=== PATIENT | female | born 1965 | race Caucasian/White ===

== ENCOUNTER 2017-03-16 12:50 | Inpatient (IN) | payer MEDICARE, MEDICAID ==
[2017-03-16 13:25] LABS: HEMATOCRIT 35.2 % (41.0-60); HEMOGLOBIN 11.9 gm/dL (12-16); MEAN CELL VOLUME 82.8 fl (81-100); MEAN CORPUSCULAR HEMOGLOBIN 27.9 pg (27.0-31.0); MEAN CORPUSCULAR HGB CONC 33.7 pg (28.0-36.0); MEAN PLATELET VOLUME 7.9 fl; PLATELET COUNT 176 Th/cmm (150-400); RED BLOOD COUNT 4.25 Mil/cmm (3.80-5.10)
[2017-03-16 13:34] LABS: WHITE BLOOD COUNT 15.8 Th/cmm (4.8-10.8)
[2017-03-16 13:44] LABS: ALB/GLOB RATIO 1.4 (1.0-1.8); ALKALINE PHOSPHATASE 74 U/L (34-104); ANION GAP 11.3 (7.0-16.0); BILIRUBIN,TOTAL 0.8 mg/dL (0.3-1.0); BUN - UREA NITROGEN 12 mg/dL (7-25); CALCIUM SERUM 9.2 mg/dL (8.6-10.3); CARBON DIOXIDE 25.4 mEq/L (21.0-31.0); CHLORIDE 94 mEq/L (98-107); CREATININE - SERUM 0.8 mg/dL (0.6-1.2); GLUCOSE 214 mg/dL (70-105); POTASSIUM SERUM 3.7 mEq/L (3.5-5.1); SGOT 8 U/L (13-39); SGPT/ALT 7 U/L (7-52); SODIUM SERUM 127 mEq/L (136-145)
--- NOTE | 2017-03-16 13:53 | ED Physician Chart ---
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 The patient was brought to the ER for further evaluation and management. Allergies:: Allergies Allergy/AdvReac Type Severity Reaction Status Date / Time Penicillins [PCN] Allergy Verified 10/21/16 19:31 Vitals:: Vital Signs - 8 hr 03/16/17 13:20 Temp 99.2 F HR 107 RR 16 BP 108/72 O2 Sat % 99 ED Review of Systems - Review of Systems General/Constitutional: Fever Skin: Skin lesions Head: No headache Eyes: No loss of vision ENT: No earache Neck: No neck pain Cardio Vascular: No chest pain Pulmonary: No SOB GI: No nausea, No vomiting Musculoskeletal: Bone or joint pain ED Past Medical History - Past Medical History Past Medical History: DM, Seizures, Other (Schizoaffective disorder, muscle weakness, hypothyroidism, osteoarthritis, urinary incontinence) Social History: Non Smoker, No Alcohol, No Drug Use Family Medical History - Family Member Mother History Unknown: Yes Ethnicity: Unknown Living Status: Still Living Hx Family Cancer: No Hx Family Coronary Artery Disease: No Hx Family Congestive Heart Failure: No Hx Family Hypertension: Yes Hx Family Stroke: No Hx Family Diabetes: No Hx Family Seizures: Yes Hx Family Dementia: No Hx Family AIDS: No Hx Family HIV: No Hx Family COPD: No Hx Family Hepatitis: No Hx Family Psychiatric Problems: Yes Hx Family Tuberculosis: No Father History Unknown: Yes ED Physical Exam - Physical Examination General/Constitutional: Awake, Alert Other Gen/Cons comments:: Oriented to self and place, not time Eyes: PERRL, EOMI Other Skin comments:: Left knee tenderness, erythema, swelling. Neck: Full ROM w/o pain Respiratory: Clear to Auscultation, No Wheeze/Rhonchi/Rales Cardio Vascular: RRR, No murmur, gallop, rubs, NL S1 S2 GI: No tenderness/rebounding/guarding Other Extremities comments:: Left knee suprapatellar tenderness, erythema, swelling with limited and painful ROM. There are 2 small dried scabs on the suprapatellar area. Neuro/Psych: Normal sensory exam ED Labs/Radiology/EKG Results - Lab Results Results: Laboratory Tests 03/16/17 13:10 WBC 15.8 H D RBC 4.25 Hgb 11.9 L Hct 35.2 L MCV 82.8 MCH 27.9 MCHC Differential 33.7 RDW 15.0 Plt Count 176 D MPV 7.9 - Radiology Results Results: Left knee X ray: No fracture ED Assessment - Assessment General Assessment: 51 yo female has cellulites of the left knee, leukocytosis, hyponatremia, DM II , hypothyroidism and schizoaffective disorder. Critical Care Time: 45 min Excludes all billable procedures: Yes This condition life threatening/high prob of deterioration: No Assessment/Comments:: CBC, CMP, blood culture Left knee X ray to rule out any fracture ED Septic Shock - . Is Septic Shock (SBP<90, OR Lactate>4 mmol\L) present?: No - <6hrs of presentation: Vital Signs: Vital Signs - 8 hr 03/16/17 13:20 Temp 99.2 F HR 107 RR 16 BP 108/72 O2 Sat % 99 ED Reassessment (Disposition) - Reassessment Reassessment Condition:: Unchanged - Patient Disposition Discharge/Transfer:: Acute Care w/in this hosp Admitting Psych Physician:: Jamir Russell ED Discharge Plan - Patient Disposition Admit/Discharge/Transfer: Acute Care w/in this hosp Condition at Disposition: Unchanged
--- NOTE | 2017-03-16 14:05 | Diagnostic Imaging Report ---
Left knee 3 views Indication: pain Comparison: Left knee x-rays on 05/24/2015 Findings: Again seen are calcifications along the medial aspect of the distal femur and proximal tibia. No evidence of acute fracture. Osteopenia is noted. Suprapatellar and prepatellar soft tissue swelling is noted. Note significant effusion. Mild degenerative changes are noted. Impression: No evidence of an acute fracture. Suprapatellar and prepatellar soft tissue swelling. Underlying bursitis cannot be excluded. Please correlate clinically. Mild degenerative changes. Atherosclerotic vascular disease. In the setting of trauma, if clinical symptoms persist and there is continued concern for an occult fracture, follow up exams in 5-7 days is suggested.
[2017-03-16 14:12] LABS: BAND NEUTROPHILE 4 % (0-10); BASOPHIL 1 % (0-3); EOSINOPHIL 0 % (0-5); NEUTROPHILS 87 % (40-80); PLATELET ESTIMATE ADEQUATE (NORMAL); PLATELET MORPHOLOGY NORMAL (NORMAL); TOTAL CELLS COUNTED 100
[2017-03-16] MEDS ORDERED: GLUCAGON HCl 1 MG KIT IM PRN (14:51)
[2017-03-16] MEDS ORDERED: guaiFENesin 200 MG/10 ML UDC PO PRN (14:53)
[2017-03-16] MEDS ORDERED: Albuterol Nebulizer 2.5mg/3mL HHN PRN (14:53)
[2017-03-16] MEDS ORDERED: Ipratropium Neb 0.5 mg/2.5 mL UD IH PRN (14:53)
--- NOTE | 2017-03-16 16:45 | History & Physical ---
ADMIT DATE: 03/16/2017 CHIEF COMPLAINT: Left knee pain status post fall. HISTORY OF PRESENT ILLNESS: This is a 51-year-old female with history of diabetes, Schizoaffective disorder, seizure, hypothyroidism, and apparently had a fall a few days prior, now with left knee with redness. The patient is a poor historian. Denies chest pain, shortness of breath. PAST MEDICAL HISTORY: As mentioned in history present illness. PAST SURGICAL HISTORY: Status post left knee surgeries the past. ALLERGIES: PENICILLIN. MEDICATIONS: The patient is on insulin sliding scale, multivitamins, calcium, Depakote, Aricept, Pepcid, Haldol, hydrocodone, Keppra, Synthroid. For multivitamins, Zyprexa, Depakote. FAMILY HISTORY: Noncontributory. SOCIAL HISTORY: The patient is a long-term patient requiring 24-hour total care. REVIEW OF SYSTEMS: This is limited secondary to the patient's current mental state. We will try to obtain more detailed review of system at a later date by talking to family members. Dad is Deborah Berumenluigi. [facility] [phone]. We will also try to get information from nursing staff at [facility] at [phone]. PHYSICAL EXAMINATION: VITAL SIGNS: Blood pressure 118/63, respirations 18, pulse 102, temperature 99.0. GENERAL: Elderly female, appears her stated age. NECK: Supple. No mass. LUNGS: Equal breath sounds, few rhonchi. HEART: Regular rate and rhythm without appreciable murmurs. ABDOMEN: Soft, globular, positive bowel sounds. EXTREMITIES: Positive excoriation left knee, redness and swelling. NEUROLOGIC: Limited, moving 4 extremities. LABORATORY DATA: WBC of 15, hemoglobin 11, platelets is 176. Sodium 127, potassium 3.7, BUN 12, creatinine 0.8, blood sugar 214. Lactic acid 2.9. ASSESSMENT AND PLAN: Left knee cellulitis, leukocytosis, anemia, hyponatremia, lactic acidosis, diabetes, schizoaffective disorder, seizure, and hypothyroidism. I will continue the patient on IV antibiotic and IV hydration. We will review the patient's x-ray. We may consider imaging studies. We will place the patient on Levaquin as well as vancomycin for now. The patient will continue with current care and follow up consult recommendations. JOB# [id number]
[2017-03-16] MEDS: Sodium Chloride 0.45% 1,000 ML IV SCH (16:56)
[2017-03-16] MEDS: Levofloxacin 500mg/100mL 500 MG/100 ML BAG IV SCH (17:10)
[2017-03-16] MEDS: Dextromethorphan/Quinidine 20mg/10mg Cap PO SCH (17:16)
[2017-03-16] MEDS: INSULIN ASPART, RECOMBINANT 100 UNITS/ML SUBQ SCH ×2 (17:20→21:57)
[2017-03-16] MEDS ORDERED: Non-Formulary Item 1 EA (Amino Acids/Protein Hydrolys [Pro-Stat Sugar Free Liquid] 30 ML) PO SCH (21:00)
[2017-03-17] MEDS: Hydrocodone/APAP 5mg/325mg Tab PO PRN ×2 (02:24→20:01)
[2017-03-17] MEDS: Dextromethorphan/Quinidine 20mg/10mg Cap PO SCH ×2 (02:24→15:05)
[2017-03-17 06:10] LABS: % BASOPHILS 0.2 % (0.0-2.0); % EOSINOPHILS 0.3 % (0.0-5.0); % LYMPHOCYTES 11.4 % (20.0-50.0); % MONOCYTES 6.7 % (2.0-10.0); % NEUTROPHILS 81.4 % (40.0-80.0); HEMATOCRIT 31.8 % (41.0-60); HEMOGLOBIN 10.8 gm/dL (12-16); MEAN CORPUSCULAR HEMOGLOBIN 28.2 pg (27.0-31.0); MEAN CORPUSCULAR HGB CONC 33.9 pg (28.0-36.0); MEAN PLATELET VOLUME 8.2 fl; NEUTROPHILE ABSOLUTE 7.2 Th/cmm (1.8-8.0); PLATELET COUNT 148 Th/cmm (150-400); RED BLOOD COUNT 3.83 Mil/cmm (3.80-5.10); RED CELL DISTRIBUTION WIDTH 14.8 % (11.5-20.0)
[2017-03-17 06:16] LABS: WHITE BLOOD COUNT 8.8 Th/cmm (4.8-10.8)
[2017-03-17 06:27] LABS: BUN - UREA NITROGEN 11 mg/dL (7-25); BUN/CREATININE RATIO 15.7; CALCIUM SERUM 8.8 mg/dL (8.6-10.3); CARBON DIOXIDE 28.8 mEq/L (21.0-31.0); CHLORIDE 101 mEq/L (98-107); CREATININE - SERUM 0.7 mg/dL (0.6-1.2); GLUCOSE 140 mg/dL (70-105); MAGNESIUM 1.8 mg/dL (1.9-2.7); POTASSIUM SERUM 3.8 mEq/L (3.5-5.1); SODIUM SERUM 134 mEq/L (136-145)
[2017-03-17] MEDS: Sodium Chloride 0.45% 1,000 ML IV SCH ×2 (06:35→15:06)
[2017-03-17] MEDS: INSULIN ASPART, RECOMBINANT 100 UNITS/ML SUBQ SCH ×2 (06:36→22:12)
[2017-03-17] MEDS: Levothyroxine 0.075 Mg Tab PO SCH (06:36)
[2017-03-17] MEDS: Levofloxacin 500mg/100mL 500 MG/100 ML BAG IV SCH (09:34)
[2017-03-17] MEDS: Multivitamin Tab PO SCH (09:41)
[2017-03-17] MEDS ORDERED: Mag Sulfate 2gm/50mL Premix 2 GM/50 ML BAG IV ONE (14:00)
--- NOTE | 2017-03-17 14:03 | Internal Medicine Prog Note ---
Internal Medicine Subjective - Subjective Service Date: 03/17/17 (on tpn) Patient seen and examined:: with staff Patient is:: awake Per staff patient has:: tolerating meds Internal Medicine Objective - Results Result Diagrams: 03/17/17 05:45 03/17/17 05:45 Recent Labs: Laboratory Last Values WBC 8.8 Th/cmm (4.8-10.8) D 03/17/17 05:45 RBC 3.83 Mil/cmm (3.80-5.10) 03/17/17 05:45 Hgb 10.8 gm/dL (12-16) L 03/17/17 05:45 Hct 31.8 % (41.0-60) L 03/17/17 05:45 MCV 83.0 fl (81-100) 03/17/17 05:45 MCH 28.2 pg (27.0-31.0) 03/17/17 05:45 MCHC Differential 33.9 pg (28.0-36.0) 03/17/17 05:45 RDW 14.8 % (11.5-20.0) 03/17/17 05:45 Plt Count 148 Th/cmm (150-400) L 03/17/17 05:45 MPV 8.2 fl 03/17/17 05:45 Neutrophils % 81.4 % (40.0-80.0) H 03/17/17 05:45 Band Neutrophils % 4 % (0-10) 03/16/17 13:10 Lymphocytes % 11.4 % (20.0-50.0) L 03/17/17 05:45 Monocytes % 6.7 % (2.0-10.0) 03/17/17 05:45 Eosinophils % 0.3 % (0.0-5.0) 03/17/17 05:45 Basophils % 0.2 % (0.0-2.0) 03/17/17 05:45 Neutrophils (Manual) 87 % (40-80) H 03/16/17 13:10 Lymphocytes 4 % (20-50) L 03/16/17 13:10 Monocytes 4 % (2-10) 03/16/17 13:10 Eosinophils 0 % (0-5) 03/16/17 13:10 Basophils 1 % (0-3) 03/16/17 13:10 Platelet Estimate ADEQUATE (NORMAL) 03/16/17 13:10 Platelet Morphology NORMAL (NORMAL) 03/16/17 13:10 RBC Morph Micro Appear NORMAL (NORMAL) 03/16/17 13:10 ESR 95 mm/hr (0-30) H 03/17/17 05:45 Sodium 134 mEq/L (136-145) L 03/17/17 05:45 Potassium 3.8 mEq/L (3.5-5.1) 03/17/17 05:45 Chloride 101 mEq/L (98-107) 03/17/17 05:45 Carbon Dioxide 28.8 mEq/L (21.0-31.0) 03/17/17 05:45 Anion Gap 8.0 (7.0-16.0) 03/17/17 05:45 BUN 11 mg/dL (7-25) 03/17/17 05:45 Creatinine 0.7 mg/dL (0.6-1.2) 03/17/17 05:45 Est GFR ( Amer) > 60.0 ml/min (>90) 03/17/17 05:45 Est GFR (Non-Af Amer) > 60.0 ml/min 03/17/17 05:45 BUN/Creatinine Ratio 15.7 03/17/17 05:45 Glucose 140 mg/dL (70-105) H 03/17/17 05:45 POC Glucose 170 MG/DL (70 - 105) H 03/17/17 11:56 Hemoglobin A1c % 6.1 % (4.0-6.0) H 03/16/17 13:10 Whole Bld Lactic Acid 1.87 mmol/L (0.60-1.99) 03/16/17 15:15 Calcium 8.8 mg/dL (8.6-10.3) 03/17/17 05:45 Magnesium 1.8 mg/dL (1.9-2.7) L 03/17/17 05:45 Total Bilirubin 0.8 mg/dL (0.3-1.0) 03/16/17 13:10 AST 8 U/L (13-39) L 03/16/17 13:10 ALT 7 U/L (7-52) 03/16/17 13:10 Alkaline Phosphatase 74 U/L (34-104) 03/16/17 13:10 Total Protein 6.8 gm/dL (6.0-8.3) 03/16/17 13:10 Albumin 4.0 gm/dL (3.7-5.3) 03/16/17 13:10 Globulin 2.8 gm/dL 03/16/17 13:10 Albumin/Globulin Ratio 1.4 (1.0-1.8) 03/16/17 13:10 - Physical Exam Vitals and I&O: Vital Signs Temp 98.7 F 03/17/17 04:00 Pulse 120 03/17/17 08:25 Resp 22 03/17/17 08:25 BP 125/70 03/17/17 04:00 Pulse Ox 96 03/17/17 08:25 Intake & Output 03/16/17 03/17/17 03/17/17 18:59 06:59 18:59 Intake Total 100 1250 Balance 100 1250 Weight (lbs) 113 lb Intake: Intake, IV Amount 100 1250 Levofloxacin 500mg/100mL 100 500 mg In 100 ml @ 100 mls/hr IV Q24HR@0900 [facility] Rx#:[id number] Sodium Chloride 0.45% 1, 1000 000 ml @ 80 mls/hr IV . [id number] [facility] Rx#:[id number] Vancomycin HCl 1 gm In 250 Sodium Chloride 0.9% 250 ml @ 166.667 mls/hr IV Q24HR@0900 [facility] Rx#: [id number] Other: # Voids 5 # Bowel Movements 0 Active Medications: Current Medications Acetaminophen (Tylenol) 650 mg PO Q4H PRN PRN Reason: Mild Pain Or Fever above 101 Stop: 05/15/17 14:52 Acetaminophen/Hydrocodone Bitart ([place] 5mg/325mg) 1 tab PO Q6HR PRN PRN Reason: Pain (Moderate) Stop: 05/15/17 14:50 Last Admin: 03/17/17 02:24 Dose: 1 tab Albuterol Sulfate (Albuterol 2.5mg/3ml Neb Ud) 2.5 mg HHN Q2HRT PRN PRN Reason: Shortness of Breath or Wheeze Stop: 05/15/17 14:52 Calcium Carbonate (Os-Neil) 500 mg PO [facility] Stop: 05/15/17 20:59 Last Admin: 03/16/17 20:55 Dose: 500 mg Dextromethorphan/Quinidine (Nuedexta 20mg-10mg) 1 cap PO Q12H DIANA Stop: 05/15/17 14:59 Last Admin: 03/17/17 02:24 Dose: 1 cap Divalproex Sodium (Depakote Dr) 500 mg PO BID DIANA PRN Reason: Protocol Stop: 05/15/17 16:59 Last Admin: 03/17/17 09:30 Dose: 500 mg Donepezil HCl (Aricept) 5 mg PO HS DIANA Stop: 05/15/17 20:59 Last Admin: 03/16/17 20:57 Dose: 5 mg Famotidine (Pepcid) 20 mg PO DAILY DIANA Stop: 05/16/17 08:59 Last Admin: 03/17/17 09:31 Dose: 20 mg Glucagon (Glucagen) 1 mg IM PRN PRN PRN Reason: BS <60 Guaifenesin (Robitussin) 200 mg PO Q4HR PRN PRN Reason: Cough or Congestion Stop: 05/15/17 14:52 Haloperidol (Haldol) 5 mg PO BID DIANA PRN Reason: Protocol Stop: 05/16/17 16:59 Heparin Sodium (Porcine) (Heparin) 5,000 units SUBQ Q12HR DIANA Stop: 05/15/17 20:59 Last Admin: 03/17/17 09:32 Dose: 5,000 units Levofloxacin (Levaquin Pb) 500 mg in 100 mls @ 100 mls/hr IV Q24HR@0900 [facility] Stop: 05/15/17 15:59 Last Admin: 03/17/17 09:34 Dose: 100 mls/hr Sodium Chloride (Nacl 0.45%) 1,000 mls @ 80 mls/hr IV .[id number] [facility] Stop: 05/15/17 14:59 Last Admin: 03/17/17 06:35 Dose: 80 mls/hr Vancomycin HCl 1 gm/ Sodium (Chloride) 250 mls @ 166.667 mls/hr IV Q24HR@0900 DIANA Stop: 05/15/17 15:59 Last Admin: 03/17/17 10:02 Dose: 166.667 mls/hr Magnesium Sulfate (Magnesium Sulfate Premix) 2 gm in 50 mls @ 25 mls/hr IV X1 ONE Stop: 03/17/17 15:59 Insulin Aspart (Novolog) 0 units SUBQ ACHS DIANA PRN Reason: Protocol Stop: 05/15/17 16:29 Last Admin: 03/17/17 06:36 Dose: Not Given Ipratropium [place] (Atrovent Neb 0.5mg/2.5ml) 0.5 mg IH Q2HRT PRN PRN Reason: Shortness of Breath or Wheeze Stop: 05/15/17 14:52 Levetiracetam (Keppra) 500 mg PO BID DIANA Stop: 05/15/17 16:59 Last Admin: 03/17/17 09:33 Dose: 500 mg Levothyroxine Sodium (Synthroid) 0.075 mg PO QDAC DIANA Stop: 05/16/17 07:29 Last Admin: 03/17/17 06:36 Dose: 0.075 mg Lorazepam (Ativan) 0.5 mg PO Q6HR PRN; Protocol PRN Reason: Anxiety Stop: 05/15/17 14:50 Last Admin: 03/17/17 10:01 Dose: 0.5 mg Metformin HCl (Glucophage) 500 mg PO TID DIANA Stop: 05/15/17 20:59 Last Admin: 03/17/17 10:14 Dose: 500 mg Miscellaneous (Vancomycin Iv Per Pharmacy) 1 ea [facility] DAILY DIANA Stop: 05/17/17 08:59 Multivitamins/Vitamin C (Theragran) 1 tab PO DAILY DIANA Stop: 05/16/17 08:59 Last Admin: 03/17/17 09:41 Dose: 1 tab Olanzapine (Zyprexa) 5 mg PO DAILY DIANA PRN Reason: Protocol Stop: 05/16/17 08:59 Last Admin: 03/17/17 09:43 Dose: 5 mg Ondansetron HCl (Zofran) 4 mg IV Q8H PRN PRN Reason: Nausea / Vomiting Stop: 05/15/17 14:52 Valproate Sodium (Depakene) 750 mg PO HS DIANA Stop: 05/15/17 20:59 Last Admin: 03/16/17 20:55 Dose: 750 mg General: weak, alert HEENT: NC/AT, PERRLA Lungs: CTAB Cardiovascular: RRR, Normal S1, Normal S2, without murmur Abdomen: soft, non-tender, non-distended, positive bowel sound Extremities: redness (left knee) Neurological: muscle weakness - Procedures Procedures: Procedures Procedure Code Date BLOOD TRANSFUSION SERVICE 70704 03/29/16 CLOSURE SKIN & SUBCUTANEOUS NEC 86.59 07/02/14 DIAGNOSTIC COLONOSCOPY 10668 09/13/15 DRAINAGE OF STOMACH, ENDO, DIAGN [id number] 09/13/15 EGD BIOPSY SINGLE/MULTIPLE 64226 09/13/15 ELECTROCARDIOGRAM 89.52 10/10/94 EMERGENCY DEPT VISIT 94683 07/04/11 EXCISION OF DUODENUM, ENDO, DIAGN [id number] 09/13/15 GASTRIC INTUBATION TREATMENT 40445 12/28/07 GASTRIC LAVAGE 96.33 12/28/07 INSERT GASTRIC TUBE NEC 96.07 07/26/95 INSERT INDWELLING CATH 57.94 09/16/11 INSERT TEMP BLADDER CATH 49415 09/16/11 INSERTION OF INT FIX INTO L HUMERAL SHAFT, PERC APPROACH [id number] 05/24/15 INSPECTION OF LOWER INTESTINAL TRACT, ENDO [id number] 09/13/15 OXYGEN ENRICHMENT NEC 93.96 10/10/94 REMOV THERAPEUT DEV NEC 97.89 03/25/01 REMOVAL OF INT FIX FROM R KNEE JT, OPEN APPROACH [id number] 04/15/16 REPAIR FACE SKIN, EXTERNAL APPROACH [id number] 04/12/15 REPOSITION RIGHT PATELLA WITH INT FIX, OPEN APPROACH [id number] 03/29/16 RPR F/E/E/N/L/M 2.5 CM/< 11894 04/12/15 RPR F/E/E/N/L/M 2.6-5.0 CM 35198 07/02/14 TETANUS TOXOID ADMINIST 99.38 07/02/14 TRANSFUSE NONAUT RED BLOOD CELLS IN PERIPH VEIN, PERC 15628H2 03/29/16 TREAT KNEECAP FRACTURE 04490 03/29/16 UPPER ARM/ELBOW SURGERY 12158 05/24/15 Internal Medicine Assmt/Plan - Assessment Assessment: left knee cellulitis leukocytosis anemia hyponatremia lactic acidosis dm-2 schizoaffective disorder seizure hypothyroidism - Plan Plan: continue ivabx continue with tpn ivf for hydration monitor electrolytes am labs continue current plan of care
--- NOTE | 2017-03-17 19:16 | Consultation ---
DATE OF CONSULTATION: 03/17/2017 PSYCHIATRIC CONSULTATION The patient was seen, chart reviewed, discussed with staff. HISTORY OF PRESENT ILLNESS: The patient is a 51-year-old female with a history of dementia, psychosis and schizoaffective disorder, currently admitted to the hospital with cellulitis. The patient has been passively accepting treatment, but at times she has some episodes of restlessness and she is trying to scratch her cellulitis side on her lower extremity. The patient is oriented to person, knew she was in the hospital, but she at times refusing to follow commands. PAST PSYCHIATRIC HISTORY: Multiple psychiatric hospitalizations, chronic history of mental illness and dementia. PAST MEDICAL HISTORY: As per H and P. PSYCHOSOCIAL HISTORY: The patient resides at [facility], and she requires complete care. Family is supportive. Father visits often. MENTAL STATUS EXAMINATION: The patient is slightly lethargic at this time, makes fair eye contact. She is oriented to person, knew she is in the hospital, did not know the date, did not know her age. The patient slightly guarded. No other hallucinations. The patient is superficial with poverty of thoughts. ASSESSMENT: Schizoaffective disorder and dementia, not otherwise specified. At this time, would recommend continuation of supportive measures. We will decrease Haldol to 5 mg p.o. b.i.d. The patient appears to be slightly sleepy at this time. Continue Depakote 500 mg p.o. b.i.d. Monitor closely. We will follow while in the hospital. Thank you for the consultation. JOB# [id number]
[2017-03-18] MEDS: Dextromethorphan/Quinidine 20mg/10mg Cap PO SCH ×2 (03:24→15:15)
[2017-03-18 05:21] LABS: HEMATOCRIT 30.6 % (41.0-60); HEMOGLOBIN 10.3 gm/dL (12-16); MEAN CORPUSCULAR HEMOGLOBIN 27.5 pg (27.0-31.0); MEAN CORPUSCULAR HGB CONC 33.6 pg (28.0-36.0); MEAN PLATELET VOLUME 7.5 fl; PLATELET COUNT 170 Th/cmm (150-400); RED BLOOD COUNT 3.74 Mil/cmm (3.80-5.10); RED CELL DISTRIBUTION WIDTH 14.6 % (11.5-20.0); WHITE BLOOD COUNT 8.5 Th/cmm (4.8-10.8)
[2017-03-18 05:42] LABS: ANION GAP 8.4 (7.0-16.0); BUN - UREA NITROGEN 8 mg/dL (7-25); BUN/CREATININE RATIO 13.3; CALCIUM SERUM 8.6 mg/dL (8.6-10.3); CARBON DIOXIDE 28.3 mEq/L (21.0-31.0); CHLORIDE 98 mEq/L (98-107); CREATININE - SERUM 0.6 mg/dL (0.6-1.2); GLUCOSE 169 mg/dL (70-105); POTASSIUM SERUM 3.7 mEq/L (3.5-5.1); SODIUM SERUM 131 mEq/L (136-145)
[2017-03-18 06:02] LABS: BAND NEUTROPHILE 7 % (0-10); NEUTROPHILS 82 % (40-80); TOTAL CELLS COUNTED 100
[2017-03-18] MEDS: INSULIN ASPART, RECOMBINANT 100 UNITS/ML SUBQ SCH ×4 (07:03→21:49)
[2017-03-18] MEDS: Levothyroxine 0.075 Mg Tab PO SCH (07:04)
[2017-03-18] MEDS: Multivitamin Tab PO SCH (09:12)
[2017-03-18] MEDS: Levofloxacin 500mg/100mL 500 MG/100 ML BAG IV SCH (09:14)
--- NOTE | 2017-03-18 11:25 | Internal Medicine Prog Note ---
Internal Medicine Subjective - Subjective Service Date: 03/18/17 Patient seen and examined:: with staff Patient is:: awake Per staff patient has:: tolerating meds Internal Medicine Objective - Results Result Diagrams: 03/18/17 05:11 03/18/17 05:11 Recent Labs: Laboratory Last Values WBC 8.5 Th/cmm (4.8-10.8) 03/18/17 05:11 RBC 3.74 Mil/cmm (3.80-5.10) L 03/18/17 05:11 Hgb 10.3 gm/dL (12-16) L 03/18/17 05:11 Hct 30.6 % (41.0-60) L 03/18/17 05:11 MCV 82.0 fl (81-100) 03/18/17 05:11 MCH 27.5 pg (27.0-31.0) 03/18/17 05:11 MCHC Differential 33.6 pg (28.0-36.0) 03/18/17 05:11 RDW 14.6 % (11.5-20.0) 03/18/17 05:11 Plt Count 170 Th/cmm (150-400) 03/18/17 05:11 MPV 7.5 fl 03/18/17 05:11 Neutrophils % 81.4 % (40.0-80.0) H 03/17/17 05:45 Band Neutrophils % 7 % (0-10) 03/18/17 05:11 Lymphocytes % 11.4 % (20.0-50.0) L 03/17/17 05:45 Monocytes % 6.7 % (2.0-10.0) 03/17/17 05:45 Eosinophils % 0.3 % (0.0-5.0) 03/17/17 05:45 Basophils % 0.2 % (0.0-2.0) 03/17/17 05:45 Neutrophils (Manual) 82 % (40-80) H 03/18/17 05:11 Lymphocytes 6 % (20-50) L 03/18/17 05:11 Monocytes 5 % (2-10) 03/18/17 05:11 Eosinophils 0 % (0-5) 03/16/17 13:10 Basophils 1 % (0-3) 03/16/17 13:10 Platelet Estimate ADEQUATE (NORMAL) 03/16/17 13:10 Platelet Morphology NORMAL (NORMAL) 03/16/17 13:10 RBC Morph Micro Appear NORMAL (NORMAL) 03/16/17 13:10 ESR 95 mm/hr (0-30) H 03/17/17 05:45 Sodium 131 mEq/L (136-145) L 03/18/17 05:11 Potassium 3.7 mEq/L (3.5-5.1) 03/18/17 05:11 Chloride 98 mEq/L (98-107) 03/18/17 05:11 Carbon Dioxide 28.3 mEq/L (21.0-31.0) 03/18/17 05:11 Anion Gap 8.4 (7.0-16.0) 03/18/17 05:11 BUN 8 mg/dL (7-25) 03/18/17 05:11 Creatinine 0.6 mg/dL (0.6-1.2) 03/18/17 05:11 Est GFR ( Amer) > 60.0 ml/min (>90) 03/18/17 05:11 Est GFR (Non-Af Amer) > 60.0 ml/min 03/18/17 05:11 BUN/Creatinine Ratio 13.3 03/18/17 05:11 Glucose 169 mg/dL (70-105) H 03/18/17 05:11 POC Glucose 143 MG/DL (70 - 105) H 03/18/17 07:01 Hemoglobin A1c % 6.1 % (4.0-6.0) H 03/16/17 13:10 Whole Bld Lactic Acid 1.87 mmol/L (0.60-1.99) 03/16/17 15:15 Calcium 8.6 mg/dL (8.6-10.3) 03/18/17 05:11 Magnesium 1.8 mg/dL (1.9-2.7) L 03/17/17 05:45 Total Bilirubin 0.8 mg/dL (0.3-1.0) 03/16/17 13:10 AST 8 U/L (13-39) L 03/16/17 13:10 ALT 7 U/L (7-52) 03/16/17 13:10 Alkaline Phosphatase 74 U/L (34-104) 03/16/17 13:10 Total Protein 6.8 gm/dL (6.0-8.3) 03/16/17 13:10 Albumin 4.0 gm/dL (3.7-5.3) 03/16/17 13:10 Globulin 2.8 gm/dL 03/16/17 13:10 Albumin/Globulin Ratio 1.4 (1.0-1.8) 03/16/17 13:10 Vancomycin Trough 4.4 ug/mL (10-20) L 03/18/17 08:10 - Physical Exam Vitals and I&O: Vital Signs Temp 100.1 F 03/18/17 04:00 Pulse 104 03/18/17 08:28 Resp 20 03/18/17 08:28 BP 149/86 03/18/17 04:00 Pulse Ox 94 03/18/17 08:28 Intake & Output 03/17/17 03/18/17 03/18/17 18:59 06:59 18:59 Intake Total 970.178 0916 Output Total 9 Balance 376.158 7204 Weight (lbs) 113 lb 112 lb 4.8 oz Intake: Intake, IV Amount 093.824 0096 Levofloxacin 500mg/100mL 100 500 mg In 100 ml @ 100 mls/hr IV Q24HR@0900 [facility] Rx#:[id number] Sodium Chloride 0.45% 1, 362.976 9492 000 ml @ 80 mls/hr IV . [id number] [facility] Rx#:[id number] Oral 450 Output: Urine 5 Stool 4 Emesis 0 Other: # Voids 5 4 # Bowel Movements 4 Active Medications: Current Medications Acetaminophen (Tylenol) 650 mg PO Q4H PRN PRN Reason: Mild Pain Or Fever above 101 Stop: 05/15/17 14:52 Last Admin: 03/18/17 06:28 Dose: 650 mg Acetaminophen/Hydrocodone Bitart ([place] 5mg/325mg) 1 tab PO Q6HR PRN PRN Reason: Pain (Moderate) Stop: 05/15/17 14:50 Last Admin: 03/17/17 20:01 Dose: 1 tab Albuterol Sulfate (Albuterol 2.5mg/3ml Neb Ud) 2.5 mg HHN Q2HRT PRN PRN Reason: Shortness of Breath or Wheeze Stop: 05/15/17 14:52 Calcium Carbonate (Os-Neil) 500 mg PO HS [facility] Stop: 05/15/17 20:59 Last Admin: 03/17/17 22:20 Dose: 500 mg Dextromethorphan/Quinidine (Nuedexta 20mg-10mg) 1 cap PO Q12H [facility] Stop: 05/15/17 14:59 Last Admin: 03/18/17 03:24 Dose: 1 cap Divalproex Sodium (Depakote Dr) 500 mg PO BID [facility] PRN Reason: Protocol Stop: 05/15/17 16:59 Last Admin: 03/18/17 09:11 Dose: 500 mg Donepezil HCl (Aricept) 5 mg PO HS [facility] Stop: 05/15/17 20:59 Last Admin: 03/17/17 22:20 Dose: 5 mg Famotidine (Pepcid) 20 mg PO DAILY [facility] Stop: 05/16/17 08:59 Last Admin: 03/18/17 09:12 Dose: 20 mg Glucagon (Glucagen) 1 mg IM PRN PRN PRN Reason: BS <60 Guaifenesin (Robitussin) 200 mg PO Q4HR PRN PRN Reason: Cough or Congestion Stop: 05/15/17 14:52 Haloperidol (Haldol) 5 mg PO BID [facility]NA PRN Reason: Protocol Stop: 05/16/17 16:59 Last Admin: 03/18/17 09:12 Dose: 5 mg Heparin Sodium (Porcine) (Heparin) 5,000 units SUBQ Q12HR [facility] Stop: 05/15/17 20:59 Last Admin: 03/18/17 09:11 Dose: 5,000 units Levofloxacin (Levaquin Pb) 500 mg in 100 mls @ 100 mls/hr IV Q24HR@0900 [facility] Stop: 05/15/17 15:59 Last Admin: 03/18/17 09:14 Dose: 100 mls/hr Sodium Chloride (Nacl 0.45%) 1,000 mls @ 80 mls/hr IV .[id number] [facility] Stop: 05/15/17 14:59 Last Infusion: 03/18/17 06:17 Dose: Infused Vancomycin HCl 1 gm/ Sodium (Chloride) 250 mls @ 165 mls/hr IV Q8H [facility] Stop: 05/17/17 11:59 Insulin Aspart (Novolog) 0 units SUBQ ACHS [facility] PRN Reason: Protocol Stop: 05/15/17 16:29 Last Admin: 03/18/17 07:03 Dose: Not Given Ipratropium [place] (Atrovent Neb 0.5mg/2.5ml) 0.5 mg IH Q2HRT PRN PRN Reason: Shortness of Breath or Wheeze Stop: 05/15/17 14:52 Levetiracetam (Keppra) 500 mg PO BID [facility] Stop: 05/15/17 16:59 Last Admin: 03/18/17 09:13 Dose: 500 mg Levothyroxine Sodium (Synthroid) 0.075 mg PO QDAC [facility] Stop: 05/16/17 07:29 Last Admin: 03/18/17 07:04 Dose: 0.075 mg Lorazepam (Ativan) 0.5 mg PO Q6HR PRN; Protocol PRN Reason: Anxiety Stop: 05/15/17 14:50 Last Admin: 03/17/17 22:31 Dose: 0.5 mg Metformin HCl (Glucophage) 500 mg PO TID [facility] Stop: 05/15/17 20:59 Last Admin: 03/18/17 09:11 Dose: 500 mg Miscellaneous (Vancomycin Iv Per Pharmacy) 1 ea MC DAILY [facility] Stop: 05/17/17 08:59 Multivitamins/Vitamin C (Theragran) 1 tab PO DAILY [facility] Stop: 05/16/17 08:59 Last Admin: 03/18/17 09:12 Dose: 1 tab Olanzapine (Zyprexa) 5 mg PO DAILY [facility] PRN Reason: Protocol Stop: 05/16/17 08:59 Last Admin: 03/18/17 09:12 Dose: 5 mg Ondansetron HCl (Zofran) 4 mg IV Q8H PRN PRN Reason: Nausea / Vomiting Stop: 05/15/17 14:52 Valproate Sodium (Depakene) 750 mg PO HS [facility] Stop: 05/15/17 20:59 Last Admin: 03/17/17 22:20 Dose: 750 mg General: weak, alert HEENT: NC/AT, PERRLA Lungs: CTAB Cardiovascular: RRR, Normal S1, Normal S2, without murmur Abdomen: soft, non-tender, non-distended, positive bowel sound Extremities: redness (left knee) Neurological: muscle weakness - Procedures Procedures: Procedures Procedure Code Date BLOOD TRANSFUSION SERVICE 64363 03/29/16 CLOSURE SKIN & SUBCUTANEOUS NEC 86.59 07/02/14 DIAGNOSTIC COLONOSCOPY 48003 09/13/15 DRAINAGE OF STOMACH, ENDO, DIAGN [id number] 09/13/15 EGD BIOPSY SINGLE/MULTIPLE 01122 09/13/15 ELECTROCARDIOGRAM 89.52 10/10/94 EMERGENCY DEPT VISIT 47050 07/04/11 EXCISION OF DUODENUM, ENDO, DIAGN [id number] 09/13/15 GASTRIC INTUBATION TREATMENT 51266 12/28/07 GASTRIC LAVAGE 96.33 12/28/07 INSERT GASTRIC TUBE NEC 96.07 07/26/95 INSERT INDWELLING CATH 57.94 09/16/11 INSERT TEMP BLADDER CATH 61307 09/16/11 INSERTION OF INT FIX INTO L HUMERAL SHAFT, PERC APPROACH [id number] 05/24/15 INSPECTION OF LOWER INTESTINAL TRACT, ENDO [id number] 09/13/15 OXYGEN ENRICHMENT NEC 93.96 10/10/94 REMOV THERAPEUT DEV NEC 97.89 03/25/01 REMOVAL OF INT FIX FROM R KNEE JT, OPEN APPROACH [id number] 04/15/16 REPAIR FACE SKIN, EXTERNAL APPROACH [id number] 04/12/15 REPOSITION RIGHT PATELLA WITH INT FIX, OPEN APPROACH [id number] 03/29/16 RPR F/E/E/N/L/M 2.5 CM/< 71571 04/12/15 RPR F/E/E/N/L/M 2.6-5.0 CM 16453 07/02/14 TETANUS TOXOID ADMINIST 99.38 07/02/14 TRANSFUSE NONAUT RED BLOOD CELLS IN PERIPH VEIN, PERC [id number] 03/29/16 TREAT KNEECAP FRACTURE 31002 03/29/16 UPPER ARM/ELBOW SURGERY 73238 05/24/15 Internal Medicine Assmt/Plan - Assessment Assessment: left knee cellulitis leukocytosis anemia hyponatremia lactic acidosis dm-2 schizoaffective disorder seizure hypothyroidism - Plan Plan: continue ivabx ivf for hydration monitor electrolytes am labs continue current plan of care
[2017-03-18] MEDS ORDERED: Probiotic Screen MC PRN (15:30)
--- NOTE | 2017-03-18 17:34 | Progress Notes ---
DATE: 03/18/2017 SUBJECTIVE: The patient was seen, chart reviewed, discussed with staff, still restless, anxious, confused, some agitation, episodes of yelling, crying. The patient was taking her medications. Her insight; however, is still poor. PLAN: We will continue Haldol 5 mg p.o. b.i.d., increase Zyprexa to 5 mg p.o. b.i.d., monitor closely. Consider psychiatric hospitalization given the level of agitation. [facility]# [id number]
[2017-03-18] MEDS: Sodium Chloride 0.45% 1,000 ML IV SCH (23:37)
[2017-03-19] MEDS: Dextromethorphan/Quinidine 20mg/10mg Cap PO SCH ×2 (03:01→17:41)
[2017-03-19 05:49] LABS: % EOSINOPHILS 0.2 % (0.0-5.0); % LYMPHOCYTES 12.8 % (20.0-50.0); HEMATOCRIT 29.1 % (41.0-60); HEMOGLOBIN 9.7 gm/dL (12-16); MEAN CELL VOLUME 83.1 fl (81-100); MEAN CORPUSCULAR HEMOGLOBIN 27.5 pg (27.0-31.0); MEAN CORPUSCULAR HGB CONC 33.1 pg (28.0-36.0); MEAN PLATELET VOLUME 7.2 fl; NEUTROPHILE ABSOLUTE 5.6 Th/cmm (1.8-8.0); PLATELET COUNT 166 Th/cmm (150-400); RED BLOOD COUNT 3.51 Mil/cmm (3.80-5.10); RED CELL DISTRIBUTION WIDTH 14.3 % (11.5-20.0); WHITE BLOOD COUNT 7.2 Th/cmm (4.8-10.8)
[2017-03-19 06:08] LABS: ANION GAP 9.1 (7.0-16.0); BUN - UREA NITROGEN 7 mg/dL (7-25); BUN/CREATININE RATIO 11.7; CALCIUM SERUM 8.5 mg/dL (8.6-10.3); CARBON DIOXIDE 27.6 mEq/L (21.0-31.0); CHLORIDE 101 mEq/L (98-107); CREATININE - SERUM 0.6 mg/dL (0.6-1.2); GLUCOSE 150 mg/dL (70-105); POTASSIUM SERUM 3.7 mEq/L (3.5-5.1); SODIUM SERUM 134 mEq/L (136-145)
[2017-03-19] MEDS: INSULIN ASPART, RECOMBINANT 100 UNITS/ML SUBQ SCH ×3 (06:58→18:42)
[2017-03-19] MEDS: Levothyroxine 0.075 Mg Tab PO SCH (07:00)
[2017-03-19] MEDS ORDERED: Lactobacillus Rhamnosus 10 Billion CFU Capsule PO SCH (09:00)
[2017-03-19] MEDS: Hydrocodone/APAP 5mg/325mg Tab PO PRN (09:32)
[2017-03-19] MEDS: Multivitamin Tab PO SCH (09:33)
[2017-03-19] MEDS: Levofloxacin 500mg/100mL 500 MG/100 ML BAG IV SCH (10:00)
--- NOTE | 2017-03-19 13:11 | Internal Medicine Prog Note ---
Internal Medicine Subjective - Subjective Patient seen and examined:: with staff, chart reviewed Patient is:: awake, verbal, interactive, in bed, agitated, confused Patient Complaints of:: congestion Per staff patient has:: no adverse event, no episodes of fall, poor appetite, agitated, confused, tolerating meds Internal Medicine Objective - Results Result Diagrams: 03/19/17 05:32 03/19/17 05:32 Recent Labs: Laboratory Last Values WBC 7.2 Th/cmm (4.8-10.8) 03/19/17 05:32 RBC 3.51 Mil/cmm (3.80-5.10) L 03/19/17 05:32 Hgb 9.7 gm/dL (12-16) L 03/19/17 05:32 Hct 29.1 % (41.0-60) L 03/19/17 05:32 MCV 83.1 fl (81-100) 03/19/17 05:32 MCH 27.5 pg (27.0-31.0) 03/19/17 05:32 MCHC Differential 33.1 pg (28.0-36.0) 03/19/17 05:32 RDW 14.3 % (11.5-20.0) 03/19/17 05:32 Plt Count 166 Th/cmm (150-400) 03/19/17 05:32 MPV 7.2 fl 03/19/17 05:32 Neutrophils % 78.0 % (40.0-80.0) 03/19/17 05:32 Band Neutrophils % 7 % (0-10) 03/18/17 05:11 Lymphocytes % 12.8 % (20.0-50.0) L 03/19/17 05:32 Monocytes % 8.0 % (2.0-10.0) 03/19/17 05:32 Eosinophils % 0.2 % (0.0-5.0) 03/19/17 05:32 Basophils % 1.0 % (0.0-2.0) 03/19/17 05:32 Neutrophils (Manual) 82 % (40-80) H 03/18/17 05:11 Lymphocytes 6 % (20-50) L 03/18/17 05:11 Monocytes 5 % (2-10) 03/18/17 05:11 Eosinophils 0 % (0-5) 03/16/17 13:10 Basophils 1 % (0-3) 03/16/17 13:10 Platelet Estimate ADEQUATE (NORMAL) 03/16/17 13:10 Platelet Morphology NORMAL (NORMAL) 03/16/17 13:10 RBC Morph Micro Appear NORMAL (NORMAL) 03/16/17 13:10 ESR 95 mm/hr (0-30) H 03/17/17 05:45 Sodium 134 mEq/L (136-145) L 03/19/17 05:32 Potassium 3.7 mEq/L (3.5-5.1) 03/19/17 05:32 Chloride 101 mEq/L (98-107) 03/19/17 05:32 Carbon Dioxide 27.6 mEq/L (21.0-31.0) 03/19/17 05:32 Anion Gap 9.1 (7.0-16.0) 03/19/17 05:32 BUN 7 mg/dL (7-25) 03/19/17 05:32 Creatinine 0.6 mg/dL (0.6-1.2) 03/19/17 05:32 Est GFR ( Amer) > 60.0 ml/min (>90) 03/19/17 05:32 Est GFR (Non-Af Amer) > 60.0 ml/min 03/19/17 05:32 BUN/Creatinine Ratio 11.7 03/19/17 05:32 Glucose 150 mg/dL (70-105) H 03/19/17 05:32 POC Glucose 142 MG/DL (70 - 105) H 03/19/17 06:55 Hemoglobin A1c % 6.1 % (4.0-6.0) H 03/16/17 13:10 Whole Bld Lactic Acid 1.87 mmol/L (0.60-1.99) 03/16/17 15:15 Calcium 8.5 mg/dL (8.6-10.3) L 03/19/17 05:32 Magnesium 1.8 mg/dL (1.9-2.7) L 03/17/17 05:45 Total Bilirubin 0.8 mg/dL (0.3-1.0) 03/16/17 13:10 AST 8 U/L (13-39) L 03/16/17 13:10 ALT 7 U/L (7-52) 03/16/17 13:10 Alkaline Phosphatase 74 U/L (34-104) 03/16/17 13:10 Total Protein 6.8 gm/dL (6.0-8.3) 03/16/17 13:10 Albumin 4.0 gm/dL (3.7-5.3) 03/16/17 13:10 Globulin 2.8 gm/dL 03/16/17 13:10 Albumin/Globulin Ratio 1.4 (1.0-1.8) 03/16/17 13:10 Vancomycin Trough 19.0 ug/mL (10-20) 03/19/17 11:00 - Physical Exam Vitals and I&O: Vital Signs Temp 97.9 F 03/19/17 08:00 Pulse 96 03/19/17 08:00 Resp 18 03/19/17 08:00 BP 107/74 03/19/17 08:00 Pulse Ox 97 03/19/17 08:00 Intake & Output 03/18/17 03/19/17 03/19/17 18:59 06:59 18:59 Intake Total 1750 1402 480 Balance 1750 1402 480 Weight (lbs) 50.938 kg 51.029 kg 51.029 kg Intake: Intake, IV Amount 250 1152 Levofloxacin 500mg/100mL 100 500 mg In 100 ml @ 100 mls/hr IV Q24HR@0900 [facility] Rx#:[id number] Sodium Chloride 0.45% 1, 552 000 ml @ 80 mls/hr IV . [id number] [facility] Rx#:[id number] Vancomycin HCl 1 gm In 250 500 Sodium Chloride 0.9% 250 ml @ 165 mls/hr IV Q8H [facility] Rx#:[id number] Oral 1500 250 480 Other: # Voids 5 2 # Bowel Movements 0 0 Active Medications: Current Medications Acetaminophen (Tylenol) 650 mg PO Q4H PRN PRN Reason: Mild Pain Or Fever above 101 Stop: 05/15/17 14:52 Last Admin: 03/18/17 17:04 Dose: 650 mg Acetaminophen/Hydrocodone Bitart ([place] 5mg/325mg) 1 tab PO Q6HR PRN PRN Reason: Pain (Moderate) Stop: 05/15/17 14:50 Last Admin: 03/19/17 09:32 Dose: 1 tab Albuterol Sulfate (Albuterol 2.5mg/3ml Neb Ud) 2.5 mg HHN Q2HRT PRN PRN Reason: Shortness of Breath or Wheeze Stop: 05/15/17 14:52 Last Admin: 03/18/17 19:29 Dose: 2.5 mg Calcium Carbonate (Os-Neil) 500 mg PO HS [facility] Stop: 05/15/17 20:59 Last Admin: 03/18/17 21:56 Dose: 500 mg Dextromethorphan/Quinidine (Nuedexta 20mg-10mg) 1 cap PO Q12H [facility] Stop: 05/15/17 14:59 Last Admin: 03/19/17 03:01 Dose: 1 cap Divalproex Sodium (Depakote Dr) 500 mg PO BID [facility] PRN Reason: Protocol Stop: 05/15/17 16:59 Last Admin: 03/19/17 09:33 Dose: 500 mg Donepezil HCl (Aricept) 5 mg PO HS [facility] Stop: 05/15/17 20:59 Last Admin: 03/18/17 21:56 Dose: 5 mg Famotidine (Pepcid) 20 mg PO DAILY [facility] Stop: 05/16/17 08:59 Last Admin: 03/19/17 09:33 Dose: 20 mg Glucagon (Glucagen) 1 mg IM PRN PRN PRN Reason: BS <60 Guaifenesin (Robitussin) 200 mg PO Q4HR PRN PRN Reason: Cough or Congestion Stop: 05/15/17 14:52 Haloperidol (Haldol) 5 mg PO BID [facility] PRN Reason: Protocol Stop: 05/16/17 16:59 Last Admin: 03/19/17 09:32 Dose: 5 mg Heparin Sodium (Porcine) (Heparin) 5,000 units SUBQ Q12HR [facility] Stop: 05/15/17 20:59 Last Admin: 03/19/17 09:33 Dose: 5,000 units Levofloxacin (Levaquin Pb) 500 mg in 100 mls @ 100 mls/hr IV Q24HR@0900 [facility] Stop: 05/15/17 15:59 Last Infusion: 03/19/17 06:31 Dose: Infused Sodium Chloride (Nacl 0.45%) 1,000 mls @ 80 mls/hr IV .[id number] [facility] Stop: 05/15/17 14:59 Last Infusion: 03/19/17 06:31 Dose: 80 mls/hr Vancomycin HCl 1 gm/ Sodium (Chloride) 250 mls @ 165 mls/hr IV Q8H [facility] Stop: 05/17/17 11:59 Last Infusion: 03/19/17 06:31 Dose: Infused Insulin Aspart (Novolog) 0 units SUBQ ACHS [facility] PRN Reason: Protocol Stop: 05/15/17 16:29 Last Admin: 03/19/17 06:58 Dose: Not Given Ipratropium [place] (Atrovent Neb 0.5mg/2.5ml) 0.5 mg IH Q2HRT PRN PRN Reason: Shortness of Breath or Wheeze Stop: 05/15/17 14:52 Last Admin: 03/18/17 19:29 Dose: 0.5 mg Lactobacillus Rhamnosus (Culturelle) 1 each PO DAILY [facility] Stop: 05/18/17 08:59 Last Admin: 03/19/17 09:32 Dose: 1 each Levetiracetam (Keppra) 500 mg PO BID [facility] Stop: 05/15/17 16:59 Last Admin: 03/19/17 09:32 Dose: 500 mg Levothyroxine Sodium (Synthroid) 0.075 mg PO QDAC [facility] Stop: 05/16/17 07:29 Last Admin: 03/19/17 07:00 Dose: 0.075 mg Lorazepam (Ativan) 0.5 mg PO Q6HR PRN; Protocol PRN Reason: Anxiety Stop: 05/15/17 14:50 Last Admin: 03/19/17 03:51 Dose: 0.5 mg Metformin HCl (Glucophage) 500 mg PO TID [facility] Stop: 05/15/17 20:59 Last Admin: 03/19/17 09:32 Dose: 500 mg Miscellaneous (Vancomycin Iv Per Pharmacy) 1 ea [facility] DAILY [facility] Stop: 05/17/17 08:59 Miscellaneous (Probiotic Screen) 1 ea MC PRN PRN PRN Reason: PROTOCOL Stop: 05/17/17 15:29 Multivitamins/Vitamin C (Theragran) 1 tab PO DAILY [facility] Stop: 05/16/17 08:59 Last Admin: 03/19/17 09:33 Dose: 1 tab Olanzapine (Zyprexa) 5 mg PO BID [facility] PRN Reason: Protocol Stop: 05/17/17 16:59 Last Admin: 03/19/17 09:33 Dose: 5 mg Ondansetron HCl (Zofran) 4 mg IV Q8H PRN PRN Reason: Nausea / Vomiting Stop: 05/15/17 14:52 Valproate Sodium (Depakene) 750 mg PO HS [facility] Stop: 05/15/17 20:59 Last Admin: 03/18/17 21:57 Dose: 750 mg General: weak, alert HEENT: NC/AT, PERRLA Lungs: CTAB Cardiovascular: RRR, Normal S1, Normal S2, without murmur Abdomen: soft, non-tender, non-distended, positive bowel sound Extremities: redness (left knee) Neurological: muscle weakness - Procedures Procedures: Procedures Procedure Code Date BLOOD TRANSFUSION SERVICE 21588 03/29/16 CLOSURE SKIN & SUBCUTANEOUS NEC 86.59 07/02/14 DIAGNOSTIC COLONOSCOPY 32056 09/13/15 DRAINAGE OF STOMACH, ENDO, DIAGN [id number] 09/13/15 EGD BIOPSY SINGLE/MULTIPLE 99347 09/13/15 ELECTROCARDIOGRAM 89.52 10/10/94 EMERGENCY DEPT VISIT 55602 07/04/11 EXCISION OF DUODENUM, ENDO, DIAGN [id number] 09/13/15 GASTRIC INTUBATION TREATMENT 60301 12/28/07 GASTRIC LAVAGE 96.33 12/28/07 INSERT GASTRIC TUBE NEC 96.07 07/26/95 INSERT INDWELLING CATH 57.94 09/16/11 INSERT TEMP BLADDER CATH 38174 09/16/11 INSERTION OF INT FIX INTO L HUMERAL SHAFT, PERC APPROACH [id number] 05/24/15 INSPECTION OF LOWER INTESTINAL TRACT, ENDO [id number] 09/13/15 OXYGEN ENRICHMENT NEC 93.96 10/10/94 REMOV THERAPEUT DEV NEC 97.89 03/25/01 REMOVAL OF INT FIX FROM R KNEE JT, OPEN APPROACH [id number] 04/15/16 REPAIR FACE SKIN, EXTERNAL APPROACH [id number] 04/12/15 REPOSITION RIGHT PATELLA WITH INT FIX, OPEN APPROACH [id number] 03/29/16 RPR F/E/E/N/L/M 2.5 CM/< 16247 04/12/15 RPR F/E/E/N/L/M 2.6-5.0 [place] 30710 07/02/14 TETANUS TOXOID ADMINIST 99.38 07/02/14 TRANSFUSE NONAUT RED BLOOD CELLS IN PERIPH VEIN, PERC [id number] 03/29/16 TREAT KNEECAP FRACTURE 53525 03/29/16 UPPER ARM/ELBOW SURGERY 41710 05/24/15 Internal Medicine Assmt/Plan - Assessment Assessment: left knee cellulitis leukocytosis anemia hyponatremia lactic acidosis dm-2 schizoaffective disorder seizure hypothyroidism - Plan Plan: continue ivabx continue with tpn ivf for hydration monitor electrolytes am labs continue current plan of care for bone scan - Plan Plan: as above
[2017-03-19] MEDS: Sodium Chloride 0.45% 1,000 ML IV SCH (13:53)
--- NOTE | 2017-03-20 17:42 | Discharge Summary ---
DATE OF DISCHARGE: 03/19/2017 CHIEF COMPLAINT: Knee pain status post fall. FINAL DIAGNOSES: Left knee cellulitis, possible osteomyelitis, leukocytosis, anemia, electrolyte abnormalities, lactic acidosis, diabetes, schizoaffective disorder, CHF, hypothyroidism. HISTORY: This is a 51-year-old female with history of diabetes, schizoaffective disorder, ____ was admitted secondary to left knee pain and swelling. The patient admitted for further management. PHYSICAL EXAMINATION: VITAL SIGNS: Blood pressure 120/83, respirations 20, pulse 100, temperature 98.9. GENERAL: Elderly female, appears stated age, chronically ill. NECK: Supple. No mass. LUNGS: Equal breath sounds, few rhonchi. HEART: Regular rate and rhythm without appreciable murmur. ABDOMEN: Soft, nontender. EXTREMITIES: Positive excoriations. NEUROLOGIC: Limited, moving 4 extremities. HOSPITAL COURSE: The patient was admitted to medical floor. Continued on IV antibiotic and IV hydration. The patient was placed on Levaquin as well as vancomycin. The patient was referred to Dr. Arce for management of her psychotropic medication. Bone scan was ordered, but was nondiagnostic. The patient requires continued IV antibiotics and transfer to remote computer terminal operator acute care ____. CONDITION ON DISCHARGE: Fair. DISCHARGE INSTRUCTIONS: The patient is to continue current management. The patient to be monitored closely. JOB# [id number]
== END 2017-03-19 20:28 | DRG 872 ==
LOC: ER 12:50 → MSI 13:41
PROVIDERS: ADMIT Internal Medicine; ATTEND Internal Medicine
DX: A41.9 Sepsis, unspecified organism (principal); I50.9 Heart failure, unspecified; E87.1 Hypo-osmolality and hyponatremia; L03.116 Cellulitis of left lower limb; D64.9 Anemia, unspecified; E11.9 Type 2 diabetes mellitus without complications; E03.9 Hypothyroidism, unspecified; F25.9 Schizoaffective disorder, unspecified; G40.909 Epilepsy, unspecified, not intractable, without status epilepticus; M19.90 Unspecified osteoarthritis, unspecified site; W18.30XA Fall on same level, unspecified, initial encounter; Y93.89 Activity, other specified; Y92.89 Other specified places as the place of occurrence of the external cause; Y99.8 Other external cause status; Z88.0 Allergy status to penicillin; Z82.49 Family history of ischemic heart disease and other diseases of the circulatory system
CPT/HCPCS: 36415-UA; 73562-TC-LT; 80048-TC; 80053-TC; 80202-TC; 82948-90; 83036-90; 83605; 83735-TC; 85007-TC; 85025-TC; 85027-TC; 85652-TC; 90779; 93005; 94640; 94760; J1644; J1815; J1956; J3370; J3475; J7070; J7613; Z7502; Z7610

== ENCOUNTER 2017-07-27 16:40 | Inpatient (IN) | payer MEDICARE, MEDICAID ==
--- NOTE | 2017-07-27 17:41 | ED Physician Chart ---
ED Chief Complaint/HPI - Patient Information Date Seen:: 07/27/17 Time Seen:: 17:42 Chief Complaint:: PSYCHIATRIC EVALUATION History of Present Illness:: THIS PT WAS REFERRED TO THE ED BY HER PMD FOR PSYCHIATRIC EVALUATION AND ADMISSION. PT ALLEGED TO BE AGGITATED AND HOSTILE TO STAFF. PT IS UNCERTAIN WHY SHE IS IN THE ED. PT IS CO-OPERATIVE BUT CONFUSED. SHE IS DISORIENTED TO DAY OF WEEK AND YEAR "2018." PT DENIES ANY HEADACHE, CHEST PAIN, NECK PAIN, OR ABDOMINAL PAIN. Allergies:: Allergies Allergy/AdvReac Type Severity Reaction Status Date / Time Penicillins [PCN] Allergy Verified 10/21/16 19:31 Vitals:: Vital Signs - 8 hr 07/27/17 16:57 Temp 98.5 F HR 80 RR 17 BP 107/69 O2 Sat % 96 Historian:: Patient, Medical Records (NURSE'S HANDWRITTEN TRIAGE NOTES REVIEWED. ) Review:: Nurse's Note Reviewed (nurses written triage notes reviewed.) ED Review of Systems - Review of Systems General/Constitutional: No fever, No chills Skin: Skin lesions, No rash Head: No headache, No light-headedness Eyes: No loss of vision, No diplopia ENT: No earache, No sore throat, No tinnitus Neck: No neck pain, No swelling, No thyromegaly, No stiffness, No mass noted Cardio Vascular: No chest pain, No palpitations Pulmonary: SOB, No cough, No sputum, No wheezing GI: No nausea, No vomiting, No diarrhea, No pain (patient has mild discomfort in the suprapubic area. She rates it as a 3/10 severity and it is worse with pressure over that area. 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 Psychiatricy History: Bipolar Family Medical History - Family Member Mother History Unknown: Yes Ethnicity: Unknown Living Status: Still Living Hx Family Cancer: No Hx Family Coronary Artery Disease: No Hx Family Congestive Heart Failure: No Hx Family Hypertension: Yes Hx Family Stroke: No Hx Family Diabetes: No Hx Family Seizures: Yes Hx Family Dementia: No Hx Family AIDS: No Hx Family HIV: No Hx Family COPD: No Hx Family Hepatitis: No Hx Family Psychiatric Problems: Yes Hx Family Tuberculosis: No Father History Unknown: Yes ED Physical Exam - Physical Examination General/Constitutional: Awake, Well-developed, well-nourished, Alert, No distress, Non-toxic appearing, Ambulatory Head: Atraumatic Eyes: Lids, conjuctiva normal, PERRL, EOMI Skin: Nl inspection, No skin lesions, No ecchymosis, Well hydrated, No lymphadenopathy ENMT: Nasal exam nl, Lips, teeth, gums nl, Oropharynx nl Neck: Nontender, No JVD, No nuchal rigidity, No mass, No stridor Respiratory: Nl effort/Exclusion, Clear to Auscultation, No Wheeze/Rhonchi/Rales Cardio Vascular: No murmur, gallop, rubs, NL S1 S2 Other Cardio Vascular comments:: No peripheral edema and acceptable peripheral pulses. GI: No hernia, Normal BS's, No McBurney tenderness Other GI comments:: Rectal exam deferred at my discretion. : No CVA tenderness Extremities: No tenderness or effusion, Full ROM, normal strength in all extremities (normal strength in all 4 extremities for her size and age.), No edema, Normal digits & nails Neuro/Psych: Normal sensory exam, Normal motor strength, Mood normal, Normal gait, No focal deficits Misc: Normal back, No paraspinal tenderness ED Labs/Radiology/EKG Results - Lab Results Results: Laboratory Tests 07/27/17 07/27/17 07/27/17 18:17 18:17 18:17 WBC 7.2 RBC 3.96 Hgb 10.2 L Hct 31.4 L MCV 79.5 L MCH 25.9 L MCHC Differential 32.6 RDW 14.9 Plt Count 202 MPV 7.6 Neutrophils % 63.1 Lymphocytes % 29.4 Monocytes % 6.0 Eosinophils % 1.0 Basophils % 0.5 Sodium 138 Potassium 4.0 Chloride 107 Carbon Dioxide 27.0 Anion Gap 8.0 BUN 11 Creatinine 0.6 Est GFR ( Amer) > 60.0 Est GFR (Non-Af Amer) > 60.0 BUN/Creatinine Ratio 18.3 Glucose 96 Whole Bld Lactic Acid 0.95 Calcium 8.8 Total Bilirubin 0.3 AST 11 L ALT 9 Alkaline Phosphatase 69 Total Protein 6.0 Albumin 3.6 L Globulin 2.4 Albumin/Globulin Ratio 1.5 ON laboratory results: CBC is unremarkable with no leukocytosis, or anemia. Metabolic studies: patient's electrolytes were unremarkable except for a serum sodium of 138. The balance of the electrolytes are all within normal parameters. Renal function is normal. Liver function is normal. Serum glucose of 96 is within normal parameters. All blood left to guess it is 0.95 which is in normal renters. CXR: no cardiomegaly or CHF. No areas of pulmonary consolidation or pulmonary infiltrate. Calcification of the aortic arch and of the tracheal and bronchial cartilage. no pneumothorax. No mediastinal whitening. Impression: no acute cardiopulmonary findings. ED Assessment - Assessment General Assessment: CASE SUMMARY: THIS 51-YEAR-OLD FEMALE WAS REFERRED TO THE EMERGENCY DEPARTMENT FOR CLEARANCE TO ADMIT TO THE GERIATRIC/PSYCHIATRIC UNIT. THE PATIENT WAS MILDLY CONFUSED BUT COOPERATIVE. SHE HAS NO ACUTE MEDICAL COMPLAINTS. HER PHYSICAL EXAMINATION SHOWED HER TO BE MILDLY DISORIENTED TO TIME. LABORATORY STUDIES WERE FOR THE MOST PART UNREMARKABLE. THE PATIENT HAS A BED AND WAS ADMITTED TO THE GERIATRIC/PSYCHIATRIC ANGEL. ADMITTED IN STABLE CONDITION. ED Septic Shock - . Is Septic Shock (SBP<90, OR Lactate>4 mmol\\L) present?: No - <6hrs of presentation: Vital Signs: Vital Signs - 8 hr 07/27/17 16:57 Temp 98.5 F HR 80 RR 17 BP 107/69 O2 Sat % 96 Assessment of Lungs: No Rales, No Wheezing, No Stridor Assessment of Heart: No thrill, No Gallops, S3, No Murmur EKG Interpretation: ST depression, No ST depression Skin Exam: Warm, Dry, Good Turgur, No Pallor, No Diaphoresis, No Mottling, No Edema, Erythema ED Reassessment (Disposition) - Reassessment Reassessment Condition:: Unchanged - Diagnosis Diagnosis:: HISTORY OF BI POLAR DISORDER AND AGITATION ED Discharge Plan - Patient Disposition Admit/Discharge/Transfer: Acute Care w/in this hosp Condition at Disposition: Stable
[2017-07-27 18:29] LABS: % BASOPHILS 0.5 % (0.0-2.0); % LYMPHOCYTES 29.4 % (20.0-50.0); % NEUTROPHILS 63.1 % (40.0-80.0); EOSINOPHILE ABSOLUTE 0.1 Th/cmm (0.1-0.4); HEMATOCRIT 31.4 % (41.0-60); HEMOGLOBIN 10.2 gm/dL (12-16); LYMPHOCYTE ABSOLUTE 2.1 Th/cmm (1.5-3.0); MEAN CELL VOLUME 79.5 fl (81-100); MEAN CORPUSCULAR HEMOGLOBIN 25.9 pg (27.0-31.0); MEAN CORPUSCULAR HGB CONC 32.6 pg (28.0-36.0); MEAN PLATELET VOLUME 7.6 fl; MONOCYTE ABSOLUTE 0.4 Th/cmm (0.3-1.0); NEUTROPHILE ABSOLUTE 4.6 Th/cmm (1.8-8.0); PLATELET COUNT 202 Th/cmm (150-400); RED BLOOD COUNT 3.96 Mil/cmm (3.80-5.10); RED CELL DISTRIBUTION WIDTH 14.9 % (11.5-20.0); WHITE BLOOD COUNT 7.2 Th/cmm (4.8-10.8)
[2017-07-27 18:42] LABS: ALB/GLOB RATIO 1.5 (1.0-1.8); ALBUMIN 3.6 gm/dL (3.7-5.3); ALKALINE PHOSPHATASE 69 U/L (34-104); BILIRUBIN,TOTAL 0.3 mg/dL (0.3-1.0); BUN - UREA NITROGEN 11 mg/dL (7-25); CALCIUM SERUM 8.8 mg/dL (8.6-10.3); CHLORIDE 107 mEq/L (98-107); CREATININE - SERUM 0.6 mg/dL (0.6-1.2); GFR AFRICAN-AMERICAN > 60.0 ml/min (>90); GFR NON AFRICAN-AMERICAN > 60.0 ml/min; GLUCOSE 96 mg/dL (70-105); SGOT 11 U/L (13-39); SGPT/ALT 9 U/L (7-52); SODIUM SERUM 138 mEq/L (136-145)
[2017-07-27] MEDS ORDERED: GLUCAGON HCl 1 MG KIT IM PRN (20:15)
[2017-07-27 21:11] VITALS: BP 116/78
[2017-07-27] MEDS: Dextromethorphan/Quinidine 20mg/10mg Cap PO SCH (21:44)
[2017-07-27] MEDS: INSULIN ASPART, RECOMBINANT 100 UNITS/ML SUBQ SCH (21:44)
[2017-07-28] MEDS: INSULIN ASPART, RECOMBINANT 100 UNITS/ML SUBQ SCH ×5 (06:47→21:07)
[2017-07-28] MEDS: Levothyroxine 0.075 Mg Tab PO SCH (06:48)
[2017-07-28] MEDS: Dextromethorphan/Quinidine 20mg/10mg Cap PO SCH ×2 (08:26→21:05)
[2017-07-28] MEDS: Multivitamin Tab PO SCH (08:27)
[2017-07-28] MEDS ORDERED: Non-Formulary Item 1 EA (Valproic Acid (As Sodium Salt) [Depakene] 500 MG) PO SCH ×2 (09:00)
--- NOTE | 2017-07-28 09:47 | Diagnostic Imaging Report ---
Portable chest x-ray History: Shortness of breath Allowing for portable technique the heart size is normal. No focal pulmonary parenchymal processes. No hilar or mediastinal abnormalities. Impression: No acute abnormalities.
--- NOTE | 2017-07-28 11:47 | Internal Medicine Prog Note ---
Internal Medicine Subjective - Subjective Service Date: 07/28/17 ([id number] [facility] dictated) Internal Medicine Objective - Results Result Diagrams: 07/27/17 18:17 07/27/17 18:17 Recent Labs: Laboratory Last Values WBC 7.2 Th/cmm (4.8-10.8) 07/27/17 18:17 RBC 3.96 Mil/cmm (3.80-5.10) 07/27/17 18:17 Hgb 10.2 gm/dL (12-16) L 07/27/17 18:17 Hct 31.4 % (41.0-60) L 07/27/17 18:17 MCV 79.5 fl (81-100) L 07/27/17 18:17 MCH 25.9 pg (27.0-31.0) L 07/27/17 18:17 MCHC Differential 32.6 pg (28.0-36.0) 07/27/17 18:17 RDW 14.9 % (11.5-20.0) 07/27/17 18:17 Plt Count 202 Th/cmm (150-400) 07/27/17 18:17 MPV 7.6 fl 07/27/17 18:17 Neutrophils % 63.1 % (40.0-80.0) 07/27/17 18:17 Lymphocytes % 29.4 % (20.0-50.0) 07/27/17 18:17 Monocytes % 6.0 % (2.0-10.0) 07/27/17 18:17 Eosinophils % 1.0 % (0.0-5.0) 07/27/17 18:17 Basophils % 0.5 % (0.0-2.0) 07/27/17 18:17 Sodium 138 mEq/L (136-145) 07/27/17 18:17 Potassium 4.0 mEq/L (3.5-5.1) 07/27/17 18:17 Chloride 107 mEq/L (98-107) 07/27/17 18:17 Carbon Dioxide 27.0 mEq/L (21.0-31.0) 07/27/17 18:17 Anion Gap 8.0 (7.0-16.0) 07/27/17 18:17 BUN 11 mg/dL (7-25) 07/27/17 18:17 Creatinine 0.6 mg/dL (0.6-1.2) 07/27/17 18:17 Est GFR ( Amer) > 60.0 ml/min (>90) 07/27/17 18:17 Est GFR (Non-Af Amer) > 60.0 ml/min 07/27/17 18:17 BUN/Creatinine Ratio 18.3 07/27/17 18:17 Glucose 96 mg/dL (70-105) 07/27/17 18:17 POC Glucose 124 MG/DL (70 - 105) H 07/28/17 06:21 Whole Bld Lactic Acid 0.95 mmol/L (0.60-1.99) 07/27/17 18:17 Calcium 8.8 mg/dL (8.6-10.3) 07/27/17 18:17 Total Bilirubin 0.3 mg/dL (0.3-1.0) 07/27/17 18:17 AST 11 U/L (13-39) L 07/27/17 18:17 ALT 9 U/L (7-52) 07/27/17 18:17 Alkaline Phosphatase 69 U/L (34-104) 07/27/17 18:17 Total Protein 6.0 gm/dL (6.0-8.3) 07/27/17 18:17 Albumin 3.6 gm/dL (3.7-5.3) L 07/27/17 18:17 Globulin 2.4 gm/dL 07/27/17 18:17 Albumin/Globulin Ratio 1.5 (1.0-1.8) 07/27/17 18:17 - Physical Exam Vitals and I&O: Vital Signs Temp 97.8 F 07/28/17 06:13 Pulse 58 07/28/17 06:13 Resp 19 07/28/17 06:13 BP 96/62 07/28/17 06:13 Pulse Ox 99 07/28/17 06:13 Intake & Output 07/27/17 07/28/17 07/28/17 18:59 06:59 18:59 Intake Total 200 Balance 200 Intake: Oral 200 Other: # Voids 2 # Bowel Movements 0 Stool Characteristics Soft Soft Active Medications: Current Medications Ascorbic Acid (Vitamin C) 500 mg PO DAILY DIANA Stop: 09/26/17 08:59 Last Admin: 07/28/17 08:26 Dose: 500 mg Calcium Carbonate (Os-Neil) 500 mg PO HS DIANA Stop: 09/25/17 20:59 Last Admin: 07/27/17 21:44 Dose: 500 mg Dextromethorphan/Quinidine (Nuedexta 20mg-10mg) 1 cap PO Q12HR DIANA Stop: 09/25/17 20:59 Last Admin: 07/28/17 08:26 Dose: 1 cap Donepezil HCl (Aricept) 5 mg PO HS DIANA Stop: 09/25/17 20:59 Last Admin: 07/27/17 21:44 Dose: 5 mg Famotidine (Pepcid) 20 mg PO DAILY DIANA Stop: 09/26/17 08:59 Last Admin: 07/28/17 08:26 Dose: 20 mg Glucagon (Glucagen) 1 mg IM PRN PRN PRN Reason: BS<60 Stop: 09/25/17 20:14 Insulin Aspart (Novolog) 0 units SUBQ ACHS DIANA PRN Reason: Protocol Stop: 09/25/17 20:59 Last Admin: 07/28/17 06:47 Dose: Not Given Levetiracetam (Keppra) 500 mg PO BID DIANA Stop: 09/26/17 08:59 Last Admin: 07/28/17 08:27 Dose: 500 mg Levothyroxine Sodium (Synthroid) 0.0625 mg PO QDAC DIANA Stop: 09/26/17 07:29 Last Admin: 07/28/17 06:48 Dose: 0.0625 mg Lorazepam (Ativan) 0.5 mg PO Q6HR PRN; Protocol PRN Reason: Anxiety Stop: 09/25/17 19:31 Last Admin: 07/28/17 08:26 Dose: 0.5 mg Metformin HCl (Glucophage) 500 mg PO TIDWM DIANA Stop: 09/26/17 07:59 Last Admin: 07/28/17 08:26 Dose: 500 mg Multivitamins/Vitamin C (Theragran) 1 tab PO DAILY DIANA Stop: 09/26/17 08:59 Last Admin: 07/28/17 08:27 Dose: 1 tab Olanzapine (Zyprexa) 2.5 mg PO BID DIANA PRN Reason: Protocol Stop: 09/26/17 08:59 Last Admin: 07/28/17 08:27 Dose: 2.5 mg Valproate Sodium (Depakene) 750 mg PO HS DIANA PRN Reason: Protocol Stop: 09/25/17 20:59 Last Admin: 07/28/17 02:26 Dose: Not Given - Procedures Procedures: Procedures Procedure Code Date BLOOD TRANSFUSION SERVICE 24994 03/29/16 CLOSURE SKIN & SUBCUTANEOUS NEC 86.59 07/02/14 DIAGNOSTIC COLONOSCOPY 60856 09/13/15 DRAINAGE OF STOMACH, ENDO, DIAGN [id number] 09/13/15 EGD BIOPSY SINGLE/MULTIPLE 84129 09/13/15 ELECTROCARDIOGRAM 89.52 10/10/94 EMERGENCY DEPT VISIT 91077 07/04/11 EXCISION OF DUODENUM, ENDO, DIAGN [id number] 09/13/15 GASTRIC INTUBATION TREATMENT 21353 12/28/07 GASTRIC LAVAGE 96.33 12/28/07 INSERT GASTRIC TUBE NEC 96.07 07/26/95 INSERT INDWELLING CATH 57.94 09/16/11 INSERT TEMP BLADDER CATH 86998 09/16/11 INSERTION OF INT FIX INTO L HUMERAL SHAFT, PERC APPROACH [id number] 05/24/15 INSPECTION OF LOWER INTESTINAL TRACT, ENDO [id number] 09/13/15 OXYGEN ENRICHMENT NEC 93.96 10/10/94 REMOV THERAPEUT DEV NEC 97.89 03/25/01 REMOVAL OF INT FIX FROM R KNEE JT, OPEN APPROACH [id number] 04/15/16 REPAIR FACE SKIN, EXTERNAL APPROACH [id number] 04/12/15 REPOSITION RIGHT PATELLA WITH INT FIX, OPEN APPROACH [id number] 03/29/16 RPR F/E/E/N/L/M 2.5 CM/< 43416 04/12/15 RPR F/E/E/N/L/M 2.6-5.0 CM 52060 07/02/14 TETANUS TOXOID ADMINIST 99.38 07/02/14 TRANSFUSE NONAUT RED BLOOD CELLS IN PERIPH VEIN, PERC 19783W7 03/29/16 TREAT KNEECAP FRACTURE 76607 03/29/16 UPPER ARM/ELBOW SURGERY 66295 05/24/15
--- NOTE | 2017-07-28 13:23 | Diagnostic Imaging Report ---
CT scan of the brain without intravenous contrast HISTORY: Headache Total DLP equals 1047 CTDI equals 63.0 Axial sections were obtained from the base of the skull to the vertex. There is a prominent ventricular system size along with enlargement of cerebral sulci and subarachnoid cisterns reflecting a degree of cerebral atrophy. No acute parenchymal abnormalities. No intracerebral hemorrhage. No mass effect or shift of midline structures. No extra-axial masses or abnormal fluid collections. IMPRESSION: 1. No acute abnormalities 2. Cerebral atrophy
--- NOTE | 2017-07-28 15:08 | History & Physical ---
ADMIT DATE: 07/27/2017 CHIEF COMPLAINT: Agitation. HISTORY OF PRESENT ILLNESS: This is a 51-year-old female who is a resident of [facility] who was brought here to [facility] due to agitation towards nursing staff. Just now 15 minutes ago, the patient fell from the Nisha chair, hit her head on the floor. No signs or symptoms of any injury. PAST MEDICAL HISTORY: Diabetes, schizoaffective disorder, seizure and hypothyroidism. PAST SURGICAL HISTORY: Status post left knee surgeries in the past. ALLERGIES: PENICILLIN. MEDICATIONS: Insulin sliding scale, multivitamins, calcium, Depakote, Aricept, Pepcid, Haldol, hydrocodone, Keppra and Synthroid. FAMILY HISTORY: Noncontributory. SOCIAL HISTORY: The patient is a skilled nursing resident and requiring 24-hour nursing care. REVIEW OF SYSTEMS: Unable to obtain due to patient's mental status. PHYSICAL EXAMINATION: GENERAL: Elderly female, awake, alert and in no apparent distress. VITAL SIGNS: Temperature 97.8, heart rate 58, blood pressure 196/62, respirations 19 and O2 99%. HEENT: Head; normocephalic and atraumatic. NECK: Supple. No mass. LUNGS: Clear bilaterally. ____. ABDOMEN: Soft and nontender. LABORATORY DATA: WBC 7.2, H and H 10.3 and 31.4 and platelet of 202. Sodium 138, potassium 4.0, chloride 107, BUN 11 and creatinine 0.6. ASSESSMENT: Status post fall, schizoaffective disorder, seizure, hypothyroidism and type 2 diabetes. PLAN: We will get a stat CT of the head. Fall precautions will be initiated. We will Accu-Chek per sliding scale. We will continue to monitor this patient. JOB# [id number]
--- NOTE | 2017-07-28 19:24 | Psychosocial Evaluation ---
DATE OF SERVICE: 07/27/2017 INITIAL PSYCHIATRIC EVALUATION CHIEF COMPLAINT: Psychotic illness. HISTORY OF PRESENT ILLNESS: The patient is a 51-year-old female with a history of schizoaffective disorder and dementia, not otherwise specified, was becoming more agitated, aggressive to her shelter facility, was striking out at other patients and staff, sent to the ER, was evaluated and admitted. The patient has been yelling, screaming, required to be given emergency medications. The patient is a poor historian. PAST PSYCHIATRIC HISTORY: Schizoaffective disorder and dementia, not otherwise specified. PAST MEDICAL HISTORY: As per H and P. PSYCHOSOCIAL HISTORY: The patient resides in a shelter facility requires complete care. MENTAL STATUS EXAMINATION: The patient is oriented to person, knew she was in some kind of hospital, did not know name of the hospital. The patient is paranoid, talking to herself, highly agitated. Insight is poor. Judgment is impaired. The patient's strengths: The patient is passively accepting treatment and medications. The patient's weaknesses, lack of insight. ASSESSMENT: Schizoaffective disorder. MEDICAL: As per medical history. Stress is severe. PLAN: We will admit the patient for hospitalization. We will start individual and group therapy and assess psychopharmacological intervention. ESTIMATED LENGTH OF STAY: 7-10 days. CRITERIA FOR DISCHARGE: Improved condition, less anxiety, less agitation, safe disposition and safe outpatient. No agitation or aggressive behavior and safe disposition. [facility]# [id number]
[2017-07-29] MEDS: Levothyroxine 0.075 Mg Tab PO SCH (06:44)
[2017-07-29] MEDS: INSULIN ASPART, RECOMBINANT 100 UNITS/ML SUBQ SCH ×4 (06:46→21:34)
[2017-07-29] MEDS: Dextromethorphan/Quinidine 20mg/10mg Cap PO SCH ×2 (09:41→21:39)
[2017-07-29] MEDS: Multivitamin Tab PO SCH (09:43)
--- NOTE | 2017-07-29 14:19 | Internal Medicine Prog Note ---
Internal Medicine Subjective - Subjective Patient seen and examined:: with staff, chart reviewed Patient is:: awake, verbal, interactive, in bed, talking, confused Per staff patient has:: no adverse event, poor appetite, agitated, combative, noncompliant, tolerating meds Internal Medicine Objective - Results Result Diagrams: 07/27/17 18:17 07/27/17 18:17 Recent Labs: Laboratory Last Values WBC 7.2 Th/cmm (4.8-10.8) 07/27/17 18:17 RBC 3.96 Mil/cmm (3.80-5.10) 07/27/17 18:17 Hgb 10.2 gm/dL (12-16) L 07/27/17 18:17 Hct 31.4 % (41.0-60) L 07/27/17 18:17 MCV 79.5 fl (81-100) L 07/27/17 18:17 MCH 25.9 pg (27.0-31.0) L 07/27/17 18:17 MCHC Differential 32.6 pg (28.0-36.0) 07/27/17 18:17 RDW 14.9 % (11.5-20.0) 07/27/17 18:17 Plt Count 202 Th/cmm (150-400) 07/27/17 18:17 MPV 7.6 fl 07/27/17 18:17 Neutrophils % 63.1 % (40.0-80.0) 07/27/17 18:17 Lymphocytes % 29.4 % (20.0-50.0) 07/27/17 18:17 Monocytes % 6.0 % (2.0-10.0) 07/27/17 18:17 Eosinophils % 1.0 % (0.0-5.0) 07/27/17 18:17 Basophils % 0.5 % (0.0-2.0) 07/27/17 18:17 Sodium 138 mEq/L (136-145) 07/27/17 18:17 Potassium 4.0 mEq/L (3.5-5.1) 07/27/17 18:17 Chloride 107 mEq/L (98-107) 07/27/17 18:17 Carbon Dioxide 27.0 mEq/L (21.0-31.0) 07/27/17 18:17 Anion Gap 8.0 (7.0-16.0) 07/27/17 18:17 BUN 11 mg/dL (7-25) 07/27/17 18:17 Creatinine 0.6 mg/dL (0.6-1.2) 07/27/17 18:17 Est GFR ( Amer) > 60.0 ml/min (>90) 07/27/17 18:17 Est GFR (Non-Af Amer) > 60.0 ml/min 07/27/17 18:17 BUN/Creatinine Ratio 18.3 07/27/17 18:17 Glucose 96 mg/dL (70-105) 07/27/17 18:17 POC Glucose 90 MG/DL (70 - 105) 07/29/17 11:33 Whole Bld Lactic Acid 0.95 mmol/L (0.60-1.99) 07/27/17 18:17 Calcium 8.8 mg/dL (8.6-10.3) 07/27/17 18:17 Total Bilirubin 0.3 mg/dL (0.3-1.0) 07/27/17 18:17 AST 11 U/L (13-39) L 07/27/17 18:17 ALT 9 U/L (7-52) 07/27/17 18:17 Alkaline Phosphatase 69 U/L (34-104) 07/27/17 18:17 Total Protein 6.0 gm/dL (6.0-8.3) 07/27/17 18:17 Albumin 3.6 gm/dL (3.7-5.3) L 07/27/17 18:17 Globulin 2.4 gm/dL 07/27/17 18:17 Albumin/Globulin Ratio 1.5 (1.0-1.8) 07/27/17 18:17 - Physical Exam Vitals and I&O: Vital Signs Temp 97.5 F 07/28/17 19:31 Pulse 105 07/28/17 19:31 Resp 20 07/28/17 19:31 BP 148/79 07/28/17 19:31 Pulse Ox 97 07/28/17 19:31 Intake & Output 07/28/17 07/29/17 07/29/17 18:59 06:59 18:59 Intake Total 600 360 Balance 600 360 Intake: Oral 600 360 Other: # Voids 3 1 # Bowel Movements 0 Stool Characteristics Soft Active Medications: Current Medications Ascorbic Acid (Vitamin C) 500 mg PO DAILY DIANA Stop: 09/26/17 08:59 Last Admin: 07/29/17 09:42 Dose: 500 mg Calcium Carbonate (Os-Neil) 500 mg PO HS DIANA Stop: 09/25/17 20:59 Last Admin: 07/28/17 21:04 Dose: 500 mg Dextromethorphan/Quinidine (Nuedexta 20mg-10mg) 1 cap PO Q12HR DIANA Stop: 09/25/17 20:59 Last Admin: 07/29/17 09:41 Dose: 1 cap Donepezil HCl (Aricept) 5 mg PO HS DIANA Stop: 09/25/17 20:59 Last Admin: 07/28/17 21:03 Dose: 5 mg Famotidine (Pepcid) 20 mg PO DAILY DIANA Stop: 09/26/17 08:59 Last Admin: 07/29/17 09:42 Dose: 20 mg Glucagon (Glucagen) 1 mg IM PRN PRN PRN Reason: BS<60 Stop: 09/25/17 20:14 Insulin Aspart (Novolog) 0 units SUBQ ACHS DIANA PRN Reason: Protocol Stop: 09/25/17 20:59 Last Admin: 07/29/17 11:39 Dose: Not Given Levetiracetam (Keppra) 500 mg PO BID DIANA Stop: 09/26/17 08:59 Last Admin: 07/29/17 09:42 Dose: 500 mg Levothyroxine Sodium (Synthroid) 0.0625 mg PO QDAC DIANA Stop: 09/26/17 07:29 Last Admin: 07/29/17 06:44 Dose: 0.0625 mg Lorazepam (Ativan) 0.5 mg PO Q6HR PRN; Protocol PRN Reason: Anxiety Stop: 09/25/17 19:31 Last Admin: 07/29/17 13:01 Dose: 0.5 mg Metformin HCl (Glucophage) 500 mg PO TIDWM DIANA Stop: 09/26/17 07:59 Last Admin: 07/29/17 11:31 Dose: 500 mg Multivitamins/Vitamin C (Theragran) 1 tab PO DAILY DIANA Stop: 09/26/17 08:59 Last Admin: 07/29/17 09:43 Dose: 1 tab Olanzapine (Zyprexa) 2.5 mg PO BID DIANA PRN Reason: Protocol Stop: 09/26/17 08:59 Last Admin: 07/29/17 09:43 Dose: 2.5 mg Valproate Sodium (Depakene) 750 mg PO HS DIANA PRN Reason: Protocol Stop: 09/25/17 20:59 Last Admin: 07/28/17 21:03 Dose: 750 mg General: demented HEENT: NC/AT, PERRLA, thinning hair, poor dentition Neck: Supple, No thyromegaly, No LAD, deformity Lungs: congested Cardiovascular: RRR, Normal S1, Normal S2, without murmur Abdomen: soft, thin, globular, positive bowel sound Extremities: excoriation, deformity - Procedures Procedures: Procedures Procedure Code Date BLOOD TRANSFUSION SERVICE 25893 03/29/16 CLOSURE SKIN & SUBCUTANEOUS NEC 86.59 07/02/14 DIAGNOSTIC COLONOSCOPY 08977 09/13/15 DRAINAGE OF STOMACH, ENDO, DIAGN [id number] 09/13/15 EGD BIOPSY SINGLE/MULTIPLE 13941 09/13/15 ELECTROCARDIOGRAM 89.52 10/10/94 EMERGENCY DEPT VISIT 75360 07/04/11 EXCISION OF DUODENUM, ENDO, DIAGN [id number] 09/13/15 GASTRIC INTUBATION TREATMENT 56177 12/28/07 GASTRIC LAVAGE 96.33 12/28/07 INSERT GASTRIC TUBE NEC 96.07 07/26/95 INSERT INDWELLING CATH 57.94 09/16/11 INSERT TEMP BLADDER CATH 53306 09/16/11 INSERTION OF INT FIX INTO L HUMERAL SHAFT, PERC APPROACH [id number] 05/24/15 INSPECTION OF LOWER INTESTINAL TRACT, ENDO [id number] 09/13/15 OXYGEN ENRICHMENT NEC 93.96 10/10/94 REMOV THERAPEUT DEV NEC 97.89 03/25/01 REMOVAL OF INT FIX FROM R KNEE JT, OPEN APPROACH [id number] 04/15/16 REPAIR FACE SKIN, EXTERNAL APPROACH [id number] 04/12/15 REPOSITION RIGHT PATELLA WITH INT FIX, OPEN APPROACH [id number] 03/29/16 RPR F/E/E/N/L/M 2.5 CM/< 77213 04/12/15 RPR F/E/E/N/L/M 2.6-5.0 CM 16361 07/02/14 TETANUS TOXOID ADMINIST 99.38 07/02/14 TRANSFUSE NONAUT RED BLOOD CELLS IN PERIPH VEIN, PERC 26320U5 03/29/16 TREAT KNEECAP FRACTURE 48875 03/29/16 UPPER ARM/ELBOW SURGERY 49795 05/24/15 Internal Medicine Assmt/Plan - Assessment Assessment: sp fall sad dm hypothyroidism thin built seizure - Plan Plan: cont on ada iss fall precaution cpm dw rn
[2017-07-29] MEDS ORDERED: Haloperidol Lactate 5 mg/mL 1mL Vial ONE (15:46)
[2017-07-29] MEDS ORDERED: Haloperidol Lactate 5 mg/mL 1mL Vial IM ONE (15:52)
--- NOTE | 2017-07-29 17:23 | Progress Notes ---
DATE: 07/29/2017 SUBJECTIVE: The patient was seen today, remains anxious, angry, paranoid, easily agitated, having episodes of yelling. The patient required to be given emergency medications. Her insight is poor and judgment is impaired. ASSESSMENT: The patient still in psychotic phase, highly agitated. PLAN: Continue medication management. Continue stabilization. Zyprexa was increased to 5 mg p.o. b.i.d. The patient is also on Depakote 750 mg p.o. at bedtime. Add BuSpar 5 mg p.o. b.i.d. Monitor closely. [facility]# [id number]
[2017-07-30] MEDS: INSULIN ASPART, RECOMBINANT 100 UNITS/ML SUBQ SCH ×4 (06:36→21:37)
[2017-07-30] MEDS: Levothyroxine 0.075 Mg Tab PO SCH (06:45)
[2017-07-30] MEDS: Multivitamin Tab PO SCH (08:01)
[2017-07-30] MEDS: Dextromethorphan/Quinidine 20mg/10mg Cap PO SCH ×2 (08:03→20:46)
--- NOTE | 2017-07-30 12:23 | Internal Medicine Prog Note ---
Internal Medicine Subjective - Subjective Service Date: 07/30/17 Patient is:: awake, verbal, interactive, in bed, talking, confused Per staff patient has:: no adverse event, poor appetite, agitated, combative, noncompliant, tolerating meds Internal Medicine Objective - Results Result Diagrams: 07/27/17 18:17 07/27/17 18:17 Recent Labs: Laboratory Last Values WBC 7.2 Th/cmm (4.8-10.8) 07/27/17 18:17 RBC 3.96 Mil/cmm (3.80-5.10) 07/27/17 18:17 Hgb 10.2 gm/dL (12-16) L 07/27/17 18:17 Hct 31.4 % (41.0-60) L 07/27/17 18:17 MCV 79.5 fl (81-100) L 07/27/17 18:17 MCH 25.9 pg (27.0-31.0) L 07/27/17 18:17 MCHC Differential 32.6 pg (28.0-36.0) 07/27/17 18:17 RDW 14.9 % (11.5-20.0) 07/27/17 18:17 Plt Count 202 Th/cmm (150-400) 07/27/17 18:17 MPV 7.6 fl 07/27/17 18:17 Neutrophils % 63.1 % (40.0-80.0) 07/27/17 18:17 Lymphocytes % 29.4 % (20.0-50.0) 07/27/17 18:17 Monocytes % 6.0 % (2.0-10.0) 07/27/17 18:17 Eosinophils % 1.0 % (0.0-5.0) 07/27/17 18:17 Basophils % 0.5 % (0.0-2.0) 07/27/17 18:17 Sodium 138 mEq/L (136-145) 07/27/17 18:17 Potassium 4.0 mEq/L (3.5-5.1) 07/27/17 18:17 Chloride 107 mEq/L (98-107) 07/27/17 18:17 Carbon Dioxide 27.0 mEq/L (21.0-31.0) 07/27/17 18:17 Anion Gap 8.0 (7.0-16.0) 07/27/17 18:17 BUN 11 mg/dL (7-25) 07/27/17 18:17 Creatinine 0.6 mg/dL (0.6-1.2) 07/27/17 18:17 Est GFR ( Amer) > 60.0 ml/min (>90) 07/27/17 18:17 Est GFR (Non-Af Amer) > 60.0 ml/min 07/27/17 18:17 BUN/Creatinine Ratio 18.3 07/27/17 18:17 Glucose 96 mg/dL (70-105) 07/27/17 18:17 POC Glucose 102 MG/DL (70 - 105) 07/30/17 12:04 Whole Bld Lactic Acid 0.95 mmol/L (0.60-1.99) 07/27/17 18:17 Calcium 8.8 mg/dL (8.6-10.3) 07/27/17 18:17 Total Bilirubin 0.3 mg/dL (0.3-1.0) 07/27/17 18:17 AST 11 U/L (13-39) L 07/27/17 18:17 ALT 9 U/L (7-52) 07/27/17 18:17 Alkaline Phosphatase 69 U/L (34-104) 07/27/17 18:17 Total Protein 6.0 gm/dL (6.0-8.3) 07/27/17 18:17 Albumin 3.6 gm/dL (3.7-5.3) L 07/27/17 18:17 Globulin 2.4 gm/dL 07/27/17 18:17 Albumin/Globulin Ratio 1.5 (1.0-1.8) 07/27/17 18:17 - Physical Exam Vitals and I&O: Vital Signs Temp 98.2 F 07/30/17 05:54 Pulse 61 07/30/17 05:54 Resp 18 07/30/17 05:54 BP 123/62 07/30/17 05:54 Pulse Ox 95 07/30/17 05:54 Intake & Output 07/29/17 07/30/17 07/30/17 18:59 06:59 18:59 Intake Total 600 240 Balance 600 240 Weight (lbs) 112 lb Intake: Oral 600 240 Other: # Voids 3 3 # Bowel Movements 1 0 Active Medications: Current Medications Ascorbic Acid (Vitamin C) 500 mg PO DAILY [facility] Stop: 09/26/17 08:59 Last Admin: 07/30/17 08:01 Dose: 500 mg Buspirone HCl (Buspar) 5 mg PO BID [facility] PRN Reason: Protocol Stop: 09/27/17 16:59 Last Admin: 07/30/17 11:30 Dose: 5 mg Calcium Carbonate (Os-Neil) 500 mg PO HS [facility] Stop: 09/25/17 20:59 Last Admin: 07/29/17 21:39 Dose: 500 mg Dextromethorphan/Quinidine (Nuedexta 20mg-10mg) 1 cap PO Q12HR [facility] Stop: 09/25/17 20:59 Last Admin: 07/30/17 08:03 Dose: 1 cap Donepezil HCl (Aricept) 5 mg PO HS [facility] Stop: 09/25/17 20:59 Last Admin: 07/29/17 21:39 Dose: 5 mg Famotidine (Pepcid) 20 mg PO DAILY [facility] Stop: 09/26/17 08:59 Last Admin: 07/30/17 08:01 Dose: 20 mg Glucagon (Glucagen) 1 mg IM PRN PRN PRN Reason: BS<60 Stop: 09/25/17 20:14 Insulin Aspart (Novolog) 0 units SUBQ ACHS [facility] PRN Reason: Protocol Stop: 09/25/17 20:59 Last Admin: 07/30/17 12:17 Dose: Not Given Levetiracetam (Keppra) 500 mg PO BID [facility] Stop: 09/26/17 08:59 Last Admin: 07/30/17 08:01 Dose: 500 mg Levothyroxine Sodium (Synthroid) 0.0625 mg PO QDAC [facility] Stop: 09/26/17 07:29 Last Admin: 07/30/17 06:45 Dose: 0.0625 mg Lorazepam (Ativan) 0.5 mg PO Q6HR PRN; Protocol PRN Reason: Anxiety Stop: 09/25/17 19:31 Last Admin: 07/30/17 08:01 Dose: 0.5 mg Metformin HCl (Glucophage) 500 mg PO TIDWM [facility] Stop: 09/26/17 07:59 Last Admin: 07/30/17 08:01 Dose: 500 mg Multivitamins/Vitamin C (Theragran) 1 tab PO DAILY [facility] Stop: 09/26/17 08:59 Last Admin: 07/30/17 08:01 Dose: 1 tab Olanzapine (Zyprexa) 2.5 mg PO BID [facility] PRN Reason: Protocol Stop: 09/26/17 08:59 Last Admin: 07/30/17 08:03 Dose: 2.5 mg Valproate Sodium (Depakene) 750 mg PO HS [facility] PRN Reason: Protocol Stop: 09/25/17 20:59 Last Admin: 07/29/17 21:39 Dose: 750 mg General: demented HEENT: NC/AT, PERRLA, thinning hair, poor dentition Neck: Supple, No thyromegaly, No LAD, deformity Lungs: congested Cardiovascular: RRR, Normal S1, Normal S2, without murmur Abdomen: soft, thin, globular, positive bowel sound Extremities: excoriation, deformity - Procedures Procedures: Procedures Procedure Code Date BLOOD TRANSFUSION SERVICE 62187 03/29/16 CLOSURE SKIN & SUBCUTANEOUS NEC 86.59 07/02/14 DIAGNOSTIC COLONOSCOPY 21462 09/13/15 DRAINAGE OF STOMACH, ENDO, DIAGN [id number] 09/13/15 EGD BIOPSY SINGLE/MULTIPLE 11261 09/13/15 ELECTROCARDIOGRAM 89.52 10/10/94 EMERGENCY DEPT VISIT 73043 07/04/11 EXCISION OF DUODENUM, ENDO, DIAGN [id number] 09/13/15 GASTRIC INTUBATION TREATMENT 11824 12/28/07 GASTRIC LAVAGE 96.33 12/28/07 INSERT GASTRIC TUBE NEC 96.07 07/26/95 INSERT INDWELLING CATH 57.94 09/16/11 INSERT TEMP BLADDER CATH 44199 09/16/11 INSERTION OF INT FIX INTO L HUMERAL SHAFT, PERC APPROACH [id number] 05/24/15 INSPECTION OF LOWER INTESTINAL TRACT, ENDO [id number] 09/13/15 OXYGEN ENRICHMENT NEC 93.96 10/10/94 REMOV THERAPEUT DEV NEC 97.89 03/25/01 REMOVAL OF INT FIX FROM R KNEE JT, OPEN APPROACH [id number] 04/15/16 REPAIR FACE SKIN, EXTERNAL APPROACH [id number] 04/12/15 REPOSITION RIGHT PATELLA WITH INT FIX, OPEN APPROACH [id number] 11/05/16 RPR F/E/E/N/L/M 2.5 CM/< 69336 04/12/15 RPR F/E/E/N/L/M 2.6-5.0 CM 72012 07/02/14 TETANUS TOXOID ADMINIST 99.38 07/02/14 TRANSFUSE NONAUT RED BLOOD CELLS IN PERIPH VEIN, PERC 92620H2 03/29/16 TREAT KNEECAP FRACTURE 60548 03/29/16 UPPER ARM/ELBOW SURGERY 67425 05/24/15
[2017-07-30] MEDS ORDERED: Haloperidol Lactate 5 mg/mL 1mL Vial ONE (13:29)
[2017-07-30] MEDS ORDERED: Haloperidol Lactate 5 mg/mL 1mL Vial IM ONE (13:35)
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
--- NOTE | 2017-07-30 18:48 | Progress Notes ---
DATE: 07/30/2017 SUBJECTIVE: The patient was seen today, remains angry, anxious, still having episodes of yelling, continues to be argumentative. The patient required to be given emergency medications again today. Insight is poor. Judgment is impaired. ASSESSMENT: The patient is still highly agitated and talking to herself, still in psychotic phase. PLAN: Continue supportive measures, monitor closely. Increase BuSpar to 10 mg p.o. b.i.d. Continue Zyprexa and Depakote. [facility]# [id number]
[2017-07-31] MEDS: Levothyroxine 0.075 Mg Tab PO SCH (06:33)
[2017-07-31] MEDS: INSULIN ASPART, RECOMBINANT 100 UNITS/ML SUBQ SCH ×4 (06:36→21:24)
[2017-07-31] MEDS ORDERED: Haloperidol Lactate 5 mg/mL 1mL Vial ONE (07:13)
[2017-07-31] MEDS ORDERED: Haloperidol Lactate 5 mg/mL 1mL Vial IM ONE (07:30)
--- NOTE | 2017-07-31 09:45 | Internal Medicine Prog Note ---
Internal Medicine Subjective - Subjective Service Date: 07/31/17 Patient is:: awake, verbal, interactive, in bed, talking, confused Per staff patient has:: no adverse event, poor appetite, agitated, combative, noncompliant, tolerating meds Internal Medicine Objective - Results Result Diagrams: 07/27/17 18:17 07/27/17 18:17 Recent Labs: Laboratory Last Values WBC 7.2 Th/cmm (4.8-10.8) 07/27/17 18:17 RBC 3.96 Mil/cmm (3.80-5.10) 07/27/17 18:17 Hgb 10.2 gm/dL (12-16) L 07/27/17 18:17 Hct 31.4 % (41.0-60) L 07/27/17 18:17 MCV 79.5 fl (81-100) L 07/27/17 18:17 MCH 25.9 pg (27.0-31.0) L 07/27/17 18:17 MCHC Differential 32.6 pg (28.0-36.0) 07/27/17 18:17 RDW 14.9 % (11.5-20.0) 07/27/17 18:17 Plt Count 202 Th/cmm (150-400) 07/27/17 18:17 MPV 7.6 fl 07/27/17 18:17 Neutrophils % 63.1 % (40.0-80.0) 07/27/17 18:17 Lymphocytes % 29.4 % (20.0-50.0) 07/27/17 18:17 Monocytes % 6.0 % (2.0-10.0) 07/27/17 18:17 Eosinophils % 1.0 % (0.0-5.0) 07/27/17 18:17 Basophils % 0.5 % (0.0-2.0) 07/27/17 18:17 Sodium 138 mEq/L (136-145) 07/27/17 18:17 Potassium 4.0 mEq/L (3.5-5.1) 07/27/17 18:17 Chloride 107 mEq/L (98-107) 07/27/17 18:17 Carbon Dioxide 27.0 mEq/L (21.0-31.0) 07/27/17 18:17 Anion Gap 8.0 (7.0-16.0) 07/27/17 18:17 BUN 11 mg/dL (7-25) 07/27/17 18:17 Creatinine 0.6 mg/dL (0.6-1.2) 07/27/17 18:17 Est GFR ( Amer) > 60.0 ml/min (>90) 07/27/17 18:17 Est GFR (Non-Af Amer) > 60.0 ml/min 07/27/17 18:17 BUN/Creatinine Ratio 18.3 07/27/17 18:17 Glucose 96 mg/dL (70-105) 07/27/17 18:17 POC Glucose 136 MG/DL (70 - 105) H 07/31/17 06:15 Whole Bld Lactic Acid 0.95 mmol/L (0.60-1.99) 07/27/17 18:17 Calcium 8.8 mg/dL (8.6-10.3) 07/27/17 18:17 Total Bilirubin 0.3 mg/dL (0.3-1.0) 07/27/17 18:17 AST 11 U/L (13-39) L 07/27/17 18:17 ALT 9 U/L (7-52) 07/27/17 18:17 Alkaline Phosphatase 69 U/L (34-104) 07/27/17 18:17 Total Protein 6.0 gm/dL (6.0-8.3) 07/27/17 18:17 Albumin 3.6 gm/dL (3.7-5.3) L 07/27/17 18:17 Globulin 2.4 gm/dL 07/27/17 18:17 Albumin/Globulin Ratio 1.5 (1.0-1.8) 07/27/17 18:17 - Physical Exam Vitals and I&O: Vital Signs Temp 97.6 F 07/31/17 06:33 Pulse 66 07/31/17 06:33 Resp 18 07/31/17 06:33 BP 120/70 07/31/17 06:33 Pulse Ox 97 07/31/17 06:33 Intake & Output 07/30/17 07/31/17 07/31/17 18:59 06:59 18:59 Intake Total 1200 700 Balance 1200 700 Intake: Oral 1200 700 Other: # Voids 3 # Bowel Movements 2 0 Stool Characteristics Soft Soft Formed Formed Active Medications: Current Medications Ascorbic Acid (Vitamin C) 500 mg PO DAILY [facility] Stop: 09/26/17 08:59 Last Admin: 07/30/17 08:01 Dose: 500 mg Buspirone HCl (Buspar) 10 mg PO BID [facility] PRN Reason: Protocol Stop: 09/28/17 18:14 Calcium Carbonate (Os-Neil) 500 mg PO HS [facility] Stop: 09/25/17 20:59 Last Admin: 07/30/17 20:46 Dose: Not Given Dextromethorphan/Quinidine (Nuedexta 20mg-10mg) 1 cap PO Q12HR [facility] Stop: 09/25/17 20:59 Last Admin: 07/30/17 20:46 Dose: Not Given Diphenhydramine HCl (Benadryl 50 Mg/Ml) 50 mg IM STAT ONE Stop: 07/31/17 07:31 Donepezil HCl (Aricept) 5 mg PO HS [facility] Stop: 09/25/17 20:59 Last Admin: 07/30/17 20:46 Dose: Not Given Famotidine (Pepcid) 20 mg PO DAILY [facility] Stop: 09/26/17 08:59 Last Admin: 07/30/17 08:01 Dose: 20 mg Glucagon (Glucagen) 1 mg IM PRN PRN PRN Reason: BS<60 Stop: 09/25/17 20:14 Haloperidol Lactate (Haldol) 5 mg IM STAT ONE Stop: 07/31/17 07:31 Insulin Aspart (Novolog) 0 units SUBQ ACHS [facility] PRN Reason: Protocol Stop: 09/25/17 20:59 Last Admin: 07/31/17 06:36 Dose: Not Given Levetiracetam (Keppra) 500 mg PO BID [facility] Stop: 09/26/17 08:59 Last Admin: 07/30/17 15:59 Dose: 500 mg Levothyroxine Sodium (Synthroid) 0.0625 mg PO QDAC [facility] Stop: 09/26/17 07:29 Last Admin: 07/31/17 06:33 Dose: 0.0625 mg Lorazepam (Ativan) 0.5 mg PO Q6HR PRN; Protocol PRN Reason: Anxiety Stop: 09/25/17 19:31 Last Admin: 07/30/17 08:01 Dose: 0.5 mg Lorazepam (Ativan) 2 mg IM STAT ONE PRN Reason: Protocol Stop: 07/31/17 07:31 Metformin HCl (Glucophage) 500 mg PO TIDWM [facility] Stop: 09/26/17 07:59 Last Admin: 07/30/17 17:01 Dose: 500 mg Multivitamins/Vitamin C (Theragran) 1 tab PO DAILY [facility] Stop: 09/26/17 08:59 Last Admin: 07/30/17 08:01 Dose: 1 tab Olanzapine (Zyprexa) 5 mg PO BID [facility] PRN Reason: Protocol Stop: 09/28/17 18:13 Valproate Sodium (Depakene) 750 mg PO HS [facility] PRN Reason: Protocol Stop: 09/25/17 20:59 Last Admin: 07/30/17 20:46 Dose: Not Given General: demented HEENT: NC/AT, PERRLA, thinning hair, poor dentition Neck: Supple, No thyromegaly, No LAD, deformity Lungs: congested Cardiovascular: RRR, Normal S1, Normal S2, without murmur Abdomen: soft, thin, globular, positive bowel sound Extremities: excoriation, deformity - Procedures Procedures: Procedures Procedure Code Date BLOOD TRANSFUSION SERVICE 05909 03/29/16 CLOSURE SKIN & SUBCUTANEOUS NEC 86.59 07/02/14 DIAGNOSTIC COLONOSCOPY 60640 09/13/15 DRAINAGE OF STOMACH, ENDO, DIAGN [id number] 09/13/15 EGD BIOPSY SINGLE/MULTIPLE 90519 09/13/15 ELECTROCARDIOGRAM 89.52 10/10/94 EMERGENCY DEPT VISIT 15904 07/04/11 EXCISION OF DUODENUM, ENDO, DIAGN [id number] 09/13/15 GASTRIC INTUBATION TREATMENT 93359 12/28/07 GASTRIC LAVAGE 96.33 12/28/07 INSERT GASTRIC TUBE NEC 96.07 07/26/95 INSERT INDWELLING CATH 57.94 09/16/11 INSERT TEMP BLADDER CATH 57118 09/16/11 INSERTION OF INT FIX INTO L HUMERAL SHAFT, PERC APPROACH [id number] 05/24/15 INSPECTION OF LOWER INTESTINAL TRACT, ENDO [id number] 09/13/15 OXYGEN ENRICHMENT NEC 93.96 10/10/94 REMOV THERAPEUT DEV NEC 97.89 03/25/01 REMOVAL OF INT FIX FROM R KNEE JT, OPEN APPROACH [id number] 04/15/16 REPAIR FACE SKIN, EXTERNAL APPROACH [id number] 04/12/15 REPOSITION RIGHT PATELLA WITH INT FIX, OPEN APPROACH [id number] 03/29/16 RPR F/E/E/N/L/M 2.5 CM/< 00104 04/12/15 RPR F/E/E/N/L/M 2.6-5.0 CM 24940 07/02/14 TETANUS TOXOID ADMINIST 99.38 07/02/14 TRANSFUSE NONAUT RED BLOOD CELLS IN PERIPH VEIN, PERC 67413M1 03/29/16 TREAT KNEECAP FRACTURE 43927 03/29/16 UPPER ARM/ELBOW SURGERY 82131 05/24/15
[2017-07-31] MEDS: Dextromethorphan/Quinidine 20mg/10mg Cap PO SCH ×2 (10:14→21:03)
[2017-07-31] MEDS: Multivitamin Tab PO SCH (10:14)
--- NOTE | 2017-07-31 20:50 | Progress Notes ---
DATE: 07/31/2017 SUBJECTIVE: The patient was seen, still disorganized, anxious, guarded, still with episodes of agitation, yelling. The patient required to be given emergency medications. Actually, she responded well to Haldol. ASSESSMENT: The patient still in psychotic phase. PLAN: Continue stabilization, use Haldol Decanoate. Continue to monitor closely. Monitor for any EPS. JOB# [id number]
[2017-08-01] MEDS: Levothyroxine 0.075 Mg Tab PO SCH (06:46)
[2017-08-01] MEDS: INSULIN ASPART, RECOMBINANT 100 UNITS/ML SUBQ SCH ×4 (07:15→20:43)
[2017-08-01] MEDS: Multivitamin Tab PO SCH (09:11)
[2017-08-01] MEDS: Dextromethorphan/Quinidine 20mg/10mg Cap PO SCH ×2 (09:11→20:31)
--- NOTE | 2017-08-01 16:32 | Internal Medicine Prog Note ---
Internal Medicine Subjective - Subjective Service Date: 08/01/17 Patient is:: awake, verbal, interactive, in bed, talking, confused Per staff patient has:: no adverse event, poor appetite, agitated, combative, noncompliant, tolerating meds Internal Medicine Objective - Results Result Diagrams: 07/27/17 18:17 07/27/17 18:17 Recent Labs: Laboratory Last Values WBC 7.2 Th/cmm (4.8-10.8) 07/27/17 18:17 RBC 3.96 Mil/cmm (3.80-5.10) 07/27/17 18:17 Hgb 10.2 gm/dL (12-16) L 07/27/17 18:17 Hct 31.4 % (41.0-60) L 07/27/17 18:17 MCV 79.5 fl (81-100) L 07/27/17 18:17 MCH 25.9 pg (27.0-31.0) L 07/27/17 18:17 MCHC Differential 32.6 pg (28.0-36.0) 07/27/17 18:17 RDW 14.9 % (11.5-20.0) 07/27/17 18:17 Plt Count 202 Th/cmm (150-400) 07/27/17 18:17 MPV 7.6 fl 07/27/17 18:17 Neutrophils % 63.1 % (40.0-80.0) 07/27/17 18:17 Lymphocytes % 29.4 % (20.0-50.0) 07/27/17 18:17 Monocytes % 6.0 % (2.0-10.0) 07/27/17 18:17 Eosinophils % 1.0 % (0.0-5.0) 07/27/17 18:17 Basophils % 0.5 % (0.0-2.0) 07/27/17 18:17 Sodium 138 mEq/L (136-145) 07/27/17 18:17 Potassium 4.0 mEq/L (3.5-5.1) 07/27/17 18:17 Chloride 107 mEq/L (98-107) 07/27/17 18:17 Carbon Dioxide 27.0 mEq/L (21.0-31.0) 07/27/17 18:17 Anion Gap 8.0 (7.0-16.0) 07/27/17 18:17 BUN 11 mg/dL (7-25) 07/27/17 18:17 Creatinine 0.6 mg/dL (0.6-1.2) 07/27/17 18:17 Est GFR ( Amer) > 60.0 ml/min (>90) 07/27/17 18:17 Est GFR (Non-Af Amer) > 60.0 ml/min 07/27/17 18:17 BUN/Creatinine Ratio 18.3 07/27/17 18:17 Glucose 96 mg/dL (70-105) 07/27/17 18:17 POC Glucose 87 MG/DL (70 - 105) 08/01/17 06:06 Whole Bld Lactic Acid 0.95 mmol/L (0.60-1.99) 07/27/17 18:17 Calcium 8.8 mg/dL (8.6-10.3) 07/27/17 18:17 Total Bilirubin 0.3 mg/dL (0.3-1.0) 07/27/17 18:17 AST 11 U/L (13-39) L 07/27/17 18:17 ALT 9 U/L (7-52) 07/27/17 18:17 Alkaline Phosphatase 69 U/L (34-104) 07/27/17 18:17 Total Protein 6.0 gm/dL (6.0-8.3) 07/27/17 18:17 Albumin 3.6 gm/dL (3.7-5.3) L 07/27/17 18:17 Globulin 2.4 gm/dL 07/27/17 18:17 Albumin/Globulin Ratio 1.5 (1.0-1.8) 07/27/17 18:17 - Physical Exam Vitals and I&O: Vital Signs Temp 98.9 F 08/01/17 15:37 Pulse 95 08/01/17 15:37 Resp 20 08/01/17 15:37 BP 135/91 08/01/17 15:37 Pulse Ox 96 08/01/17 15:37 Intake & Output 07/31/17 08/01/17 08/01/17 18:59 06:59 18:59 Intake Total 950 240 250 Balance 950 240 250 Intake: Oral 950 240 250 Other: # Voids 5 1 2 # Bowel Movements 3 0 Stool Characteristics Soft Soft Soft Formed Formed Formed Active Medications: Current Medications Ascorbic Acid (Vitamin C) 500 mg PO DAILY [facility] Stop: 09/26/17 08:59 Last Admin: 08/01/17 09:11 Dose: 500 mg Buspirone HCl (Buspar) 10 mg PO BID [facility] PRN Reason: Protocol Stop: 09/28/17 18:14 Calcium Carbonate (Os-Neil) 500 mg PO HS [facility] Stop: 09/25/17 20:59 Last Admin: 07/31/17 21:03 Dose: 500 mg Dextromethorphan/Quinidine (Nuedexta 20mg-10mg) 1 cap PO Q12HR [facility] Stop: 09/25/17 20:59 Last Admin: 08/01/17 09:11 Dose: 1 cap Donepezil HCl (Aricept) 5 mg PO HS [facility] Stop: 09/25/17 20:59 Last Admin: 07/31/17 21:02 Dose: 5 mg Famotidine (Pepcid) 20 mg PO DAILY [facility] Stop: 09/26/17 08:59 Last Admin: 08/01/17 09:11 Dose: 20 mg Glucagon (Glucagen) 1 mg IM PRN PRN PRN Reason: BS<60 Stop: 09/25/17 20:14 Haloperidol Decanoate (Haldol Dec) 25 mg IM QMONTH [facility] PRN Reason: Protocol Stop: 09/29/17 17:29 Insulin Aspart (Novolog) 0 units SUBQ ACHS [facility] PRN Reason: Protocol Stop: 09/25/17 20:59 Last Admin: 08/01/17 16:27 Dose: Not Given Levetiracetam (Keppra) 500 mg PO BID [facility] Stop: 09/26/17 08:59 Last Admin: 08/01/17 16:26 Dose: 500 mg Levothyroxine Sodium (Synthroid) 0.0625 mg PO QDAC [facility] Stop: 09/26/17 07:29 Last Admin: 08/01/17 06:46 Dose: 0.0625 mg Lorazepam (Ativan) 0.5 mg PO Q6HR PRN; Protocol PRN Reason: Anxiety Stop: 09/25/17 19:31 Last Admin: 08/01/17 16:02 Dose: 0.5 mg Metformin HCl (Glucophage) 500 mg PO TIDWM [facility] Stop: 09/26/17 07:59 Last Admin: 08/01/17 16:26 Dose: 500 mg Multivitamins/Vitamin C (Theragran) 1 tab PO DAILY [facility] Stop: 09/26/17 08:59 Last Admin: 08/01/17 09:11 Dose: 1 tab Olanzapine (Zyprexa) 5 mg PO BID [facility] PRN Reason: Protocol Stop: 09/28/17 18:13 Last Admin: 08/01/17 16:26 Dose: 5 mg Valproate Sodium (Depakene) 750 mg PO HS [facility] PRN Reason: Protocol Stop: 09/25/17 20:59 Last Admin: 07/31/17 21:02 Dose: 750 mg General: demented HEENT: NC/AT, PERRLA, thinning hair, poor dentition Neck: Supple, No thyromegaly, No LAD, deformity Lungs: congested Cardiovascular: RRR, Normal S1, Normal S2, without murmur Abdomen: soft, thin, globular, positive bowel sound Extremities: excoriation, deformity - Procedures Procedures: Procedures Procedure Code Date BLOOD TRANSFUSION SERVICE 96777 03/29/16 CLOSURE SKIN & SUBCUTANEOUS NEC 86.59 07/02/14 DIAGNOSTIC COLONOSCOPY 10241 09/13/15 DRAINAGE OF STOMACH, ENDO, DIAGN [id number] 09/13/15 EGD BIOPSY SINGLE/MULTIPLE 08810 09/13/15 ELECTROCARDIOGRAM 89.52 10/10/94 EMERGENCY DEPT VISIT 06165 07/04/11 EXCISION OF DUODENUM, ENDO, DIAGN [id number] 09/13/15 GASTRIC INTUBATION TREATMENT 71807 12/28/07 GASTRIC LAVAGE 96.33 12/28/07 INSERT GASTRIC TUBE NEC 96.07 07/26/95 INSERT INDWELLING CATH 57.94 09/16/11 INSERT TEMP BLADDER CATH 45971 09/16/11 INSERTION OF INT FIX INTO L HUMERAL SHAFT, PERC APPROACH [id number] 05/24/15 INSPECTION OF LOWER INTESTINAL TRACT, ENDO [id number] 09/13/15 OXYGEN ENRICHMENT NEC 93.96 10/10/94 REMOV THERAPEUT DEV NEC 97.89 03/25/01 REMOVAL OF INT FIX FROM R KNEE JT, OPEN APPROACH [id number] 04/15/16 REPAIR FACE SKIN, EXTERNAL APPROACH [id number] 04/12/15 REPOSITION RIGHT PATELLA WITH INT FIX, OPEN APPROACH [id number] 03/29/16 RPR F/E/E/N/L/M 2.5 CM/< 91374 04/12/15 RPR F/E/E/N/L/M 2.6-5.0 CM 37926 07/02/14 TETANUS TOXOID ADMINIST 99.38 07/02/14 TRANSFUSE NONAUT RED BLOOD CELLS IN PERIPH VEIN, PERC [id number] 03/29/16 TREAT KNEECAP FRACTURE 36939 03/29/16 UPPER ARM/ELBOW SURGERY 50228 05/24/15
--- NOTE | 2017-08-01 16:38 | Progress Notes ---
DATE: 08/01/2017 PSYCHIATRIC PROGRESS NOTE SUBJECTIVE: Staff was spoken to. The patient is interviewed. Mood is noted to be irritable. Affect is constricted. Insight is noted to be still impaired. Impulse control is noted to be limited. The patient's coping skills are noted to be limited. The patient's family has been visiting the patient at this time. The patient is currently on 750 mg of the valproic acid and olanzapine 5 mg twice a day and has been able to tolerate. ASSESSMENT: The patient is still impulsive and has been having mood swings. PLAN: To continue the patient with supportive therapy and follow. JOB# [id number]
[2017-08-02] MEDS: INSULIN ASPART, RECOMBINANT 100 UNITS/ML SUBQ SCH ×4 (06:59→21:47)
[2017-08-02] MEDS: Levothyroxine 0.075 Mg Tab PO SCH (07:00)
[2017-08-02] MEDS: Multivitamin Tab PO SCH (08:42)
[2017-08-02] MEDS: Dextromethorphan/Quinidine 20mg/10mg Cap PO SCH ×2 (08:42→21:31)
--- NOTE | 2017-08-02 16:15 | Internal Medicine Prog Note ---
Internal Medicine Subjective - Subjective Service Date: 08/02/17 Patient is:: awake, verbal, interactive, in bed, talking, confused Per staff patient has:: no adverse event, poor appetite, agitated, combative, noncompliant, tolerating meds Internal Medicine Objective - Results Result Diagrams: 07/27/17 18:17 07/27/17 18:17 Recent Labs: Laboratory Last Values WBC 7.2 Th/cmm (4.8-10.8) 07/27/17 18:17 RBC 3.96 Mil/cmm (3.80-5.10) 07/27/17 18:17 Hgb 10.2 gm/dL (12-16) L 07/27/17 18:17 Hct 31.4 % (41.0-60) L 07/27/17 18:17 MCV 79.5 fl (81-100) L 07/27/17 18:17 MCH 25.9 pg (27.0-31.0) L 07/27/17 18:17 MCHC Differential 32.6 pg (28.0-36.0) 07/27/17 18:17 RDW 14.9 % (11.5-20.0) 07/27/17 18:17 Plt Count 202 Th/cmm (150-400) 07/27/17 18:17 MPV 7.6 fl 07/27/17 18:17 Neutrophils % 63.1 % (40.0-80.0) 07/27/17 18:17 Lymphocytes % 29.4 % (20.0-50.0) 07/27/17 18:17 Monocytes % 6.0 % (2.0-10.0) 07/27/17 18:17 Eosinophils % 1.0 % (0.0-5.0) 07/27/17 18:17 Basophils % 0.5 % (0.0-2.0) 07/27/17 18:17 Sodium 138 mEq/L (136-145) 07/27/17 18:17 Potassium 4.0 mEq/L (3.5-5.1) 07/27/17 18:17 Chloride 107 mEq/L (98-107) 07/27/17 18:17 Carbon Dioxide 27.0 mEq/L (21.0-31.0) 07/27/17 18:17 Anion Gap 8.0 (7.0-16.0) 07/27/17 18:17 BUN 11 mg/dL (7-25) 07/27/17 18:17 Creatinine 0.6 mg/dL (0.6-1.2) 07/27/17 18:17 Est GFR ( Amer) > 60.0 ml/min (>90) 07/27/17 18:17 Est GFR (Non-Af Amer) > 60.0 ml/min 07/27/17 18:17 BUN/Creatinine Ratio 18.3 07/27/17 18:17 Glucose 96 mg/dL (70-105) 07/27/17 18:17 POC Glucose 122 MG/DL (70 - 105) H 08/02/17 11:54 Whole Bld Lactic Acid 0.95 mmol/L (0.60-1.99) 07/27/17 18:17 Calcium 8.8 mg/dL (8.6-10.3) 07/27/17 18:17 Total Bilirubin 0.3 mg/dL (0.3-1.0) 07/27/17 18:17 AST 11 U/L (13-39) L 07/27/17 18:17 ALT 9 U/L (7-52) 07/27/17 18:17 Alkaline Phosphatase 69 U/L (34-104) 07/27/17 18:17 Total Protein 6.0 gm/dL (6.0-8.3) 07/27/17 18:17 Albumin 3.6 gm/dL (3.7-5.3) L 07/27/17 18:17 Globulin 2.4 gm/dL 07/27/17 18:17 Albumin/Globulin Ratio 1.5 (1.0-1.8) 07/27/17 18:17 - Physical Exam Vitals and I&O: Vital Signs Temp 97.8 F 08/02/17 06:33 Pulse 82 08/02/17 06:33 Resp 20 08/02/17 06:33 BP 119/81 08/02/17 06:33 Pulse Ox 97 08/02/17 06:33 Intake & Output 08/01/17 08/02/17 08/02/17 17:59 06:59 18:59 Intake Total Balance Intake: Oral Other: # Voids # Bowel Movements Stool Characteristics Active Medications: Current Medications Ascorbic Acid (Vitamin C) 500 mg PO DAILY [facility] Stop: 09/26/17 08:59 Last Admin: 08/02/17 08:43 Dose: 500 mg Buspirone HCl (Buspar) 10 mg PO BID [facility] PRN Reason: Protocol Stop: 09/28/17 18:14 Calcium Carbonate (Os-Neil) 500 mg PO HS [facility] Stop: 09/25/17 20:59 Last Admin: 08/01/17 20:31 Dose: 500 mg Dextromethorphan/Quinidine (Nuedexta 20mg-10mg) 1 cap PO Q12HR [facility] Stop: 09/25/17 20:59 Last Admin: 08/02/17 08:42 Dose: 1 cap Donepezil HCl (Aricept) 5 mg PO HS [facility] Stop: 09/25/17 20:59 Last Admin: 08/01/17 20:31 Dose: 5 mg Famotidine (Pepcid) 20 mg PO DAILY [facility] Stop: 09/26/17 08:59 Last Admin: 08/02/17 08:42 Dose: 20 mg Glucagon (Glucagen) 1 mg IM PRN PRN PRN Reason: BS<60 Stop: 09/25/17 20:14 Haloperidol Decanoate (Haldol Dec) 25 mg IM QMONTH [facility] PRN Reason: Protocol Stop: 09/29/17 17:29 Insulin Aspart (Novolog) 0 units SUBQ ACHS [facility] PRN Reason: Protocol Stop: 09/25/17 20:59 Last Admin: 08/02/17 11:58 Dose: Not Given Levetiracetam (Keppra) 500 mg PO BID [facility] Stop: 09/26/17 08:59 Last Admin: 08/02/17 08:42 Dose: 500 mg Levothyroxine Sodium (Synthroid) 0.0625 mg PO QDAC [facility] Stop: 09/26/17 07:29 Last Admin: 08/02/17 07:00 Dose: 0.0625 mg Lorazepam (Ativan) 0.5 mg PO Q6HR PRN; Protocol PRN Reason: Anxiety Stop: 09/25/17 19:31 Last Admin: 08/01/17 16:02 Dose: 0.5 mg Metformin HCl (Glucophage) 500 mg PO TIDWM [facility] Stop: 09/26/17 07:59 Last Admin: 08/02/17 12:01 Dose: 500 mg Multivitamins/Vitamin C (Theragran) 1 tab PO DAILY [facility] Stop: 09/26/17 08:59 Last Admin: 08/02/17 08:42 Dose: 1 tab Olanzapine (Zyprexa) 5 mg PO BID [facility] PRN Reason: Protocol Stop: 09/28/17 18:13 Last Admin: 08/02/17 08:42 Dose: 5 mg Valproate Sodium (Depakene) 750 mg PO HS [facility] PRN Reason: Protocol Stop: 09/25/17 20:59 Last Admin: 08/01/17 20:31 Dose: 750 mg General: demented HEENT: NC/AT, PERRLA, thinning hair, poor dentition Neck: Supple, No thyromegaly, No LAD, deformity Lungs: congested Cardiovascular: RRR, Normal S1, Normal S2, without murmur Abdomen: soft, thin, globular, positive bowel sound Extremities: excoriation, deformity - Procedures Procedures: Procedures Procedure Code Date BLOOD TRANSFUSION SERVICE 28718 03/29/16 CLOSURE SKIN & SUBCUTANEOUS NEC 86.59 07/02/14 DIAGNOSTIC COLONOSCOPY 12780 09/13/15 DRAINAGE OF STOMACH, ENDO, DIAGN [id number] 09/13/15 EGD BIOPSY SINGLE/MULTIPLE 56395 09/13/15 ELECTROCARDIOGRAM 89.52 10/10/94 EMERGENCY DEPT VISIT 42433 07/04/11 EXCISION OF DUODENUM, ENDO, DIAGN [id number] 09/13/15 GASTRIC INTUBATION TREATMENT 03287 12/28/07 GASTRIC LAVAGE 96.33 12/28/07 INSERT GASTRIC TUBE NEC 96.07 07/26/95 INSERT INDWELLING CATH 57.94 09/16/11 INSERT TEMP BLADDER CATH 54979 09/16/11 INSERTION OF INT FIX INTO L HUMERAL SHAFT, PERC APPROACH [id number] 05/24/15 INSPECTION OF LOWER INTESTINAL TRACT, ENDO [id number] 09/13/15 OXYGEN ENRICHMENT NEC 93.96 10/10/94 REMOV THERAPEUT DEV NEC 97.89 03/25/01 REMOVAL OF INT FIX FROM R KNEE JT, OPEN APPROACH [id number] 04/15/16 REPAIR FACE SKIN, EXTERNAL APPROACH [id number] 04/12/15 REPOSITION RIGHT PATELLA WITH INT FIX, OPEN APPROACH [id number] 03/29/16 RPR F/E/E/N/L/M 2.5 CM/< 73558 04/12/15 RPR F/E/E/N/L/M 2.6-5.0 CM 39221 07/02/14 TETANUS TOXOID ADMINIST 99.38 07/02/14 TRANSFUSE NONAUT RED BLOOD CELLS IN PERIPH VEIN, PERC 25869Z5 03/29/16 TREAT KNEECAP FRACTURE 72347 03/29/16 UPPER ARM/ELBOW SURGERY 09181 05/24/15
--- NOTE | 2017-08-02 23:34 | Progress Notes ---
DATE: 08/02/2017 SUBJECTIVE: Staff was spoken to. The patient is interviewed. Mood is noted to be less irritable. The patient has been isolative and withdrawn. The patient is currently on valproic acid and olanzapine and has been able to tolerate the medications. No side effects to medications are noted. ASSESSMENT: The patient is still psychotic. The patient is still having mood swings and is gravely disabled. PLAN: To continue the patient with the supportive therapy, encouraged the patient to verbalize the concerns rather than to act out. The patient is not ready to be able to take care of herself at this time. Continue the patient with the current medications and followup. JOB# [id number]
[2017-08-03] MEDS: INSULIN ASPART, RECOMBINANT 100 UNITS/ML SUBQ SCH ×4 (06:32→21:01)
[2017-08-03] MEDS: Levothyroxine 0.075 Mg Tab PO SCH (06:33)
[2017-08-03] MEDS: Dextromethorphan/Quinidine 20mg/10mg Cap PO SCH ×2 (08:08→20:29)
[2017-08-03] MEDS: Multivitamin Tab PO SCH (08:08)
--- NOTE | 2017-08-03 14:14 | Internal Medicine Prog Note ---
Internal Medicine Subjective - Subjective Service Date: 08/03/17 Patient is:: awake, verbal, interactive, in bed, talking, confused Per staff patient has:: no adverse event, poor appetite, agitated, combative, noncompliant, tolerating meds Internal Medicine Objective - Results Result Diagrams: 07/27/17 18:17 07/27/17 18:17 Recent Labs: Laboratory Last Values WBC 7.2 Th/cmm (4.8-10.8) 07/27/17 18:17 RBC 3.96 Mil/cmm (3.80-5.10) 07/27/17 18:17 Hgb 10.2 gm/dL (12-16) L 07/27/17 18:17 Hct 31.4 % (41.0-60) L 07/27/17 18:17 MCV 79.5 fl (81-100) L 07/27/17 18:17 MCH 25.9 pg (27.0-31.0) L 07/27/17 18:17 MCHC Differential 32.6 pg (28.0-36.0) 07/27/17 18:17 RDW 14.9 % (11.5-20.0) 07/27/17 18:17 Plt Count 202 Th/cmm (150-400) 07/27/17 18:17 MPV 7.6 fl 07/27/17 18:17 Neutrophils % 63.1 % (40.0-80.0) 07/27/17 18:17 Lymphocytes % 29.4 % (20.0-50.0) 07/27/17 18:17 Monocytes % 6.0 % (2.0-10.0) 07/27/17 18:17 Eosinophils % 1.0 % (0.0-5.0) 07/27/17 18:17 Basophils % 0.5 % (0.0-2.0) 07/27/17 18:17 Sodium 138 mEq/L (136-145) 07/27/17 18:17 Potassium 4.0 mEq/L (3.5-5.1) 07/27/17 18:17 Chloride 107 mEq/L (98-107) 07/27/17 18:17 Carbon Dioxide 27.0 mEq/L (21.0-31.0) 07/27/17 18:17 Anion Gap 8.0 (7.0-16.0) 07/27/17 18:17 BUN 11 mg/dL (7-25) 07/27/17 18:17 Creatinine 0.6 mg/dL (0.6-1.2) 07/27/17 18:17 Est GFR ( Amer) > 60.0 ml/min (>90) 07/27/17 18:17 Est GFR (Non-Af Amer) > 60.0 ml/min 07/27/17 18:17 BUN/Creatinine Ratio 18.3 07/27/17 18:17 Glucose 96 mg/dL (70-105) 07/27/17 18:17 POC Glucose 82 MG/DL (70 - 105) 08/03/17 11:37 Whole Bld Lactic Acid 0.95 mmol/L (0.60-1.99) 07/27/17 18:17 Calcium 8.8 mg/dL (8.6-10.3) 07/27/17 18:17 Total Bilirubin 0.3 mg/dL (0.3-1.0) 07/27/17 18:17 AST 11 U/L (13-39) L 07/27/17 18:17 ALT 9 U/L (7-52) 07/27/17 18:17 Alkaline Phosphatase 69 U/L (34-104) 07/27/17 18:17 Total Protein 6.0 gm/dL (6.0-8.3) 07/27/17 18:17 Albumin 3.6 gm/dL (3.7-5.3) L 07/27/17 18:17 Globulin 2.4 gm/dL 07/27/17 18:17 Albumin/Globulin Ratio 1.5 (1.0-1.8) 07/27/17 18:17 - Physical Exam Vitals and I&O: Vital Signs Temp 97.2 F 08/03/17 06:43 Pulse 77 08/03/17 06:43 Resp 20 08/03/17 06:43 BP 134/81 08/03/17 06:43 Pulse Ox 97 08/03/17 06:43 Intake & Output 08/02/17 08/03/17 08/03/17 18:59 06:59 18:59 Intake Total 1320 Balance 1320 Intake: Oral 1320 Other: # Voids 3 # Bowel Movements 2 Active Medications: Current Medications Ascorbic Acid (Vitamin C) 500 mg PO DAILY [facility] Stop: 09/26/17 08:59 Last Admin: 08/03/17 08:07 Dose: 500 mg Buspirone HCl (Buspar) 10 mg PO BID [facility] PRN Reason: Protocol Stop: 09/28/17 18:14 Calcium Carbonate (Os-Neil) 500 mg PO HS [facility] Stop: 09/25/17 20:59 Last Admin: 08/02/17 21:31 Dose: 500 mg Dextromethorphan/Quinidine (Nuedexta 20mg-10mg) 1 cap PO Q12HR [facility] Stop: 09/25/17 20:59 Last Admin: 08/03/17 08:08 Dose: 1 cap Donepezil HCl (Aricept) 5 mg PO HS [facility] Stop: 09/25/17 20:59 Last Admin: 08/02/17 21:31 Dose: 5 mg Famotidine (Pepcid) 20 mg PO DAILY [facility] Stop: 09/26/17 08:59 Last Admin: 08/03/17 08:09 Dose: 20 mg Glucagon (Glucagen) 1 mg IM PRN PRN PRN Reason: BS<60 Stop: 09/25/17 20:14 Haloperidol Decanoate (Haldol Dec) 25 mg IM QMONTH [facility] PRN Reason: Protocol Stop: 09/29/17 17:29 Insulin Aspart (Novolog) 0 units SUBQ ACHS [facility] PRN Reason: Protocol Stop: 09/25/17 20:59 Last Admin: 08/03/17 11:50 Dose: Not Given Levetiracetam (Keppra) 500 mg PO BID [facility] Stop: 09/26/17 08:59 Last Admin: 08/03/17 08:09 Dose: 500 mg Levothyroxine Sodium (Synthroid) 0.0625 mg PO QDAC [facility] Stop: 09/26/17 07:29 Last Admin: 08/03/17 06:33 Dose: 0.0625 mg Lorazepam (Ativan) 0.5 mg PO Q6HR PRN; Protocol PRN Reason: Anxiety Stop: 09/25/17 19:31 Last Admin: 08/03/17 02:15 Dose: 0.5 mg Metformin HCl (Glucophage) 500 mg PO TIDWM [facility] Stop: 09/26/17 07:59 Last Admin: 08/03/17 11:45 Dose: Not Given Multivitamins/Vitamin C (Theragran) 1 tab PO DAILY [facility] Stop: 09/26/17 08:59 Last Admin: 08/03/17 08:08 Dose: 1 tab Olanzapine (Zyprexa) 5 mg PO BID [facility] PRN Reason: Protocol Stop: 09/28/17 18:13 Last Admin: 08/03/17 08:08 Dose: 5 mg Valproate Sodium (Depakene) 750 mg PO HS [facility] PRN Reason: Protocol Stop: 09/25/17 20:59 Last Admin: 08/02/17 21:31 Dose: 750 mg General: demented HEENT: NC/AT, PERRLA, thinning hair, poor dentition Neck: Supple, No thyromegaly, No LAD, deformity Lungs: congested Cardiovascular: RRR, Normal S1, Normal S2, without murmur Abdomen: soft, thin, globular, positive bowel sound Extremities: excoriation, deformity - Procedures Procedures: Procedures Procedure Code Date BLOOD TRANSFUSION SERVICE 38798 03/29/16 CLOSURE SKIN & SUBCUTANEOUS NEC 86.59 07/02/14 DIAGNOSTIC COLONOSCOPY 71815 09/13/15 DRAINAGE OF STOMACH, ENDO, DIAGN [id number] 09/13/15 EGD BIOPSY SINGLE/MULTIPLE 03719 09/13/15 ELECTROCARDIOGRAM 89.52 10/10/94 EMERGENCY DEPT VISIT 00395 07/04/11 EXCISION OF DUODENUM, ENDO, DIAGN [id number] 09/13/15 GASTRIC INTUBATION TREATMENT 70160 12/28/07 GASTRIC LAVAGE 96.33 12/28/07 INSERT GASTRIC TUBE NEC 96.07 07/26/95 INSERT INDWELLING CATH 57.94 09/16/11 INSERT TEMP BLADDER CATH 61106 09/16/11 INSERTION OF INT FIX INTO L HUMERAL SHAFT, PERC APPROACH [id number] 05/24/15 INSPECTION OF LOWER INTESTINAL TRACT, ENDO [id number] 09/13/15 OXYGEN ENRICHMENT NEC 93.96 10/10/94 REMOV THERAPEUT DEV NEC 97.89 03/25/01 REMOVAL OF INT FIX FROM R KNEE JT, OPEN APPROACH [id number] 04/15/16 REPAIR FACE SKIN, EXTERNAL APPROACH [id number] 04/12/15 REPOSITION RIGHT PATELLA WITH INT FIX, OPEN APPROACH [id number] 03/29/16 RPR F/E/E/N/L/M 2.5 CM/< 12810 04/12/15 RPR F/E/E/N/L/M 2.6-5[place]0 [place] [address] 07/02/14 TETANUS TOXOID ADMINIST 99.38 07/02/14 TRANSFUSE NONAUT RED BLOOD CELLS IN PERIPH VEIN, PERC [id number] 03/29/16 TREAT KNEECAP FRACTURE 24073 03/29/16 UPPER ARM/ELBOW SURGERY 10860 05/24/15 Nutritional Asmnt/Malnutr-PDOC - Dietary Evaluation Malnutrition Findings (Please click <Entered> for more info): Nutritional Asmnt/Malnutrition Start: 08/03/17 10: 28 Text: Status: Complete Freq: Document 08/03/17 10:29 ANDRES (Rec: 08/03/17 10:35 [facility]) Nutritional Asmnt/Malnutrition Patient General Information Nutritional Screening Moderate Risk Diagnosis psychosis Pertinent Medical Hx/Surgical Hx DM. shcizoaffective disorder, seizure, hypothyroidism Subjective Information Per EMR, PO intake 100%. lab stable. Current Diet Order/ Nutrition Support [facility] soft chopped Pertinent Medications os-neil, pepcid, novolog, synthroid, glucophage, theragran Pertinent Labs 07/31-08/02 POC 87-191 Nutritional Hx/Data Height 5 ft 5 in Height (Calculated Centimeters) 165.1 Current Weight (lbs) 112 lb Weight (Calculated Kilograms) 50.8 Weight (Calculated Grams) 84807.3 Nice Body Weight 125 Body Mass Index (BMI) 18.6 Weight Status Approriate GI Symptoms GI Symptoms None Last BM 08/02 x 2 Difficult in: None Skin Integrity/Comment: pressure area rash to buttocks , skin tear to left lower leg, right knee and left below knee Current %PO Good (75-100%) Estimated Nutritional Goals BEE in Kcals: Using Current wt Calories/Kcals/Kg 27-32 Kcals Calculated 2342-7580 Protein: Using Current wt Protein g/k-1.2 Protein Calculated 51-61 Fluid: ml 1377-1632ml (1ml/kcal) Nutritional Problem No current Nutrition Prob Problem N/A Intervention/Recommendation Comments 1. Continue with current diet as ordered. 2. Monitor PO intake, wt, labs and skin integrity 3. F/U as low risk in 7days, Expected Outcomes/Goals Expected Outcomes/Goals 1. PO intake to meet at least 75% of nutritional needs. 2. Wt stability, skin to remain intact, labs to approach WNL.
--- NOTE | 2017-08-03 20:07 | Progress Notes ---
DATE: 08/03/2017 SUBJECTIVE: The patient was seen, still restless, anxious at times, some anger outburst, some irritability; however, she has taken her medication and sleep is fair. Appetite is fair. Her insight is still a problem. She has poor insight into her issues and impaired judgment. ASSESSMENT: We will continue to assess, the patient is still agitated, still in psychotic phase. PLAN: Continue stabilization. Continue medication management. Continue to monitor closely. [facility]# [id number]
[2017-08-04] MEDS: Levothyroxine 0.075 Mg Tab PO SCH (06:30)
[2017-08-04] MEDS: INSULIN ASPART, RECOMBINANT 100 UNITS/ML SUBQ SCH ×4 (06:31→21:43)
[2017-08-04] MEDS: Multivitamin Tab PO SCH (09:36)
[2017-08-04] MEDS: Dextromethorphan/Quinidine 20mg/10mg Cap PO SCH ×2 (09:36→20:46)
--- NOTE | 2017-08-04 16:34 | Internal Medicine Prog Note ---
Internal Medicine Subjective - Subjective Service Date: 08/04/17 Patient is:: awake, verbal, interactive, in bed, talking, confused Per staff patient has:: no adverse event, poor appetite, agitated, combative, noncompliant, tolerating meds Internal Medicine Objective - Results Result Diagrams: 07/27/17 18:17 07/27/17 18:17 Recent Labs: Laboratory Last Values WBC 7.2 Th/cmm (4.8-10.8) 07/27/17 18:17 RBC 3.96 Mil/cmm (3.80-5.10) 07/27/17 18:17 Hgb 10.2 gm/dL (12-16) L 07/27/17 18:17 Hct 31.4 % (41.0-60) L 07/27/17 18:17 MCV 79.5 fl (81-100) L 07/27/17 18:17 MCH 25.9 pg (27.0-31.0) L 07/27/17 18:17 MCHC Differential 32.6 pg (28.0-36.0) 07/27/17 18:17 RDW 14.9 % (11.5-20.0) 07/27/17 18:17 Plt Count 202 Th/cmm (150-400) 07/27/17 18:17 MPV 7.6 fl 07/27/17 18:17 Neutrophils % 63.1 % (40.0-80.0) 07/27/17 18:17 Lymphocytes % 29.4 % (20.0-50.0) 07/27/17 18:17 Monocytes % 6.0 % (2.0-10.0) 07/27/17 18:17 Eosinophils % 1.0 % (0.0-5.0) 07/27/17 18:17 Basophils % 0.5 % (0.0-2.0) 07/27/17 18:17 Sodium 138 mEq/L (136-145) 07/27/17 18:17 Potassium 4.0 mEq/L (3.5-5.1) 07/27/17 18:17 Chloride 107 mEq/L (98-107) 07/27/17 18:17 Carbon Dioxide 27.0 mEq/L (21.0-31.0) 07/27/17 18:17 Anion Gap 8.0 (7.0-16.0) 07/27/17 18:17 BUN 11 mg/dL (7-25) 07/27/17 18:17 Creatinine 0.6 mg/dL (0.6-1.2) 07/27/17 18:17 Est GFR ( Amer) > 60.0 ml/min (>90) 07/27/17 18:17 Est GFR (Non-Af Amer) > 60.0 ml/min 07/27/17 18:17 BUN/Creatinine Ratio 18.3 07/27/17 18:17 Glucose 96 mg/dL (70-105) 07/27/17 18:17 POC Glucose 231 MG/DL (70 - 105) H 08/04/17 12:39 Whole Bld Lactic Acid 0.95 mmol/L (0.60-1.99) 07/27/17 18:17 Calcium 8.8 mg/dL (8.6-10.3) 07/27/17 18:17 Total Bilirubin 0.3 mg/dL (0.3-1.0) 07/27/17 18:17 AST 11 U/L (13-39) L 07/27/17 18:17 ALT 9 U/L (7-52) 07/27/17 18:17 Alkaline Phosphatase 69 U/L (34-104) 07/27/17 18:17 Total Protein 6.0 gm/dL (6.0-8.3) 07/27/17 18:17 Albumin 3.6 gm/dL (3.7-5.3) L 07/27/17 18:17 Globulin 2.4 gm/dL 07/27/17 18:17 Albumin/Globulin Ratio 1.5 (1.0-1.8) 07/27/17 18:17 - Physical Exam Vitals and I&O: Vital Signs Temp 97.7 F 08/04/17 15:29 Pulse 78 08/04/17 15:29 Resp 18 08/04/17 15:29 BP 132/69 08/04/17 15:29 Pulse Ox 96 08/04/17 15:29 Intake & Output 08/03/17 08/04/17 08/04/17 18:59 06:59 18:59 Intake Total 950 240 Balance 950 240 Intake: Oral 950 240 Other: # Voids 4 1 # Bowel Movements 2 Active Medications: Current Medications Ascorbic Acid (Vitamin C) 500 mg PO DAILY [facility] Stop: 09/26/17 08:59 Last Admin: 08/04/17 09:36 Dose: 500 mg Buspirone HCl (Buspar) 10 mg PO BID [facility] PRN Reason: Protocol Stop: 09/28/17 18:14 Calcium Carbonate (Os-Neil) 500 mg PO HS [facility] Stop: 09/25/17 20:59 Last Admin: 08/03/17 20:29 Dose: 500 mg Dextromethorphan/Quinidine (Nuedexta 20mg-10mg) 1 cap PO Q12HR [facility] Stop: 09/25/17 20:59 Last Admin: 08/04/17 09:36 Dose: 1 cap Donepezil HCl (Aricept) 5 mg PO HS [facility] Stop: 09/25/17 20:59 Last Admin: 08/03/17 20:29 Dose: 5 mg Famotidine (Pepcid) 20 mg PO DAILY [facility] Stop: 09/26/17 08:59 Last Admin: 08/04/17 09:37 Dose: 20 mg Glucagon (Glucagen) 1 mg IM PRN PRN PRN Reason: BS<60 Stop: 09/25/17 20:14 Haloperidol Decanoate (Haldol Dec) 25 mg IM QMONTH [facility] PRN Reason: Protocol Stop: 09/29/17 17:29 Insulin Aspart (Novolog) 0 units SUBQ ACHS [facility] PRN Reason: Protocol Stop: 09/25/17 20:59 Last Admin: 08/04/17 12:52 Dose: Not Given Levetiracetam (Keppra) 500 mg PO BID [facility] Stop: 09/26/17 08:59 Last Admin: 08/04/17 09:37 Dose: 500 mg Levothyroxine Sodium (Synthroid) 0.0625 mg PO QDAC [facility] Stop: 09/26/17 07:29 Last Admin: 08/04/17 06:30 Dose: 0.0625 mg Lorazepam (Ativan) 0.5 mg PO Q6HR PRN; Protocol PRN Reason: Anxiety Stop: 09/25/17 19:31 Last Admin: 08/04/17 12:54 Dose: 0.5 mg Metformin HCl (Glucophage) 500 mg PO TIDWM [facility] Stop: 09/26/17 07:59 Last Admin: 08/04/17 12:54 Dose: 500 mg Multivitamins/Vitamin C (Theragran) 1 tab PO DAILY [facility] Stop: 09/26/17 08:59 Last Admin: 08/04/17 09:36 Dose: 1 tab Olanzapine (Zyprexa) 5 mg PO BID [facility] PRN Reason: Protocol Stop: 09/28/17 18:13 Last Admin: 08/04/17 09:37 Dose: 5 mg Valproate Sodium (Depakene) 750 mg PO HS [facility] PRN Reason: Protocol Stop: 09/25/17 20:59 Last Admin: 08/03/17 20:30 Dose: 750 mg General: demented HEENT: NC/AT, PERRLA, thinning hair, poor dentition Neck: Supple, No thyromegaly, No LAD, deformity Lungs: congested Cardiovascular: RRR, Normal S1, Normal S2, without murmur Abdomen: soft, thin, globular, positive bowel sound Extremities: excoriation, deformity - Procedures Procedures: Procedures Procedure Code Date BLOOD TRANSFUSION SERVICE 03043 03/29/16 CLOSURE SKIN & SUBCUTANEOUS NEC 86.59 07/02/14 DIAGNOSTIC COLONOSCOPY 38972 09/13/15 DRAINAGE OF STOMACH, ENDO, DIAGN [id number] 09/13/15 EGD BIOPSY SINGLE/MULTIPLE 06134 09/13/15 ELECTROCARDIOGRAM 89.52 10/10/94 EMERGENCY DEPT VISIT 04598 07/04/11 EXCISION OF DUODENUM, ENDO, DIAGN [id number] 09/13/15 GASTRIC INTUBATION TREATMENT 20767 12/28/07 GASTRIC LAVAGE 96.33 12/28/07 INSERT GASTRIC TUBE NEC 96.07 07/26/95 INSERT INDWELLING CATH 57.94 09/16/11 INSERT TEMP BLADDER CATH 56183 09/16/11 INSERTION OF INT FIX INTO L HUMERAL SHAFT, PERC APPROACH [id number] 05/24/15 INSPECTION OF LOWER INTESTINAL TRACT, ENDO [id number] 09/13/15 OXYGEN ENRICHMENT NEC 93.96 10/10/94 REMOV THERAPEUT DEV NEC 97.89 03/25/01 REMOVAL OF INT FIX FROM R KNEE JT, OPEN APPROACH [id number] 04/15/16 REPAIR FACE SKIN, EXTERNAL APPROACH [id number] 04/12/15 REPOSITION RIGHT PATELLA WITH INT FIX, OPEN APPROACH [id number] 03/29/16 RPR F/E/E/N/L/M 2.5 CM/< 97796 04/12/15 RPR F/E/E/N/L/M 2.6-5.0 CM [address] 07/02/14 TETANUS TOXOID ADMINIST 99.38 07/02/14 TRANSFUSE NONAUT RED BLOOD CELLS IN PERIPH VEIN, PERC 77952H3 03/29/16 TREAT KNEECAP FRACTURE 73246 03/29/16 UPPER ARM/ELBOW SURGERY 70682 05/24/15 Internal Medicine Assmt/Plan - Assessment Assessment: sp fall sad dm hypothyroidism thin built seizure - Plan Plan: cont on ada iss fall precaution cpm dw rn Nutritional Asmnt/Malnutr-PDOC - Dietary Evaluation Malnutrition Findings (Please click <Entered> for more info): Nutritional Asmnt/Malnutrition Start: 08/03/17 10: 28 Text: Status: Complete Freq: Document 08/03/17 10:29 LCHENG (Rec: 08/03/17 10:35 LCHENG [place] [id number]) Nutritional Asmnt/Malnutrition Patient General Information Nutritional Screening Moderate Risk Diagnosis psychosis Pertinent Medical Hx/Surgical Hx DM. shcizoaffective disorder, seizure, hypothyroidism Subjective Information Per EMR, PO intake 100%. lab stable. Current Diet Order/ Nutrition Support [facility] soft chopped Pertinent Medications os-neil, pepcid, novolog, synthroid, glucophage, theragran Pertinent Labs 07/31-08/02 POC 87-191 Nutritional Hx/Data Height 5 ft 5 in Height (Calculated Centimeters) 165.1 Current Weight (lbs) 112 lb Weight (Calculated Kilograms) 50.8 Weight (Calculated Grams) 15877.3 [place] Body Weight 125 Body Mass Index (BMI) 18.6 Weight Status Approriate GI Symptoms GI Symptoms None Last BM 08/02 x 2 Difficult in: None Skin Integrity/Comment: pressure area rash to buttocks , skin tear to left lower leg, right knee and left below knee Current %PO Good (75-100%) Estimated Nutritional Goals BEE in Kcals: Using Current wt Calories/Kcals/Kg 27-32 Kcals Calculated 2927-1863 Protein: Using Current wt Protein g/k-1.2 Protein Calculated 51-61 Fluid: ml 1377-1632ml (1ml/kcal) Nutritional Problem No current Nutrition Prob Problem N/A Intervention/Recommendation Comments 1. Continue with current diet as ordered. 2. Monitor PO intake, wt, labs and skin integrity 3. F/U as low risk in 7days, Expected Outcomes/Goals Expected Outcomes/Goals 1. PO intake to meet at least 75% of nutritional needs. 2. Wt stability, skin to remain intact, labs to approach WNL.
[2017-08-05] MEDS: INSULIN ASPART, RECOMBINANT 100 UNITS/ML SUBQ SCH ×4 (06:39→21:34)
[2017-08-05] MEDS: Levothyroxine 0.075 Mg Tab PO SCH (06:40)
[2017-08-05] MEDS: Dextromethorphan/Quinidine 20mg/10mg Cap PO SCH ×2 (08:14→21:36)
[2017-08-05] MEDS: Multivitamin Tab PO SCH (08:15)
--- NOTE | 2017-08-05 10:11 | Internal Medicine Prog Note ---
Internal Medicine Subjective - Subjective Service Date: 08/05/17 Patient is:: awake, verbal, interactive, odin chair, talking, confused Per staff patient has:: no adverse event, poor appetite, agitated, combative, noncompliant, tolerating meds Internal Medicine Objective - Results Result Diagrams: 07/27/17 18:17 07/27/17 18:17 Recent Labs: Laboratory Last Values WBC 7.2 Th/cmm (4.8-10.8) 07/27/17 18:17 RBC 3.96 Mil/cmm (3.80-5.10) 07/27/17 18:17 Hgb 10.2 gm/dL (12-16) L 07/27/17 18:17 Hct 31.4 % (41.0-60) L 07/27/17 18:17 MCV 79.5 fl (81-100) L 07/27/17 18:17 MCH 25.9 pg (27.0-31.0) L 07/27/17 18:17 MCHC Differential 32.6 pg (28.0-36.0) 07/27/17 18:17 RDW 14.9 % (11.5-20.0) 07/27/17 18:17 Plt Count 202 Th/cmm (150-400) 07/27/17 18:17 MPV 7.6 fl 07/27/17 18:17 Neutrophils % 63.1 % (40.0-80.0) 07/27/17 18:17 Lymphocytes % 29.4 % (20.0-50.0) 07/27/17 18:17 Monocytes % 6.0 % (2.0-10.0) 07/27/17 18:17 Eosinophils % 1.0 % (0.0-5.0) 07/27/17 18:17 Basophils % 0.5 % (0.0-2.0) 07/27/17 18:17 Sodium 138 mEq/L (136-145) 07/27/17 18:17 Potassium 4.0 mEq/L (3.5-5.1) 07/27/17 18:17 Chloride 107 mEq/L (98-107) 07/27/17 18:17 Carbon Dioxide 27.0 mEq/L (21.0-31.0) 07/27/17 18:17 Anion Gap 8.0 (7.0-16.0) 07/27/17 18:17 BUN 11 mg/dL (7-25) 07/27/17 18:17 Creatinine 0.6 mg/dL (0.6-1.2) 07/27/17 18:17 Est GFR ( Amer) > 60.0 ml/min (>90) 07/27/17 18:17 Est GFR (Non-Af Amer) > 60.0 ml/min 07/27/17 18:17 BUN/Creatinine Ratio 18.3 07/27/17 18:17 Glucose 96 mg/dL (70-105) 07/27/17 18:17 POC Glucose 102 MG/DL (70 - 105) 08/05/17 06:21 Whole Bld Lactic Acid 0.95 mmol/L (0.60-1.99) 07/27/17 18:17 Calcium 8.8 mg/dL (8.6-10.3) 07/27/17 18:17 Total Bilirubin 0.3 mg/dL (0.3-1.0) 07/27/17 18:17 AST 11 U/L (13-39) L 07/27/17 18:17 ALT 9 U/L (7-52) 07/27/17 18:17 Alkaline Phosphatase 69 U/L (34-104) 07/27/17 18:17 Total Protein 6.0 gm/dL (6.0-8.3) 07/27/17 18:17 Albumin 3.6 gm/dL (3.7-5.3) L 07/27/17 18:17 Globulin 2.4 gm/dL 07/27/17 18:17 Albumin/Globulin Ratio 1.5 (1.0-1.8) 07/27/17 18:17 - Physical Exam Vitals and I&O: Vital Signs Temp 97.7 F 08/04/17 15:29 Pulse 78 08/04/17 15:29 Resp 18 08/04/17 15:29 BP 132/69 08/04/17 15:29 Pulse Ox 96 08/04/17 15:29 Intake & Output 08/04/17 08/05/17 08/05/17 18:59 06:59 18:59 Intake Total 1200 480 Balance 1200 480 Intake: Oral 1200 480 Other: # Voids 6 1 # Bowel Movements 1 Active Medications: Current Medications Ascorbic Acid (Vitamin C) 500 mg PO DAILY [facility] Stop: 09/26/17 08:59 Last Admin: 08/05/17 08:14 Dose: 500 mg Buspirone HCl (Buspar) 10 mg PO BID [facility] PRN Reason: Protocol Stop: 09/28/17 18:14 Last Admin: 08/05/17 08:14 Dose: 10 mg Calcium Carbonate (Os-Neil) 500 mg PO HS [facility] Stop: 09/25/17 20:59 Last Admin: 08/04/17 20:46 Dose: 500 mg Dextromethorphan/Quinidine (Nuedexta 20mg-10mg) 1 cap PO Q12HR [facility] Stop: 09/25/17 20:59 Last Admin: 08/05/17 08:14 Dose: 1 cap Donepezil HCl (Aricept) 5 mg PO HS [facility] Stop: 09/25/17 20:59 Last Admin: 08/04/17 20:46 Dose: 5 mg Famotidine (Pepcid) 20 mg PO DAILY [facility] Stop: 09/26/17 08:59 Last Admin: 08/05/17 08:15 Dose: 20 mg Glucagon (Glucagen) 1 mg IM PRN PRN PRN Reason: BS<60 Stop: 09/25/17 20:14 Haloperidol Decanoate (Haldol Dec) 25 mg IM QMONTH [facility] PRN Reason: Protocol Stop: 09/29/17 17:29 Insulin Aspart (Novolog) 0 units SUBQ ACHS [facility] PRN Reason: Protocol Stop: 09/25/17 20:59 Last Admin: 08/05/17 06:39 Dose: Not Given Levetiracetam (Keppra) 500 mg PO BID [facility] Stop: 09/26/17 08:59 Last Admin: 08/05/17 08:15 Dose: 500 mg Levothyroxine Sodium (Synthroid) 0.0625 mg PO QDAC [facility] Stop: 09/26/17 07:29 Last Admin: 08/05/17 06:40 Dose: 0.0625 mg Lorazepam (Ativan) 0.5 mg PO Q6HR PRN; Protocol PRN Reason: Anxiety Stop: 09/25/17 19:31 Last Admin: 08/05/17 08:15 Dose: 0.5 mg Metformin HCl (Glucophage) 500 mg PO TIDWM [facility] Stop: 09/26/17 07:59 Last Admin: 08/05/17 08:23 Dose: Not Given Multivitamins/Vitamin C (Theragran) 1 tab PO DAILY [facility] Stop: 09/26/17 08:59 Last Admin: 08/05/17 08:15 Dose: 1 tab Olanzapine (Zyprexa) 5 mg PO BID [facility] PRN Reason: Protocol Stop: 09/28/17 18:13 Last Admin: 08/05/17 08:16 Dose: 5 mg Valproate Sodium (Depakene) 750 mg PO HS [facility] PRN Reason: Protocol Stop: 09/25/17 20:59 Last Admin: 08/04/17 20:46 Dose: 750 mg General: demented HEENT: NC/AT, PERRLA, thinning hair, poor dentition Neck: Supple, No thyromegaly, No LAD, deformity Lungs: congested Cardiovascular: RRR, Normal S1, Normal S2, without murmur Abdomen: soft, thin, globular, positive bowel sound Extremities: excoriation, deformity - Procedures Procedures: Procedures Procedure Code Date BLOOD TRANSFUSION SERVICE 60707 03/29/16 CLOSURE SKIN & SUBCUTANEOUS NEC 86.59 07/02/14 DIAGNOSTIC COLONOSCOPY 84962 09/13/15 DRAINAGE OF STOMACH, ENDO, DIAGN [id number] 09/13/15 EGD BIOPSY SINGLE/MULTIPLE 89350 09/13/15 ELECTROCARDIOGRAM 89.52 10/10/94 EMERGENCY DEPT VISIT 59169 07/04/11 EXCISION OF DUODENUM, ENDO, DIAGN [id number] 09/13/15 GASTRIC INTUBATION TREATMENT 62002 12/28/07 GASTRIC LAVAGE 96.33 12/28/07 INSERT GASTRIC TUBE NEC 96.07 07/26/95 INSERT INDWELLING CATH 57.94 09/16/11 INSERT TEMP BLADDER CATH 61526 09/16/11 INSERTION OF INT FIX INTO L HUMERAL SHAFT, PERC APPROACH [id number] 05/24/15 INSPECTION OF LOWER INTESTINAL TRACT, ENDO [id number] 09/13/15 OXYGEN ENRICHMENT NEC 93.96 10/10/94 REMOV THERAPEUT DEV NEC 97.89 03/25/01 REMOVAL OF INT FIX FROM R KNEE JT, OPEN APPROACH [id number] 04/15/16 REPAIR FACE SKIN, EXTERNAL APPROACH [id number] 04/12/15 REPOSITION RIGHT PATELLA WITH INT FIX, OPEN APPROACH [id number] 03/29/16 RPR F/E/E/N/L/M 2.5 CM/< 33811 04/12/15 RPR F/E/E/N/L/M 2.6-5.0 CM 41487 07/02/14 TETANUS TOXOID ADMINIST 99.38 07/02/14 TRANSFUSE NONAUT RED BLOOD CELLS IN PERIPH VEIN, PERC [id number] 03/29/16 TREAT KNEECAP FRACTURE 61851 03/29/16 UPPER ARM/ELBOW SURGERY 16757 05/24/15 Internal Medicine Assmt/Plan - Assessment Assessment: sp fall sad dm hypothyroidism thin built seizure - Plan Plan: cont on ada iss fall precaution cpm dw rn Nutritional Asmnt/Malnutr-PDOC - Dietary Evaluation Malnutrition Findings (Please click <Entered> for more info): Nutritional Asmnt/Malnutrition Start: 08/03/17 10: 28 Text: Status: Complete Freq: Document 08/03/17 10:29 LCESPERANZA (Rec: 08/03/17 10:35 [facility]) Nutritional Asmnt/Malnutrition Patient General Information Nutritional Screening Moderate Risk Diagnosis psychosis Pertinent Medical Hx/Surgical Hx DM. shcizoaffective disorder, seizure, hypothyroidism Subjective Information Per EMR, PO intake 100%. lab stable. Current Diet Order/ Nutrition Support [facility] soft chopped Pertinent Medications os-neil, pepcid, novolog, synthroid, glucophage, theragran Pertinent Labs 07/31-08/02 POC 87-191 Nutritional Hx/Data Height 5 ft 5 in Height (Calculated Centimeters) 165.1 Current Weight (lbs) 112 lb Weight (Calculated Kilograms) 50.8 Weight (Calculated Grams) 38553.3 [place] Body Weight 125 Body Mass Index (BMI) 18.6 Weight Status Approriate GI Symptoms GI Symptoms None Last BM 08/02 x 2 Difficult in: None Skin Integrity/Comment: pressure area rash to buttocks , skin tear to left lower leg, right knee and left below knee Current %PO Good (75-100%) Estimated Nutritional Goals BEE in Kcals: Using Current wt Calories/Kcals/Kg 27-32 Kcals Calculated 6180-0596 Protein: Using Current wt Protein g/k-1.2 Protein Calculated 51-61 Fluid: ml 1377-1632ml (1ml/kcal) Nutritional Problem No current Nutrition Prob Problem N/A Intervention/Recommendation Comments 1. Continue with current diet as ordered. 2. Monitor PO intake, wt, labs and skin integrity 3. F/U as low risk in 7days, Expected Outcomes/Goals Expected Outcomes/Goals 1. PO intake to meet at least 75% of nutritional needs. 2. Wt stability, skin to remain intact, labs to approach WNL.
--- NOTE | 2017-08-05 19:53 | Progress Notes ---
DATE: 08/05/2017 SUBJECTIVE: The patient was seen today, still disorganized, anxious, still irritable, and some anger outbursts, but less frequent compared to time of admission. The patient showed some improvement after her Zyprexa dose was adjusted. Also, she received Haldol Decanoate. ASSESSMENT: The patient is still in psychotic phase, still with episodes of agitation. PLAN: Continue hospitalization and monitor closely. Continue supportive measures. [facility]# [id number]
[2017-08-06] MEDS: Levothyroxine 0.075 Mg Tab PO SCH (06:30)
[2017-08-06] MEDS: INSULIN ASPART, RECOMBINANT 100 UNITS/ML SUBQ SCH ×4 (06:36→20:54)
--- NOTE | 2017-08-06 09:06 | Progress Notes ---
DATE: 08/03/2017 SUBJECTIVE: The patient was seen, discussed with staff. Still restless at times, episodes of anger outburst, some agitation, but she is easily redirect by staff and she has been compliant with her medications. Her insight; however, still limited. Insight is poor. ASSESSMENT: The patient is still agitated, still in psychotic phase. PLAN: Continue medication management. Continue stabilization. Monitor closely. JOB# [id number]
[2017-08-06] MEDS: Multivitamin Tab PO SCH (10:00)
[2017-08-06] MEDS: Dextromethorphan/Quinidine 20mg/10mg Cap PO SCH ×2 (10:00→20:27)
--- NOTE | 2017-08-06 14:11 | Internal Medicine Prog Note ---
Internal Medicine Subjective - Subjective Service Date: 08/06/17 Patient is:: awake, verbal, interactive, odin chair, talking, confused Per staff patient has:: no adverse event, poor appetite, agitated, combative, noncompliant, tolerating meds Internal Medicine Objective - Results Result Diagrams: 07/27/17 18:17 07/27/17 18:17 Recent Labs: Laboratory Last Values WBC 7.2 Th/cmm (4.8-10.8) 07/27/17 18:17 RBC 3.96 Mil/cmm (3.80-5.10) 07/27/17 18:17 Hgb 10.2 gm/dL (12-16) L 07/27/17 18:17 Hct 31.4 % (41.0-60) L 07/27/17 18:17 MCV 79.5 fl (81-100) L 07/27/17 18:17 MCH 25.9 pg (27.0-31.0) L 07/27/17 18:17 MCHC Differential 32.6 pg (28.0-36.0) 07/27/17 18:17 RDW 14.9 % (11.5-20.0) 07/27/17 18:17 Plt Count 202 Th/cmm (150-400) 07/27/17 18:17 MPV 7.6 fl 07/27/17 18:17 Neutrophils % 63.1 % (40.0-80.0) 07/27/17 18:17 Lymphocytes % 29.4 % (20.0-50.0) 07/27/17 18:17 Monocytes % 6.0 % (2.0-10.0) 07/27/17 18:17 Eosinophils % 1.0 % (0.0-5.0) 07/27/17 18:17 Basophils % 0.5 % (0.0-2.0) 07/27/17 18:17 Sodium 138 mEq/L (136-145) 07/27/17 18:17 Potassium 4.0 mEq/L (3.5-5.1) 07/27/17 18:17 Chloride 107 mEq/L (98-107) 07/27/17 18:17 Carbon Dioxide 27.0 mEq/L (21.0-31.0) 07/27/17 18:17 Anion Gap 8.0 (7.0-16.0) 07/27/17 18:17 BUN 11 mg/dL (7-25) 07/27/17 18:17 Creatinine 0.6 mg/dL (0.6-1.2) 07/27/17 18:17 Est GFR ( Amer) > 60.0 ml/min (>90) 07/27/17 18:17 Est GFR (Non-Af Amer) > 60.0 ml/min 07/27/17 18:17 BUN/Creatinine Ratio 18.3 07/27/17 18:17 Glucose 96 mg/dL (70-105) 07/27/17 18:17 POC Glucose 120 MG/DL (70 - 105) H 08/06/17 12:06 Whole Bld Lactic Acid 0.95 mmol/L (0.60-1.99) 07/27/17 18:17 Calcium 8.8 mg/dL (8.6-10.3) 07/27/17 18:17 Total Bilirubin 0.3 mg/dL (0.3-1.0) 07/27/17 18:17 AST 11 U/L (13-39) L 07/27/17 18:17 ALT 9 U/L (7-52) 07/27/17 18:17 Alkaline Phosphatase 69 U/L (34-104) 07/27/17 18:17 Total Protein 6.0 gm/dL (6.0-8.3) 07/27/17 18:17 Albumin 3.6 gm/dL (3.7-5.3) L 07/27/17 18:17 Globulin 2.4 gm/dL 07/27/17 18:17 Albumin/Globulin Ratio 1.5 (1.0-1.8) 07/27/17 18:17 - Physical Exam Vitals and I&O: Vital Signs Temp 97.6 F 08/06/17 06:39 Pulse 59 08/06/17 06:39 Resp 21 08/06/17 06:39 BP 101/62 08/06/17 06:39 Pulse Ox 98 08/06/17 06:39 Intake & Output 08/05/17 08/06/17 08/06/17 18:59 06:59 18:59 Intake Total 1200 120 Balance 1200 120 Intake: Oral 1200 120 Other: # Voids 3 3 Active Medications: Current Medications Ascorbic Acid (Vitamin C) 500 mg PO DAILY [facility] Stop: 09/26/17 08:59 Last Admin: 08/06/17 10:00 Dose: 500 mg Buspirone HCl (Buspar) 10 mg PO BID [facility] PRN Reason: Protocol Stop: 09/28/17 18:14 Last Admin: 08/06/17 10:00 Dose: 10 mg Calcium Carbonate (Os-Neil) 500 mg PO HS [facility] Stop: 09/25/17 20:59 Last Admin: 08/05/17 21:36 Dose: 500 mg Dextromethorphan/Quinidine (Nuedexta 20mg-10mg) 1 cap PO Q12HR [facility] Stop: 09/25/17 20:59 Last Admin: 08/06/17 10:00 Dose: 1 cap Donepezil HCl (Aricept) 5 mg PO HS [facility] Stop: 09/25/17 20:59 Last Admin: 08/05/17 21:36 Dose: 5 mg Famotidine (Pepcid) 20 mg PO DAILY [facility] Stop: 09/26/17 08:59 Last Admin: 08/06/17 10:00 Dose: 20 mg Glucagon (Glucagen) 1 mg IM PRN PRN PRN Reason: BS<60 Stop: 09/25/17 20:14 Haloperidol Decanoate (Haldol Dec) 25 mg IM QMONTH [facility] PRN Reason: Protocol Stop: 10/05/17 08:59 Last Admin: 08/06/17 10:00 Dose: 25 mg Insulin Aspart (Novolog) 0 units SUBQ ACHS [facility] PRN Reason: Protocol Stop: 09/25/17 20:59 Last Admin: 08/06/17 13:07 Dose: Not Given Levetiracetam (Keppra) 500 mg PO BID [facility] Stop: 09/26/17 08:59 Last Admin: 08/06/17 10:00 Dose: 500 mg Levothyroxine Sodium (Synthroid) 0.0625 mg PO QDAC [facility] Stop: 09/26/17 07:29 Last Admin: 08/06/17 06:30 Dose: Not Given Lorazepam (Ativan) 0.5 mg PO Q6HR PRN; Protocol PRN Reason: Anxiety Stop: 09/25/17 19:31 Last Admin: 03/14/18 08:15 Dose: 0.5 mg Metformin HCl (Glucophage) 500 mg PO TIDWM [facility] Stop: 09/26/17 07:59 Last Admin: 08/06/17 09:00 Dose: 500 mg Multivitamins/Vitamin C (Theragran) 1 tab PO DAILY [facility] Stop: 09/26/17 08:59 Last Admin: 08/06/17 10:00 Dose: 1 tab Olanzapine (Zyprexa) 5 mg PO BID [facility] PRN Reason: Protocol Stop: 09/28/17 18:13 Last Admin: 08/06/17 10:00 Dose: 5 mg Valproate Sodium (Depakene) 750 mg PO HS [facility] PRN Reason: Protocol Stop: 09/25/17 20:59 Last Admin: 08/05/17 21:36 Dose: 750 mg General: demented HEENT: NC/AT, PERRLA, thinning hair, poor dentition Neck: Supple, No thyromegaly, No LAD, deformity Lungs: congested Cardiovascular: RRR, Normal S1, Normal S2, without murmur Abdomen: soft, thin, globular, positive bowel sound Extremities: excoriation, deformity - Procedures Procedures: Procedures Procedure Code Date BLOOD TRANSFUSION SERVICE 39415 03/29/16 CLOSURE SKIN & SUBCUTANEOUS NEC 86.59 07/02/14 DIAGNOSTIC COLONOSCOPY 49899 09/13/15 DRAINAGE OF STOMACH, ENDO, DIAGN [id number] 09/13/15 EGD BIOPSY SINGLE/MULTIPLE 25913 09/13/15 ELECTROCARDIOGRAM 89.52 10/10/94 EMERGENCY DEPT VISIT 81355 07/04/11 EXCISION OF DUODENUM, ENDO, DIAGN [id number] 09/13/15 GASTRIC INTUBATION TREATMENT 77758 12/28/07 GASTRIC LAVAGE 96.33 12/28/07 INSERT GASTRIC TUBE NEC 96.07 07/26/95 INSERT INDWELLING CATH 57.94 09/16/11 INSERT TEMP BLADDER CATH 17293 09/16/11 INSERTION OF INT FIX INTO L HUMERAL SHAFT, PERC APPROACH [id number] 05/24/15 INSPECTION OF LOWER INTESTINAL TRACT, ENDO [id number] 09/13/15 OXYGEN ENRICHMENT NEC 93.96 10/10/94 REMOV THERAPEUT DEV NEC 97.89 03/25/01 REMOVAL OF INT FIX FROM R KNEE JT, OPEN APPROACH [id number] 04/15/16 REPAIR FACE SKIN, EXTERNAL APPROACH [id number] 04/12/15 REPOSITION RIGHT PATELLA WITH INT FIX, OPEN APPROACH [id number] 03/29/16 RPR F/E/E/N/L/M 2.5 CM/< 69835 04/12/15 RPR F/E/E/N/L/M 2.6-5.0 CM 71524 07/02/14 TETANUS TOXOID ADMINIST 99.38 07/02/14 TRANSFUSE NONAUT RED BLOOD CELLS IN PERIPH VEIN, PERC 22401H5 03/29/16 TREAT KNEECAP FRACTURE 37700 03/29/16 UPPER ARM/ELBOW SURGERY 44346 05/24/15 Internal Medicine Assmt/Plan - Assessment Assessment: sp fall sad dm hypothyroidism thin built seizure - Plan Plan: cont on ada iss fall precaution cpm dw rn Nutritional Asmnt/Malnutr-PDOC - Dietary Evaluation Malnutrition Findings (Please click <Entered> for more info): Nutritional Asmnt/Malnutrition Start: 08/03/17 10: 28 Text: Status: Complete Freq: Document 08/03/17 10:29 LCESPERANZA (Rec: 08/03/17 10:35 [facility]) Nutritional Asmnt/Malnutrition Patient General Information Nutritional Screening Moderate Risk Diagnosis psychosis Pertinent Medical Hx/Surgical Hx DM. shcizoaffective disorder, seizure, hypothyroidism Subjective Information Per EMR, PO intake 100%. lab stable. Current Diet Order/ Nutrition Support [facility] soft chopped Pertinent Medications os-neil, pepcid, novolog, synthroid, glucophage, theragran Pertinent Labs 07/31-08/02 POC 87-191 Nutritional Hx/Data Height 5 ft 5 in Height (Calculated Centimeters) 165.1 Current Weight (lbs) 112 lb Weight (Calculated Kilograms) 50.8 Weight (Calculated Grams) 75328.3 [place] Body Weight 125 Body Mass Index (BMI) 18.6 Weight Status Approriate GI Symptoms GI Symptoms None Last BM 08/02 x 2 Difficult in: None Skin Integrity/Comment: pressure area rash to buttocks , skin tear to left lower leg, right knee and left below knee Current %PO Good (75-100%) Estimated Nutritional Goals BEE in Kcals: Using Current wt Calories/Kcals/Kg 27-32 Kcals Calculated 8088-4182 Protein: Using Current wt Protein g/k-1.2 Protein Calculated 51-61 Fluid: ml 1377-1632ml (1ml/kcal) Nutritional Problem No current Nutrition Prob Problem N/A Intervention/Recommendation Comments 1. Continue with current diet as ordered. 2. Monitor PO intake, wt, labs and skin integrity 3. F/U as low risk in 7days, Expected Outcomes/Goals Expected Outcomes/Goals 1. PO intake to meet at least 75% of nutritional needs. 2. Wt stability, skin to remain intact, labs to approach WNL.
--- NOTE | 2017-08-06 17:43 | Progress Notes ---
DATE: 08/06/2017 SUBJECTIVE: The patient was seen, discussed with staff, chart reviewed, much less anxious, less irritable, less agitation. The patient has been taking her medication. Appetite and sleep are fair, but her insight is still limited. ASSESSMENT: The patient continues to stabilize setting. PLAN: Continue supportive measure, continue medication management. Continue with Zyprexa and Haldol Decanoate. Possible discharge in the a.m. back to her care home facility. [facility]# [id number]
[2017-08-07] MEDS: INSULIN ASPART, RECOMBINANT 100 UNITS/ML SUBQ SCH ×2 (06:30→11:28)
[2017-08-07] MEDS: Levothyroxine 0.075 Mg Tab PO SCH (06:36)
[2017-08-07] MEDS: Dextromethorphan/Quinidine 20mg/10mg Cap PO SCH (08:07)
[2017-08-07] MEDS: Multivitamin Tab PO SCH (08:09)
--- NOTE | 2017-08-07 12:42 | Internal Medicine Prog Note ---
Internal Medicine Subjective - Subjective Service Date: 08/07/17 Patient is:: awake, verbal, interactive, odin chair, talking, confused Per staff patient has:: no adverse event, poor appetite, agitated, combative, noncompliant, tolerating meds Internal Medicine Objective - Results Result Diagrams: 07/27/17 18:17 07/27/17 18:17 Recent Labs: Laboratory Last Values WBC 7.2 Th/cmm (4.8-10.8) 07/27/17 18:17 RBC 3.96 Mil/cmm (3.80-5.10) 07/27/17 18:17 Hgb 10.2 gm/dL (12-16) L 07/27/17 18:17 Hct 31.4 % (41.0-60) L 07/27/17 18:17 MCV 79.5 fl (81-100) L 07/27/17 18:17 MCH 25.9 pg (27.0-31.0) L 07/27/17 18:17 MCHC Differential 32.6 pg (28.0-36.0) 07/27/17 18:17 RDW 14.9 % (11.5-20.0) 07/27/17 18:17 Plt Count 202 Th/cmm (150-400) 07/27/17 18:17 MPV 7.6 fl 07/27/17 18:17 Neutrophils % 63.1 % (40.0-80.0) 07/27/17 18:17 Lymphocytes % 29.4 % (20.0-50.0) 07/27/17 18:17 Monocytes % 6.0 % (2.0-10.0) 07/27/17 18:17 Eosinophils % 1.0 % (0.0-5.0) 07/27/17 18:17 Basophils % 0.5 % (0.0-2.0) 07/27/17 18:17 Sodium 138 mEq/L (136-145) 07/27/17 18:17 Potassium 4.0 mEq/L (3.5-5.1) 07/27/17 18:17 Chloride 107 mEq/L (98-107) 07/27/17 18:17 Carbon Dioxide 27.0 mEq/L (21.0-31.0) 07/27/17 18:17 Anion Gap 8.0 (7.0-16.0) 07/27/17 18:17 BUN 11 mg/dL (7-25) 07/27/17 18:17 Creatinine 0.6 mg/dL (0.6-1.2) 07/27/17 18:17 Est GFR ( Amer) > 60.0 ml/min (>90) 07/27/17 18:17 Est GFR (Non-Af Amer) > 60.0 ml/min 07/27/17 18:17 BUN/Creatinine Ratio 18.3 07/27/17 18:17 Glucose 96 mg/dL (70-105) 07/27/17 18:17 POC Glucose 104 MG/DL (70 - 105) 08/07/17 11:19 Whole Bld Lactic Acid 0.95 mmol/L (0.60-1.99) 07/27/17 18:17 Calcium 8.8 mg/dL (8.6-10.3) 07/27/17 18:17 Total Bilirubin 0.3 mg/dL (0.3-1.0) 07/27/17 18:17 AST 11 U/L (13-39) L 07/27/17 18:17 ALT 9 U/L (7-52) 07/27/17 18:17 Alkaline Phosphatase 69 U/L (34-104) 07/27/17 18:17 Total Protein 6.0 gm/dL (6.0-8.3) 07/27/17 18:17 Albumin 3.6 gm/dL (3.7-5.3) L 07/27/17 18:17 Globulin 2.4 gm/dL 07/27/17 18:17 Albumin/Globulin Ratio 1.5 (1.0-1.8) 07/27/17 18:17 - Physical Exam Vitals and I&O: Vital Signs Temp 97.8 F 08/07/17 10:14 Pulse 67 08/07/17 10:14 Resp 18 08/07/17 10:14 BP 119/70 08/07/17 10:14 Pulse Ox 97 08/07/17 10:14 Intake & Output 08/06/17 08/07/17 08/07/17 18:59 06:59 18:59 Intake Total 1200 120 Balance 1200 120 Intake: Oral 1200 120 Other: # Voids 3 3 Stool Characteristics Soft Formed Active Medications: Current Medications Ascorbic Acid (Vitamin C) 500 mg PO DAILY DIANA Stop: 09/26/17 08:59 Last Admin: 08/07/17 08:08 Dose: 500 mg Buspirone HCl (Buspar) 10 mg PO BID DIANA PRN Reason: Protocol Stop: 09/28/17 18:14 Last Admin: 08/07/17 08:08 Dose: 10 mg Calcium Carbonate (Os-Neil) 500 mg PO HS DIANA Stop: 09/25/17 20:59 Last Admin: 08/06/17 20:26 Dose: 500 mg Dextromethorphan/Quinidine (Nuedexta 20mg-10mg) 1 cap PO Q12HR DIANA Stop: 09/25/17 20:59 Last Admin: 08/07/17 08:07 Dose: 1 cap Donepezil HCl (Aricept) 5 mg PO HS [facility] Stop: 09/25/17 20:59 Last Admin: 08/06/17 20:27 Dose: 5 mg Famotidine (Pepcid) 20 mg PO DAILY DIANA Stop: 09/26/17 08:59 Last Admin: 08/07/17 08:07 Dose: 20 mg Glucagon (Glucagen) 1 mg IM PRN PRN PRN Reason: BS<60 Stop: 09/25/17 20:14 Haloperidol Decanoate (Haldol Dec) 25 mg [facility] PRN Reason: Protocol Stop: 10/05/17 08:59 Last Admin: 08/06/17 10:00 Dose: 25 mg Insulin Aspart (Novolog) 0 units SUBQ ACHS DIANA PRN Reason: Protocol Stop: 09/25/17 20:59 Last Admin: 08/07/17 11:28 Dose: Not Given Levetiracetam (Keppra) 500 mg PO BID DIANA Stop: 09/26/17 08:59 Last Admin: 08/07/17 08:07 Dose: 500 mg Levothyroxine Sodium (Synthroid) 0.0625 mg PO QDAC DIANA Stop: 09/26/17 07:29 Last Admin: 08/07/17 06:36 Dose: 0.0625 mg Lorazepam (Ativan) 0.5 mg PO Q6HR PRN; Protocol PRN Reason: Anxiety Stop: 09/25/17 19:31 Last Admin: 08/05/17 08:15 Dose: 0.5 mg Metformin HCl (Glucophage) 500 mg PO TIDWM DIANA Stop: 09/26/17 07:59 Last Admin: 08/07/17 12:16 Dose: 500 mg Multivitamins/Vitamin C (Theragran) 1 tab PO DAILY DIANA Stop: 09/26/17 08:59 Last Admin: 08/07/17 08:09 Dose: 1 tab Olanzapine (Zyprexa) 5 mg PO BID DIANA PRN Reason: Protocol Stop: 09/28/17 18:13 Last Admin: 08/07/17 08:09 Dose: 5 mg Valproate Sodium (Depakene) 750 mg PO HS DIANA PRN Reason: Protocol Stop: 09/25/17 20:59 Last Admin: 08/06/17 20:26 Dose: 750 mg General: demented HEENT: NC/AT, PERRLA, thinning hair, poor dentition Neck: Supple, No thyromegaly, No LAD, deformity Lungs: congested Cardiovascular: RRR, Normal S1, Normal S2, without murmur Abdomen: soft, thin, globular, positive bowel sound Extremities: excoriation, deformity - Procedures Procedures: Procedures Procedure Code Date BLOOD TRANSFUSION SERVICE 96480 03/29/16 CLOSURE SKIN & SUBCUTANEOUS NEC 86.59 07/02/14 DIAGNOSTIC COLONOSCOPY 26939 09/13/15 DRAINAGE OF STOMACH, ENDO, DIAGN 4U857MS 09/13/15 EGD BIOPSY SINGLE/MULTIPLE 02270 09/13/15 ELECTROCARDIOGRAM 89.52 10/10/94 EMERGENCY DEPT VISIT 42033 07/04/11 EXCISION OF DUODENUM, ENDO, DIAGN [id number] 09/13/15 GASTRIC INTUBATION TREATMENT 63750 12/28/07 GASTRIC LAVAGE 96.33 12/28/07 INSERT GASTRIC TUBE NEC 96.07 07/26/95 INSERT INDWELLING CATH 57.94 09/16/11 INSERT TEMP BLADDER CATH 38630 09/16/11 INSERTION OF INT FIX INTO L HUMERAL SHAFT, PERC APPROACH [id number] 05/24/15 INSPECTION OF LOWER INTESTINAL TRACT, ENDO [id number] 09/13/15 OXYGEN ENRICHMENT NEC 93.96 10/10/94 REMOV THERAPEUT DEV NEC 97.89 03/25/01 REMOVAL OF INT FIX FROM R KNEE JT, OPEN APPROACH [id number] 04/15/16 REPAIR FACE SKIN, EXTERNAL APPROACH [id number] 04/12/15 REPOSITION RIGHT PATELLA WITH INT FIX, OPEN APPROACH [id number] 03/29/16 RPR F/E/E/N/L/M 2.5 CM/< 75550 04/12/15 RPR F/E/E/N/L/M 2.6-5.0 CM 44345 07/02/14 TETANUS TOXOID ADMINIST 99.38 07/02/14 TRANSFUSE NONAUT RED BLOOD CELLS IN PERIPH VEIN, PERC 50570I3 03/29/16 TREAT KNEECAP FRACTURE 17975 03/29/16 UPPER ARM/ELBOW SURGERY 06949 05/24/15 Internal Medicine Assmt/Plan - Assessment Assessment: sp fall sad dm hypothyroidism thin built seizure - Plan Plan: cont on ada iss fall precaution cpm dw rn Nutritional Asmnt/Malnutr-PDOC - Dietary Evaluation Malnutrition Findings (Please click <Entered> for more info): Nutritional Asmnt/Malnutrition Start: 08/03/17 10: 28 Text: Status: Complete Freq: Document 08/03/17 10:29 LCHENG (Rec: 08/03/17 10:35 LCHENG [place] [id number]) Nutritional Asmnt/Malnutrition Patient General Information Nutritional Screening Moderate Risk Diagnosis psychosis Pertinent Medical Hx/Surgical Hx DM. shcizoaffective disorder, seizure, hypothyroidism Subjective Information Per EMR, PO intake 100%. lab stable. Current Diet Order/ Nutrition Support [facility] soft chopped Pertinent Medications os-neil, pepcid, novolog, synthroid, glucophage, theragran Pertinent Labs 07/31-08/02 POC 87-191 Nutritional Hx/Data Height 5 ft 5 in Height (Calculated Centimeters) 165.1 Current Weight (lbs) 112 lb Weight (Calculated Kilograms) 50.8 Weight (Calculated Grams) 94065.3 [place] Body Weight 125 Body Mass Index (BMI) 18.6 Weight Status Approriate GI Symptoms GI Symptoms None Last BM 08/02 x 2 Difficult in: None Skin Integrity/Comment: pressure area rash to buttocks , skin tear to left lower leg, right knee and left below knee Current %PO Good (75-100%) Estimated Nutritional Goals BEE in Kcals: Using Current wt Calories/Kcals/Kg 27-32 Kcals Calculated 7095-1927 Protein: Using Current wt Protein g/k-1.2 Protein Calculated 51-61 Fluid: ml 1377-1632ml (1ml/kcal) Nutritional Problem No current Nutrition Prob Problem N/A Intervention/Recommendation Comments 1. Continue with current diet as ordered. 2. Monitor PO intake, wt, labs and skin integrity 3. F/U as low risk in 7days, Expected Outcomes/Goals Expected Outcomes/Goals 1. PO intake to meet at least 75% of nutritional needs. 2. Wt stability, skin to remain intact, labs to approach WNL.
== END 2017-08-07 13:45 | disposition home or self-care (01) | DRG 885 ==
LOC: ER 16:40 → GERO 19:30
DX: F25.9 Schizoaffective disorder, unspecified (principal); F03.91 Unspecified dementia, unspecified severity, with behavioral disturbance; E11.9 Type 2 diabetes mellitus without complications; E03.9 Hypothyroidism, unspecified; Z66 Do not resuscitate; G40.909 Epilepsy, unspecified, not intractable, without status epilepticus; W07.XXXA Fall from chair, initial encounter; Y93.89 Activity, other specified; Y92.89 Other specified places as the place of occurrence of the external cause; Y99.8 Other external cause status; Z88.0 Allergy status to penicillin
CPT/HCPCS: 36415-UA; 70450-TC; 71045-TC; 80053-TC; 82948-90; 83605; 85025-TC; 90899; 93005; A4216; J1200; J1630; J1631; J1815; J2060; J7051; Z7610

== ENCOUNTER 2017-08-11 14:17 | Inpatient (IN) | payer MEDICARE, MEDICAID ==
--- NOTE | 2017-08-11 15:15 | ED Physician Chart ---
ED Chief Complaint/HPI - Patient Information Date Seen:: 08/11/17 Time Seen:: 14:30 Chief Complaint:: Head Injury History of Present Illness:: pt developed left earlobe lacerations after a reported fall and possible syncope episode; no report of H/As, neck pain, C/P, SOB, Abd. Pain, A/N/V/D/C, fever, chills, or urinary s/s; pt's last tetanus shot: > 5 years Allergies:: Allergies Allergy/AdvReac Type Severity Reaction Status Date / Time Penicillins [PCN] Allergy Verified 10/21/16 19:31 Vitals:: Vital Signs - 8 hr 08/11/17 14:31 Temp 97.8 F HR 90 RR 16 BP 114/70 Historian:: Patient, EMS Review:: Nurse's Note Reviewed, Old Chart Reviewed, EMS run form Reviewed ED Review of Systems - Review of Systems General/Constitutional: No fever, No chills, No weight loss, No weakness, No diaphoresis, No edema, No loss of appetite Skin: No skin lesions, No rash, No bruising Head: No headache, No light-headedness Eyes: No loss of vision, No pain, No diplopia ENT: No earache, No nasal drainage, No sore throat, No tinnitus Neck: No neck pain, No swelling, No thyromegaly, No stiffness, No mass noted Cardio Vascular: No chest pain, No palpitations, No PND, No orthopnea, No edema Pulmonary: No SOB, No cough, No sputum, No wheezing GI: No nausea, No vomiting, No diarrhea, No pain, No melena, No hematochezia, No constipation, No hematemesis G/U: No dysuria, No frequency, No hematuria, No nacturia Musculoskeletal: No bone or joint pain, No back pain, No muscle pain Endocrine: No polyuria, No polydipsia Psychiatric: Prior psych history, No depression, No anxiety, No suicidal ideation, No homicidal ideation, Auditory hallucination, No visual hallucination Hematopoietic: No bruising, No lymphadenopathy Allergic/Immuno: No urticaria, No angioedema Neurological: Syncope, No focal symptoms, No weakness, No paresthesia, No headache, No seizure, No dizziness, Confusion, No vertigo ED Past Medical History - Past Medical History Obtainable: Yes Past Medical History: DM, Thyroid disorder, Dementia Family History: Diabetes Melitus, HTN Social History: Non Smoker, No Alcohol, No Drug Use, Single, Care Facility Surgical History: None Psychiatricy History: Schizophrenia, Dementia Medication: Reviewed Family Medical History - Family Member Mother History Unknown: Yes Ethnicity: Unknown Living Status: Still Living Hx Family Cancer: No Hx Family Coronary Artery Disease: No Hx Family Congestive Heart Failure: No Hx Family Hypertension: Yes Hx Family Stroke: No Hx Family Diabetes: No Hx Family Seizures: Yes Hx Family Dementia: No Hx Family AIDS: No Hx Family HIV: No Hx Family COPD: No Hx Family Hepatitis: No Hx Family Psychiatric Problems: Yes Hx Family Tuberculosis: No Father History Unknown: Yes Ethnicity: Unknown Living Status: Unknown Hx Family Cancer: (unknown) Hx Family Coronary Artery Disease: (unknown) Hx Family Congestive Heart Failure: (unknown) Hx Family Hypertension: (unknown) Hx Family Stroke: (unknown) Hx Family Diabetes: (unknown) Hx Family Seizures: (unknown) Hx Family Dementia: (unknown) Hx Family AIDS: (unknown) Hx Family COPD: (unknown) Hx Family Hepatitis: (unknown) Hx Family Psychiatric Problems: (unknown) Hx Family Tuberculosis: (unknown) ED Physical Exam - Physical Examination General/Constitutional: Awake, Well-developed, well-nourished, Alert, No distress, GCS 15, Non-toxic appearing, Ambulatory Head: Atraumatic Eyes: Lids, conjuctiva normal, PERRL, EOMI Skin: Nl inspection, No rash, No skin lesions, No ecchymosis, Well hydrated, No lymphadenopathy Other Skin comments:: as above ENMT: External ears, nose nl, TM canals nl, Nasal exam nl, Lips, teeth, gums nl , Oropharynx nl, Tonsils nl Other ENMT comments:: Left Earlobe multiple, irregular, avulsion type lacerations; no FBs; good NV functions Neck: Nontender, Full ROM w/o pain, No JVD, No nuchal rigidity, No bruit, No mass, No stridor Respiratory: Nl effort/Exclusion, Clear to Auscultation, No Wheeze/Rhonchi/Rales Cardio Vascular: RRR, No murmur, gallop, rubs, NL S1 S2, Carotid/Femoral/Distal pulses equal bilaterally GI: No tenderness/rebounding/guarding, No organomegaly, No hernia, Normal BS's, Nondistended, No mass/bruits, No McBurney tenderness Other GI comments:: no pulsatile masses : No CVA tenderness Extremities: No tenderness or effusion, Full ROM, normal strength in all extremities, No edema, Normal digits & nails Neuro/Psych: DTR's symmetric, Normal sensory exam, Normal motor strength, Judgement/insight normal, Mood normal, Normal gait, No focal deficits Other Neuro/Psych comments:: Disoriented and Confused Misc: Normal back, No paraspinal tenderness ED Labs/Radiology/EKG Results - Lab Results Comments:: + Anemia - EKG Interpretations EKG Time:: 15:26 Rate & Rhythm: 79; NSR Comments:: non-specific st-t changes ED Septic Shock - . Is Septic Shock (SBP<90, OR Lactate>4 mmol\L) present?: No - <6hrs of presentation: Vital Signs: Vital Signs - 8 hr 08/11/17 14:31 Temp 97.8 F HR 90 RR 16 BP 114/70 ED Reassessment (Disposition) - Reassessment Reassessment Condition:: Improved - Diagnosis Diagnosis:: Dx: Left Earlobe Lacerations; Syncope; S/P Fall; Head Injury; Dementia; Anemia - Aftercare/Follow up Instructions Aftercare/Follow-Up Instructions:: Counseled pt regarding lab results/diagnosis & need follow up, Counseled pt & family regarding lab results/diagnosis & need follow up - Patient Disposition Discharge/Transfer:: Acute Care w/in this hosp Accepting Physician:: Dr. Russell Time Called:: 1500 Time Responded:: 15:00 Admitted to:: Telemetry Spoke to:: Dr. Russell Admitting Medical Physician:: Dr. Russell Condition at Disposition:: Stable, Improved
[2017-08-11 15:23] LABS: % EOSINOPHILS 0.7 % (0.0-5.0); % LYMPHOCYTES 17.1 % (20.0-50.0); % MONOCYTES 2.7 % (2.0-10.0); % NEUTROPHILS 78.5 % (40.0-80.0); BASOPHILE ABSOLUTE 0.1 Th/cumm (0-0.2); EOSINOPHILE ABSOLUTE 0.1 Th/cmm (0.1-0.4); HEMATOCRIT 32.4 % (41.0-60); HEMOGLOBIN 10.6 gm/dL (12-16); LYMPHOCYTE ABSOLUTE 1.4 Th/cmm (1.5-3.0); MEAN CELL VOLUME 79.6 fl (81-100); MEAN CORPUSCULAR HGB CONC 32.7 pg (28.0-36.0); MEAN PLATELET VOLUME 6.8 fl; MONOCYTE ABSOLUTE 0.2 Th/cmm (0.3-1.0); NEUTROPHILE ABSOLUTE 6.2 Th/cmm (1.8-8.0); PLATELET COUNT 340 Th/cmm (150-400); RED BLOOD COUNT 4.06 Mil/cmm (3.80-5.10)
--- NOTE | 2017-08-11 15:39 | History & Physical ---
ADMIT DATE: 08/11/2017 CHIEF COMPLAINT: Status post fall. HISTORY OF PRESENT ILLNESS: This is a 51-year-old female with history of diabetes, seizure, hypothyroidism, dementia, schizoaffective disorder, has been having episodes of multiple falls. Today, she fell and lacerated her left ear. ER physician wanted to admit the patient for further management. PAST MEDICAL HISTORY: As mentioned in history of present illness. PAST SURGICAL HISTORY: Status post left knee surgery secondary to fracture. ALLERGIES: PENICILLIN. MEDICATIONS: Insulin sliding scale, multivitamins, calcium, Depakote, Aricept, Pepcid, Haldol, Keppra, Synthroid ____ FAMILY HISTORY: Noncontributory. SOCIAL HISTORY: The patient is a [place] resident and requiring 24-hour total care. REVIEW OF SYSTEMS: This is limited secondary to the patient's current mental state. We will try to obtain more detailed review of systems at a later date by talking to family members. Dad, ____. We will also try to get information from nursing staff at [facility] ____ who follows the patient for psych. PHYSICAL EXAMINATION: VITAL SIGNS: Blood pressure 140/70, respirations 16, pulse 90, and temperature 97.8. GENERAL: Elderly female, appears her stated age. HEENT: There is about 2 cm laceration and pain in the left ear with dry blood. NECK: Supple. LUNGS: Equal breath sounds, otherwise clear to auscultate adequately. HEART: Regular rate and rhythm without appreciable murmurs. ABDOMEN: Soft, globular. EXTREMITIES: Positive excoriations. There are multiple ecchymosis in upper extremity. LABORATORY DATA: Pending. CT is pending. ASSESSMENT AND PLAN: Status fall, multiple, left ear laceration, diabetes, seizure, hypothyroidism, dementia, schizoaffective disorder. We will place the patient for fall precaution. We will refer the patient to Surgery for possible closure. Continue ADA diet and insulin sliding scale. We will refer the patient to Psychiatry to adjust her psychotropic medication. We will place her on fall precaution. We will continue to monitor the patient closely. JOB# [id number]
[2017-08-11 15:41] LABS: ALB/GLOB RATIO 1.4 (1.0-1.8); ALBUMIN 3.7 gm/dL (3.7-5.3); ALKALINE PHOSPHATASE 90 U/L (34-104); ANION GAP 11.5 (7.0-16.0); BILIRUBIN,TOTAL 0.3 mg/dL (0.3-1.0); BUN - UREA NITROGEN 8 mg/dL (7-25); CARBON DIOXIDE 25.5 mEq/L (21.0-31.0); CHLORIDE 103 mEq/L (98-107); CHOLESTEROL 125 mg/dL (<200); CREATININE - SERUM 0.7 mg/dL (0.6-1.2); CREATININE KINASE 74 U/L (30-223); GFR AFRICAN-AMERICAN > 60.0 ml/min (>90); GFR NON AFRICAN-AMERICAN > 60.0 ml/min; GLUCOSE 87 mg/dL (70-105); HDL -HIGH DENSITY LIPOPROTEIN 45 mg/dL (23-92); SGOT 13 U/L (13-39); SGPT/ALT 11 U/L (7-52); SODIUM SERUM 136 mEq/L (136-145); TOTAL PROTEIN,SERUM 6.3 gm/dL (6.0-8.3); TRIGLYCERIDES 74 mg/dL (<150)
[2017-08-11 15:49] LABS: PROTHROMBIN TIME (TEST) 10.4 SECONDS (9.5-11.5)
[2017-08-11] MEDS ORDERED: GLUCAGON HCl 1 MG KIT IM PRN (17:59)
[2017-08-11] MEDS ORDERED: Maalox 30 mL Cup PO PRN (18:01)
[2017-08-11] MEDS: Sodium Chloride 0.45% 1,000 ML IV SCH (22:53)
[2017-08-11] MEDS: INSULIN ASPART, RECOMBINANT 100 UNITS/ML SUBQ SCH (23:11)
[2017-08-12 05:12] VITALS: BP 123/67
[2017-08-12] MEDS: Levothyroxine 0.025 Mg Tab PO SCH (06:39)
[2017-08-12] MEDS: Dextromethorphan/Quinidine 20mg/10mg Cap PO SCH ×2 (06:40→17:11)
[2017-08-12] MEDS: INSULIN ASPART, RECOMBINANT 100 UNITS/ML SUBQ SCH ×4 (07:33→21:56)
--- NOTE | 2017-08-12 08:28 | Diagnostic Imaging Report ---
Chest x-ray single view History: Chest pain Comparison: 07/27/2017 The heart size is normal. No focal pulmonary parenchymal processes. No hilar or mediastinal abnormalities. Rodding of the left humerus appreciated Impression: No acute abnormalities
--- NOTE | 2017-08-12 08:51 | Diagnostic Imaging Report ---
Head CT without intravenous contrast Indication: Trauma Comparison: Head CT on 07/28/2017 Technique: Axial images were obtained from the vertex to the skull base without IV contrast. Coronal reconstructions were made. Total DLP: 720, CTDI39 FINDINGS: Images of the brain obtained without contrast demonstrate no evidence of an acute hemorrhage. Mild Atrophy is noted. The ang-white matter differentiation is preserved. The ventricles and basal cisterns are patent. No mass effect or midline shift. No evidence of a skull fracture or focal soft tissue swelling. Atherosclerosis is noted. The visualized paranasal sinuses demonstrate minimal mucosal thickening. There may have been old trauma to the nasal bones. IMPRESSION: No acute intracranial abnormality. Mild atrophy. Possible old trauma to the nasal bones. Atherosclerotic vascular disease.
[2017-08-12] MEDS: Calcium Carb/Vit D 500 mg/200 U Tab PO SCH (08:54)
[2017-08-12] MEDS: Multivitamin Tab PO SCH (08:55)
--- NOTE | 2017-08-12 11:18 | Consultation ---
DATE OF CONSULTATION: 08/12/2017 SURGICAL CONSULTATION REFERRING PHYSICIAN: Dr. Russell. REASON FOR CONSULTATION: Laceration, left ear. Thank you for referring this patient to me. HISTORY OF PRESENT ILLNESS: This is a 51-year-old female with history of seizure disorder, diabetes, hypothyroidism, dementia and schizoaffective disorder as well. The patient apparently fell and lacerated her left ear yesterday. She underwent CT scan of the head, which did not show any acute abnormality. CBC and chemistry are also normal. PHYSICAL EXAMINATION: Now there is a laceration across the left ear at its margin, which are rather superficial, which does not involve the cartilage. RECOMMENDATION: Local wound care with local antibiotic treatment. No suture is necessary. JOB# [id number]
[2017-08-12] MEDS: Sodium Chloride 0.45% 1,000 ML IV SCH (11:59)
--- NOTE | 2017-08-12 13:42 | Internal Medicine Prog Note ---
Internal Medicine Subjective - Subjective Service Date: 08/12/17 Patient seen and examined:: with staff Patient is:: awake, verbal, confused Per staff patient has:: tolerating meds Internal Medicine Objective - Results Result Diagrams: 08/11/17 15:17 08/11/17 15:17 Recent Labs: Laboratory Last Values WBC 8.0 Th/cmm (4.8-10.8) 08/11/17 15:17 RBC 4.06 Mil/cmm (3.80-5.10) 08/11/17 15:17 Hgb 10.6 gm/dL (12-16) L 08/11/17 15:17 Hct 32.4 % (41.0-60) L 08/11/17 15:17 MCV 79.6 fl (81-100) L 08/11/17 15:17 MCH 26.0 pg (27.0-31.0) L 08/11/17 15:17 MCHC Differential 32.7 pg (28.0-36.0) 08/11/17 15:17 RDW 15.0 % (11.5-20.0) 08/11/17 15:17 Plt Count 340 Th/cmm (150-400) 08/11/17 15:17 MPV 6.8 fl 08/11/17 15:17 Neutrophils % 78.5 % (40.0-80.0) 08/11/17 15:17 Lymphocytes % 17.1 % (20.0-50.0) L 08/11/17 15:17 Monocytes % 2.7 % (2.0-10.0) 08/11/17 15:17 Eosinophils % 0.7 % (0.0-5.0) 08/11/17 15:17 Basophils % 1.0 % (0.0-2.0) 08/11/17 15:17 PT 10.4 SECONDS (9.5-11.5) 08/11/17 15:17 INR 1.00 (0.5-1.4) 08/11/17 15:17 Sodium 136 mEq/L (136-145) 08/11/17 15:17 Potassium 4.0 mEq/L (3.5-5.1) 08/11/17 15:17 Chloride 103 mEq/L (98-107) 08/11/17 15:17 Carbon Dioxide 25.5 mEq/L (21.0-31.0) 08/11/17 15:17 Anion Gap 11.5 (7.0-16.0) 08/11/17 15:17 BUN 8 mg/dL (7-25) 08/11/17 15:17 Creatinine 0.7 mg/dL (0.6-1.2) 08/11/17 15:17 Est GFR ( Amer) > 60.0 ml/min (>90) 08/11/17 15:17 Est GFR (Non-Af Amer) > 60.0 ml/min 08/11/17 15:17 BUN/Creatinine Ratio 11.4 08/11/17 15:17 Glucose 87 mg/dL (70-105) 08/11/17 15:17 POC Glucose 99 MG/DL (70 - 105) 08/12/17 12:28 Calcium 9.0 mg/dL (8.6-10.3) 08/11/17 15:17 Total Bilirubin 0.3 mg/dL (0.3-1.0) 08/11/17 15:17 AST 13 U/L (13-39) 08/11/17 15:17 ALT 11 U/L (7-52) 08/11/17 15:17 Alkaline Phosphatase 90 U/L (34-104) 08/11/17 15:17 Creatine Kinase 74 U/L (30-223) 08/11/17 15:17 Troponin I < 0.01 ng/mL (0.01-0.05) L 08/11/17 15:17 B-Natriuretic Peptide 12.7 pg/mL (5.0-100.0) 08/11/17 15:17 Total Protein 6.3 gm/dL (6.0-8.3) 08/11/17 15:17 Albumin 3.7 gm/dL (3.7-5.3) 08/11/17 15:17 Globulin 2.6 gm/dL 08/11/17 15:17 Albumin/Globulin Ratio 1.4 (1.0-1.8) 08/11/17 15:17 Triglycerides 74 mg/dL (<150) 08/11/17 15:17 Cholesterol 125 mg/dL (<200) 08/11/17 15:17 LDL Cholesterol Direct 70 mg/dL (75-193) L 08/11/17 15:17 HDL Cholesterol 45 mg/dL (23-92) 08/11/17 15:17 Serum , Qual NEGATIVE (NEGATIVE) 08/11/17 15:17 - Physical Exam Vitals and I&O: Vital Signs Temp 98 F 08/12/17 08:00 Pulse 86 08/12/17 08:00 Resp 20 08/12/17 08:00 BP 143/95 08/12/17 08:00 Pulse Ox 97 08/12/17 08:00 Intake & Output 08/11/17 08/12/17 08/12/17 18:59 06:59 18:59 Intake Total 450 1000 Balance 450 1000 Weight (lbs) 112 lb Intake: Intake, IV Amount 1000 Sodium Chloride 0.45% 1, 1000 000 ml @ 80 mls/hr IV . [id number] [facility] Rx#:[id number] Oral 450 Other: # Voids 4 # Bowel Movements 0 Active Medications: Current Medications Acetaminophen (Tylenol) 650 mg PO Q4H PRN PRN Reason: Pain Or Fever above 101 Stop: 10/10/17 18:00 Last Admin: 08/11/17 23:01 Dose: 650 mg Al Hydrox/Mg Hydrox/Simethicone (Maalox) 30 ml PO Q6H PRN PRN Reason: Dyspepsia Stop: 10/10/17 18:00 Ascorbic Acid (Vitamin C) 500 mg PO DAILY [facility] Stop: 10/11/17 08:59 Last Admin: 08/12/17 08:55 Dose: 500 mg Buspirone HCl (Buspar) 10 mg PO BID [facility] PRN Reason: Protocol Stop: 10/11/17 08:59 Last Admin: 08/12/17 08:54 Dose: 10 mg Calcium Carbonate (Os-Neil) 500 mg PO HS [facility] Stop: 10/10/17 20:59 Last Admin: 08/11/17 22:48 Dose: 500 mg Calcium/Vitamin D (Oscal W/Vitamin D) 1 tab PO DAILY [facility] Stop: 10/11/17 08:59 Last Admin: 08/12/17 08:54 Dose: 1 tab Dextromethorphan/Quinidine (Nuedexta 20mg-10mg) 1 cap PO Q12H [facility] Stop: 10/10/17 17:59 Last Admin: 08/12/17 06:40 Dose: 1 cap Divalproex Sodium (Depakote Sprinkle) 125 mg PO TID [facility] PRN Reason: Protocol Stop: 10/10/17 20:59 Last Admin: 08/12/17 08:54 Dose: 125 mg Donepezil HCl (Aricept) 5 mg PO HS [facility] Stop: 10/10/17 20:59 Last Admin: 08/11/17 22:47 Dose: 5 mg Famotidine (Pepcid) 20 mg PO DAILY [facility] Stop: 10/11/17 08:59 Last Admin: 08/12/17 08:54 Dose: 20 mg Glucagon (Glucagen) 1 mg IM PRN PRN PRN Reason: BS <60 Haloperidol Decanoate (Haldol Dec) 25 mg IM UD [facility] PRN Reason: Protocol Stop: 10/15/17 08:59 Sodium Chloride (Nacl 0.45%) 1,000 mls @ 80 mls/hr IV .[id number] [facility] Stop: 10/10/17 18:14 Last Admin: 08/12/17 11:59 Dose: 80 mls/hr Insulin Aspart (Novolog) 0 units SUBQ ACHS [facility] PRN Reason: Protocol Stop: 10/10/17 20:59 Last Admin: 08/12/17 12:29 Dose: Not Given Levetiracetam (Keppra) 500 mg PO BID [facility] Stop: 10/11/17 08:59 Last Admin: 08/12/17 08:55 Dose: 500 mg Levothyroxine Sodium (Synthroid) 0.0625 mg PO QDAC [facility] Stop: 10/11/17 07:29 Last Admin: 08/12/17 06:39 Dose: 0.0625 mg Metformin HCl (Glucophage) 500 mg PO TID [facility] Stop: 10/10/17 20:59 Last Admin: 08/12/17 08:53 Dose: 500 mg Multivitamins/Vitamin C (Theragran) 1 tab PO DAILY [facility] Stop: 10/11/17 08:59 Last Admin: 08/12/17 08:55 Dose: 1 tab Ondansetron HCl (Zofran) 4 mg IV Q8H PRN PRN Reason: Nausea / Vomiting Stop: 10/10/17 18:00 General: weak, alert HEENT: NC/AT, PERRLA Neck: Supple Lungs: CTAB Cardiovascular: RRR, Normal S1, Normal S2, without murmur Abdomen: soft, non-tender, non-distended, positive bowel sound Extremities: excoriation Neurological: alert - Procedures Procedures: Procedures Procedure Code Date BLOOD TRANSFUSION SERVICE 21646 03/29/16 CLOSURE SKIN & SUBCUTANEOUS NEC 86.59 07/02/14 DIAGNOSTIC COLONOSCOPY 11051 09/13/15 DRAINAGE OF STOMACH, ENDO, DIAGN [id number] 09/13/15 EGD BIOPSY SINGLE/MULTIPLE 85635 09/13/15 ELECTROCARDIOGRAM 89.52 10/10/94 EMERGENCY DEPT VISIT 95555 07/04/11 EXCISION OF DUODENUM, ENDO, DIAGN [id number] 09/13/15 GASTRIC INTUBATION TREATMENT 87607 12/28/07 GASTRIC LAVAGE 96.33 12/28/07 INSERT GASTRIC TUBE NEC 96.07 07/26/95 INSERT INDWELLING CATH 57.94 09/16/11 INSERT TEMP BLADDER CATH 54844 09/16/11 INSERTION OF INT FIX INTO L HUMERAL SHAFT, PERC APPROACH [id number] 05/24/15 INSPECTION OF LOWER INTESTINAL TRACT, ENDO [id number] 09/13/15 OXYGEN ENRICHMENT NEC 93.96 10/10/94 REMOV THERAPEUT DEV NEC 97.89 03/25/01 REMOVAL OF INT FIX FROM R KNEE JT, OPEN APPROACH [id number] 04/15/16 REPAIR FACE SKIN, EXTERNAL APPROACH [id number] 04/12/15 REPOSITION RIGHT PATELLA WITH INT FIX, OPEN APPROACH [id number] 03/29/16 RPR F/E/E/N/L/M 2.5 CM/< 85449 04/12/15 RPR F/E/E/N/L/M 2.6-5.0 CM 20636 07/02/14 TETANUS TOXOID ADMINIST 99.38 07/02/14 TRANSFUSE NONAUT RED BLOOD CELLS IN PERIPH VEIN, PERC [id number] 03/29/16 TREAT KNEECAP FRACTURE 10099 03/29/16 UPPER ARM/ELBOW SURGERY 85077 05/24/15 Internal Medicine Assmt/Plan - Assessment Assessment: s/p fall left ear laceration dm-2 seizure hypothyroidism dementia schizoaffective disorder - Plan Plan: fall precautions continue wound care tx on left ear, no sutures required as per Dr. Cali continue current plan of care
[2017-08-13] MEDS: Sodium Chloride 0.45% 1,000 ML IV SCH (02:29)
[2017-08-13 05:28] LABS: % BASOPHILS 0.8 % (0.0-2.0); % EOSINOPHILS 1.2 % (0.0-5.0); % LYMPHOCYTES 25.9 % (20.0-50.0); % MONOCYTES 5.8 % (2.0-10.0); % NEUTROPHILS 66.3 % (40.0-80.0); EOSINOPHILE ABSOLUTE 0.1 Th/cmm (0.1-0.4); HEMATOCRIT 33.7 % (41.0-60); HEMOGLOBIN 11.1 gm/dL (12-16); LYMPHOCYTE ABSOLUTE 1.5 Th/cmm (1.5-3.0); MEAN CELL VOLUME 78.9 fl (81-100); MEAN PLATELET VOLUME 7.1 fl; MONOCYTE ABSOLUTE 0.3 Th/cmm (0.3-1.0); NEUTROPHILE ABSOLUTE 3.9 Th/cmm (1.8-8.0); PLATELET COUNT 315 Th/cmm (150-400); RED BLOOD COUNT 4.27 Mil/cmm (3.80-5.10); RED CELL DISTRIBUTION WIDTH 14.7 % (11.5-20.0); WHITE BLOOD COUNT 5.8 Th/cmm (4.8-10.8)
[2017-08-13 05:46] LABS: ANION GAP 11.1 (7.0-16.0); BUN - UREA NITROGEN 8 mg/dL (7-25); CALCIUM SERUM 9.4 mg/dL (8.6-10.3); CARBON DIOXIDE 26.7 mEq/L (21.0-31.0); CHLORIDE 104 mEq/L (98-107); CREATININE - SERUM 0.6 mg/dL (0.6-1.2); GFR AFRICAN-AMERICAN > 60.0 ml/min (>90); GFR NON AFRICAN-AMERICAN > 60.0 ml/min; GLUCOSE 104 mg/dL (70-105); POTASSIUM SERUM 3.8 mEq/L (3.5-5.1); SODIUM SERUM 138 mEq/L (136-145)
[2017-08-13] MEDS: Dextromethorphan/Quinidine 20mg/10mg Cap PO SCH (06:42)
[2017-08-13] MEDS: Levothyroxine 0.025 Mg Tab PO SCH (06:43)
[2017-08-13] MEDS: INSULIN ASPART, RECOMBINANT 100 UNITS/ML SUBQ SCH ×5 (06:49→20:52)
[2017-08-13] MEDS: Multivitamin Tab PO SCH (09:59)
[2017-08-13] MEDS: Calcium Carb/Vit D 500 mg/200 U Tab PO SCH (10:00)
--- NOTE | 2017-08-13 13:29 | Internal Medicine Prog Note ---
Internal Medicine Subjective - Subjective Service Date: 08/13/17 Patient seen and examined:: with staff Patient is:: awake, verbal, confused Per staff patient has:: tolerating meds Internal Medicine Objective - Results Result Diagrams: 08/13/17 05:00 08/13/17 05:00 Recent Labs: Laboratory Last Values WBC 5.8 Th/cmm (4.8-10.8) 08/13/17 05:00 RBC 4.27 Mil/cmm (3.80-5.10) 08/13/17 05:00 Hgb 11.1 gm/dL (12-16) L 08/13/17 05:00 Hct 33.7 % (41.0-60) L 08/13/17 05:00 MCV 78.9 fl (81-100) L 08/13/17 05:00 MCH 26.0 pg (27.0-31.0) L 08/13/17 05:00 MCHC Differential 33.0 pg (28.0-36.0) 08/13/17 05:00 RDW 14.7 % (11.5-20.0) 08/13/17 05:00 Plt Count 315 Th/cmm (150-400) 08/13/17 05:00 MPV 7.1 fl 08/13/17 05:00 Neutrophils % 66.3 % (40.0-80.0) 08/13/17 05:00 Lymphocytes % 25.9 % (20.0-50.0) 08/13/17 05:00 Monocytes % 5.8 % (2.0-10.0) 08/13/17 05:00 Eosinophils % 1.2 % (0.0-5.0) 08/13/17 05:00 Basophils % 0.8 % (0.0-2.0) 08/13/17 05:00 PT 10.4 SECONDS (9.5-11.5) 08/11/17 15:17 INR 1.00 (0.5-1.4) 08/11/17 15:17 Sodium 138 mEq/L (136-145) 08/13/17 05:00 Potassium 3.8 mEq/L (3.5-5.1) 08/13/17 05:00 Chloride 104 mEq/L (98-107) 08/13/17 05:00 Carbon Dioxide 26.7 mEq/L (21.0-31.0) 08/13/17 05:00 Anion Gap 11.1 (7.0-16.0) 08/13/17 05:00 BUN 8 mg/dL (7-25) 08/13/17 05:00 Creatinine 0.6 mg/dL (0.6-1.2) 08/13/17 05:00 Est GFR ( Amer) > 60.0 ml/min (>90) 08/13/17 05:00 Est GFR (Non-Af Amer) > 60.0 ml/min 08/13/17 05:00 BUN/Creatinine Ratio 13.3 08/13/17 05:00 Glucose 104 mg/dL (70-105) 08/13/17 05:00 POC Glucose 104 MG/DL (70 - 105) 08/12/17 21:47 Calcium 9.4 mg/dL (8.6-10.3) 08/13/17 05:00 Total Bilirubin 0.3 mg/dL (0.3-1.0) 08/11/17 15:17 AST 13 U/L (13-39) 08/11/17 15:17 ALT 11 U/L (7-52) 08/11/17 15:17 Alkaline Phosphatase 90 U/L (34-104) 08/11/17 15:17 Ammonia 35 umol/L (16-53) 08/13/17 05:00 Creatine Kinase 74 U/L (30-223) 08/11/17 15:17 Troponin I < 0.01 ng/mL (0.01-0.05) L 08/11/17 15:17 B-Natriuretic Peptide 12.7 pg/mL (5.0-100.0) 08/11/17 15:17 Total Protein 6.3 gm/dL (6.0-8.3) 08/11/17 15:17 Albumin 3.7 gm/dL (3.7-5.3) 08/11/17 15:17 Globulin 2.6 gm/dL 08/11/17 15:17 Albumin/Globulin Ratio 1.4 (1.0-1.8) 08/11/17 15:17 Triglycerides 74 mg/dL (<150) 08/11/17 15:17 Cholesterol 125 mg/dL (<200) 08/11/17 15:17 LDL Cholesterol Direct 70 mg/dL (75-193) L 08/11/17 15:17 HDL Cholesterol 45 mg/dL (23-92) 08/11/17 15:17 Serum , Qual NEGATIVE (NEGATIVE) 08/11/17 15:17 Valproic Acid 20.7 ug/mL (50.0-100.0) L 08/13/17 05:00 - Physical Exam Vitals and I&O: Vital Signs Temp 97 F 08/13/17 08:00 Pulse 94 08/13/17 08:00 Resp 18 08/13/17 08:00 BP 149/88 08/13/17 08:00 Pulse Ox 96 08/13/17 08:00 Intake & Output 08/12/17 08/13/17 08/13/17 18:59 06:59 18:59 Intake Total 1250 1300 Balance 1250 1300 Weight (lbs) 127 lb 14.4 oz 127 lb 127 lb Intake: Intake, IV Amount 1000 1000 Sodium Chloride 0.45% 1, 1000 1000 000 ml @ 80 mls/hr IV . [id number] [facility] Rx#:[id number] Oral 250 300 Tube Feeding 0 Other: # Voids 3 2 # Bowel Movements 0 Active Medications: Current Medications Acetaminophen (Tylenol) 650 mg PO Q4H PRN PRN Reason: Pain Or Fever above 101 Stop: 10/10/17 18:00 Last Admin: 08/11/17 23:01 Dose: 650 mg Al Hydrox/Mg Hydrox/Simethicone (Maalox) 30 ml PO Q6H PRN PRN Reason: Dyspepsia Stop: 10/10/17 18:00 Ascorbic Acid (Vitamin C) 500 mg PO DAILY [facility] Stop: 10/11/17 08:59 Last Admin: 08/13/17 09:58 Dose: 500 mg Buspirone HCl (Buspar) 10 mg PO BID [facility] PRN Reason: Protocol Stop: 10/11/17 08:59 Last Admin: 08/13/17 09:59 Dose: 10 mg Calcium Carbonate (Os-Neil) 500 mg PO HS [facility] Stop: 10/10/17 20:59 Last Admin: 08/12/17 21:53 Dose: 500 mg Calcium/Vitamin D (Oscal W/Vitamin D) 1 tab PO DAILY [facility] Stop: 10/11/17 08:59 Last Admin: 08/13/17 10:00 Dose: 1 tab Dextromethorphan/Quinidine (Nuedexta 20mg-10mg) 1 cap PO Q12H [facility] Stop: 10/10/17 17:59 Last Admin: 08/13/17 06:42 Dose: 1 cap Divalproex Sodium (Depakote Sprinkle) 200 mg PO TID [facility] PRN Reason: Protocol Stop: 10/12/17 12:55 Donepezil HCl (Aricept) 5 mg PO HS [facility] Stop: 10/10/17 20:59 Last Admin: 08/12/17 21:54 Dose: 5 mg Famotidine (Pepcid) 20 mg PO DAILY [facility] Stop: 10/11/17 08:59 Last Admin: 08/13/17 09:59 Dose: 20 mg Glucagon (Glucagen) 1 mg IM PRN PRN PRN Reason: BS <60 Haloperidol Decanoate (Haldol Dec) 25 mg IM UD [facility] PRN Reason: Protocol Stop: 10/15/17 08:59 Sodium Chloride (Nacl 0.45%) 1,000 mls @ 80 mls/hr IV .[id number] [facility] Stop: 10/10/17 18:14 Last Admin: 08/13/17 02:29 Dose: 80 mls/hr Insulin Aspart (Novolog) 0 units SUBQ ACHS [facility] PRN Reason: Protocol Stop: 10/10/17 20:59 Last Admin: 08/13/17 06:49 Dose: Not Given Levetiracetam (Keppra) 500 mg PO BID [facility] Stop: 10/11/17 08:59 Last Admin: 08/13/17 09:59 Dose: 500 mg Levothyroxine Sodium (Synthroid) 0.0625 mg PO QDAC [facility] Stop: 10/11/17 07:29 Last Admin: 08/13/17 06:43 Dose: 0.0625 mg Metformin HCl (Glucophage) 500 mg PO TID [facility] Stop: 10/10/17 20:59 Last Admin: 08/13/17 09:59 Dose: 500 mg Multivitamins/Vitamin C (Theragran) 1 tab PO DAILY [facility] Stop: 10/11/17 08:59 Last Admin: 08/13/17 09:59 Dose: 1 tab Ondansetron HCl (Zofran) 4 mg IV Q8H PRN PRN Reason: Nausea / Vomiting Stop: 10/10/17 18:00 General: weak, alert HEENT: NC/AT, PERRLA Neck: Supple Lungs: CTAB Cardiovascular: RRR, Normal S1, Normal S2, without murmur Abdomen: soft, non-tender, non-distended, positive bowel sound Extremities: excoriation Neurological: alert - Procedures Procedures: Procedures Procedure Code Date BLOOD TRANSFUSION SERVICE 07289 03/29/16 CLOSURE SKIN & SUBCUTANEOUS NEC 86.59 07/02/14 DIAGNOSTIC COLONOSCOPY 15016 09/13/15 DRAINAGE OF STOMACH, ENDO, DIAGN [id number] 09/13/15 EGD BIOPSY SINGLE/MULTIPLE 92699 09/13/15 ELECTROCARDIOGRAM 89.52 10/10/94 EMERGENCY DEPT VISIT 23088 07/04/11 EXCISION OF DUODENUM, ENDO, DIAGN [id number] 09/13/15 GASTRIC INTUBATION TREATMENT 73299 12/28/07 GASTRIC LAVAGE 96.33 12/28/07 INSERT GASTRIC TUBE NEC 96.07 07/26/95 INSERT INDWELLING CATH 57.94 09/16/11 INSERT TEMP BLADDER CATH 30035 09/16/11 INSERTION OF INT FIX INTO L HUMERAL SHAFT, PERC APPROACH [id number] 05/24/15 INSPECTION OF LOWER INTESTINAL TRACT, ENDO [id number] 09/13/15 OXYGEN ENRICHMENT NEC 93.96 10/10/94 REMOV THERAPEUT DEV NEC 97.89 03/25/01 REMOVAL OF INT FIX FROM R KNEE JT, OPEN APPROACH [id number] 04/15/16 REPAIR FACE SKIN, EXTERNAL APPROACH [id number] 04/12/15 REPOSITION RIGHT PATELLA WITH INT FIX, OPEN APPROACH [id number] 03/29/16 RPR F/E/E/N/L/M 2.5 CM/< 10251 04/12/15 RPR F/E/E/N/L/M 2.6-5.0 CM 86483 07/02/14 TETANUS TOXOID ADMINIST 99.38 07/02/14 TRANSFUSE NONAUT RED BLOOD CELLS IN PERIPH VEIN, PERC [id number] 03/29/16 TREAT KNEECAP FRACTURE 02537 03/29/16 UPPER ARM/ELBOW SURGERY 89571 05/24/15 Internal Medicine Assmt/Plan - Assessment Assessment: s/p fall left ear laceration dm-2 seizure hypothyroidism dementia schizoaffective disorder - Plan Plan: fall precautions continue wound care tx on left ear, no sutures required as per Dr. Cali continue current plan of care
[2017-08-14 05:24] LABS: % NEUTROPHILS 61.8 % (40.0-80.0); EOSINOPHILE ABSOLUTE 0.1 Th/cmm (0.1-0.4); HEMOGLOBIN 11.1 gm/dL (12-16); MEAN CELL VOLUME 79.5 fl (81-100)
[2017-08-14 05:32] LABS: % BASOPHILS 0.4 % (0.0-2.0); % EOSINOPHILS 1.3 % (0.0-5.0); % LYMPHOCYTES 30.5 % (20.0-50.0); HEMATOCRIT 33.7 % (41.0-60); LYMPHOCYTE ABSOLUTE 1.7 Th/cmm (1.5-3.0); MEAN CORPUSCULAR HEMOGLOBIN 26.1 pg (27.0-31.0); MEAN CORPUSCULAR HGB CONC 32.8 pg (28.0-36.0); MEAN PLATELET VOLUME 7.7 fl; MONOCYTE ABSOLUTE 0.3 Th/cmm (0.3-1.0); NEUTROPHILE ABSOLUTE 3.5 Th/cmm (1.8-8.0); PLATELET COUNT 305 Th/cmm (150-400); RED BLOOD COUNT 4.24 Mil/cmm (3.80-5.10); WHITE BLOOD COUNT 5.6 Th/cmm (4.8-10.8)
[2017-08-14 05:41] LABS: ANION GAP 11.8 (7.0-16.0); BUN - UREA NITROGEN 7 mg/dL (7-25); CALCIUM SERUM 9.4 mg/dL (8.6-10.3); CARBON DIOXIDE 26.7 mEq/L (21.0-31.0); CHLORIDE 101 mEq/L (98-107); CREATININE - SERUM 0.6 mg/dL (0.6-1.2); GFR AFRICAN-AMERICAN > 60.0 ml/min (>90); GFR NON AFRICAN-AMERICAN > 60.0 ml/min; GLUCOSE 135 mg/dL (70-105); POTASSIUM SERUM 3.5 mEq/L (3.5-5.1); SODIUM SERUM 136 mEq/L (136-145)
[2017-08-14] MEDS: Dextromethorphan/Quinidine 20mg/10mg Cap PO SCH (06:37)
[2017-08-14] MEDS: Levothyroxine 0.025 Mg Tab PO SCH (06:38)
[2017-08-14] MEDS: INSULIN ASPART, RECOMBINANT 100 UNITS/ML SUBQ SCH ×2 (06:39→12:30)
[2017-08-14] MEDS: Multivitamin Tab PO SCH (09:26)
[2017-08-14] MEDS: Calcium Carb/Vit D 500 mg/200 U Tab PO SCH (09:27)
[2017-08-14 12:17] LABS: FOLIC ACID >20.0 ng/mL (>3.0)
--- NOTE | 2017-08-14 15:19 | Internal Medicine Prog Note ---
Internal Medicine Subjective - Subjective Service Date: 08/14/17 (dc summary [id number]) Patient is:: awake, verbal, confused Per staff patient has:: tolerating meds Internal Medicine Objective - Results Result Diagrams: 08/14/17 04:50 08/14/17 04:50 Recent Labs: Laboratory Last Values WBC 5.6 Th/cmm (4.8-10.8) 08/14/17 04:50 RBC 4.24 Mil/cmm (3.80-5.10) 08/14/17 04:50 Hgb 11.1 gm/dL (12-16) L 08/14/17 04:50 Hct 33.7 % (41.0-60) L 08/14/17 04:50 MCV 79.5 fl (81-100) L 08/14/17 04:50 MCH 26.1 pg (27.0-31.0) L 08/14/17 04:50 MCHC Differential 32.8 pg (28.0-36.0) 08/14/17 04:50 RDW 15.0 % (11.5-20.0) 08/14/17 04:50 Plt Count 305 Th/cmm (150-400) 08/14/17 04:50 MPV 7.7 fl 08/14/17 04:50 Neutrophils % 61.8 % (40.0-80.0) 08/14/17 04:50 Lymphocytes % 30.5 % (20.0-50.0) 08/14/17 04:50 Monocytes % 6.0 % (2.0-10.0) 08/14/17 04:50 Eosinophils % 1.3 % (0.0-5.0) 08/14/17 04:50 Basophils % 0.4 % (0.0-2.0) 08/14/17 04:50 PT 10.4 SECONDS (9.5-11.5) 08/11/17 15:17 INR 1.00 (0.5-1.4) 08/11/17 15:17 Sodium 136 mEq/L (136-145) 08/14/17 04:50 Potassium 3.5 mEq/L (3.5-5.1) 08/14/17 04:50 Chloride 101 mEq/L (98-107) 08/14/17 04:50 Carbon Dioxide 26.7 mEq/L (21.0-31.0) 08/14/17 04:50 Anion Gap 11.8 (7.0-16.0) 08/14/17 04:50 BUN 7 mg/dL (7-25) 08/14/17 04:50 Creatinine 0.6 mg/dL (0.6-1.2) 08/14/17 04:50 Est GFR ( Amer) > 60.0 ml/min (>90) 08/14/17 04:50 Est GFR (Non-Af Amer) > 60.0 ml/min 08/14/17 04:50 BUN/Creatinine Ratio 11.7 08/14/17 04:50 Glucose 135 mg/dL (70-105) H 08/14/17 04:50 POC Glucose 129 MG/DL (70 - 105) H 08/14/17 12:27 Calcium 9.4 mg/dL (8.6-10.3) 08/14/17 04:50 Total Bilirubin 0.3 mg/dL (0.3-1.0) 08/11/17 15:17 AST 13 U/L (13-39) 08/11/17 15:17 ALT 11 U/L (7-52) 08/11/17 15:17 Alkaline Phosphatase 90 U/L (34-104) 08/11/17 15:17 Ammonia 35 umol/L (16-53) 08/13/17 05:00 Creatine Kinase 74 U/L (30-223) 08/11/17 15:17 Troponin I < 0.01 ng/mL (0.01-0.05) L 08/11/17 15:17 B-Natriuretic Peptide 12.7 pg/mL (5.0-100.0) 08/11/17 15:17 Total Protein 6.3 gm/dL (6.0-8.3) 08/11/17 15:17 Albumin 3.7 gm/dL (3.7-5.3) 08/11/17 15:17 Globulin 2.6 gm/dL 08/11/17 15:17 Albumin/Globulin Ratio 1.4 (1.0-1.8) 08/11/17 15:17 Triglycerides 74 mg/dL (<150) 08/11/17 15:17 Cholesterol 125 mg/dL (<200) 08/11/17 15:17 LDL Cholesterol Direct 70 mg/dL (75-193) L 08/11/17 15:17 HDL Cholesterol 45 mg/dL (23-92) 08/11/17 15:17 Vitamin B12 834 pg/mL (232-1245) 08/13/17 05:00 Folic Acid >20.0 ng/mL (>3.0) 08/13/17 05:00 Serum , Qual NEGATIVE (NEGATIVE) 08/11/17 15:17 Valproic Acid 20.7 ug/mL (50.0-100.0) L 08/13/17 05:00 - Physical Exam Vitals and I&O: Vital Signs Temp 97.7 F 08/14/17 14:27 Pulse 90 08/14/17 14:27 Resp 18 08/14/17 14:27 BP 116/79 08/14/17 14:27 Pulse Ox 97 08/14/17 14:27 Intake & Output 08/13/17 08/14/17 08/14/17 18:59 06:59 18:59 Intake Total 600 Output Total 3 Balance 597 Weight (lbs) 127 lb 127 lb Intake: Oral 600 Output: Urine 2 Stool 1 Other: # Voids 2 # Bowel Movements 0 Weight Source Bedscale Bedscale Active Medications: Current Medications Acetaminophen (Tylenol) 650 mg PO Q4H PRN PRN Reason: Pain Or Fever above 101 Stop: 10/10/17 18:00 Last Admin: 08/11/17 23:01 Dose: 650 mg Al Hydrox/Mg Hydrox/Simethicone (Maalox) 30 ml PO Q6H PRN PRN Reason: Dyspepsia Stop: 10/10/17 18:00 Ascorbic Acid (Vitamin C) 500 mg PO DAILY [facility] Stop: 10/11/17 08:59 Last Admin: 08/14/17 09:26 Dose: 500 mg Buspirone HCl (Buspar) 10 mg PO BID [facility] PRN Reason: Protocol Stop: 10/11/17 08:59 Last Admin: 08/14/17 09:26 Dose: 10 mg Calcium Carbonate (Os-Neil) 500 mg PO HS [facility] Stop: 10/10/17 20:59 Last Admin: 08/13/17 20:53 Dose: 500 mg Calcium/Vitamin D (Oscal W/Vitamin D) 1 tab PO DAILY [facility] Stop: 10/11/17 08:59 Last Admin: 08/14/17 09:27 Dose: 1 tab Dextromethorphan/Quinidine (Nuedexta 20mg-10mg) 1 cap PO Q12H [facility] Stop: 10/10/17 17:59 Last Admin: 08/14/17 06:37 Dose: 1 cap Divalproex Sodium (Depakote Sprinkle) 250 mg PO TID [facility] PRN Reason: Protocol Stop: 10/12/17 12:55 Last Admin: 08/14/17 14:40 Dose: Not Given Donepezil HCl (Aricept) 5 mg PO HS [facility] Stop: 10/10/17 20:59 Last Admin: 08/13/17 20:52 Dose: 5 mg Famotidine (Pepcid) 20 mg PO DAILY [facility] Stop: 10/11/17 08:59 Last Admin: 08/14/17 09:26 Dose: 20 mg Glucagon (Glucagen) 1 mg IM PRN PRN PRN Reason: BS <60 Haloperidol Decanoate (Haldol Dec) 25 mg IM UD [facility] PRN Reason: Protocol Stop: 10/15/17 08:59 Sodium Chloride (Nacl 0.45%) 1,000 mls @ 80 mls/hr IV .[id number] [facility] Stop: 10/10/17 18:14 Last Admin: 08/13/17 02:29 Dose: 80 mls/hr Insulin Aspart (Novolog) 0 units SUBQ ACHS [facility] PRN Reason: Protocol Stop: 10/10/17 20:59 Last Admin: 08/14/17 12:30 Dose: Not Given Levetiracetam (Keppra) 500 mg PO BID [facility]IANA Stop: 10/11/17 08:59 Last Admin: 08/14/17 09:27 Dose: 500 mg Levothyroxine Sodium (Synthroid) 0.0625 mg PO QDAC DIANA Stop: 10/11/17 07:29 Last Admin: 08/14/17 06:38 Dose: 0.0625 mg Metformin HCl (Glucophage) 500 mg PO TID DIANA Stop: 10/10/17 20:59 Last Admin: 08/14/17 14:41 Dose: Not Given Multivitamins/Vitamin C (Theragran) 1 tab PO DAILY DIANA Stop: 10/11/17 08:59 Last Admin: 08/14/17 09:26 Dose: 1 tab Ondansetron HCl (Zofran) 4 mg IV Q8H PRN PRN Reason: Nausea / Vomiting Stop: 10/10/17 18:00 General: weak, alert HEENT: NC/AT, PERRLA Neck: Supple Lungs: CTAB Cardiovascular: RRR, Normal S1, Normal S2, without murmur Abdomen: soft, non-tender, non-distended, positive bowel sound Extremities: excoriation Neurological: alert - Procedures Procedures: Procedures Procedure Code Date BLOOD TRANSFUSION SERVICE 18346 03/29/16 CLOSURE SKIN & SUBCUTANEOUS NEC 86.59 07/02/14 DIAGNOSTIC COLONOSCOPY 66704 09/13/15 DRAINAGE OF STOMACH, ENDO, DIAGN [id number] 09/13/15 EGD BIOPSY SINGLE/MULTIPLE 24733 09/13/15 ELECTROCARDIOGRAM 89.52 10/10/94 EMERGENCY DEPT VISIT 41819 07/04/11 EXCISION OF DUODENUM, ENDO, DIAGN [id number] 09/13/15 GASTRIC INTUBATION TREATMENT 94868 12/28/07 GASTRIC LAVAGE 96.33 12/28/07 INSERT GASTRIC TUBE NEC 96.07 07/26/95 INSERT INDWELLING CATH 57.94 09/16/11 INSERT TEMP BLADDER CATH 61724 09/16/11 INSERTION OF INT FIX INTO L HUMERAL SHAFT, PERC APPROACH [id number] 05/24/15 INSPECTION OF LOWER INTESTINAL TRACT, ENDO [id number] 09/13/15 OXYGEN ENRICHMENT NEC 93.96 10/10/94 REMOV THERAPEUT DEV NEC 97.89 03/25/01 REMOVAL OF INT FIX FROM R KNEE JT, OPEN APPROACH [id number] 04/15/16 REPAIR FACE SKIN, EXTERNAL APPROACH [id number] 04/12/15 REPOSITION RIGHT PATELLA WITH INT FIX, OPEN APPROACH [id number] 03/29/16 RPR F/E/E/N/L/M 2.5 CM/< 85884 04/12/15 RPR F/E/E/N/L/M 2.6-5.0 CM 88862 07/02/14 TETANUS TOXOID ADMINIST 99.38 07/02/14 TRANSFUSE NONAUT RED BLOOD CELLS IN PERIPH VEIN, PERC [id number] 03/29/16 TREAT KNEECAP FRACTURE 75735 03/29/16 UPPER ARM/ELBOW SURGERY 24126 05/24/15 Internal Medicine Assmt/Plan - Assessment Assessment: s/p fall left ear laceration dm-2 seizure hypothyroidism dementia schizoaffective disorder - Plan Plan: fall precautions continue wound care tx on left ear, no sutures required as per Dr. Cali continue current plan of care
--- NOTE | 2017-08-14 19:49 | Discharge Summary ---
DATE OF DISCHARGE: 08/14/2017 DATE OF DISCHARGE: 08/14/2017. DISCHARGE DIAGNOSES: Status post fall, left ear laceration, type 2 diabetes, seizure, hypothyroidism, dementia and schizoaffective disorder. HISTORY OF PRESENT ILLNESS: This is a 51-year-old female who is well known to me from [facility], was brought to [facility] due to status post fall and lacerated her left ear. ER physician wanted to admit the patient for further management. PHYSICAL EXAMINATION: GENERAL: The patient is well-developed, well-nourished, no acute distress. VITAL SIGNS: Stable. HEENT: Normocephalic and atraumatic. NECK: Supple. No mass. LUNGS: Clear bilaterally. HEART: Regular rate and rhythm. ABDOMEN: Soft and nontender. HOSPITAL COURSE: During the hospital stay, the patient was admitted to the med/surg unit. The patient had a surgical consultation done with Dr. Cali. Plan of care for this patient was to continue with wound care and no surgical interventions at this time. The patient's WBCs were within normal limits. For this reason, the patient is stable for discharge. CONDITION UPON DISCHARGE: Fair. DISPOSITION: [facility]. JOB# [id number]
== END 2017-08-14 15:15 | DRG 156 ==
LOC: ER 14:17 → TELE 16:34 → MSI 08-12 12:30
PROVIDERS: ADMIT Internal Medicine; ATTEND Internal Medicine
DX: S01.312A Laceration without foreign body of left ear, initial encounter (principal); S09.90XA Unspecified injury of head, initial encounter; F25.9 Schizoaffective disorder, unspecified; F03.90 Unspecified dementia, unspecified severity, without behavioral disturbance, psychotic disturbance, mood disturbance, and anxiety; E11.9 Type 2 diabetes mellitus without complications; D64.9 Anemia, unspecified; E03.9 Hypothyroidism, unspecified; Z66 Do not resuscitate; G40.909 Epilepsy, unspecified, not intractable, without status epilepticus; W18.39XA Other fall on same level, initial encounter; Z88.0 Allergy status to penicillin; Y93.89 Activity, other specified; Y92.128 Other place in nursing home as the place of occurrence of the external cause; Y99.8 Other external cause status
CPT/HCPCS: 36415-UA; 70450-TC; 71045-TC; 80048-TC; 80053-TC; 80061-TC; 80164-TC; 82140-TC; 82550-TC; 82607-90; 82746-90; 82948-90; 83880-TC; 84484-TC; 84703-TC; 85025-TC; 85610-TC; 93005; J1815; J7030; Z7610

== ENCOUNTER 2017-09-09 20:45 | Inpatient (IN) | payer MEDICARE, MEDICAID ==
--- NOTE | 2017-09-09 21:21 | ED Physician Chart ---
ED Chief Complaint/HPI - Patient Information Date Seen:: 09/09/17 Time Seen:: 20:50 Chief Complaint:: Syncope History of Present Illness:: onset x one day of syncope resulting in a fall with facial contusions; no report of LOC, ALOC, AMS, H/As, neck pain, visual changes, C/P, SOB, Abd. Pain, A/N/V/D/C, fever, chills, or urinary s/s; pt's last tetanus shot: < 5 years; UTD Allergies:: Allergies Allergy/AdvReac Type Severity Reaction Status Date / Time Penicillins [PCN] Allergy Verified 10/21/16 19:31 Vitals:: Vital Signs - 8 hr 09/09/17 20:50 Temp 96.9 F HR 81 RR 19 BP 126/68 O2 Sat % 95 Historian:: Patient, EMS Review:: Nurse's Note Reviewed, Old Chart Reviewed, EMS run form Reviewed ED Review of Systems - Review of Systems General/Constitutional: No fever, No chills, No weight loss, No weakness, No diaphoresis, No edema, No loss of appetite Skin: No skin lesions, No rash, No bruising Head: No headache, No light-headedness Eyes: No loss of vision, No pain, No diplopia ENT: No earache, No nasal drainage, No sore throat, No tinnitus Neck: No neck pain, No swelling, No thyromegaly, No stiffness, No mass noted Cardio Vascular: No chest pain, No palpitations, No PND, No orthopnea, No edema Pulmonary: No SOB, No cough, No sputum, No wheezing GI: No nausea, No vomiting, No diarrhea, No pain, No melena, No hematochezia, No constipation, No hematemesis G/U: No dysuria, No frequency, No hematuria, No 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, No abnormal vaginal bleed, No contraction Musculoskeletal: No bone or joint pain, No back pain, No muscle pain Endocrine: No polyuria, No polydipsia Psychiatric: Prior psych history, No depression, Anxiety, No suicidal ideation, No homicidal ideation, Auditory hallucination, No visual hallucination Hematopoietic: No bruising, No lymphadenopathy Allergic/Immuno: No urticaria, No angioedema Neurological: No syncope, No focal symptoms, No weakness, No paresthesia, No headache, No seizure, No dizziness, Confusion, No vertigo ED Past Medical History - Past Medical History Obtainable: Yes Past Medical History: DM, PUD/GERD, Seizures, Thyroid disorder, Arthritis, Dementia, Other (anemia) Family History: Diabetes Melitus, HTN Social History: Non Smoker, No Alcohol, No Drug Use, Single, Care Facility Surgical History: None Psychiatricy History: Schizophrenia, Dementia Medication: Reviewed Family Medical History - Family Member Mother History Unknown: Yes Ethnicity: Unknown Living Status: Still Living Hx Family Cancer: No Hx Family Coronary Artery Disease: No Hx Family Congestive Heart Failure: No Hx Family Hypertension: Yes Hx Family Stroke: No Hx Family Diabetes: No Hx Family Seizures: Yes Hx Family Dementia: No Hx Family AIDS: No Hx Family HIV: No Hx Family COPD: No Hx Family Hepatitis: No Hx Family Psychiatric Problems: Yes Hx Family Tuberculosis: No Father History Unknown: Yes Ethnicity: Unknown Living Status: Unknown Hx Family Cancer: (unknown) Hx Family Coronary Artery Disease: (unknown) Hx Family Congestive Heart Failure: (unknown) Hx Family Hypertension: (unknown) Hx Family Stroke: (unknown) Hx Family Diabetes: (unknown) Hx Family Seizures: (unknown) Hx Family Dementia: (unknown) Hx Family AIDS: (unknown) Hx Family COPD: (unknown) Hx Family Hepatitis: (unknown) Hx Family Psychiatric Problems: (unknown) Hx Family Tuberculosis: (unknown) ED Physical Exam - Physical Examination General/Constitutional: Awake, Well-developed, well-nourished, Alert, No distress, GCS 15, Non-toxic appearing, Ambulatory Head: Atraumatic Other Head comments:: Right Radha-Orbital Contusions Eyes: Lids, conjuctiva normal, PERRL, EOMI Skin: Nl inspection, No rash, No skin lesions, No ecchymosis, Well hydrated, No lymphadenopathy ENMT: External ears, nose nl, TM canals nl, Nasal exam nl, Lips, teeth, gums nl , Oropharynx nl, Tonsils nl Neck: Nontender, Full ROM w/o pain, No JVD, No nuchal rigidity, No bruit, No mass, No stridor Respiratory: Nl effort/Exclusion, Clear to Auscultation, No Wheeze/Rhonchi/Rales Cardio Vascular: RRR, No murmur, gallop, rubs, NL S1 S2, Carotid/Femoral/Distal pulses equal bilaterally GI: No tenderness/rebounding/guarding, No organomegaly, No hernia, Normal BS's, Nondistended, No mass/bruits, No McBurney tenderness : No CVA tenderness Extremities: No tenderness or effusion, Full ROM, normal strength in all extremities, No edema, Normal digits & nails Neuro/Psych: Alert/oriented, DTR's symmetric, Normal sensory exam, Normal motor strength, Judgement/insight normal, Mood normal, Normal gait, No focal deficits Misc: Normal back, No paraspinal tenderness ED Labs/Radiology/EKG Results - Lab Results Comments:: H/H: 11.5/ 34.8 - Radiology Results Comments:: NAD - EKG Interpretations EKG Time:: 21:13 Rate & Rhythm: 59; SB Comments:: non-specific st-t changes ED Septic Shock - . Is Septic Shock (SBP<90, OR Lactate>4 mmol\L) present?: No - <6hrs of presentation: Vital Signs: Vital Signs - 8 hr 09/09/17 20:50 Temp 96.9 F HR 81 RR 19 BP 126/68 O2 Sat % 95 ED Reassessment (Disposition) - Reassessment Reassessment Condition:: Improved - Diagnosis Diagnosis:: Dx: Syncope; S/P Falls; Facial Contusions - Aftercare/Follow up Instructions Aftercare/Follow-Up Instructions:: Counseled pt regarding lab results/diagnosis & need follow up, Counseled pt & family regarding lab results/diagnosis & need follow up - Patient Disposition Discharge/Transfer:: Acute Care w/in this hosp Accepting Physician:: Dr. Russell Time Called:: 2229 Time Responded:: 22:30 Admitted to:: Telemetry Spoke to:: Dr. Russell Admitting Medical Physician:: Dr. Russell Condition at Disposition:: Stable, Improved ED Discharge Plan - Patient Disposition Admit/Discharge/Transfer: Acute Care w/in this hosp
[2017-09-09 21:36] LABS: % BASOPHILS 0.5 % (0.0-2.0); % LYMPHOCYTES 29.9 % (20.0-50.0); % MONOCYTES 6.9 % (2.0-10.0); % NEUTROPHILS 61.7 % (40.0-80.0); EOSINOPHILE ABSOLUTE 0.1 Th/cmm (0.1-0.4); HEMATOCRIT 34.8 % (41.0-60); HEMOGLOBIN 11.5 gm/dL (12-16); MEAN CELL VOLUME 79.6 fl (81-100); MEAN CORPUSCULAR HEMOGLOBIN 26.3 pg (27.0-31.0); MEAN PLATELET VOLUME 7.4 fl; MONOCYTE ABSOLUTE 0.5 Th/cmm (0.3-1.0); NEUTROPHILE ABSOLUTE 4.1 Th/cmm (1.8-8.0); PLATELET COUNT 249 Th/cmm (150-400); RED BLOOD COUNT 4.37 Mil/cmm (3.80-5.10); RED CELL DISTRIBUTION WIDTH 14.2 % (11.5-20.0); WHITE BLOOD COUNT 6.7 Th/cmm (4.8-10.8)
[2017-09-09 21:44] LABS: INR 0.97 (0.5-1.4); PROTHROMBIN TIME (TEST) 10.1 SECONDS (9.5-11.5)
[2017-09-09 21:50] LABS: ALB/GLOB RATIO 1.6 (1.0-1.8); ALBUMIN 4.1 gm/dL (3.7-5.3); ALKALINE PHOSPHATASE 87 U/L (34-104); ANION GAP 12.2 (7.0-16.0); BILIRUBIN,TOTAL 0.4 mg/dL (0.3-1.0); BUN - UREA NITROGEN 11 mg/dL (7-25); CALCIUM SERUM 9.1 mg/dL (8.6-10.3); CARBON DIOXIDE 28.6 mEq/L (21.0-31.0); CHLORIDE 101 mEq/L (98-107); CHOLESTEROL 134 mg/dL (<200); CREATININE - SERUM 0.7 mg/dL (0.6-1.2); CREATININE KINASE 125 U/L (30-223); GFR AFRICAN-AMERICAN > 60.0 ml/min (>90); GFR NON AFRICAN-AMERICAN > 60.0 ml/min; GLUCOSE 95 mg/dL (70-105); HDL -HIGH DENSITY LIPOPROTEIN 51 mg/dL (23-92); POTASSIUM SERUM 3.8 mEq/L (3.5-5.1); SGOT 14 U/L (13-39); SGPT/ALT 9 U/L (7-52); SODIUM SERUM 138 mEq/L (136-145); TOTAL PROTEIN,SERUM 6.6 gm/dL (6.0-8.3); TRIGLYCERIDES 90 mg/dL (<150)
[2017-09-09] MEDS ORDERED: GLUCAGON HCl 1 MG KIT IM PRN (22:55)
[2017-09-09] MEDS ORDERED: Albuterol Nebulizer 2.5mg/3mL HHN PRN (22:57)
[2017-09-09] MEDS ORDERED: Ipratropium Neb 0.5 mg/2.5 mL UD IH PRN (22:57)
--- NOTE | 2017-09-10 07:42 | Diagnostic Imaging Report ---
Head CT without intravenous contrast Indication: Fall Comparison: Head CT 08/11/2017 Technique: Axial images were obtained from the vertex to the skull base without IV contrast. Coronal reconstructions were made. Total DLP: 604, CTDI31 Findings: Images of the brain obtained on contrast demonstrate no evidence of an acute hemorrhage. Mild atrophy is noted. The ventricles and basal cisterns are patent. No mass effect or midline shift. Right frontal soft tissue swelling hematoma formation is seen extending to the right periorbital region. The visualized paranasal sinuses are clear. Assessment for skull fracture is limited due to motion, however, no displaced fracture is identified. IMPRESSION: No acute intracranial abnormality. Soft tissue swelling hematoma formation along the right frontal and right periorbital region. No displaced skull fracture identified. Note exam was limited due to motion. Atrophy.
--- NOTE | 2017-09-10 07:46 | Diagnostic Imaging Report ---
CT facial bones without IV contrast HISTORY: Trauma COMPARISON: Head CT the same day Technique: Axial images of the paranasal sinuses were obtained without IV contrast. Reconstructions were made. total DLP: 498, CTDI28 Findings: Exam is severely limited due to motion. There is soft tissue swelling seen along the right frontal bone extending to the right periorbital region. The right orbital floor is grossly preserved. Assessment for other fractures is limited due to motion. The globes and intraconal compartments are intact. There is mucosal thickening of paranasal sinuses. No air-fluid levels identified. IMPRESSION: Severely limited exam due to motion. There is soft tissue swelling and hematoma formation along the right frontal and right periorbital region. The right orbital floor is intact. Given limitations of the exam due to motion, If necessary follow-up repeat CT exam may be obtained.
[2017-09-10] MEDS: Levothyroxine 0.025 Mg Tab PO SCH (08:44)
[2017-09-10] MEDS: Multivitamin Tab PO SCH (08:45)
[2017-09-10] MEDS ORDERED: Non-Formulary Item 1 EA (Amino Acids/Protein Hydrolys [Pro-Stat Sugar Free Liquid] 30 ML) PO SCH (09:00)
[2017-09-10] MEDS: Dextromethorphan/Quinidine 20mg/10mg Cap PO SCH ×3 (12:09→23:30)
--- NOTE | 2017-09-10 14:01 | Internal Medicine Prog Note ---
Internal Medicine Subjective - Subjective Service Date: 09/10/17 ([id number]) Internal Medicine Objective - Results Result Diagrams: 09/09/17 21:10 09/09/17 21:10 Recent Labs: Laboratory Last Values WBC 6.7 Th/cmm (4.8-10.8) 09/09/17 21:10 RBC 4.37 Mil/cmm (3.80-5.10) 09/09/17 21:10 Hgb 11.5 gm/dL (12-16) L 09/09/17 21:10 Hct 34.8 % (41.0-60) L 09/09/17 21:10 MCV 79.6 fl (81-100) L 09/09/17 21:10 MCH 26.3 pg (27.0-31.0) L 09/09/17 21:10 MCHC Differential 33.0 pg (28.0-36.0) 09/09/17 21:10 RDW 14.2 % (11.5-20.0) 09/09/17 21:10 Plt Count 249 Th/cmm (150-400) 09/09/17 21:10 MPV 7.4 fl 09/09/17 21:10 Neutrophils % 61.7 % (40.0-80.0) 09/09/17 21:10 Lymphocytes % 29.9 % (20.0-50.0) 09/09/17 21:10 Monocytes % 6.9 % (2.0-10.0) 09/09/17 21:10 Eosinophils % 1.0 % (0.0-5.0) 09/09/17 21:10 Basophils % 0.5 % (0.0-2.0) 09/09/17 21:10 PT 10.1 SECONDS (9.5-11.5) 09/09/17 21:10 INR 0.97 (0.5-1.4) 09/09/17 21:10 Sodium 138 mEq/L (136-145) 09/09/17 21:10 Potassium 3.8 mEq/L (3.5-5.1) 09/09/17 21:10 Chloride 101 mEq/L (98-107) 09/09/17 21:10 Carbon Dioxide 28.6 mEq/L (21.0-31.0) 09/09/17 21:10 Anion Gap 12.2 (7.0-16.0) 09/09/17 21:10 BUN 11 mg/dL (7-25) 09/09/17 21:10 Creatinine 0.7 mg/dL (0.6-1.2) 09/09/17 21:10 Est GFR ( Amer) > 60.0 ml/min (>90) 09/09/17 21:10 Est GFR (Non-Af Amer) > 60.0 ml/min 09/09/17 21:10 BUN/Creatinine Ratio 15.7 09/09/17 21:10 Glucose 95 mg/dL (70-105) 09/09/17 21:10 Calcium 9.1 mg/dL (8.6-10.3) 09/09/17 21:10 Total Bilirubin 0.4 mg/dL (0.3-1.0) 09/09/17 21:10 AST 14 U/L (13-39) 09/09/17 21:10 ALT 9 U/L (7-52) 09/09/17 21:10 Alkaline Phosphatase 87 U/L (34-104) 09/09/17 21:10 Creatine Kinase 125 U/L (30-223) 09/09/17 21:10 Troponin I < 0.01 ng/mL (0.01-0.05) L 09/09/17 21:10 B-Natriuretic Peptide 9.1 pg/mL (5.0-100.0) 09/09/17 21:10 Total Protein 6.6 gm/dL (6.0-8.3) 09/09/17 21:10 Albumin 4.1 gm/dL (3.7-5.3) 09/09/17 21:10 Globulin 2.5 gm/dL 09/09/17 21:10 Albumin/Globulin Ratio 1.6 (1.0-1.8) 09/09/17 21:10 Triglycerides 90 mg/dL (<150) 09/09/17 21:10 Cholesterol 134 mg/dL (<200) 09/09/17 21:10 LDL Cholesterol Direct 70 mg/dL (75-193) L 09/09/17 21:10 HDL Cholesterol 51 mg/dL (23-92) 09/09/17 21:10 Serum , Qual NEGATIVE (NEGATIVE) 09/09/17 21:50 - Physical Exam Vitals and I&O: Vital Signs Temp 96.5 F 09/10/17 08:00 Pulse 96 09/10/17 08:00 Resp 19 09/10/17 08:00 BP 114/81 09/10/17 08:00 Pulse Ox 99 09/10/17 08:00 Intake & Output 09/09/17 09/10/17 09/10/17 18:59 06:59 18:59 Weight (lbs) 116 lb 3 oz Other: # Voids 3 # Bowel Movements 0 Weight Source Bedscale Active Medications: Current Medications Acetaminophen (Tylenol) 650 mg PO Q4H PRN PRN Reason: Pain Or Fever above 101 Stop: 11/08/17 22:56 Albuterol Sulfate (Albuterol 2.5mg/3ml Neb Ud) 2.5 mg HHN Q2HRT PRN PRN Reason: Shortness of Breath or Wheeze Stop: 11/08/17 22:56 Ascorbic Acid (Vitamin C) 500 mg PO DAILY [facility] Stop: 11/09/17 08:59 Last Admin: 09/10/17 08:45 Dose: 500 mg Buspirone HCl (Buspar) 10 mg PO BID [facility] PRN Reason: Protocol Stop: 11/09/17 08:59 Last Admin: 09/10/17 08:44 Dose: 10 mg Calcium/Vitamin D (Oscal W/Vitamin D) 1 tab PO HS [facility] Stop: 11/09/17 20:59 Dextromethorphan/Quinidine (Nuedexta 20mg-10mg) 1 cap PO Q12H [facility] Stop: 11/08/17 22:59 Last Admin: 09/10/17 12:09 Dose: 1 cap Divalproex Sodium (Depakote Sprinkle) 125 mg PO TID [facility] PRN Reason: Protocol Stop: 11/09/17 08:59 Last Admin: 09/10/17 08:44 Dose: 125 mg Donepezil HCl (Aricept) 5 mg PO HS [facility] Stop: 11/09/17 20:59 Famotidine (Pepcid) 20 mg PO DAILY [facility] Stop: 11/09/17 08:59 Last Admin: 09/10/17 08:44 Dose: 20 mg Glucagon (Glucagen) 1 mg IM PRN PRN PRN Reason: hypoglycemia Dextrose/Sodium Chloride (D5-0.9%Ns) 1,000 mls @ 80 mls/hr IV .[id number] [facility] Stop: 11/08/17 22:59 Ipratropium [place] (Atrovent Neb 0.5mg/2.5ml) 0.5 mg IH Q2HRT PRN PRN Reason: Shortness of Breath or Wheeze Stop: 11/08/17 22:56 Levetiracetam (Keppra) 500 mg PO BID [facility] Stop: 11/09/17 08:59 Last Admin: 09/10/17 08:44 Dose: 500 mg Levothyroxine Sodium (Synthroid) 0.0625 mg PO QDAC [facility] Stop: 11/09/17 07:29 Last Admin: 09/10/17 08:44 Dose: 0.0625 mg Lorazepam (Ativan) 0.5 mg PO Q6H PRN; Protocol PRN Reason: Anxiety Stop: 11/08/17 22:54 Last Admin: 09/10/17 09:42 Dose: 0.5 mg Metformin HCl (Glucophage) 500 mg PO TIDWM [facility] Stop: 11/09/17 07:59 Last Admin: 09/10/17 12:09 Dose: 500 mg Multivitamins/Vitamin C (Theragran) 1 tab PO DAILY [facility] Stop: 11/09/17 08:59 Last Admin: 09/10/17 08:45 Dose: 1 tab Olanzapine (Zyprexa) 5 mg PO BID [facility] PRN Reason: Protocol Stop: 11/09/17 08:59 Last Admin: 09/10/17 08:45 Dose: 5 mg Ondansetron HCl (Zofran) 4 mg IV Q8H PRN PRN Reason: Nausea / Vomiting Stop: 11/08/17 22:56 - Procedures Procedures: Procedures Procedure Code Date BLOOD TRANSFUSION SERVICE 01750 03/29/16 CLOSURE SKIN & SUBCUTANEOUS NEC 86.59 07/02/14 DIAGNOSTIC COLONOSCOPY 54624 09/13/15 DRAINAGE OF STOMACH, ENDO, DIAGN [id number] 09/13/15 EGD BIOPSY SINGLE/MULTIPLE 43049 09/13/15 ELECTROCARDIOGRAM 89.52 10/10/94 EMERGENCY DEPT VISIT 29603 07/04/11 EXCISION OF DUODENUM, ENDO, DIAGN [id number] 09/13/15 GASTRIC INTUBATION TREATMENT 30073 12/28/07 GASTRIC LAVAGE 96.33 12/28/07 INSERT GASTRIC TUBE NEC 96.07 07/26/95 INSERT INDWELLING CATH 57.94 09/16/11 INSERT TEMP BLADDER CATH 47332 09/16/11 INSERTION OF INT FIX INTO L HUMERAL SHAFT, PERC APPROACH [id number] 05/24/15 INSPECTION OF LOWER INTESTINAL TRACT, ENDO [id number] 09/13/15 OXYGEN ENRICHMENT NEC 93.96 10/10/94 REMOV THERAPEUT DEV NEC 97.89 03/25/01 REMOVAL OF INT FIX FROM R KNEE JT, OPEN APPROACH [id number] 04/15/16 REPAIR FACE SKIN, EXTERNAL APPROACH [id number] 04/12/15 REPOSITION RIGHT PATELLA WITH INT FIX, OPEN APPROACH [id number] 03/29/16 RPR F/E/E/N/L/M 2.5 CM/< 62900 04/12/15 RPR F/E/E/N/L/M 2.6-5.0 CM 46119 07/02/14 TETANUS TOXOID ADMINIST 99.38 07/02/14 TRANSFUSE NONAUT RED BLOOD CELLS IN PERIPH VEIN, PERC 43459Y7 03/29/16 TREAT KNEECAP FRACTURE 74095 03/29/16 UPPER ARM/ELBOW SURGERY 20272 05/24/15
--- NOTE | 2017-09-10 15:45 | History & Physical ---
ADMIT DATE: 09/10/2017 CHIEF COMPLAINT: Syncope. HISTORY OF PRESENT ILLNESS: This is a 51-year-old female who is well known to me from [facility]. The patient had an episode of fall this morning with facial contusion. On the patient's right orbital area, the patient has ecchymosis. The patient has been very agitated per nursing staff and for this reason, the patient is now admitted to the telemetry unit for further management. PAST MEDICAL HISTORY: Diabetes, seizure, hypothyroidism, dementia, schizoaffective disorder. PAST SURGICAL HISTORY: Status post left knee surgery secondary to fracture. ALLERGIES: PENICILLIN. MEDICATIONS: Please see medication list. FAMILY HISTORY: Noncontributory. SOCIAL HISTORY: The patient is a custodial resident, requiring 24-hour nursing care. REVIEW OF SYSTEMS: Unable to obtain due to patient's mental status. PHYSICAL EXAMINATION: GENERAL: The patient is well developed, well nourished, no acute distress. VITAL SIGNS: Temperature 96.5, heart rate 96, blood pressure 114/81, respirations 19, O2 99%. HEENT: Head; normocephalic, atraumatic. NECK: Supple. No mass. LUNGS: Clear bilaterally. HEART: Regular rate and rhythm. ABDOMEN: Soft, nontender. SKIN: The patient's right orbital area is noted with ecchymosis LABORATORY RESULTS: WBC 6.7, H and H 11.5 and 34.8, platelet of 249. Sodium 138, potassium 3.8, chloride 101, BUN 11, creatinine 0.7. DIAGNOSTIC DATA: The patient had a CT of the maxillofacial area and the impression is severely limited exam due to motion. There is soft tissue swelling and hematoma formation along the right frontal and right periorbital region. The right orbital floor is intact. Given limitation of the exam due to motion, if necessary, follow up repeat CT. The patient also had a CT of the head done and the impression is no acute intracranial abnormalities, soft tissue swelling, hematoma formation along the right frontal and right periorbital region. ASSESSMENT: Status post fall, near syncope, diabetes, seizure, hypothyroidism, dementia, schizoaffective disorder. PLAN: We will place the patient on one-to-one sitter. Fall precautions will be initiated. Continue ADA diet and insulin sliding scale. Psychiatrist to be on the case. We will order physical therapy. We will monitor patient's orthostatic blood pressure, get seizure precautions. We will continue to monitor this patient. JOB# [id number]
[2017-09-10] MEDS: INSULIN ASPART, RECOMBINANT 100 UNITS/ML SUBQ SCH ×2 (16:26→23:27)
[2017-09-10] MEDS: D5-0.9%NS 1,000 ML IV SCH (18:50)
[2017-09-10] MEDS: Calcium Carb/Vit D 500 mg/200 U Tab PO SCH (20:44)
[2017-09-11] MEDS: INSULIN ASPART, RECOMBINANT 100 UNITS/ML SUBQ SCH ×4 (06:36→20:56)
[2017-09-11 07:00] VITALS: BP 122/66
[2017-09-11 07:36] LABS: % BASOPHILS 0.2 % (0.0-2.0); % LYMPHOCYTES 41.4 % (20.0-50.0); % MONOCYTES 7.7 % (2.0-10.0); % NEUTROPHILS 48.7 % (40.0-80.0); EOSINOPHILE ABSOLUTE 0.1 Th/cmm (0.1-0.4); HEMATOCRIT 33.2 % (41.0-60); HEMOGLOBIN 10.9 gm/dL (12-16); LYMPHOCYTE ABSOLUTE 1.4 Th/cmm (1.5-3.0); MEAN CELL VOLUME 78.9 fl (81-100); MEAN CORPUSCULAR HEMOGLOBIN 25.8 pg (27.0-31.0); MEAN CORPUSCULAR HGB CONC 32.7 pg (28.0-36.0); MEAN PLATELET VOLUME 7.2 fl; MONOCYTE ABSOLUTE 0.3 Th/cmm (0.3-1.0); NEUTROPHILE ABSOLUTE 1.6 Th/cmm (1.8-8.0); PLATELET COUNT 216 Th/cmm (150-400); RED BLOOD COUNT 4.21 Mil/cmm (3.80-5.10); RED CELL DISTRIBUTION WIDTH 14.5 % (11.5-20.0)
[2017-09-11 07:49] LABS: WHITE BLOOD COUNT 3.4 Th/cmm (4.8-10.8)
[2017-09-11 07:58] LABS: ANION GAP 8.5 (7.0-16.0); BUN - UREA NITROGEN 9 mg/dL (7-25); CALCIUM SERUM 9.1 mg/dL (8.6-10.3); CARBON DIOXIDE 28.5 mEq/L (21.0-31.0); CHLORIDE 105 mEq/L (98-107); CREATININE - SERUM 0.7 mg/dL (0.6-1.2); GFR AFRICAN-AMERICAN > 60.0 ml/min (>90); GFR NON AFRICAN-AMERICAN > 60.0 ml/min; GLUCOSE 141 mg/dL (70-105); SODIUM SERUM 138 mEq/L (136-145)
[2017-09-11] MEDS: Levothyroxine 0.025 Mg Tab PO SCH (08:15)
[2017-09-11] MEDS: Multivitamin Tab PO SCH (08:15)
[2017-09-11] MEDS: Dextromethorphan/Quinidine 20mg/10mg Cap PO SCH ×2 (11:41→22:10)
--- NOTE | 2017-09-11 15:21 | Internal Medicine Prog Note ---
Internal Medicine Subjective - Subjective Patient seen and examined:: with staff, chart reviewed Patient is:: awake, verbal, interactive, in bed, confused Patient Complaints of:: cough, weight loss Per staff patient has:: no adverse event, no episodes of fall, agitated, combative, noncompliant, tolerating meds Internal Medicine Objective - Results Result Diagrams: 09/11/17 07:09/11/17 07: Recent Labs: Laboratory Last Values WBC 3.4 Th/cmm (4.8-10.8) L 09/11/17: RBC 4.21 Mil/cmm (3.80-5.10) 09/11/17: Hgb 10.9 gm/dL (12-16) L 09/11/17: Hct 33.2 % (41.0-60) L 09/11/17: MCV 78.9 fl (81-100) L 09/11/17: MCH 25.8 pg (27.0-31.0) L 09/11/17: MCHC Differential 32.7 pg (28.0-36.0) 09/11/17: RDW 14.5 % (11.5-20.0) 09/11/17: Plt Count 216 Th/cmm (150-400) 09/11/17: MPV 7.2 fl 09/11/17: Neutrophils % 48.7 % (40.0-80.0) 09/11/17: Lymphocytes % 41.4 % (20.0-50.0) 09/11/17: Monocytes % 7.7 % (2.0-10.0) 09/11/17: Eosinophils % 2.0 % (0.0-5.0) 09/11/17: Basophils % 0.2 % (0.0-2.0) 09/11/17: PT 10.1 SECONDS (9.5-11.5) 09/09/17 21:10 INR 0.97 (0.5-1.4) 09/09/17 21:10 Sodium 138 mEq/L (136-145) 09/11/17: Potassium 4.0 mEq/L (3.5-5.1) 09/11/17 07:28 Chloride 105 mEq/L (98-107) 09/11/17 07:28 Carbon Dioxide 28.5 mEq/L (21.0-31.0) 09/11/17 07:28 Anion Gap 8.5 (7.0-16.0) 09/11/17 07:28 BUN 9 mg/dL (7-25) 09/11/17 07:28 Creatinine 0.7 mg/dL (0.6-1.2) 09/11/17 07:28 Est GFR ( Amer) > 60.0 ml/min (>90) 09/11/17 07:28 Est GFR (Non-Af Amer) > 60.0 ml/min 09/11/17 07:28 BUN/Creatinine Ratio 12.9 09/11/17 07:28 Glucose 141 mg/dL (70-105) H 09/11/17 07:28 POC Glucose 124 MG/DL (70 - 105) H 09/11/17 11:39 Calcium 9.1 mg/dL (8.6-10.3) 09/11/17 07:28 Total Bilirubin 0.4 mg/dL (0.3-1.0) 09/09/17 21:10 AST 14 U/L (13-39) 09/09/17 21:10 ALT 9 U/L (7-52) 09/09/17 21:10 Alkaline Phosphatase 87 U/L (34-104) 09/09/17 21:10 Creatine Kinase 125 U/L (30-223) 09/09/17 21:10 Troponin I < 0.01 ng/mL (0.01-0.05) L 09/09/17 21:10 B-Natriuretic Peptide 9.1 pg/mL (5.0-100.0) 09/09/17 21:10 Total Protein 6.6 gm/dL (6.0-8.3) 09/09/17 21:10 Albumin 4.1 gm/dL (3.7-5.3) 09/09/17 21:10 Globulin 2.5 gm/dL 09/09/17 21:10 Albumin/Globulin Ratio 1.6 (1.0-1.8) 09/09/17 21:10 Triglycerides 90 mg/dL (<150) 09/09/17 21:10 Cholesterol 134 mg/dL (<200) 09/09/17 21:10 LDL Cholesterol Direct 70 mg/dL (75-193) L 09/09/17 21:10 HDL Cholesterol 51 mg/dL (23-92) 09/09/17 21:10 Serum , Qual NEGATIVE (NEGATIVE) 09/09/17 21:50 - Physical Exam Vitals and I&O: Vital Signs Temp 96.5 F 09/11/17 04:00 Pulse 48 09/11/17 04:00 Resp 19 09/11/17 08:00 BP 122/66 09/11/17 07:00 Pulse Ox 96 09/11/17 04:00 Intake & Output 09/10/17 09/11/17 09/11/17 18:59 06:59 18:59 Intake Total 800 200 Output Total 0 Balance 800 200 Weight (lbs) 52.662 kg 55.021 kg Intake: Oral 800 200 Output: Stool 0 Other: # Voids 3 4 # Bowel Movements 0 Stool Characteristics Soft Brown Weight Source Bedscale Bedscale Active Medications: Current Medications Acetaminophen (Tylenol) 650 mg PO Q4H PRN PRN Reason: Pain Or Fever above 101 Stop: 11/08/17 22:56 Albuterol Sulfate (Albuterol 2.5mg/3ml Neb Ud) 2.5 mg HHN Q2HRT PRN PRN Reason: Shortness of Breath or Wheeze Stop: 11/08/17 22:56 Ascorbic Acid (Vitamin C) 500 mg PO DAILY [facility] Stop: 11/09/17 08:59 Last Admin: 09/11/17 08:15 Dose: 500 mg Buspirone HCl (Buspar) 10 mg PO BID [facility] PRN Reason: Protocol Stop: 11/09/17 08:59 Last Admin: 09/11/17 08:15 Dose: 10 mg Calcium/Vitamin D (Oscal W/Vitamin D) 1 tab PO HS [facility] Stop: 11/09/17 20:59 Last Admin: 09/10/17 20:44 Dose: 1 tab Dextromethorphan/Quinidine (Nuedexta 20mg-10mg) 1 cap PO Q12H [facility] Stop: 11/08/17 22:59 Last Admin: 09/11/17 11:41 Dose: 1 cap Divalproex Sodium (Depakote Sprinkle) 125 mg PO TID [facility] PRN Reason: Protocol Stop: 11/09/17 08:59 Last Admin: 09/11/17 13:51 Dose: 125 mg Donepezil HCl (Aricept) 5 mg PO HS [facility] Stop: 11/09/17 20:59 Last Admin: 09/10/17 20:45 Dose: 5 mg Famotidine (Pepcid) 20 mg PO DAILY [facility] Stop: 11/09/17 08:59 Last Admin: 09/11/17 08:15 Dose: 20 mg Glucagon (Glucagen) 1 mg IM PRN PRN PRN Reason: hypoglycemia Dextrose/Sodium Chloride (D5-0.9%Ns) 1,000 mls @ 80 mls/hr IV .[id number] [facility] Stop: 11/08/17 22:59 Last Admin: 09/10/17 18:50 Dose: 80 mls/hr Insulin Aspart (Novolog) 0 units SUBQ ACHS [facility] PRN Reason: Protocol Stop: 11/09/17 16:29 Last Admin: 09/11/17 11:41 Dose: Not Given Ipratropium [place] (Atrovent Neb 0.5mg/2.5ml) 0.5 mg IH Q2HRT PRN PRN Reason: Shortness of Breath or Wheeze Stop: 11/08/17 22:56 Levetiracetam (Keppra) 500 mg PO BID [facility] Stop: 11/09/17 08:59 Last Admin: 09/11/17 08:16 Dose: 500 mg Levothyroxine Sodium (Synthroid) 0.0625 mg PO QDAC [facility] Stop: 11/09/17 07:29 Last Admin: 09/11/17 08:15 Dose: 0.0625 mg Lorazepam (Ativan) 0.5 mg PO Q6H PRN; Protocol PRN Reason: Anxiety Stop: 11/08/17 22:54 Last Admin: 09/11/17 08:15 Dose: 0.5 mg Metformin HCl (Glucophage) 500 mg PO DAILY [facility] Stop: 11/10/17 08:59 Last Admin: 09/11/17 08:16 Dose: 500 mg Multivitamins/Vitamin C (Theragran) 1 tab PO DAILY [facility] Stop: 11/09/17 08:59 Last Admin: 09/11/17 08:15 Dose: 1 tab Olanzapine (Zyprexa) 5 mg PO BID [facility] PRN Reason: Protocol Stop: 11/09/17 08:59 Last Admin: 09/11/17 08:15 Dose: 5 mg Ondansetron HCl (Zofran) 4 mg IV Q8H PRN PRN Reason: Nausea / Vomiting Stop: 11/08/17 22:56 General: demented, appears older, other (r eye bruise) HEENT: NC/AT, PERRLA, EOMI Neck: Supple, No JVD Lungs: congested Cardiovascular: RRR, Normal S1, Normal S2 Abdomen: soft, non-tender, globular, positive bowel sound Extremities: excoriation, contracture Neurological: no change, disorganized, unsteady, unable to follow command, bedbound - Procedures Procedures: Procedures Procedure Code Date BLOOD TRANSFUSION SERVICE 23564 03/29/16 CLOSURE SKIN & SUBCUTANEOUS NEC 86.59 07/02/14 DIAGNOSTIC COLONOSCOPY 90538 09/13/15 DRAINAGE OF STOMACH, ENDO, DIAGN [id number] 09/13/15 EGD BIOPSY SINGLE/MULTIPLE 42025 09/13/15 ELECTROCARDIOGRAM 89.52 10/10/94 EMERGENCY DEPT VISIT 88696 07/04/11 EXCISION OF DUODENUM, ENDO, DIAGN [id number] 09/13/15 GASTRIC INTUBATION TREATMENT 76319 12/28/07 GASTRIC LAVAGE 96.33 12/28/07 INSERT GASTRIC TUBE NEC 96.07 07/26/95 INSERT INDWELLING CATH 57.94 09/16/11 INSERT TEMP BLADDER CATH 94183 09/16/11 INSERTION OF INT FIX INTO L HUMERAL SHAFT, PERC APPROACH [id number] 05/24/15 INSPECTION OF LOWER INTESTINAL TRACT, ENDO [id number] 09/13/15 OXYGEN ENRICHMENT NEC 93.96 10/10/94 REMOV THERAPEUT DEV NEC 97.89 03/25/01 REMOVAL OF INT FIX FROM R KNEE JT, OPEN APPROACH [id number] 04/15/16 REPAIR FACE SKIN, EXTERNAL APPROACH [id number] 04/12/15 REPOSITION RIGHT PATELLA WITH INT FIX, OPEN APPROACH [id number] 03/29/16 RPR F/E/E/N/L/M 2.5 CM/< 42190 04/12/15 RPR F/E/E/N/L/M 2.6-5.0 [place] [address] 07/02/14 TETANUS TOXOID ADMINIST 99.38 07/02/14 TRANSFUSE NONAUT RED BLOOD CELLS IN PERIPH VEIN, PERC [id number] 03/29/16 TREAT KNEECAP FRACTURE 01624 03/29/16 UPPER ARM/ELBOW SURGERY 02012 05/24/15 Internal Medicine Assmt/Plan - Assessment Assessment: sp fall severe r orbital ecchymoses syncope sad dm hypothroidism dementia - Plan Plan: fall precaution dw father adjust pscyh meds dw rn
[2017-09-11] MEDS: Calcium Carb/Vit D 500 mg/200 U Tab PO SCH (20:56)
--- NOTE | 2017-09-11 21:26 | Consultation ---
DATE OF CONSULTATION: 09/11/2017 PSYCHIATRIC CONSULTATION ATTENDING PHYSICIAN: Jamir Russell DO. REASON FOR CONSULTATION: History of psychosis. HISTORY OF PRESENT ILLNESS: This patient is a 51-year-old woman, resident of [facility]. Information obtained by directly interviewing the patient as well as reviewing the admission papers. The patient has been admitted over here for syncopal episode after sustaining a fall and an injury in the right orbital area and a psychiatric consultation is called to see. Staff was spoken to. The patient is interviewed. Mood is noted to be irritable. Affect is constricted. The patient is not providing much of information at this time. The patient is stating that she needs to rest. PAST PSYCHIATRIC HISTORY: The patient has been diagnosed to have schizoaffective disorder. SUBSTANCE ABUSE HISTORY: None. PHYSICAL OR SEXUAL ABUSE HISTORY: None. LEGAL PROBLEMS: None at this time. MEDICAL HISTORY: Significant for seizure disorder, hypothyroidism, and diabetes. MENTAL STATUS EXAMINATION: The patient is a 51-year-old, looking her stated age, superficially cooperative. Eye contact is poor. Mood is noted to be irritable. Affect is constricted. Insight and judgment at this time are noted to be impaired. Impulse control seems to be poor. Coping skills are also noted to be poor. The patient has been having difficult time to cope with the stress. The patient is getting easily irritable. The patient has paranoia, but denies any command hallucinations. The patient is currently on Zyprexa. The patient is alert and awake. DIAGNOSTIC IMPRESSION: Schizoaffective disorder. PLAN: To continue the patient with Zyprexa and follow the patient with the supportive therapy. Thank you, Dr. Russell, for allowing me to participate in the care of the patient. JOB# [id number]
[2017-09-11] MEDS: D5-0.9%NS 1,000 ML IV SCH (22:10)
--- NOTE | 2017-09-12 02:46 | Consultation ---
DATE OF CONSULTATION: 09/11/2017 NEUROLOGY CONSULT HISTORY OF PRESENT ILLNESS: The patient is a 51-year-old. halfway. Apparently, she had episode of passing out. She had syncope. Falls with contusion on the right side of the face, ecchymosis around the right periorbital area. She is awake, alert. She does not remember exactly what happened. She tells me that normally she has difficulty walking. She tends to be mainly bedbound or wheelchair. The patient in a [facility]. PAST MEDICAL HISTORY: 1. Schizoaffective disorder. 2. Dementia, seizure. Exact etiology unclear. 3. Diabetes. 4. Hypothyroidism. PAST SURGICAL HISTORY: Left knee surgery. MEDICATIONS: As per reconciliation. The patient is on BuSpar 10 mg. She is on Nuedexta 20/10 mg, divalproex 125 t.i.d., donepezil 5 mg, insulin, Keppra 500 b.i.d., levothyroxine, lorazepam p.r.n., metformin 500. She is on olanzapine 5 mg b.i.d. REVIEW OF SYSTEMS: The patient's 12-point negative except for above. PHYSICAL EXAMINATION: VITAL SIGNS: Temperature 96.9, blood pressure 110/58, pulse is around 60. NECK: Supple, no bruits. HEART: Sounds S1, S2. LUNGS: Clear. NEUROLOGIC: The patient is lying in bed, awake actually. She has ecchymosis over the right periorbital area. She says she sees okay with the right eye. She gives me her name, her age. She did not know the day, but she knew she was in the hospital. She is able to name simple objects for me. CRANIAL: Pupils react to light. She will look to the right and left. No facial weakness. MOTOR: She will lift both arms up, but lower extremity she will lift them up, they are weak. Reflexes about 1 upper extremity difficult to get the knees and ankles. Gait not tested. INVESTIGATIONS: CT scan head shows soft tissue swelling around the right frontal, right periorbital area, both. No intracranial abnormalities. The patient's maxillofacial CT scan again shows a lot of movement artifact. There is some swelling. They do not see any obvious fracture. ASSESSMENT: 1. Fall. 2. Head injury. 3. Possible syncope. 4. The patient with history of seizure, though no seizures witnessed and none here while the patient is here. 5. Schizoaffective disorder. 6. Gait difficulty, ataxia. 7. Dementia. Etiology unclear. 8. Continue present treatment. Physical therapy. JOB# [id number]
[2017-09-12] MEDS: Levothyroxine 0.025 Mg Tab PO SCH (06:31)
[2017-09-12] MEDS: INSULIN ASPART, RECOMBINANT 100 UNITS/ML SUBQ SCH ×2 (08:11→13:00)
[2017-09-12] MEDS: Multivitamin Tab PO SCH (08:41)
[2017-09-12] MEDS: Dextromethorphan/Quinidine 20mg/10mg Cap PO SCH (13:00)
--- NOTE | 2017-09-12 15:41 | Discharge Summary ---
DATE OF DISCHARGE: 09/12/2017 CHIEF COMPLAINT: Syncope. FINAL DIAGNOSES: Syncope, right orbital ecchymosis/bruising, status post fall, diabetes, seizure, hypothyroidism, dementia, and schizoaffective disorder. HISTORY: This is a 51-year-old female, well known to my service, apparently fallen. The patient is stable on her feet, agitated when trying to get out. The patient admitted for further management. PHYSICAL EXAMINATION: VITAL SIGNS: Blood pressure 115/73, respiration 18, pulse 79, temperature ____. GENERAL: Elderly female, appears stated age. Severe right orbital ecchymosis. NECK: Supple. No mass. LUNGS: Equal breath sounds, otherwise clear to auscultation. HEART: Regular rate and rhythm without appreciable murmur. ABDOMEN: Soft, globular. EXTREMITIES: Positive excoriation. NEUROLOGIC: Limited. HOSPITAL COURSE: The patient was admitted to telemetry. The patient was referred to Dr. Arce for psych and Dr. Pritchett for Neurology. The patient was able to stabilize. Psychiatry wanted to admit the patient to Geropsych Unit. CONDITION ON DISCHARGE: Fair. DISCHARGE INSTRUCTIONS: The patient will be admitted to Geropsych Unit. JOB# [id number]
== END 2017-09-12 13:08 | DRG 125 ==
LOC: ER 20:45 → MSI 22:25 → TELE 23:15
PROVIDERS: ADMIT Internal Medicine; ATTEND Internal Medicine
DX: S05.11XA Contusion of eyeball and orbital tissues, right eye, initial encounter (principal); F48.8 Other specified nonpsychotic mental disorders; E11.9 Type 2 diabetes mellitus without complications; G40.909 Epilepsy, unspecified, not intractable, without status epilepticus; F03.90 Unspecified dementia, unspecified severity, without behavioral disturbance, psychotic disturbance, mood disturbance, and anxiety; E03.9 Hypothyroidism, unspecified; F25.9 Schizoaffective disorder, unspecified; Z66 Do not resuscitate; W18.39XA Other fall on same level, initial encounter; K21.9 Gastro-esophageal reflux disease without esophagitis; M19.90 Unspecified osteoarthritis, unspecified site; R26.0 Ataxic gait; Y93.89 Activity, other specified; Y92.89 Other specified places as the place of occurrence of the external cause; Y99.8 Other external cause status; Z88.0 Allergy status to penicillin; Z87.11 Personal history of peptic ulcer disease; Z83.3 Family history of diabetes mellitus; Z82.49 Family history of ischemic heart disease and other diseases of the circulatory system
CPT/HCPCS: 36415-UA; 70450-TC; 70486-TC; 80048-TC; 80053-TC; 80061-TC; 82550-TC; 82948-90; 83880-TC; 84484-TC; 84703-TC; 85025-TC; 85610-TC; 93005; 94760; J1815; J7042; J7051; X3904; Z7610

== ENCOUNTER 2017-09-12 13:21 | Inpatient (IN) | payer MEDICARE, MEDICAID ==
[2017-09-12 14:44] VITALS: BP 146/73
[2017-09-12] MEDS ORDERED: Magnesium Hydroxide (MOM) 30 mL UDC PO PRN (14:45)
[2017-09-12] MEDS ORDERED: Maalox 30 mL Cup PO PRN (14:45)
[2017-09-12] MEDS ORDERED: Non-Formulary Item 1 EA (Glucagon Hcl [Glucagon Hcl] 1 MG) IM PRN (15:45)
[2017-09-12] MEDS ORDERED: GLUCAGON HCl 1 MG KIT IM PRN (16:00)
[2017-09-12] MEDS: Dextromethorphan/Quinidine 20mg/10mg Cap PO SCH (16:05)
[2017-09-12] MEDS: INSULIN ASPART, RECOMBINANT 100 UNITS/ML SUBQ SCH (20:27)
[2017-09-12] MEDS: Calcium Carb/Vit D 500 mg/200 U Tab PO SCH (20:32)
[2017-09-12] MEDS ORDERED: Non-Formulary Item 1 EA (Amino Acids/Protein Hydrolys [Pro-Stat Sugar Free Liquid] 30 ML) PO SCH (21:00)
[2017-09-13] MEDS: Dextromethorphan/Quinidine 20mg/10mg Cap PO SCH ×3 (04:59→16:43)
[2017-09-13] MEDS: INSULIN ASPART, RECOMBINANT 100 UNITS/ML SUBQ SCH ×4 (06:40→20:56)
[2017-09-13] MEDS: Levothyroxine 0.025 Mg Tab PO SCH (06:43)
[2017-09-13] MEDS ORDERED: Non-Formulary Item 1 EA (Multivitamin [Multivitamins] 1 CAP) PO SCH (09:00)
[2017-09-13] MEDS: Multivitamin Tab PO SCH (09:24)
--- NOTE | 2017-09-13 12:00 | Internal Medicine Prog Note ---
Internal Medicine Subjective - Subjective Patient seen and examined:: with staff, chart reviewed Patient is:: awake, verbal, interactive Per staff patient has:: no adverse event, no episodes of fall, agitated, tolerating meds Internal Medicine Objective - Results Recent Labs: Laboratory Last Values POC Glucose 145 MG/DL (70 - 105) H 09/13/17 06:17 - Physical Exam Vitals and I&O: Vital Signs Temp 97.3 F 09/13/17 06:35 Pulse 78 09/13/17 06:35 Resp 20 09/13/17 06:35 BP 141/79 09/13/17 06:35 Pulse Ox 99 09/13/17 06:35 Intake & Output 09/12/17 09/13/17 09/13/17 18:59 06:59 18:59 Intake Total 120 Balance 120 Weight (lbs) 56.699 kg Intake: Oral 120 Other: # Voids 3 Weight Source Estimated Active Medications: Current Medications Acetaminophen (Tylenol) 650 mg PO Q4HR PRN PRN Reason: Mild Pain / Temp above 100 Stop: 11/11/17 14:44 Al Hydrox/Mg Hydrox/Simethicone (Maalox) 30 ml PO Q4HR PRN PRN Reason: GI DISTRESS Stop: 11/11/17 14:44 Ascorbic Acid (Vitamin C) 500 mg PO DAILY [facility] Stop: 11/12/17 08:59 Last Admin: 09/13/17 09:24 Dose: 500 mg Buspirone HCl (Buspar) 10 mg PO BID DIANA PRN Reason: Protocol Stop: 11/11/17 16:59 Last Admin: 09/13/17 09:23 Dose: 10 mg Calcium/Vitamin D (Oscal W/Vitamin D) 1 tab PO HS DIANA Stop: 11/11/17 20:59 Last Admin: 09/12/17 20:32 Dose: 1 tab Dextromethorphan/Quinidine (Nuedexta 20mg-10mg) 1 cap PO BID DIANA Stop: 11/12/17 08:59 Last Admin: 09/13/17 09:33 Dose: 1 cap Divalproex Sodium (Depakote Sprinkle) 125 mg PO Q12HR DIANA PRN Reason: Protocol Stop: 11/12/17 20:59 Donepezil HCl (Aricept) 5 mg PO HS [facility] Stop: 11/11/17 20:59 Last Admin: 09/12/17 20:32 Dose: 5 mg Famotidine (Pepcid) 20 mg PO DAILY DIANA Stop: 11/12/17 08:59 Last Admin: 09/13/17 09:23 Dose: 20 mg Glucagon (Glucagen) 1 mg IM PRN PRN PRN Reason: HYPOGLYCEMIA Stop: 11/11/17 15:59 Haloperidol Decanoate (Haldol Dec) 25 mg IM [id number] DIANA PRN Reason: Protocol Stop: 11/11/17 15:59 Insulin Aspart (Novolog) 0 units SUBQ ACHS DIANA PRN Reason: Protocol Stop: 11/11/17 20:59 Last Admin: 09/13/17 06:40 Dose: Not Given Levetiracetam (Keppra) 500 mg PO BID DIANA Stop: 11/11/17 16:59 Last Admin: 09/13/17 09:23 Dose: 500 mg Levothyroxine Sodium (Synthroid) 0.0625 mg PO QDAC DIANA Stop: 11/12/17 07:29 Last Admin: 09/13/17 06:43 Dose: 0.0625 mg Lorazepam (Ativan) 0.5 mg PO Q6H PRN; Protocol PRN Reason: Anxiety Stop: 11/11/17 15:49 Magnesium Hydroxide (Milk Of Magnesia) 30 ml PO HS PRN PRN Reason: Constipation Metformin HCl (Glucophage) 500 mg PO TID DIANA Stop: 11/11/17 20:59 Last Admin: 09/13/17 09:24 Dose: 500 mg Multivitamins/Vitamin C (Theragran) 1 tab PO DAILY DIANA Stop: 11/12/17 08:59 Last Admin: 09/13/17 09:24 Dose: 1 tab Olanzapine (Zyprexa) 5 mg PO BID DIANA PRN Reason: Protocol Stop: 11/11/17 16:59 Last Admin: 09/13/17 09:31 Dose: 5 mg Zolpidem Tartrate (Ambien) 5 mg PO HSMR1 PRN PRN Reason: Insomnia Stop: 11/11/17 14:44 General: demented HEENT: NC/AT, PERRLA Neck: Supple, No JVD, No thyromegaly, deformity Lungs: CTAB Cardiovascular: RRR, Normal S1, Normal S2 Abdomen: soft, non-tender, thin, positive bowel sound Extremities: excoriation, deformity (bruise r eye) - Procedures Procedures: Procedures Procedure Code Date BLOOD TRANSFUSION SERVICE 53305 03/29/16 CLOSURE SKIN & SUBCUTANEOUS NEC 86.59 07/02/14 DIAGNOSTIC COLONOSCOPY 60849 09/13/15 DRAINAGE OF STOMACH, ENDO, DIAGN [id number] 09/13/15 EGD BIOPSY SINGLE/MULTIPLE 35122 09/13/15 ELECTROCARDIOGRAM 89.52 10/10/94 EMERGENCY DEPT VISIT 04565 07/04/11 EXCISION OF DUODENUM, ENDO, DIAGN [id number] 09/13/15 GASTRIC INTUBATION TREATMENT 66947 12/28/07 GASTRIC LAVAGE 96.33 12/28/07 INSERT GASTRIC TUBE NEC 96.07 07/26/95 INSERT INDWELLING CATH 57.94 09/16/11 INSERT TEMP BLADDER CATH 14815 09/16/11 INSERTION OF INT FIX INTO L HUMERAL SHAFT, PERC APPROACH [id number] 05/24/15 INSPECTION OF LOWER INTESTINAL TRACT, ENDO [id number] 09/13/15 OXYGEN ENRICHMENT NEC 93.96 10/10/94 REMOV THERAPEUT DEV NEC 97.89 03/25/01 REMOVAL OF INT FIX FROM R KNEE JT, OPEN APPROACH [id number] 04/15/16 REPAIR FACE SKIN, EXTERNAL APPROACH [id number] 04/12/15 REPOSITION RIGHT PATELLA WITH INT FIX, OPEN APPROACH [id number] 03/29/16 RPR F/E/E/N/L/M 2.5 CM/< 94090 04/12/15 RPR F/E/E/N/L/M 2.6-5.0 CM 61281 07/02/14 TETANUS TOXOID ADMINIST 99.38 07/02/14 TRANSFUSE NONAUT RED BLOOD CELLS IN PERIPH VEIN, PERC [id number] 03/29/16 TREAT KNEECAP FRACTURE 81458 03/29/16 UPPER ARM/ELBOW SURGERY 62992 05/24/15 Internal Medicine Assmt/Plan - Assessment Assessment: - Assessment Assessment: sp fall severe r orbital ecchymoses syncope sad dm hypothroidism dementia - Plan Plan: fall precaution dw father adjust pscyh meds dw rn - Plan Plan: cpm
[2017-09-13 19:39] LABS: % BASOPHILS 0.6 % (0.0-2.0); % EOSINOPHILS 1.1 % (0.0-5.0); % LYMPHOCYTES 29.6 % (20.0-50.0); % MONOCYTES 7.2 % (2.0-10.0); % NEUTROPHILS 61.5 % (40.0-80.0); BASOPHILE ABSOLUTE 0.1 Th/cumm (0-0.2); EOSINOPHILE ABSOLUTE 0.1 Th/cmm (0.1-0.4); HEMOGLOBIN 11.9 gm/dL (12-16); LYMPHOCYTE ABSOLUTE 2.9 Th/cmm (1.5-3.0); MEAN CELL VOLUME 79.3 fl (81-100); MEAN CORPUSCULAR HEMOGLOBIN 26.2 pg (27.0-31.0); MEAN PLATELET VOLUME 7.3 fl; MONOCYTE ABSOLUTE 0.7 Th/cmm (0.3-1.0); PLATELET COUNT 325 Th/cmm (150-400); RED BLOOD COUNT 4.53 Mil/cmm (3.80-5.10); RED CELL DISTRIBUTION WIDTH 14.1 % (11.5-20.0); WHITE BLOOD COUNT 9.8 Th/cmm (4.8-10.8)
[2017-09-13 19:55] LABS: ANION GAP 12.3 (7.0-16.0); BUN - UREA NITROGEN 8 mg/dL (7-25); CALCIUM SERUM 9.5 mg/dL (8.6-10.3); CARBON DIOXIDE 23.3 mEq/L (21.0-31.0); CHLORIDE 105 mEq/L (98-107); CREATININE - SERUM 0.7 mg/dL (0.6-1.2); GFR AFRICAN-AMERICAN > 60.0 ml/min (>90); GFR NON AFRICAN-AMERICAN > 60.0 ml/min; GLUCOSE 66 mg/dL (70-105); POTASSIUM SERUM 3.6 mEq/L (3.5-5.1); SODIUM SERUM 137 mEq/L (136-145)
[2017-09-13] MEDS: Calcium Carb/Vit D 500 mg/200 U Tab PO SCH (20:35)
--- NOTE | 2017-09-14 01:19 | Psychosocial Evaluation ---
DATE OF SERVICE: 09/13/2017 IDENTIFYING DATA: The patient is a 51-year-old woman, resident of [facility]. Information obtained by directly interviewing the patient as well as reviewing the admission papers and they are reliable. JUSTIFICATION OF HOSPITALIZATION: The patient is admitted for her acute agitation and psychosis and mood swings. CHIEF COMPLAINT: "I don't know." HISTORY OF PRESENT ILLNESS: This is one of multiple psychiatric hospitalizations for this patient, who is a resident of the [facility]. The patient reported to have had an episode of fall with the facial contusion and ecchymosis in the right orbital area and the patient has been admitted to the medical unit. The patient has been medically cleared. The patient has a history of diabetes, seizures, hypothyroidism and the patient has been transferred over to the psychiatric unit for further care. During the evaluation, the patient is isolative and withdrawn and has been stating that she has been feeling a little bit okay, but the patient is very quiet. Mood swings seems to be under control. The patient's review of the chart indicated that the patient has been on buspirone 10 mg twice a day and the patient is also on the valproic acid 125 mg twice a day. The patient has been on BuSpar on the valproic acid and the patient is also reported to have been receiving the Haldol Decanoate 25 mg every 2 weeks and the patient is also on olanzapine 5 mg twice a day. The patient at this time is able to provide much of information. The patient, however, has paranoid delusions, but denies any command hallucinations. The patient is alert and awake. The patient is not presenting with any threats to harm self or others at this time. DIAGNOSTIC IMPRESSION: AXIS I. Schizoaffective disorder. AXIS II: None. AXIS III: As per Dr. Russell. IMMEDIATE TREATMENT PLAN: The patient is going to be observed on inpatient unit, provided with supportive psychotherapy. The patient is going to be closely monitored. Encouraged to verbalize the concerns rather than to act out. ESTIMATED LENGTH OF STAY: Three to five days. DISCHARGE CRITERIA: When she no longer is a threat to self or others. The patient is going to be held off of the Haldol Decanoate today. JOB# [id number]
[2017-09-14] MEDS: INSULIN ASPART, RECOMBINANT 100 UNITS/ML SUBQ SCH ×4 (06:29→20:35)
[2017-09-14] MEDS: Levothyroxine 0.025 Mg Tab PO SCH (06:30)
[2017-09-14] MEDS: Multivitamin Tab PO SCH (09:00)
[2017-09-14] MEDS: Dextromethorphan/Quinidine 20mg/10mg Cap PO SCH ×2 (09:00→16:53)
--- NOTE | 2017-09-14 12:43 | Internal Medicine Prog Note ---
Internal Medicine Subjective - Subjective Patient seen and examined:: with staff, chart reviewed Patient is:: awake, verbal, interactive Per staff patient has:: no adverse event, no episodes of fall, agitated, tolerating meds Internal Medicine Objective - Results Result Diagrams: 09/13/17 19:09/13/17 19: Recent Labs: Laboratory Last Values WBC 9.8 Th/cmm (4.8-10.8) 09/13/17: RBC 4.53 Mil/cmm (3.80-5.10) 09/13/17: Hgb 11.9 gm/dL (12-16) L 09/13/17: Hct 36.0 % (41.0-60) L 09/13/17: MCV 79.3 fl (81-100) L 09/13/17: MCH 26.2 pg (27.0-31.0) L 09/13/17 MCHC Differential 33.0 pg (28.0-36.0) 09/13/17 RDW 14.1 % (11.5-20.0) 09/13/17: Plt Count 325 Th/cmm (150-400) 09/13/17: MPV 7.3 fl 09/13/17: Neutrophils % 61.5 % (40.0-80.0) 09/13/17: Lymphocytes % 29.6 % (20.0-50.0) 09/13/17 Monocytes % 7.2 % (2.0-10.0) 09/13/17: Eosinophils % 1.1 % (0.0-5.0) 09/13/17: Basophils % 0.6 % (0.0-2.0) 09/13/17: Sodium 137 mEq/L (136-145) 09/13/17: Potassium 3.6 mEq/L (3.5-5.1) 09/13/17: Chloride 105 mEq/L (98-107) 09/13/17: Carbon Dioxide 23.3 mEq/L (21.0-31.0) 09/13/17: Anion Gap 12.3 (7.0-16.0) 09/13/17 19:28 BUN 8 mg/dL (7-25) 09/13/17 19:28 Creatinine 0.7 mg/dL (0.6-1.2) 09/13/17 19:28 Est GFR ( Amer) > 60.0 ml/min (>90) 09/13/17 19:28 Est GFR (Non-Af Amer) > 60.0 ml/min 09/13/17 19:28 BUN/Creatinine Ratio 11.4 09/13/17 19:28 Glucose 66 mg/dL (70-105) L 09/13/17 19:28 POC Glucose 134 MG/DL (70 - 105) H 09/14/17 05:38 Calcium 9.5 mg/dL (8.6-10.3) 09/13/17 19:28 - Physical Exam Vitals and I&O: Vital Signs Temp 97.6 F 09/14/17 06:05 Pulse 66 09/14/17 06:05 Resp 20 09/14/17 06:05 BP 148/74 09/14/17 06:05 Pulse Ox 100 09/14/17 06:05 Intake & Output 09/13/17 09/14/17 09/14/17 18:59 06:59 18:59 Intake Total 1200 360 Balance 1200 360 Intake: Oral 1200 360 Other: # Voids 3 2 # Bowel Movements 1 0 Active Medications: Current Medications Acetaminophen (Tylenol) 650 mg PO Q4HR PRN PRN Reason: Mild Pain / Temp above 100 Stop: 11/11/17 14:44 Al Hydrox/Mg Hydrox/Simethicone (Maalox) 30 ml PO Q4HR PRN PRN Reason: GI DISTRESS Stop: 11/11/17 14:44 Ascorbic Acid (Vitamin C) 500 mg PO DAILY DIANA Stop: 11/12/17 08:59 Last Admin: 09/14/17 09:00 Dose: 500 mg Buspirone HCl (Buspar) 10 mg PO BID DIANA PRN Reason: Protocol Stop: 11/11/17 16:59 Last Admin: 09/14/17 09:00 Dose: 10 mg Calcium/Vitamin D (Oscal W/Vitamin D) 1 tab PO HS DIANA Stop: 11/11/17 20:59 Last Admin: 09/13/17 20:35 Dose: 1 tab Dextromethorphan/Quinidine (Nuedexta 20mg-10mg) 1 cap PO BID DIANA Stop: 11/12/17 08:59 Last Admin: 09/14/17 09:00 Dose: 1 cap Divalproex Sodium (Depakote Sprinkle) 125 mg PO Q12HR DIANA PRN Reason: Protocol Stop: 11/12/17 20:59 Last Admin: 09/14/17 09:00 Dose: 125 mg Donepezil HCl (Aricept) 5 mg PO HS DIANA Stop: 11/11/17 20:59 Last Admin: 09/13/17 20:35 Dose: 5 mg Famotidine (Pepcid) 20 mg PO DAILY DIANA Stop: 11/12/17 08:59 Last Admin: 09/14/17 09:00 Dose: 20 mg Glucagon (Glucagen) 1 mg IM PRN PRN PRN Reason: HYPOGLYCEMIA Stop: 11/11/17 15:59 Haloperidol Decanoate (Haldol Dec) 25 mg IM [id number] DIANA PRN Reason: Protocol Stop: 11/11/17 15:59 Insulin Aspart (Novolog) 0 units SUBQ ACHS DIANA PRN Reason: Protocol Stop: 11/11/17 20:59 Last Admin: 09/14/17 12:21 Dose: Not Given Levetiracetam (Keppra) 500 mg PO BID DIANA Stop: 11/11/17 16:59 Last Admin: 09/14/17 09:00 Dose: 500 mg Levothyroxine Sodium (Synthroid) 0.0625 mg PO QDAC DIANA Stop: 11/12/17 07:29 Last Admin: 09/14/17 06:30 Dose: 0.0625 mg Lorazepam (Ativan) 0.5 mg PO Q6H PRN; Protocol PRN Reason: Anxiety Stop: 11/11/17 15:49 Magnesium Hydroxide (Milk Of Magnesia) 30 ml PO HS PRN PRN Reason: Constipation Metformin HCl (Glucophage) 500 mg PO TID DIANA Stop: 11/11/17 20:59 Last Admin: 09/14/17 09:00 Dose: 500 mg Multivitamins/Vitamin C (Theragran) 1 tab PO DAILY DIANA Stop: 11/12/17 08:59 Last Admin: 09/14/17 09:00 Dose: 1 tab Olanzapine (Zyprexa) 5 mg PO HS DIANA PRN Reason: Protocol Stop: 11/13/17 20:59 Zolpidem Tartrate (Ambien) 5 mg PO HSMR1 PRN PRN Reason: Insomnia Stop: 11/11/17 14:44 General: demented HEENT: NC/AT, PERRLA Neck: Supple, No JVD, No thyromegaly, deformity Lungs: CTAB Cardiovascular: RRR, Normal S1, Normal S2 Abdomen: soft, non-tender, thin, positive bowel sound Extremities: excoriation, deformity (bruise r eye) - Procedures Procedures: Procedures Procedure Code Date BLOOD TRANSFUSION SERVICE 77001 03/29/16 CLOSURE SKIN & SUBCUTANEOUS NEC 86.59 07/02/14 DIAGNOSTIC COLONOSCOPY 08121 09/13/15 DRAINAGE OF STOMACH, ENDO, DIAGN [id number] 09/13/15 EGD BIOPSY SINGLE/MULTIPLE 14054 09/13/15 ELECTROCARDIOGRAM 89.52 10/10/94 EMERGENCY DEPT VISIT 74951 07/04/11 EXCISION OF DUODENUM, ENDO, DIAGN [id number] 09/13/15 GASTRIC INTUBATION TREATMENT 47745 12/28/07 GASTRIC LAVAGE 96.33 12/28/07 INSERT GASTRIC TUBE NEC 96.07 07/26/95 INSERT INDWELLING CATH 57.94 09/16/11 INSERT TEMP BLADDER CATH 37628 09/16/11 INSERTION OF INT FIX INTO L HUMERAL SHAFT, PERC APPROACH [id number] 05/24/15 INSPECTION OF LOWER INTESTINAL TRACT, ENDO [id number] 09/13/15 OXYGEN ENRICHMENT NEC 93.96 10/10/94 REMOV THERAPEUT DEV NEC 97.89 03/25/01 REMOVAL OF INT FIX FROM R KNEE JT, OPEN APPROACH [id number] 04/15/16 REPAIR FACE SKIN, EXTERNAL APPROACH [id number] 04/12/15 REPOSITION RIGHT PATELLA WITH INT FIX, OPEN APPROACH [id number] 03/29/16 RPR F/E/E/N/L/M 2.5 CM/< 32295 04/12/15 RPR F/E/E/N/L/M 2.6-5.0 CM 93076 07/02/14 TETANUS TOXOID ADMINIST 99.38 07/02/14 TRANSFUSE NONAUT RED BLOOD CELLS IN PERIPH VEIN, PERC 70031S1 03/29/16 TREAT KNEECAP FRACTURE 15176 03/29/16 UPPER ARM/ELBOW SURGERY 57767 05/24/15 Internal Medicine Assmt/Plan - Assessment Assessment: - Assessment Assessment: sp fall severe r orbital ecchymoses syncope sad dm hypothroidism dementia - Plan Plan: fall precaution dw father adjust pscyh meds dw rn - Plan Plan: cpm
--- NOTE | 2017-09-14 20:20 | Consultation ---
DATE OF CONSULTATION: 09/14/2017 REFERRING PHYSICIAN: Katie Dominguez M.D. TYPE OF CONSULTATION: Psychology. HISTORY OF PRESENT ILLNESS: The patient is a 51-year-old female. She is a resident of [facility]. The patient is known to this securities underwriter from a previous hospitalization. The following is by record review and by the patient's self report. The patient is being admitted due to acute agitation and psychosis as well as mood fluctuations. According to record review, the patient had an episode of falling with facial contusion and was admitted to the medical unit. The patient was medically cleared and transferred here to the geropsychiatric unit. Mood fluctuations seem to be improving. The patient did not provide much information. The patient denied any suicidal ideation, plan or intentions. SUBSTANCE ABUSE HISTORY: None. PAST MEDICAL HISTORY: Please see history and physical. PSYCHOSOCIAL HISTORY: The patient is a resident of [facility]. The patient did not answer questions about family history or family relationships. She did not answer questions about abuse history or legal issues. She did not answer questions about occupational or educational history or temple affiliation. MENTAL STATUS EXAMINATION: The patient appears to be her stated age. The patient's attitude is superficially cooperative. Eye contact is fair. Speech is spontaneous. Mood is stabilizing with respect to fluctuations. Affect is broad. The patient denies any depression at this time. Affect is expansive and animated. The patient denied any auditory or visual hallucinations. However, there may be some paranoid ideation present. The patient's behavior on the unit is redirectable and compliant with care. Impulse control is fair. Concentration is fair. The patient did not participate in the memory assessment. Immediate memory appears to be intact. Short term and long-term memory need further evaluation. Sensorium is alert and oriented to person and place. The patient did not participate in the interpretation of proverbs. Insight is fair to poor. Judgment is fair to compromised. DIAGNOSTIC IMPRESSION: AXIS I: History of schizoaffective disorder. AXIS II: Deferred. AXIS III: Per Dr. Russell. PLAN: The patient has been seen by Dr. Dominguez for psychiatric evaluation and for the management of the patient's psychotropic medications. We will provide supportive psychotherapy to include coping strategies and skills for chronic long-term mental illness. We will provide a simple de-escalation skill to assist the patient in being able to regulate her emotions and verbalize concerns versus acting out. We will provide reality testing and reality orientation and reality integration. Thank you, Dr. Dominguez for this consult and the opportunity to participate with you in this patient's care. JOB# [id number] [email or web address]
[2017-09-14] MEDS: Calcium Carb/Vit D 500 mg/200 U Tab PO SCH (20:32)
[2017-09-15] MEDS: INSULIN ASPART, RECOMBINANT 100 UNITS/ML SUBQ SCH ×4 (06:31→20:41)
[2017-09-15] MEDS: Levothyroxine 0.025 Mg Tab PO SCH (06:44)
[2017-09-15] MEDS: Dextromethorphan/Quinidine 20mg/10mg Cap PO SCH ×2 (08:25→16:24)
[2017-09-15] MEDS: Multivitamin Tab PO SCH (08:25)
--- NOTE | 2017-09-15 11:43 | Internal Medicine Prog Note ---
Internal Medicine Subjective - Subjective Service Date: 09/15/17 Patient is:: awake, verbal, interactive Per staff patient has:: no adverse event, no episodes of fall, agitated, tolerating meds Internal Medicine Objective - Results Result Diagrams: 09/13/17 19:09/13/17: Recent Labs: Laboratory Last Values WBC 9.8 Th/cmm (4.8-10.8) 09/13/17: RBC 4.53 Mil/cmm (3.80-5.10) 09/13/17: Hgb 11.9 gm/dL (12-16) L 09/13/17: Hct 36.0 % (41.0-60) L 09/13/17: MCV 79.3 fl (81-100) L 09/13/17: MCH 26.2 pg (27.0-31.0) L 09/13/17: MCHC Differential 33.0 pg (28.0-36.0) 09/13/17: RDW 14.1 % (11.5-20.0) 09/13/17: Plt Count 325 Th/cmm (150-400) 09/13/17: MPV 7.3 fl 09/13/17: Neutrophils % 61.5 % (40.0-80.0) 09/13/17: Lymphocytes % 29.6 % (20.0-50.0) 09/13/17: Monocytes % 7.2 % (2.0-10.0) 09/13/17: Eosinophils % 1.1 % (0.0-5.0) 09/13/17: Basophils % 0.6 % (0.0-2.0) 09/13/17: Sodium 137 mEq/L (136-145) 09/13/17: Potassium 3.6 mEq/L (3.5-5.1) 09/13/17: Chloride 105 mEq/L (98-107) 09/13/17: Carbon Dioxide 23.3 mEq/L (21.0-31.0) 09/13/17: Anion Gap 12.3 (7.0-16.0) 04/22/18 19:28 BUN 8 mg/dL (7-25) 09/13/17 19:28 Creatinine 0.7 mg/dL (0.6-1.2) 09/13/17 19:28 Est GFR ( Amer) > 60.0 ml/min (>90) 09/13/17 19:28 Est GFR (Non-Af Amer) > 60.0 ml/min 09/13/17 19:28 BUN/Creatinine Ratio 11.4 09/13/17 19:28 Glucose 66 mg/dL (70-105) L 09/13/17 19:28 POC Glucose 130 MG/DL (70 - 105) H 09/15/17 05:55 Calcium 9.5 mg/dL (8.6-10.3) 09/13/17 19:28 - Physical Exam Vitals and I&O: Vital Signs Temp 97.6 F 09/15/17 06:25 Pulse 69 09/15/17 06:25 Resp 19 09/15/17 06:25 BP 134/85 09/15/17 06:25 Pulse Ox 97 09/15/17 06:25 Intake & Output 09/14/17 09/15/17 09/15/17 18:59 06:59 18:59 Intake Total 1200 240 Balance 1200 240 Intake: Oral 1200 240 Other: # Voids 3 2 # Bowel Movements 1 0 Active Medications: Current Medications Acetaminophen (Tylenol) 650 mg PO Q4HR PRN PRN Reason: Mild Pain / Temp above 100 Stop: 11/11/17 14:44 Al Hydrox/Mg Hydrox/Simethicone (Maalox) 30 ml PO Q4HR PRN PRN Reason: GI DISTRESS Stop: 11/11/17 14:44 Ascorbic Acid (Vitamin C) 500 mg PO DAILY [facility] Stop: 11/12/17 08:59 Last Admin: 09/15/17 08:25 Dose: 500 mg Buspirone HCl (Buspar) 10 mg PO BID DIANA PRN Reason: Protocol Stop: 11/11/17 16:59 Last Admin: 09/15/17 08:26 Dose: 10 mg Calcium/Vitamin D (Oscal W/Vitamin D) 1 tab PO HS DIANA Stop: 11/11/17 20:59 Last Admin: 09/14/17 20:32 Dose: 1 tab Dextromethorphan/Quinidine (Nuedexta 20mg-10mg) 1 cap PO BID DIANA Stop: 11/12/17 08:59 Last Admin: 09/15/17 08:25 Dose: 1 cap Divalproex Sodium (Depakote Sprinkle) 125 mg PO Q12HR DIANA PRN Reason: Protocol Stop: 11/12/17 20:59 Last Admin: 09/15/17 08:25 Dose: 125 mg Donepezil HCl (Aricept) 5 mg PO HS DIANA Stop: 11/11/17 20:59 Last Admin: 09/14/17 20:32 Dose: 5 mg Famotidine (Pepcid) 20 mg PO DAILY DIANA Stop: 11/12/17 08:59 Last Admin: 09/15/17 08:25 Dose: 20 mg Glucagon (Glucagen) 1 mg IM PRN PRN PRN Reason: HYPOGLYCEMIA Stop: 11/11/17 15:59 Haloperidol Decanoate (Haldol Dec) 25 mg IM [id number] DIANA PRN Reason: Protocol Stop: 11/11/17 15:59 Insulin Aspart (Novolog) 0 units SUBQ ACHS DIANA PRN Reason: Protocol Stop: 11/11/17 20:59 Last Admin: 09/15/17 06:31 Dose: Not Given Levetiracetam (Keppra) 500 mg PO BID [facility] Stop: 11/11/17 16:59 Last Admin: 09/15/17 08:25 Dose: 500 mg Levothyroxine Sodium (Synthroid) 0.0625 mg PO QDAC DIANA Stop: 11/12/17 07:29 Last Admin: 09/15/17 06:44 Dose: 0.0625 mg Lorazepam (Ativan) 0.5 mg PO Q6H PRN; Protocol PRN Reason: Anxiety Stop: 11/11/17 15:49 Magnesium Hydroxide (Milk Of Magnesia) 30 ml PO HS PRN PRN Reason: Constipation Metformin HCl (Glucophage) 500 mg PO TID DIANA Stop: 11/11/17 20:59 Last Admin: 09/15/17 08:25 Dose: 500 mg Multivitamins/Vitamin C (Theragran) 1 tab PO DAILY DIANA Stop: 11/12/17 08:59 Last Admin: 09/15/17 08:25 Dose: 1 tab Olanzapine (Zyprexa) 5 mg PO HS DIANA PRN Reason: Protocol Stop: 11/13/17 20:59 Last Admin: 09/14/17 20:32 Dose: 5 mg Zolpidem Tartrate (Ambien) 5 mg PO HSMR1 PRN PRN Reason: Insomnia Stop: 11/11/17 14:44 Last Admin: 09/14/17 20:33 Dose: 5 mg General: demented HEENT: NC/AT, PERRLA Neck: Supple, No JVD, No thyromegaly, deformity Lungs: CTAB Cardiovascular: RRR, Normal S1, Normal S2 Abdomen: soft, non-tender, thin, positive bowel sound Extremities: excoriation, deformity (bruise r eye) - Procedures Procedures: Procedures Procedure Code Date BLOOD TRANSFUSION SERVICE 69076 03/29/16 CLOSURE SKIN & SUBCUTANEOUS NEC 86.59 07/02/14 DIAGNOSTIC COLONOSCOPY 45483 09/13/15 DRAINAGE OF STOMACH, ENDO, DIAGN [id number] 09/13/15 EGD BIOPSY SINGLE/MULTIPLE 23929 09/13/15 ELECTROCARDIOGRAM 89.52 10/10/94 EMERGENCY DEPT VISIT 87146 07/04/11 EXCISION OF DUODENUM, ENDO, DIAGN [id number] 09/13/15 GASTRIC INTUBATION TREATMENT 36322 12/28/07 GASTRIC LAVAGE 96.33 12/28/07 INSERT GASTRIC TUBE NEC 96.07 07/26/95 INSERT INDWELLING CATH 57.94 09/16/11 INSERT TEMP BLADDER CATH 32202 09/16/11 INSERTION OF INT FIX INTO L HUMERAL SHAFT, PERC APPROACH [id number] 05/24/15 INSPECTION OF LOWER INTESTINAL TRACT, ENDO [id number] 09/13/15 OXYGEN ENRICHMENT NEC 93.96 10/10/94 REMOV THERAPEUT DEV NEC 97.89 03/25/01 REMOVAL OF INT FIX FROM R KNEE JT, OPEN APPROACH [id number] 04/15/16 REPAIR FACE SKIN, EXTERNAL APPROACH [id number] 04/12/15 REPOSITION RIGHT PATELLA WITH INT FIX, OPEN APPROACH [id number] 03/29/16 RPR F/E/E/N/L/M 2.5 CM/< 93287 04/12/15 RPR F/E/E/N/L/M 2.6-5.0 [place] [address] 07/02/14 TETANUS TOXOID ADMINIST 99.38 07/02/14 TRANSFUSE NONAUT RED BLOOD CELLS IN PERIPH VEIN, PERC [id number] 03/29/16 TREAT KNEECAP FRACTURE 40035 03/29/16 UPPER ARM/ELBOW SURGERY 70151 05/24/15 Internal Medicine Assmt/Plan - Assessment Assessment: sp fall severe r orbital ecchymoses syncope sad dm hypothroidism dementia - Plan Plan: fall precaution adjust pscyh meds dw rn
--- NOTE | 2017-09-15 17:26 | Progress Notes ---
DATE: 09/14/2017 SUBJECTIVE: Staff was spoken to. The patient is interviewed. Mood is noted to be depressed. Affect is constricted. The patient has been having lot of anxiety. Insight and judgment at this time are noted to be still impaired. Impulse control is noted to be poor. Coping skills are also noted to be very poor. The patient has been having difficult time to cope with the stress. The patient is still feeling very dizzy and he has been having difficult time to get out of the GD chair. The patient is a very high fall risk at this time and hence it is decided to adjust the dose on the Zyprexa ____ mg at bedtime only and follow the patient with the supportive therapy. JOB# [id number]
[2017-09-15] MEDS: Calcium Carb/Vit D 500 mg/200 U Tab PO SCH (20:10)
--- NOTE | 2017-09-16 04:26 | Progress Notes ---
DATE: 09/15/2017 SUBJECTIVE: Staff was spoken to. The patient is interviewed and noted to be less irritable today. Insight and judgment are noted to be improving. Impulse control seems to be limited. No side effects to the medications are noted. The patient is currently on olanzapine and Depakote and has been able to tolerate the medication. The patient is being closely monitored for any falls. ASSESSMENT: The patient is less irritable. PLAN: To continue the patient with the supportive therapy. I encouraged the patient to verbalize the concerns rather than to act out. Mood swings are a major concern to the patient. JOB# [id number]
[2017-09-16] MEDS: Levothyroxine 0.025 Mg Tab PO SCH (06:44)
[2017-09-16] MEDS: INSULIN ASPART, RECOMBINANT 100 UNITS/ML SUBQ SCH ×4 (06:44→21:07)
[2017-09-16] MEDS: Multivitamin Tab PO SCH (09:46)
[2017-09-16] MEDS: Dextromethorphan/Quinidine 20mg/10mg Cap PO SCH ×2 (09:47→17:34)
--- NOTE | 2017-09-16 14:18 | Internal Medicine Prog Note ---
Internal Medicine Subjective - Subjective Service Date: 09/16/17 Patient is:: awake, verbal, interactive Per staff patient has:: no adverse event, no episodes of fall, agitated, tolerating meds Internal Medicine Objective - Results Result Diagrams: 09/13/17 19:09/13/17: Recent Labs: Laboratory Last Values WBC 9.8 Th/cmm (4.8-10.8) 09/13/17: RBC 4.53 Mil/cmm (3.80-5.10) 09/13/17: Hgb 11.9 gm/dL (12-16) L 09/13/17: Hct 36.0 % (41.0-60) L 09/13/17: MCV 79.3 fl (81-100) L 09/13/17: MCH 26.2 pg (27.0-31.0) L 09/13/17: MCHC Differential 33.0 pg (28.0-36.0) 09/13/17: RDW 14.1 % (11.5-20.0) 09/13/17: Plt Count 325 Th/cmm (150-400) 09/13/17: MPV 7.3 fl 09/13/17: Neutrophils % 61.5 % (40.0-80.0) 09/13/17: Lymphocytes % 29.6 % (20.0-50.0) 09/13/17: Monocytes % 7.2 % (2.0-10.0) 09/13/17: Eosinophils % 1.1 % (0.0-5.0) 09/13/17: Basophils % 0.6 % (0.0-2.0) 09/13/17: Sodium 137 mEq/L (136-145) 09/13/17: Potassium 3.6 mEq/L (3.5-5.1) 09/13/17: Chloride 105 mEq/L (98-107) 09/13/17: Carbon Dioxide 23.3 mEq/L (21.0-31.0) 09/13/17: Anion Gap 12.3 (7.0-16.0) 04/22/18 19:28 BUN 8 mg/dL (7-25) 09/13/17 19:28 Creatinine 0.7 mg/dL (0.6-1.2) 09/13/17 19:28 Est GFR ( Amer) > 60.0 ml/min (>90) 09/13/17 19:28 Est GFR (Non-Af Amer) > 60.0 ml/min 09/13/17 19:28 BUN/Creatinine Ratio 11.4 09/13/17 19:28 Glucose 66 mg/dL (70-105) L 09/13/17 19:28 POC Glucose 109 MG/DL (70 - 105) H 09/16/17 11:46 Calcium 9.5 mg/dL (8.6-10.3) 09/13/17 19:28 - Physical Exam Vitals and I&O: Vital Signs Temp 98.2 F 09/16/17 07:19 Pulse 63 09/16/17 07:19 Resp 19 09/16/17 07:19 BP 150/72 09/16/17 07:19 Pulse Ox 100 09/16/17 07:19 Intake & Output 09/15/17 09/16/17 09/16/17 18:59 06:59 18:59 Intake Total 900 240 Balance 900 240 Intake: Oral 900 240 Other: # Voids 4 1 # Bowel Movements 1 Active Medications: Current Medications Acetaminophen (Tylenol) 650 mg PO Q4HR PRN PRN Reason: Mild Pain / Temp above 100 Stop: 11/11/17 14:44 Last Admin: 09/16/17 10:27 Dose: 650 mg Al Hydrox/Mg Hydrox/Simethicone (Maalox) 30 ml PO Q4HR PRN PRN Reason: GI DISTRESS Stop: 11/11/17 14:44 Ascorbic Acid (Vitamin C) 500 mg PO DAILY [facility] Stop: 11/12/17 08:59 Last Admin: 09/16/17 09:48 Dose: 500 mg Buspirone HCl (Buspar) 10 mg PO BID DIANA PRN Reason: Protocol Stop: 11/11/17 16:59 Last Admin: 09/16/17 09:45 Dose: 10 mg Calcium/Vitamin D (Oscal W/Vitamin D) 1 tab PO HS [facility] Stop: 11/11/17 20:59 Last Admin: 09/15/17 20:10 Dose: 1 tab Dextromethorphan/Quinidine (Nuedexta 20mg-10mg) 1 cap PO BID DIANA Stop: 11/12/17 08:59 Last Admin: 09/16/17 09:47 Dose: 1 cap Divalproex Sodium (Depakote Sprinkle) 125 mg PO Q12HR DIANA PRN Reason: Protocol Stop: 11/12/17 20:59 Last Admin: 09/16/17 09:46 Dose: 125 mg Donepezil HCl (Aricept) 5 mg PO HS DIANA Stop: 11/11/17 20:59 Last Admin: 09/15/17 20:10 Dose: 5 mg Famotidine (Pepcid) 20 mg PO DAILY DIANA Stop: 11/12/17 08:59 Last Admin: 09/16/17 09:46 Dose: 20 mg Glucagon (Glucagen) 1 mg IM PRN PRN PRN Reason: HYPOGLYCEMIA Stop: 11/11/17 15:59 Haloperidol Decanoate (Haldol Dec) 25 mg IM [id number] DIANA PRN Reason: Protocol Stop: 11/11/17 15:59 Insulin Aspart (Novolog) 0 units SUBQ ACHS DIANA PRN Reason: Protocol Stop: 11/11/17 20:59 Last Admin: 09/16/17 11:52 Dose: Not Given Levetiracetam (Keppra) 500 mg PO BID DIANA Stop: 11/11/17 16:59 Last Admin: 09/16/17 09:46 Dose: 500 mg Levothyroxine Sodium (Synthroid) 0.0625 mg PO QDAC DIANA Stop: 11/12/17 07:29 Last Admin: 09/16/17 06:44 Dose: 0.0625 mg Lorazepam (Ativan) 0.5 mg PO Q6H PRN; Protocol PRN Reason: Anxiety Stop: 11/11/17 15:49 Last Admin: 09/16/17 10:27 Dose: 0.5 mg Magnesium Hydroxide (Milk Of Magnesia) 30 ml PO HS PRN PRN Reason: Constipation Metformin HCl (Glucophage) 500 mg PO TID DIANA Stop: 11/11/17 20:59 Last Admin: 09/16/17 09:46 Dose: 500 mg Multivitamins/Vitamin C (Theragran) 1 tab PO DAILY [facility]IANA Stop: 11/12/17 08:59 Last Admin: 09/16/17 09:46 Dose: 1 tab Olanzapine (Zyprexa) 5 mg PO HS DIANA PRN Reason: Protocol Stop: 11/13/17 20:59 Last Admin: 09/15/17 20:10 Dose: 5 mg Zolpidem Tartrate (Ambien) 5 mg PO HSMR1 PRN PRN Reason: Insomnia Stop: 11/11/17 14:44 Last Admin: 09/15/17 20:10 Dose: 5 mg General: demented HEENT: NC/AT, PERRLA Neck: Supple, No JVD, No thyromegaly, deformity Lungs: CTAB Cardiovascular: RRR, Normal S1, Normal S2 Abdomen: soft, non-tender, thin, positive bowel sound Extremities: excoriation, deformity (bruise r eye) - Procedures Procedures: Procedures Procedure Code Date BLOOD TRANSFUSION SERVICE 98048 03/29/16 CLOSURE SKIN & SUBCUTANEOUS NEC 86.59 07/02/14 DIAGNOSTIC COLONOSCOPY 74948 09/13/15 DRAINAGE OF STOMACH, ENDO, DIAGN [id number] 09/13/15 EGD BIOPSY SINGLE/MULTIPLE 43181 09/13/15 ELECTROCARDIOGRAM 89.52 10/10/94 EMERGENCY DEPT VISIT 46326 07/04/11 EXCISION OF DUODENUM, ENDO, DIAGN [id number] 09/13/15 GASTRIC INTUBATION TREATMENT 71890 12/28/07 GASTRIC LAVAGE 96.33 12/28/07 INSERT GASTRIC TUBE NEC 96.07 07/26/95 INSERT INDWELLING CATH 57.94 09/16/11 INSERT TEMP BLADDER CATH 97173 09/16/11 INSERTION OF INT FIX INTO L HUMERAL SHAFT, PERC APPROACH [id number] 05/24/15 INSPECTION OF LOWER INTESTINAL TRACT, ENDO [id number] 09/13/15 OXYGEN ENRICHMENT NEC 93.96 10/10/94 REMOV THERAPEUT DEV NEC 97.89 03/25/01 REMOVAL OF INT FIX FROM R KNEE JT, OPEN APPROACH [id number] 04/15/16 REPAIR FACE SKIN, EXTERNAL APPROACH [id number] 04/12/15 REPOSITION RIGHT PATELLA WITH INT FIX, OPEN APPROACH [id number] 03/29/16 RPR F/E/E/N/L/M 2.5 CM/< 95114 04/12/15 RPR F/E/E/N/L/M 2.6-5.0 [place] [address]63 07/02/14 TETANUS TOXOID ADMINIST 99.38 07/02/14 TRANSFUSE NONAUT RED BLOOD CELLS IN PERIPH VEIN, PERC 96051A3 03/29/16 TREAT KNEECAP FRACTURE 40976 03/29/16 UPPER ARM/ELBOW SURGERY 85314 05/24/15 Internal Medicine Assmt/Plan - Assessment Assessment: sp fall severe r orbital ecchymoses syncope sad dm hypothroidism dementia - Plan Plan: fall precaution adjust pscyh meds dw rn
[2017-09-16] MEDS: Calcium Carb/Vit D 500 mg/200 U Tab PO SCH (20:11)
--- NOTE | 2017-09-17 04:43 | Progress Notes ---
DATE: 09/16/2017 SUBJECTIVE: Staff was spoken to. The patient is interviewed. Mood is noted to be irritable. Affect is constricted. The patient has been having acute mood swings. One minute, she is calm, the next minute, she is crying for no reason. Insight and judgment at this time are noted to be very impaired. Coping skills are noted to be poor. The patient has been very unsteady on her feet. ASSESSMENT: The patient is still psychotic. PLAN: To continue the patient with supportive therapy and encourage the patient to ____ concerns rather than to act out. JOB# [id number]
[2017-09-17] MEDS: Levothyroxine 0.025 Mg Tab PO SCH (06:33)
[2017-09-17] MEDS: Dextromethorphan/Quinidine 20mg/10mg Cap PO SCH ×2 (08:28→17:35)
[2017-09-17] MEDS: Multivitamin Tab PO SCH (08:28)
[2017-09-17] MEDS: INSULIN ASPART, RECOMBINANT 100 UNITS/ML SUBQ SCH ×4 (09:14→20:09)
--- NOTE | 2017-09-17 11:40 | Internal Medicine Prog Note ---
Internal Medicine Subjective - Subjective Service Date: 09/17/17 Patient is:: awake, verbal, interactive Per staff patient has:: no adverse event, no episodes of fall, agitated, tolerating meds Internal Medicine Objective - Results Result Diagrams: 09/13/17 19:09/13/17: Recent Labs: Laboratory Last Values WBC 9.8 Th/cmm (4.8-10.8) 09/13/17: RBC 4.53 Mil/cmm (3.80-5.10) 09/13/17: Hgb 11.9 gm/dL (12-16) L 09/13/17: Hct 36.0 % (41.0-60) L 09/13/17: MCV 79.3 fl (81-100) L 09/13/17: MCH 26.2 pg (27.0-31.0) L 09/13/17: MCHC Differential 33.0 pg (28.0-36.0) 09/13/17: RDW 14.1 % (11.5-20.0) 09/13/17: Plt Count 325 Th/cmm (150-400) 09/13/17: MPV 7.3 fl 09/13/17: Neutrophils % 61.5 % (40.0-80.0) 09/13/17: Lymphocytes % 29.6 % (20.0-50.0) 09/13/17: Monocytes % 7.2 % (2.0-10.0) 09/13/17: Eosinophils % 1.1 % (0.0-5.0) 09/13/17: Basophils % 0.6 % (0.0-2.0) 09/13/17: Sodium 137 mEq/L (136-145) 09/13/17: Potassium 3.6 mEq/L (3.5-5.1) 09/13/17: Chloride 105 mEq/L (98-107) 09/13/17: Carbon Dioxide 23.3 mEq/L (21.0-31.0) 09/13/17: Anion Gap 12.3 (7.0-16.0) 04/22/18 19:28 BUN 8 mg/dL (7-25) 09/13/17 19:28 Creatinine 0.7 mg/dL (0.6-1.2) 09/13/17 19:28 Est GFR ( Amer) > 60.0 ml/min (>90) 09/13/17 19:28 Est GFR (Non-Af Amer) > 60.0 ml/min 09/13/17 19:28 BUN/Creatinine Ratio 11.4 09/13/17 19:28 Glucose 66 mg/dL (70-105) L 09/13/17 19:28 POC Glucose 89 MG/DL (70 - 105) 09/17/17 06:12 Calcium 9.5 mg/dL (8.6-10.3) 09/13/17 19:28 - Physical Exam Vitals and I&O: Vital Signs Temp 97.8 F 09/17/17 06:28 Pulse 58 09/17/17 06:28 Resp 18 09/17/17 06:28 BP 133/80 09/17/17 06:28 Pulse Ox 96 09/17/17 06:28 Intake & Output 09/16/17 09/17/17 09/17/17 18:59 06:59 18:59 Intake Total 1200 120 Balance 1200 120 Intake: Oral 1200 120 Other: # Voids 3 3 # Bowel Movements 1 Active Medications: Current Medications Acetaminophen (Tylenol) 650 mg PO Q4HR PRN PRN Reason: Mild Pain / Temp above 100 Stop: 11/11/17 14:44 Last Admin: 09/16/17 10:27 Dose: 650 mg Al Hydrox/Mg Hydrox/Simethicone (Maalox) 30 ml PO Q4HR PRN PRN Reason: GI DISTRESS Stop: 11/11/17 14:44 Ascorbic Acid (Vitamin C) [address] [facility] Stop: 11/12/17 08:59 Last Admin: 09/17/17 08:28 Dose: 500 mg Buspirone HCl (Buspar) 10 mg PO BID DIANA PRN Reason: Protocol Stop: 11/11/17 16:59 Last Admin: 09/17/17 08:28 Dose: 10 mg Calcium/Vitamin D (Oscal W/Vitamin D) [address] [facility] Stop: 11/11/17 20:59 Last Admin: 09/16/17 20:11 Dose: 1 tab Dextromethorphan/Quinidine (Nuedexta 20mg-10mg) 1 cap PO BID [facility]NA Stop: 11/12/17 08:59 Last Admin: 09/17/17 08:28 Dose: 1 cap Divalproex Sodium (Depakote Sprinkle) 125 mg PO Q12HR DIANA PRN Reason: Protocol Stop: 11/12/17 20:59 Last Admin: 09/17/17 08:28 Dose: 125 mg Donepezil HCl (Aricept) 5 mg PO HS [facility]IANA Stop: 11/11/17 20:59 Last Admin: 09/16/17 20:08 Dose: 5 mg Famotidine (Pepcid) 20 mg PO DAILY [facility] Stop: 11/12/17 08:59 Last Admin: 09/17/17 08:28 Dose: 20 mg Glucagon (Glucagen) 1 mg IM PRN PRN PRN Reason: HYPOGLYCEMIA Stop: 11/11/17 15:59 Haloperidol Decanoate (Haldol Dec) 25 mg IM [id number] DIANA PRN Reason: Protocol Stop: 11/11/17 15:59 Insulin Aspart (Novolog) 0 units SUBQ ACHS DIANA PRN Reason: Protocol Stop: 11/11/17 20:59 Last Admin: 09/17/17 09:14 Dose: Not Given Levetiracetam (Keppra) 500 mg PO BID [facility]NA Stop: 11/11/17 16:59 Last Admin: 09/17/17 08:28 Dose: 500 mg Levothyroxine Sodium (Synthroid) 0.0625 mg PO QDAC DIANA Stop: 11/12/17 07:29 Last Admin: 09/17/17 06:33 Dose: 0.0625 mg Lorazepam (Ativan) 0.5 mg PO Q6H PRN; Protocol PRN Reason: Anxiety Stop: 11/11/17 15:49 Last Admin: 09/17/17 08:28 Dose: 0.5 mg Magnesium Hydroxide (Milk Of Magnesia) 30 ml PO HS PRN PRN Reason: Constipation Metformin HCl (Glucophage) 500 mg PO TID DIANA Stop: 11/11/17 20:59 Last Admin: 09/17/17 08:28 Dose: 500 mg Multivitamins/Vitamin C (Theragran) 1 tab PO DAILY [facility] Stop: 11/12/17 08:59 Last Admin: 09/17/17 08:28 Dose: 1 tab Olanzapine (Zyprexa) 5 mg PO HS DIANA PRN Reason: Protocol Stop: 11/13/17 20:59 Last Admin: 09/16/17 20:08 Dose: 5 mg Zolpidem Tartrate (Ambien) 5 mg PO HSMR1 PRN PRN Reason: Insomnia Stop: 11/11/17 14:44 Last Admin: 09/16/17 20:07 Dose: 5 mg General: demented HEENT: NC/AT, PERRLA Neck: Supple, No JVD, No thyromegaly, deformity Lungs: CTAB Cardiovascular: RRR, Normal S1, Normal S2 Abdomen: soft, non-tender, thin, positive bowel sound Extremities: excoriation, deformity (bruise r eye) - Procedures Procedures: Procedures Procedure Code Date BLOOD TRANSFUSION SERVICE 59558 03/29/16 CLOSURE SKIN & SUBCUTANEOUS NEC 86.59 07/02/14 DIAGNOSTIC COLONOSCOPY 40174 09/13/15 DRAINAGE OF STOMACH, ENDO, DIAGN [id number] 09/13/15 EGD BIOPSY SINGLE/MULTIPLE 66157 09/13/15 ELECTROCARDIOGRAM 89.52 10/10/94 EMERGENCY DEPT VISIT 10731 07/04/11 EXCISION OF DUODENUM, ENDO, DIAGN [id number] 09/13/15 GASTRIC INTUBATION TREATMENT 58966 12/28/07 GASTRIC LAVAGE 96.33 12/28/07 INSERT GASTRIC TUBE NEC 96.07 07/26/95 INSERT INDWELLING CATH 57.94 09/16/11 INSERT TEMP BLADDER CATH 35357 09/16/11 INSERTION OF INT FIX INTO L HUMERAL SHAFT, PERC APPROACH [id number] 05/24/15 INSPECTION OF LOWER INTESTINAL TRACT, ENDO [id number] 09/13/15 OXYGEN ENRICHMENT NEC 93.96 10/10/94 REMOV THERAPEUT DEV NEC 97.89 03/25/01 REMOVAL OF INT FIX FROM R KNEE JT, OPEN APPROACH [id number] 04/15/16 REPAIR FACE SKIN, EXTERNAL APPROACH [id number] 04/12/15 REPOSITION RIGHT PATELLA WITH INT FIX, OPEN APPROACH [id number] 03/29/16 RPR F/E/E/N/L/M 2.5 CM/< 73130 04/12/15 RPR F/E/E/N/L/M 2.6-5.0 CM 45356 07/02/14 TETANUS TOXOID ADMINIST 99.38 07/02/14 TRANSFUSE NONAUT RED BLOOD CELLS IN PERIPH VEIN, PERC 04438B2 03/29/16 TREAT KNEECAP FRACTURE 71584 03/29/16 UPPER ARM/ELBOW SURGERY 33860 05/24/15 Internal Medicine Assmt/Plan - Assessment Assessment: sp fall severe r orbital ecchymoses syncope sad dm hypothroidism dementia - Plan Plan: fall precaution adjust pscyh meds dw rn
[2017-09-17] MEDS: Calcium Carb/Vit D 500 mg/200 U Tab PO SCH (20:09)
--- NOTE | 2017-09-18 02:50 | Progress Notes ---
DATE: 09/17/2017 SUBJECTIVE: Staff was spoken to. The patient is interviewed. Mood is noted to be still irritable. Affect is constricted. Insight and judgment at this time are noted to be still impaired. Coping skills are noted to be very poor. The patient is maintained at a low dose of olanzapine and Depakote because of the fall risk. The patient's coping skills at this time are noted to be still poor. The patient has paranoid, delusions, and the patient has been having mood swings. No side effects to the medications are noted at this time. The patient is still not ready to be discharged to a lower level of care. The patient is gravely disabled. ASSESSMENT: The patient is still having acute mood swings. PLAN: To continue the patient with the current medications and follow up. [facility]# [id number]
[2017-09-18] MEDS: Levothyroxine 0.025 Mg Tab PO SCH (06:36)
[2017-09-18] MEDS: INSULIN ASPART, RECOMBINANT 100 UNITS/ML SUBQ SCH ×4 (06:48→21:00)
[2017-09-18] MEDS: Multivitamin Tab PO SCH (08:09)
[2017-09-18] MEDS: Dextromethorphan/Quinidine 20mg/10mg Cap PO SCH ×2 (08:10→16:07)
--- NOTE | 2017-09-18 12:40 | Internal Medicine Prog Note ---
Internal Medicine Subjective - Subjective Patient seen and examined:: with staff, chart reviewed Patient is:: awake, verbal, interactive Per staff patient has:: no adverse event, no episodes of fall, agitated, tolerating meds Internal Medicine Objective - Results Result Diagrams: 09/13/17 19:09/13/17 19: Recent Labs: Laboratory Last Values WBC 9.8 Th/cmm (4.8-10.8) 09/13/17: RBC 4.53 Mil/cmm (3.80-5.10) 09/13/17: Hgb 11.9 gm/dL (12-16) L 09/13/17: Hct 36.0 % (41.0-60) L 09/13/17: MCV 79.3 fl (81-100) L 09/13/17: MCH 26.2 pg (27.0-31.0) L 09/13/17 MCHC Differential 33.0 pg (28.0-36.0) 09/13/17 RDW 14.1 % (11.5-20.0) 09/13/17: Plt Count 325 Th/cmm (150-400) 09/13/17: MPV 7.3 fl 09/13/17: Neutrophils % 61.5 % (40.0-80.0) 09/13/17: Lymphocytes % 29.6 % (20.0-50.0) 09/13/17 Monocytes % 7.2 % (2.0-10.0) 09/13/17: Eosinophils % 1.1 % (0.0-5.0) 09/13/17: Basophils % 0.6 % (0.0-2.0) 09/13/17: Sodium 137 mEq/L (136-145) 09/13/17: Potassium 3.6 mEq/L (3.5-5.1) 09/13/17: Chloride 105 mEq/L (98-107) 09/13/17: Carbon Dioxide 23.3 mEq/L (21.0-31.0) 09/13/17: Anion Gap 12.3 (7.0-16.0) 09/13/17 19:28 BUN 8 mg/dL (7-25) 09/13/17 19:28 Creatinine 0.7 mg/dL (0.6-1.2) 09/13/17 19:28 Est GFR ( Amer) > 60.0 ml/min (>90) 09/13/17 19:28 Est GFR (Non-Af Amer) > 60.0 ml/min 09/13/17 19:28 BUN/Creatinine Ratio 11.4 09/13/17 19:28 Glucose 66 mg/dL (70-105) L 09/13/17 19:28 POC Glucose 69 MG/DL (70 - 105) L 09/18/17 11:46 Calcium 9.5 mg/dL (8.6-10.3) 09/13/17 19:28 - Physical Exam Vitals and I&O: Vital Signs Temp 97.7 F 09/18/17 06:19 Pulse 60 09/18/17 06:19 Resp 19 09/18/17 06:19 BP 114/73 09/18/17 06:19 Pulse Ox 96 09/18/17 06:19 Intake & Output 09/17/17 09/18/17 09/18/17 18:59 06:59 18:59 Intake Total 1200 1120 Balance 1200 1120 Intake: Oral 1200 1120 Other: # Voids 3 3 # Bowel Movements 3 Active Medications: Current Medications Acetaminophen (Tylenol) 650 mg PO Q4HR PRN PRN Reason: Mild Pain / Temp above 100 Stop: 11/11/17 14:44 Last Admin: 09/16/17 10:27 Dose: 650 mg Al Hydrox/Mg Hydrox/Simethicone (Maalox) 30 ml PO Q4HR PRN PRN Reason: GI DISTRESS Stop: 11/11/17 14:44 Ascorbic Acid (Vitamin C) 500 mg PO DAILY [facility] Stop: 11/12/17 08:59 Last Admin: 09/18/17 08:09 Dose: 500 mg Buspirone HCl (Buspar) 10 mg PO BID DIANA PRN Reason: Protocol Stop: 11/11/17 16:59 Last Admin: 09/18/17 08:10 Dose: 10 mg Calcium/Vitamin D (Oscal W/Vitamin D) 1 tab PO HS [facility] Stop: 11/11/17 20:59 Last Admin: 09/17/17 20:09 Dose: 1 tab Dextromethorphan/Quinidine (Nuedexta 20mg-10mg) 1 cap PO BID [facility] Stop: 11/12/17 08:59 Last Admin: 09/18/17 08:10 Dose: 1 cap Divalproex Sodium (Depakote Sprinkle) 125 mg PO Q12HR DIANA PRN Reason: Protocol Stop: 11/12/17 20:59 Last Admin: 09/18/17 08:10 Dose: 125 mg Donepezil HCl (Aricept) 5 mg PO HS DIANA Stop: 11/11/17 20:59 Last Admin: 09/17/17 20:08 Dose: 5 mg Famotidine (Pepcid) 20 mg PO DAILY [facility] Stop: 11/12/17 08:59 Last Admin: 09/18/17 08:11 Dose: 20 mg Glucagon (Glucagen) 1 mg IM PRN PRN PRN Reason: HYPOGLYCEMIA Stop: 11/11/17 15:59 Haloperidol Decanoate (Haldol Dec) 25 mg IM [id number] DIANA PRN Reason: Protocol Stop: 11/11/17 15:59 Insulin Aspart (Novolog) 0 units SUBQ ACHS DIANA PRN Reason: Protocol Stop: 11/11/17 20:59 Last Admin: 09/18/17 12:08 Dose: Not Given Levetiracetam (Keppra) 500 mg PO BID [facility] Stop: 11/11/17 16:59 Last Admin: 09/18/17 08:09 Dose: 500 mg Levothyroxine Sodium (Synthroid) 0.0625 mg PO QDAC DIANA Stop: 11/12/17 07:29 Last Admin: 09/18/17 06:36 Dose: 0.0625 mg Lorazepam (Ativan) 0.5 mg PO Q6H PRN; Protocol PRN Reason: Anxiety Stop: 11/11/17 15:49 Last Admin: 09/18/17 08:09 Dose: 0.5 mg Magnesium Hydroxide (Milk Of Magnesia) 30 ml PO HS PRN PRN Reason: Constipation Metformin HCl (Glucophage) 500 mg PO TID DIANA Stop: 11/11/17 20:59 Last Admin: 09/18/17 08:11 Dose: 500 mg Multivitamins/Vitamin C (Theragran) 1 tab PO DAILY [facility] Stop: 11/12/17 08:59 Last Admin: 09/18/17 08:09 Dose: 1 tab Olanzapine (Zyprexa) 5 mg PO HS DIANA PRN Reason: Protocol Stop: 11/13/17 20:59 Last Admin: 09/17/17 20:09 Dose: 5 mg Zolpidem Tartrate (Ambien) 5 mg PO HSMR1 PRN PRN Reason: Insomnia Stop: 11/11/17 14:44 Last Admin: 09/16/17 20:07 Dose: 5 mg General: demented HEENT: NC/AT, PERRLA Neck: Supple, No JVD, No thyromegaly, deformity Lungs: CTAB Cardiovascular: RRR, Normal S1, Normal S2 Abdomen: soft, non-tender, thin, positive bowel sound Extremities: excoriation, deformity (bruise r eye) - Procedures Procedures: Procedures Procedure Code Date BLOOD TRANSFUSION SERVICE 64541 03/29/16 CLOSURE SKIN & SUBCUTANEOUS NEC 86.59 07/02/14 DIAGNOSTIC COLONOSCOPY 47637 09/13/15 DRAINAGE OF STOMACH, ENDO, DIAGN [id number] 09/13/15 EGD BIOPSY SINGLE/MULTIPLE 42435 09/13/15 ELECTROCARDIOGRAM 89.52 10/10/94 EMERGENCY DEPT VISIT 01794 07/04/11 EXCISION OF DUODENUM, ENDO, DIAGN [id number] 09/13/15 GASTRIC INTUBATION TREATMENT 54515 12/28/07 GASTRIC LAVAGE 96.33 12/28/07 INSERT GASTRIC TUBE NEC 96.07 07/26/95 INSERT INDWELLING CATH 57.94 09/16/11 INSERT TEMP BLADDER CATH 32059 09/16/11 INSERTION OF INT FIX INTO L HUMERAL SHAFT, PERC APPROACH [id number] 05/24/15 INSPECTION OF LOWER INTESTINAL TRACT, ENDO [id number] 09/13/15 OXYGEN ENRICHMENT NEC 93.96 10/10/94 REMOV THERAPEUT DEV NEC 97.89 03/25/01 REMOVAL OF INT FIX FROM R KNEE JT, OPEN APPROACH [id number] 04/15/16 REPAIR FACE SKIN, EXTERNAL APPROACH [id number] 04/12/15 REPOSITION RIGHT PATELLA WITH INT FIX, OPEN APPROACH [id number] 03/29/16 RPR F/E/E/N/L/M 2.5 CM/< 15830 04/12/15 RPR F/E/E/N/L/M 2.6-5.0 CM 88843 07/02/14 TETANUS TOXOID ADMINIST 99.38 07/02/14 TRANSFUSE NONAUT RED BLOOD CELLS IN PERIPH VEIN, PERC [id number] 03/29/16 TREAT KNEECAP FRACTURE 92592 03/29/16 UPPER ARM/ELBOW SURGERY 01980 05/24/15 Internal Medicine Assmt/Plan - Assessment Assessment: - Assessment Assessment: sp fall severe r orbital ecchymoses syncope sad dm hypothroidism dementia - Plan Plan: fall precaution dw father adjust pscyh meds dw rn - Plan Plan: cpm Nutritional Asmnt/Malnutr-PDOC - Dietary Evaluation Malnutrition Findings (Please click <Entered> for more info): Nutritional Asmnt/Malnutrition Start: 09/17/17 16: 59 Text: Status: Complete Freq: Document 09/17/17 16:59 LCESPERANZA (Rec: 09/17/17 17:08 LCRADHAG [email or web address]) Nutritional Asmnt/Malnutrition Patient General Information Nutritional Screening Moderate Risk Diagnosis psychosis Pertinent Medical Hx/Surgical Hx DM, seizure, hypothyroidism, dementia, schizoaffective disorder, s/o left knee surgary secondary to fracture Subjective Information Pt seen sitting in odin-chair in dinning room, confused. Observed lunch finished about 30%. Pt requested P&J sandwich for dinner. Per EMR PO intake 100%. Current Diet Order/ Nutrition Support [facility] soft chopped, [id number] Pertinent Medications vit C, oscal w/tiv D, peptid, novolog, synthroid, glucophage , theragran Pertinent Labs 09/15-09/17 POC 81-130 Nutritional Hx/Data Height 1.57 m Height (Calculated Centimeters) 157.5 Current Weight (lbs) 56.699 kg Weight (Calculated Kilograms) 56.7 Weight (Calculated Grams) 16007.0 [place] Body Weight 110 Body Mass Index (BMI) 22.8 Weight Status Approriate GI Symptoms GI Symptoms None Last BM 09/16 Difficult in: None Skin Integrity/Comment: pressure area erythema to right elbow bruise to right wrist and right eye Current %PO Good (75-100%) Estimated Nutritional Goals BEE in Kcals: Using Current wt Calories/Kcals/Kg 25-30 Kcals Calculated 1232-3079 Protein: Using Current wt Protein g/k-1.2 Protein Calculated 57-68 Fluid: ml 1425-1710ml (1m/kcal) Nutritional Problem No current Nutrition Prob Problem N/A Malnutrition Alert Protein-Calorie Malnutrition N/A Is there a minimum of two criteria No selected? Query Text:Check all the applicable criteria. A minimum of two criteria are recommended for diagnosis of either severe or non-severe malnutrition. Intervention/Recommendation Comments 1. [facility] with [facility] as ordered. 2. Monitor PO intake, wt, labs and skin integrity 3. F/U as low risk in 7 days, 5/3 Expected Outcomes/Goals Expected Outcomes/Goals 1. PO intake to meet at least 75% of nutritional needs. 2. Wt stability, skin to remain intact, labs to approach WNL.
[2017-09-18] MEDS: Calcium Carb/Vit D 500 mg/200 U Tab PO SCH (21:00)
--- NOTE | 2017-09-19 00:51 | Progress Notes ---
DATE: 09/18/2017 PSYCHIATRIC PROGRESS NOTE SUBJECTIVE: Staff was spoken to. The patient is interviewed. Mood is noted to be irritable. Affect is constricted. Coping skills are noted to be very poor. The patient still has acute mood swings. The patient has a very high fall risk. Insight and judgment at this time are noted to be very much impaired. The patient has been displaying acute mood swings. The patient 1 minute has been tearful and crying, the next minute, she is happy. The patient is currently on olanzapine and the patient also has been on haloperidol 25 mg IM every 2 weeks. The patient is currently on 125 mg twice a day of Depakote. The patient is going to be closely monitored with these medications and followed up. [facility]# [id number]
[2017-09-19] MEDS: INSULIN ASPART, RECOMBINANT 100 UNITS/ML SUBQ SCH ×4 (07:07→21:30)
[2017-09-19] MEDS: Levothyroxine 0.025 Mg Tab PO SCH (08:18)
[2017-09-19] MEDS: Dextromethorphan/Quinidine 20mg/10mg Cap PO SCH ×2 (08:18→16:52)
[2017-09-19] MEDS: Multivitamin Tab PO SCH (08:19)
--- NOTE | 2017-09-19 13:59 | Internal Medicine Prog Note ---
Internal Medicine Subjective - Subjective Service Date: 09/19/17 Patient is:: awake, verbal, interactive Per staff patient has:: no adverse event, no episodes of fall, agitated, tolerating meds Internal Medicine Objective - Results Result Diagrams: 09/13/17 19:09/13/17: Recent Labs: Laboratory Last Values WBC 9.8 Th/cmm (4.8-10.8) 09/13/17: RBC 4.53 Mil/cmm (3.80-5.10) 09/13/17: Hgb 11.9 gm/dL (12-16) L 09/13/17: Hct 36.0 % (41.0-60) L 09/13/17: MCV 79.3 fl (81-100) L 09/13/17: MCH 26.2 pg (27.0-31.0) L 09/13/17: MCHC Differential 33.0 pg (28.0-36.0) 09/13/17 RDW 14.1 % (11.5-20.0) 09/13/17: Plt Count 325 Th/cmm (150-400) 09/13/17: MPV 7.3 fl 09/13/17: Neutrophils % 61.5 % (40.0-80.0) 09/13/17: Lymphocytes % 29.6 % (20.0-50.0) 09/13/17 Monocytes % 7.2 % (2.0-10.0) 09/13/17: Eosinophils % 1.1 % (0.0-5.0) 09/13/17: Basophils % 0.6 % (0.0-2.0) 09/13/17: Sodium 137 mEq/L (136-145) 09/13/17: Potassium 3.6 mEq/L (3.5-5.1) 09/13/17: Chloride 105 mEq/L (98-107) 09/13/17: Carbon Dioxide 23.3 mEq/L (21.0-31.0) 09/13/17: Anion Gap 12.3 (7.0-16.0) 04/22/18 19:28 BUN 8 mg/dL (7-25) 09/13/17 19:28 Creatinine 0.7 mg/dL (0.6-1.2) 09/13/17 19:28 Est GFR ( Amer) > 60.0 ml/min (>90) 09/13/17 19:28 Est GFR (Non-Af Amer) > 60.0 ml/min 09/13/17 19:28 BUN/Creatinine Ratio 11.4 09/13/17 19:28 Glucose 66 mg/dL (70-105) L 09/13/17 19:28 POC Glucose 111 MG/DL (70 - 105) H 09/19/17 11:20 Calcium 9.5 mg/dL (8.6-10.3) 09/13/17 19:28 - Physical Exam Vitals and I&O: Vital Signs Temp 97.6 F 09/19/17 06:31 Pulse 54 09/19/17 06:31 Resp 18 09/19/17 06:31 BP 140/64 09/19/17 06:31 Pulse Ox 99 09/19/17 06:31 Intake & Output 09/18/17 09/19/17 09/19/17 18:59 06:59 18:59 Intake Total 1200 660 Balance 1200 660 Intake: Oral 1200 660 Other: # Voids 4 2 # Bowel Movements 1 Stool Characteristics Soft Soft Active Medications: Current Medications Acetaminophen (Tylenol) 650 mg PO Q4HR PRN PRN Reason: Mild Pain / Temp above 100 Stop: 11/11/17 14:44 Last Admin: 09/16/17 10:27 Dose: 650 mg Al Hydrox/Mg Hydrox/Simethicone (Maalox) 30 ml PO Q4HR PRN PRN Reason: GI DISTRESS Stop: 11/11/17 14:44 Ascorbic Acid (Vitamin C) 500 mg PO DAILY [facility] Stop: 11/12/17 08:59 Last Admin: 09/19/17 08:19 Dose: 500 mg Buspirone HCl (Buspar) 10 mg PO BID DIANA PRN Reason: Protocol Stop: 11/11/17 16:59 Last Admin: 09/19/17 08:20 Dose: 10 mg Calcium/Vitamin D (Oscal W/Vitamin D) 1 tab PO HS [facility] Stop: 11/11/17 20:59 Last Admin: 09/18/17 21:00 Dose: 1 tab Dextromethorphan/Quinidine (Nuedexta 20mg-10mg) 1 cap PO BID DIANA Stop: 11/12/17 08:59 Last Admin: 09/19/17 08:18 Dose: 1 cap Divalproex Sodium (Depakote Sprinkle) 125 mg PO Q12HR DIANA PRN Reason: Protocol Stop: 11/12/17 20:59 Last Admin: 09/19/17 08:20 Dose: 125 mg Donepezil HCl (Aricept) 5 mg PO HS DIANA Stop: 11/11/17 20:59 Last Admin: 09/18/17 23:27 Dose: 5 mg Famotidine (Pepcid) 20 mg PO DAILY DIANA Stop: 11/12/17 08:59 Last Admin: 09/19/17 08:19 Dose: 20 mg Glucagon (Glucagen) 1 mg IM PRN PRN PRN Reason: HYPOGLYCEMIA Stop: 11/11/17 15:59 Haloperidol Decanoate (Haldol Dec) 25 mg IM [id number] DIANA PRN Reason: Protocol Stop: 11/11/17 15:59 Insulin Aspart (Novolog) 0 units SUBQ ACHS DIANA PRN Reason: Protocol Stop: 11/11/17 20:59 Last Admin: 09/19/17 11:25 Dose: Not Given Levetiracetam (Keppra) 500 mg PO BID DIANA Stop: 11/11/17 16:59 Last Admin: 09/19/17 08:20 Dose: 500 mg Levothyroxine Sodium (Synthroid) 0.0625 mg PO QDAC DIANA Stop: 11/12/17 07:29 Last Admin: 09/19/17 08:18 Dose: 0.0625 mg Lorazepam (Ativan) 0.5 mg PO Q6H PRN; Protocol PRN Reason: Anxiety Stop: 11/11/17 15:49 Last Admin: 09/18/17 08:09 Dose: 0.5 mg Magnesium Hydroxide (Milk Of Magnesia) 30 ml PO HS PRN PRN Reason: Constipation Metformin HCl (Glucophage) 500 mg PO TID DIANA Stop: 11/11/17 20:59 Last Admin: 09/19/17 08:27 Dose: 500 mg Multivitamins/Vitamin C (Theragran) 1 tab PO DAILY DIANA Stop: 11/12/17 08:59 Last Admin: 09/19/17 08:19 Dose: 1 tab Olanzapine (Zyprexa) 5 mg PO HS DIANA PRN Reason: Protocol Stop: 11/13/17 20:59 Last Admin: 09/18/17 21:00 Dose: 5 mg Zolpidem Tartrate (Ambien) 5 mg PO HSMR1 PRN PRN Reason: Insomnia Stop: 11/11/17 14:44 Last Admin: 09/18/17 23:25 Dose: 5 mg General: demented HEENT: NC/AT, PERRLA Neck: Supple, No JVD, No thyromegaly, deformity Lungs: CTAB Cardiovascular: RRR, Normal S1, Normal S2 Abdomen: soft, non-tender, thin, positive bowel sound Extremities: excoriation, deformity (bruise r eye) - Procedures Procedures: Procedures Procedure Code Date BLOOD TRANSFUSION SERVICE 57148 03/29/16 CLOSURE SKIN & SUBCUTANEOUS NEC 86.59 07/02/14 DIAGNOSTIC COLONOSCOPY 60567 09/13/15 DRAINAGE OF STOMACH, ENDO, DIAGN [id number] 09/13/15 EGD BIOPSY SINGLE/MULTIPLE 50879 09/13/15 ELECTROCARDIOGRAM 89.52 10/10/94 EMERGENCY DEPT VISIT 27925 07/04/11 EXCISION OF DUODENUM, ENDO, DIAGN [id number] 09/13/15 GASTRIC INTUBATION TREATMENT 54504 12/28/07 GASTRIC LAVAGE 96.33 12/28/07 INSERT GASTRIC TUBE NEC 96.07 07/26/95 INSERT INDWELLING CATH 57.94 09/16/11 INSERT TEMP BLADDER CATH 33222 09/16/11 INSERTION OF INT FIX INTO L HUMERAL SHAFT, PERC APPROACH [id number] 05/24/15 INSPECTION OF LOWER INTESTINAL TRACT, ENDO [id number] 09/13/15 OXYGEN ENRICHMENT NEC 93.96 10/10/94 REMOV THERAPEUT DEV NEC 97.89 03/25/01 REMOVAL OF INT FIX FROM R KNEE JT, OPEN APPROACH [id number] 04/15/16 REPAIR FACE SKIN, EXTERNAL APPROACH [id number] 04/12/15 REPOSITION RIGHT PATELLA WITH INT FIX, OPEN APPROACH [id number] 03/29/16 RPR F/E/E/N/L/M 2.5 CM/< 81153 04/12/15 RPR F/E/E/N/L/M 2.6-5.0 CM 04147 07/02/14 TETANUS TOXOID ADMINIST 99.38 07/02/14 TRANSFUSE NONAUT RED BLOOD CELLS IN PERIPH VEIN, PERC [id number] 03/29/16 TREAT KNEECAP FRACTURE 75943 03/29/16 UPPER ARM/ELBOW SURGERY 73531 05/24/15 Internal Medicine Assmt/Plan - Assessment Assessment: sp fall severe r orbital ecchymoses syncope sad dm hypothroidism dementia - Plan Plan: fall precaution adjust pscyh meds dw rn Nutritional Asmnt/Malnutr-PDOC - Dietary Evaluation Malnutrition Findings (Please click <Entered> for more info): Nutritional Asmnt/Malnutrition Start: 09/17/17 16: 59 Text: Status: Complete Freq: Document 09/17/17 16:59 HEN (Rec: 09/17/17 17:08 [email or web address] Nutritional Asmnt/Malnutrition Patient General Information Nutritional Screening Moderate Risk Diagnosis psychosis Pertinent Medical Hx/Surgical Hx DM, seizure, hypothyroidism, dementia, schizoaffective disorder, s/o left knee surgary secondary to fracture Subjective Information Pt seen sitting in odin-chair in dinning room, confused. Observed lunch finished about 30%. Pt requested P&J sandwich for dinner. Per EMR PO intake 100%. Current Diet Order/ Nutrition Support [facility] soft chopped, [id number] Pertinent Medications vit C, oscal w/tiv D, peptid, novolog, synthroid, glucophage , theragran Pertinent Labs 09/15-09/17 POC 81-130 Nutritional Hx/Data Height 5 ft 2 in Height (Calculated Centimeters) 157.5 Current Weight (lbs) 125 lb Weight (Calculated Kilograms) 56.7 Weight (Calculated Grams) 54045.0 [place] Body Weight 110 Body Mass Index (BMI) 22.8 Weight Status Approriate GI Symptoms GI Symptoms None Last BM 09/16 Difficult in: None Skin Integrity/Comment: pressure area erythema to right elbow bruise to right wrist and right eye Current %PO Good (75-100%) Estimated Nutritional Goals BEE in Kcals: Using Current wt Calories/Kcals/Kg 25-30 Kcals Calculated 2457-9556 Protein: Using Current wt Protein g/k-1.2 Protein Calculated 57-68 Fluid: ml 1425-1710ml (1m/kcal) Nutritional Problem No current Nutrition Prob Problem N/A Malnutrition Alert Protein-Calorie Malnutrition N/A Is there a minimum of two criteria No selected? Query Text:Check all the applicable criteria. A minimum of two criteria are recommended for diagnosis of either severe or non-severe malnutrition. Intervention/Recommendation Comments 1. Continue with [facility] soft chopped CCHO 60gm diet as ordered. 2. Monitor PO intake, wt, labs and skin integrity 3. F/U as low risk in 7 days, 5/3 Expected Outcomes/Goals Expected Outcomes/Goals 1. PO intake to meet at least 75% of nutritional needs. 2. Wt stability, skin to remain intact, labs to approach WNL.
[2017-09-19] MEDS: Calcium Carb/Vit D 500 mg/200 U Tab PO SCH (21:21)
--- NOTE | 2017-09-20 00:31 | Progress Notes ---
DATE: 09/19/2017 SUBJECTIVE: Staff was spoken to. The patient is interviewed. Mood is noted to be irritable. Affect is constricted. Coping skills are noted to be still poor. Insight and judgment are also noted to be very much impaired. The patient has been having acute mood swings. One minute, she is okay, the next minute, she is crying. No side effects to the medications are noted. The patient is being maintained on low dose of Zyprexa and Depakote. ASSESSMENT: The patient has been having mood swings. PLAN: To closely monitor the patient and I encouraged the patient to verbalize the concerns rather than to act out. JOB# [id number]
[2017-09-20] MEDS: Levothyroxine 0.025 Mg Tab PO SCH (07:58)
[2017-09-20] MEDS: INSULIN ASPART, RECOMBINANT 100 UNITS/ML SUBQ SCH ×4 (07:59→20:26)
[2017-09-20] MEDS: Dextromethorphan/Quinidine 20mg/10mg Cap PO SCH ×2 (08:59→18:14)
[2017-09-20] MEDS: Multivitamin Tab PO SCH (09:01)
--- NOTE | 2017-09-20 15:58 | Internal Medicine Prog Note ---
Internal Medicine Subjective - Subjective Service Date: 09/20/17 Patient is:: awake, verbal, interactive Per staff patient has:: no adverse event, no episodes of fall, agitated, tolerating meds Internal Medicine Objective - Results Result Diagrams: 09/13/17 19:09/13/17: Recent Labs: Laboratory Last Values WBC 9.8 Th/cmm (4.8-10.8) 09/13/17: RBC 4.53 Mil/cmm (3.80-5.10) 09/13/17: Hgb 11.9 gm/dL (12-16) L 09/13/17: Hct 36.0 % (41.0-60) L 09/13/17: MCV 79.3 fl (81-100) L 09/13/17: MCH 26.2 pg (27.0-31.0) L 09/13/17: MCHC Differential 33.0 pg (28.0-36.0) 09/13/17: RDW 14.1 % (11.5-20.0) 09/13/17: Plt Count 325 Th/cmm (150-400) 09/13/17: MPV 7.3 fl 09/13/17: Neutrophils % 61.5 % (40.0-80.0) 09/13/17: Lymphocytes % 29.6 % (20.0-50.0) 09/13/17: Monocytes % 7.2 % (2.0-10.0) 09/13/17: Eosinophils % 1.1 % (0.0-5.0) 09/13/17: Basophils % 0.6 % (0.0-2.0) 09/13/17: Sodium 137 mEq/L (136-145) 09/13/17: Potassium 3.6 mEq/L (3.5-5.1) 09/13/17: Chloride 105 mEq/L (98-107) 09/13/17: Carbon Dioxide 23.3 mEq/L (21.0-31.0) 09/13/17: Anion Gap 12.3 (7.0-16.0) 04/22/18 19:28 BUN 8 mg/dL (7-25) 09/13/17 19:28 Creatinine 0.7 mg/dL (0.6-1.2) 09/13/17 19:28 Est GFR ( Amer) > 60.0 ml/min (>90) 09/13/17 19:28 Est GFR (Non-Af Amer) > 60.0 ml/min 09/13/17 19:28 BUN/Creatinine Ratio 11.4 09/13/17 19:28 Glucose 66 mg/dL (70-105) L 09/13/17 19:28 POC Glucose 96 MG/DL (70 - 105) 09/20/17 06:20 Calcium 9.5 mg/dL (8.6-10.3) 09/13/17 19:28 - Physical Exam Vitals and I&O: Vital Signs Temp 97.4 F 09/20/17 15:13 Pulse 90 09/20/17 15:13 Resp 20 09/20/17 15:13 BP 114/80 09/20/17 15:13 Pulse Ox 96 09/20/17 15:13 Intake & Output 09/19/17 09/20/17 09/20/17 18:59 06:59 18:59 Intake Total 1000 360 Balance 1000 360 Intake: Oral 1000 360 Other: # Voids 3 2 # Bowel Movements 1 1 Active Medications: Current Medications Acetaminophen (Tylenol) 650 mg PO Q4HR PRN PRN Reason: Mild Pain / Temp above 100 Stop: 11/11/17 14:44 Last Admin: 09/16/17 10:27 Dose: 650 mg Al Hydrox/Mg Hydrox/Simethicone (Maalox) 30 ml PO Q4HR PRN PRN Reason: GI DISTRESS Stop: 11/11/17 14:44 Ascorbic Acid (Vitamin C) 500 mg PO DAILY [facility] Stop: 11/12/17 08:59 Last Admin: 09/20/17 09:00 Dose: 500 mg Buspirone HCl (Buspar) 10 mg PO BID DIANA PRN Reason: Protocol Stop: 11/11/17 16:59 Last Admin: 09/20/17 08:59 Dose: 10 mg Calcium/Vitamin D (Oscal W/Vitamin D) 1 tab PO HS [facility] Stop: 11/11/17 20:59 Last Admin: 09/19/17 21:21 Dose: 1 tab Dextromethorphan/Quinidine (Nuedexta 20mg-10mg) 1 cap PO BID DIANA Stop: 11/12/17 08:59 Last Admin: 09/20/17 08:59 Dose: 1 cap Divalproex Sodium (Depakote Sprinkle) 250 mg PO Q12HR DIANA PRN Reason: Protocol Stop: 11/19/17 20:59 Donepezil HCl (Aricept) 5 mg PO HS DIANA Stop: 11/11/17 20:59 Last Admin: 09/19/17 21:21 Dose: 5 mg Famotidine (Pepcid) 20 mg PO DAILY DIANA Stop: 11/12/17 08:59 Last Admin: 09/20/17 09:01 Dose: 20 mg Glucagon (Glucagen) 1 mg IM PRN PRN PRN Reason: HYPOGLYCEMIA Stop: 11/11/17 15:59 Haloperidol Decanoate (Haldol Dec) 25 mg IM [id number] DIAAN PRN Reason: Protocol Stop: 11/11/17 15:59 Insulin Aspart (Novolog) 0 units SUBQ ACHS DIANA PRN Reason: Protocol Stop: 11/11/17 20:59 Last Admin: 09/20/17 11:01 Dose: Not Given Levetiracetam (Keppra) 500 mg PO BID [facility] Stop: 11/11/17 16:59 Last Admin: 09/20/17 09:01 Dose: 500 mg Levothyroxine Sodium (Synthroid) 0.0625 mg PO QDAC DIANA Stop: 11/12/17 07:29 Last Admin: 09/20/17 07:58 Dose: 0.0625 mg Lorazepam (Ativan) 0.5 mg PO Q6H PRN; Protocol PRN Reason: Anxiety Stop: 11/11/17 15:49 Last Admin: 09/20/17 12:30 Dose: 0.5 mg Magnesium Hydroxide (Milk Of Magnesia) 30 ml PO HS PRN PRN Reason: Constipation Metformin HCl (Glucophage) 500 mg PO TID DIANA Stop: 11/11/17 20:59 Last Admin: 09/20/17 14:54 Dose: 500 mg Multivitamins/Vitamin C (Theragran) 1 tab PO DAILY DIANA Stop: 11/12/17 08:59 Last Admin: 09/20/17 09:01 Dose: 1 tab Olanzapine (Zyprexa) 5 mg PO HS DIANA PRN Reason: Protocol Stop: 11/13/17 20:59 Last Admin: 09/19/17 21:22 Dose: 5 mg Zolpidem Tartrate (Ambien) 5 mg PO HSMR1 PRN PRN Reason: Insomnia Stop: 11/11/17 14:44 Last Admin: 09/18/17 23:25 Dose: 5 mg General: demented HEENT: NC/AT, PERRLA Neck: Supple, No JVD, No thyromegaly, deformity Lungs: CTAB Cardiovascular: RRR, Normal S1, Normal S2 Abdomen: soft, non-tender, thin, positive bowel sound Extremities: excoriation, deformity (bruise r eye) - Procedures Procedures: Procedures Procedure Code Date BLOOD TRANSFUSION SERVICE 96493 03/29/16 CLOSURE SKIN & SUBCUTANEOUS NEC 86.59 07/02/14 DIAGNOSTIC COLONOSCOPY 56366 09/13/15 DRAINAGE OF STOMACH, ENDO, DIAGN [id number] 09/13/15 EGD BIOPSY SINGLE/MULTIPLE 40731 09/13/15 ELECTROCARDIOGRAM 89.52 10/10/94 EMERGENCY DEPT VISIT 39742 07/04/11 EXCISION OF DUODENUM, ENDO, DIAGN [id number] 09/13/15 GASTRIC INTUBATION TREATMENT 17381 12/28/07 GASTRIC LAVAGE 96.33 12/28/07 INSERT GASTRIC TUBE NEC 96.07 07/26/95 INSERT INDWELLING CATH 57.94 09/16/11 INSERT TEMP BLADDER CATH 92982 09/16/11 INSERTION OF INT FIX INTO L HUMERAL SHAFT, PERC APPROACH [id number] 05/24/15 INSPECTION OF LOWER INTESTINAL TRACT, ENDO [id number] 09/13/15 OXYGEN ENRICHMENT NEC 93.96 10/10/94 REMOV THERAPEUT DEV NEC 97.89 03/25/01 REMOVAL OF INT FIX FROM R KNEE JT, OPEN APPROACH [id number] 04/15/16 REPAIR FACE SKIN, EXTERNAL APPROACH [id number] 04/12/15 REPOSITION RIGHT PATELLA WITH INT FIX, OPEN APPROACH [id number] 03/29/16 RPR F/E/E/N/L/M 2.5 CM/< 15555 04/12/15 RPR F/E/E/N/L/M 2.6-5.0 CM 45362 07/02/14 TETANUS TOXOID ADMINIST 99.38 07/02/14 TRANSFUSE NONAUT RED BLOOD CELLS IN PERIPH VEIN, PERC [id number] 03/29/16 TREAT KNEECAP FRACTURE 54865 03/29/16 UPPER ARM/ELBOW SURGERY 73075 05/24/15 Internal Medicine Assmt/Plan - Assessment Assessment: sp fall severe r orbital ecchymoses syncope sad dm hypothroidism dementia - Plan Plan: fall precaution adjust pscyh meds dw rn Nutritional Asmnt/Malnutr-PDOC - Dietary Evaluation Malnutrition Findings (Please click <Entered> for more info): Nutritional Asmnt/Malnutrition Start: 09/17/17 16: 59 Text: Status: Complete Freq: Document 09/17/17 16:59 LCHENG (Rec: 09/17/17 17:08 LCHENAnneliese [email or web address]) Nutritional Asmnt/Malnutrition Patient General Information Nutritional Screening Moderate Risk Diagnosis psychosis Pertinent Medical Hx/Surgical Hx DM, seizure, hypothyroidism, dementia, schizoaffective disorder, s/o left knee surgary secondary to fracture Subjective Information Pt seen sitting in odin-chair in dinning room, confused. Observed lunch finished about 30%. Pt requested P&J sandwich for dinner. Per EMR PO intake 100%. Current Diet Order/ Nutrition Support [facility] soft chopped, [id number] Pertinent Medications vit C, oscal w/tiv D, peptid, novolog, synthroid, glucophage , theragran Pertinent Labs 09/15-09/17 POC 81-130 Nutritional Hx/Data Height 5 ft 2 in Height (Calculated Centimeters) 157.5 Current Weight (lbs) 125 lb Weight (Calculated Kilograms) 56.7 Weight (Calculated Grams) 13018.0 [place] Body Weight 110 Body Mass Index (BMI) 22.8 Weight Status Approriate GI Symptoms GI Symptoms None Last BM 09/16 Difficult in: None Skin Integrity/Comment: pressure area erythema to right elbow bruise to right wrist and right eye Current %PO Good (75-100%) Estimated Nutritional Goals BEE in Kcals: Using Current wt Calories/Kcals/Kg 25-30 Kcals Calculated 7463-5078 Protein: Using Current wt Protein g/k-1.2 Protein Calculated 57-68 Fluid: ml 1425-1710ml (1m/kcal) Nutritional Problem No current Nutrition Prob Problem N/A Malnutrition Alert Protein-Calorie Malnutrition N/A Is there a minimum of two criteria No selected? Query Text:Check all the applicable criteria. A minimum of two criteria are recommended for diagnosis of either severe or non-severe malnutrition. Intervention/Recommendation Comments 1. Continue with [facility] diet as ordered. 2. Monitor PO intake, wt, labs and skin integrity 3. F/U as low risk in 7 days, 5/3 Expected Outcomes/Goals Expected Outcomes/Goals 1. PO intake to meet at least 75% of nutritional needs. 2. Wt stability, skin to remain intact, labs to approach WNL.
[2017-09-20] MEDS: Calcium Carb/Vit D 500 mg/200 U Tab PO SCH (20:22)
--- NOTE | 2017-09-20 22:10 | Progress Notes ---
DATE: 09/20/2017 PSYCHIATRIC PROGRESS NOTE SUBJECTIVE: The patient's insight and judgment are very much impaired. Impulse control is noted to be poor. The patient has been less irritable. Screaming and yelling has come down. No side effects to the medications are noted. The patient is currently on 10 mg of the BuSpar twice a day and the patient is also on 5 mg of the olanzapine at night time and the patient has been able to tolerate. No side effects to the medications are noted today. The patient is able to tolerate the Depakote, which is going to be given 125 mg, which is going to be increased to 250 mg and the patient is going to be followed up. ASSESSMENT: The patient's irritability is coming down and mood swings are also coming down. PLAN: To continue the patient with current medications. I encouraged the patient to verbalize the concerns rather than to act out. JOB# [id number]
[2017-09-21] MEDS: Levothyroxine 0.025 Mg Tab PO SCH (06:39)
[2017-09-21] MEDS: INSULIN ASPART, RECOMBINANT 100 UNITS/ML SUBQ SCH ×4 (08:05→21:00)
[2017-09-21] MEDS: Dextromethorphan/Quinidine 20mg/10mg Cap PO SCH ×2 (09:04→17:01)
[2017-09-21] MEDS: Multivitamin Tab PO SCH (09:05)
--- NOTE | 2017-09-21 14:16 | Internal Medicine Prog Note ---
Internal Medicine Subjective - Subjective Service Date: 09/21/17 Patient is:: awake, verbal, interactive Per staff patient has:: no adverse event, no episodes of fall, agitated, tolerating meds Internal Medicine Objective - Results Result Diagrams: 09/13/17 19:09/13/17: Recent Labs: Laboratory Last Values WBC 9.8 Th/cmm (4.8-10.8) 09/13/17: RBC 4.53 Mil/cmm (3.80-5.10) 09/13/17: Hgb 11.9 gm/dL (12-16) L 09/13/17: Hct 36.0 % (41.0-60) L 09/13/17: MCV 79.3 fl (81-100) L 09/13/17: MCH 26.2 pg (27.0-31.0) L 09/13/17: MCHC Differential 33.0 pg (28.0-36.0) 09/13/17: RDW 14.1 % (11.5-20.0) 09/13/17: Plt Count 325 Th/cmm (150-400) 09/13/17: MPV 7.3 fl 09/13/17: Neutrophils % 61.5 % (40.0-80.0) 09/13/17: Lymphocytes % 29.6 % (20.0-50.0) 09/13/17: Monocytes % 7.2 % (2.0-10.0) 09/13/17: Eosinophils % 1.1 % (0.0-5.0) 09/13/17: Basophils % 0.6 % (0.0-2.0) 09/13/17: Sodium 137 mEq/L (136-145) 09/13/17: Potassium 3.6 mEq/L (3.5-5.1) 09/13/17: Chloride 105 mEq/L (98-107) 09/13/17: Carbon Dioxide 23.3 mEq/L (21.0-31.0) 09/13/17: Anion Gap 12.3 (7.0-16.0) 04/22/18 19:28 BUN 8 mg/dL (7-25) 09/13/17 19:28 Creatinine 0.7 mg/dL (0.6-1.2) 09/13/17 19:28 Est GFR ( Amer) > 60.0 ml/min (>90) 09/13/17 19:28 Est GFR (Non-Af Amer) > 60.0 ml/min 09/13/17 19:28 BUN/Creatinine Ratio 11.4 09/13/17 19:28 Glucose 66 mg/dL (70-105) L 09/13/17 19:28 POC Glucose 108 MG/DL (70 - 105) H 09/21/17 06:09 Calcium 9.5 mg/dL (8.6-10.3) 09/13/17 19:28 - Physical Exam Vitals and I&O: Vital Signs Temp 97.4 F 09/21/17 06:10 Pulse 58 09/21/17 06:10 Resp 18 09/21/17 06:10 BP 122/74 09/21/17 06:10 Pulse Ox 96 09/21/17 06:10 Intake & Output 09/20/17 09/21/17 09/21/17 18:59 06:59 18:59 Intake Total 1000 480 Output Total 2 Balance 1000 478 Intake: Oral 1000 480 Output: Urine 2 Other: # Voids 5 1 # Bowel Movements 1 2 Active Medications: Current Medications Acetaminophen (Tylenol) 650 mg PO Q4HR PRN PRN Reason: Mild Pain / Temp above 100 Stop: 11/11/17 14:44 Last Admin: 09/16/17 10:27 Dose: 650 mg Al Hydrox/Mg Hydrox/Simethicone (Maalox) 30 ml PO Q4HR PRN PRN Reason: GI DISTRESS Stop: 11/11/17 14:44 Ascorbic Acid (Vitamin C) 500 mg PO DAILY [facility] Stop: 11/12/17 08:59 Last Admin: 09/21/17 09:05 Dose: 500 mg Buspirone HCl (Buspar) 10 mg PO BID DIANA PRN Reason: Protocol Stop: 11/11/17 16:59 Last Admin: 09/21/17 09:03 Dose: 10 mg Calcium/Vitamin D (Oscal W/Vitamin D) 1 tab PO HS [facility] Stop: 11/11/17 20:59 Last Admin: 09/20/17 20:22 Dose: 1 tab Dextromethorphan/Quinidine (Nuedexta 20mg-10mg) 1 cap PO BID DIANA Stop: 11/12/17 08:59 Last Admin: 09/21/17 09:04 Dose: 1 cap Divalproex Sodium (Depakote Sprinkle) 250 mg PO Q12HR DIANA PRN Reason: Protocol Stop: 11/19/17 20:59 Last Admin: 09/21/17 09:02 Dose: 250 mg Donepezil HCl (Aricept) 5 mg PO HS DIANA Stop: 11/11/17 20:59 Last Admin: 09/20/17 20:22 Dose: 5 mg Famotidine (Pepcid) 20 mg PO DAILY DIANA Stop: 11/12/17 08:59 Last Admin: 09/21/17 09:06 Dose: 20 mg Glucagon (Glucagen) 1 mg IM PRN PRN PRN Reason: HYPOGLYCEMIA Stop: 11/11/17 15:59 Haloperidol Decanoate (Haldol Dec) 25 mg IM [id number] DIANA PRN Reason: Protocol Stop: 11/11/17 15:59 Insulin Aspart (Novolog) 0 units SUBQ ACHS DIANA PRN Reason: Protocol Stop: 11/11/17 20:59 Last Admin: 09/21/17 11:38 Dose: Not Given Levetiracetam (Keppra) 500 mg PO BID [facility] Stop: 11/11/17 16:59 Last Admin: 09/21/17 09:05 Dose: 500 mg Levothyroxine Sodium (Synthroid) 0.0625 mg PO QDAC DIANA Stop: 11/12/17 07:29 Last Admin: 09/21/17 06:39 Dose: 0.0625 mg Lorazepam (Ativan) 0.5 mg PO Q6H PRN; Protocol PRN Reason: Anxiety Stop: 11/11/17 15:49 Last Admin: 09/20/17 12:30 Dose: 0.5 mg Magnesium Hydroxide (Milk Of Magnesia) 30 ml PO HS PRN PRN Reason: Constipation Metformin HCl (Glucophage) 500 mg PO TID DIANA Stop: 11/11/17 20:59 Last Admin: 09/21/17 09:04 Dose: 500 mg Multivitamins/Vitamin C (Theragran) 1 tab PO DAILY DIANA Stop: 11/12/17 08:59 Last Admin: 09/21/17 09:05 Dose: 1 tab Olanzapine (Zyprexa) 5 mg PO HS DIANA PRN Reason: Protocol Stop: 11/13/17 20:59 Last Admin: 09/20/17 20:22 Dose: 5 mg Zolpidem Tartrate (Ambien) 5 mg PO HSMR1 PRN PRN Reason: Insomnia Stop: 11/11/17 14:44 Last Admin: 09/20/17 20:23 Dose: 5 mg General: demented HEENT: NC/AT, PERRLA Neck: Supple, No JVD, No thyromegaly, deformity Lungs: CTAB Cardiovascular: RRR, Normal S1, Normal S2 Abdomen: soft, non-tender, thin, positive bowel sound Extremities: excoriation, deformity (bruise r eye) - Procedures Procedures: Procedures Procedure Code Date BLOOD TRANSFUSION SERVICE 93812 03/29/16 CLOSURE SKIN & SUBCUTANEOUS NEC 86.59 07/02/14 DIAGNOSTIC COLONOSCOPY 97205 09/13/15 DRAINAGE OF STOMACH, ENDO, DIAGN [id number] 09/13/15 EGD BIOPSY SINGLE/MULTIPLE 51040 09/13/15 ELECTROCARDIOGRAM 89.52 10/10/94 EMERGENCY DEPT VISIT 41960 07/04/11 EXCISION OF DUODENUM, ENDO, DIAGN [id number] 09/13/15 GASTRIC INTUBATION TREATMENT 90580 12/28/07 GASTRIC LAVAGE 96.33 12/28/07 INSERT GASTRIC TUBE NEC 96.07 07/26/95 INSERT INDWELLING CATH 57.94 09/16/11 INSERT TEMP BLADDER CATH 53247 09/16/11 INSERTION OF INT FIX INTO L HUMERAL SHAFT, PERC APPROACH [id number] 05/24/15 INSPECTION OF LOWER INTESTINAL TRACT, ENDO [id number] 09/13/15 OXYGEN ENRICHMENT NEC 93.96 10/10/94 REMOV THERAPEUT DEV NEC 97.89 03/25/01 REMOVAL OF INT FIX FROM R KNEE JT, OPEN APPROACH [id number] 04/15/16 REPAIR FACE SKIN, EXTERNAL APPROACH [id number] 04/12/15 REPOSITION RIGHT PATELLA WITH INT FIX, OPEN APPROACH [id number] 03/29/16 RPR F/E/E/N/L/M 2.5 CM/< 06012 04/12/15 RPR F/E/E/N/L/M 2.6-5.0 CM 87135 07/02/14 TETANUS TOXOID ADMINIST 99.38 07/02/14 TRANSFUSE NONAUT RED BLOOD CELLS IN PERIPH VEIN, PERC [id number] 03/29/16 TREAT KNEECAP FRACTURE 67291 03/29/16 UPPER ARM/ELBOW SURGERY 40871 05/24/15 Internal Medicine Assmt/Plan - Assessment Assessment: sp fall severe r orbital ecchymoses syncope sad dm hypothroidism dementia - Plan Plan: fall precaution adjust pscyh meds dw rn Nutritional Asmnt/Malnutr-PDOC - Dietary Evaluation Malnutrition Findings (Please click <Entered> for more info): Nutritional Asmnt/Malnutrition Start: 09/17/17 16: 59 Text: Status: Complete Freq: Document 09/17/17 16:59 RADHA (Rec: 09/17/17 17:08 [facility] Nutritional Asmnt/Malnutrition Patient General Information Nutritional Screening Moderate Risk Diagnosis psychosis Pertinent Medical Hx/Surgical Hx DM, seizure, hypothyroidism, dementia, schizoaffective disorder, s/o left knee surgary secondary to fracture Subjective Information Pt seen sitting in odin-chair in dinning room, confused. Observed lunch finished about 30%. Pt requested P&J sandwich for dinner. Per EMR PO intake 100%. Current Diet Order/ Nutrition Support [facility] soft chopped, [id number] Pertinent Medications vit C, oscal w/tiv D, peptid, novolog, synthroid, glucophage , theragran Pertinent Labs 09/15-09/17 POC 81-130 Nutritional Hx/Data Height 5 ft 2 in Height (Calculated Centimeters) 157.5 Current Weight (lbs) 125 lb Weight (Calculated Kilograms) 56.7 Weight (Calculated Grams) 66092.0 [place] Body Weight 110 Body Mass Index (BMI) 22.8 Weight Status Approriate GI Symptoms GI Symptoms None Last BM 09/16 Difficult in: None Skin Integrity/Comment: pressure area erythema to right elbow bruise to right wrist and right eye Current %PO Good (75-100%) Estimated Nutritional Goals BEE in Kcals: Using Current wt Calories/Kcals/Kg 25-30 Kcals Calculated 0679-5157 Protein: Using Current wt Protein g/k-1.2 Protein Calculated 57-68 Fluid: ml 1425-1710ml (1m/kcal) Nutritional Problem No current Nutrition Prob Problem N/A Malnutrition Alert Protein-Calorie Malnutrition N/A Is there a minimum of two criteria No selected? Query Text:Check all the applicable criteria. A minimum of two criteria are recommended for diagnosis of either severe or non-severe malnutrition. Intervention/Recommendation Comments 1. Continue with [facility] soft chopped CCHO 60gm diet as ordered. 2. Monitor PO intake, wt, labs and skin integrity 3. F/U as low risk in 7 days, 5/3 Expected Outcomes/Goals Expected Outcomes/Goals 1. PO intake to meet at least 75% of nutritional needs. 2. Wt stability, skin to remain intact, labs to approach WNL.
[2017-09-21] MEDS: Calcium Carb/Vit D 500 mg/200 U Tab PO SCH (20:32)
--- NOTE | 2017-09-22 05:32 | Progress Notes ---
DATE: 09/21/2017 SUBJECTIVE: Staff was spoken to. The patient is interviewed. Mood is noted to be less irritable, mood swings are coming under control. The patient has paranoia. The patient has ____ to screaming and yelling at one time, but the patient so far has been coming down. No side effects to the medications are noted. ASSESSMENT: The patient is still having mood swings. PLAN: To continue the patient with the supportive therapy and followup. JOB# [id number]
[2017-09-22] MEDS: Levothyroxine 0.025 Mg Tab PO SCH (06:41)
[2017-09-22] MEDS: INSULIN ASPART, RECOMBINANT 100 UNITS/ML SUBQ SCH ×4 (06:48→20:16)
[2017-09-22] MEDS: Multivitamin Tab PO SCH (09:18)
[2017-09-22] MEDS: Dextromethorphan/Quinidine 20mg/10mg Cap PO SCH ×2 (09:18→16:56)
--- NOTE | 2017-09-22 14:06 | Internal Medicine Prog Note ---
Internal Medicine Subjective - Subjective Service Date: 09/22/17 Patient is:: awake, verbal, interactive Per staff patient has:: no adverse event, no episodes of fall, agitated, tolerating meds Internal Medicine Objective - Results Result Diagrams: 09/13/17 19:09/13/17: Recent Labs: Laboratory Last Values WBC 9.8 Th/cmm (4.8-10.8) 09/13/17: RBC 4.53 Mil/cmm (3.80-5.10) 09/13/17: Hgb 11.9 gm/dL (12-16) L 09/13/17: Hct 36.0 % (41.0-60) L 09/13/17: MCV 79.3 fl (81-100) L 09/13/17: MCH 26.2 pg (27.0-31.0) L 09/13/17: MCHC Differential 33.0 pg (28.0-36.0) 09/13/17: RDW 14.1 % (11.5-20.0) 09/13/17: Plt Count 325 Th/cmm (150-400) 09/13/17: MPV 7.3 fl 09/13/17: Neutrophils % 61.5 % (40.0-80.0) 09/13/17: Lymphocytes % 29.6 % (20.0-50.0) 09/13/17: Monocytes % 7.2 % (2.0-10.0) 09/13/17: Eosinophils % 1.1 % (0.0-5.0) 09/13/17: Basophils % 0.6 % (0.0-2.0) 09/13/17: Sodium 137 mEq/L (136-145) 09/13/17: Potassium 3.6 mEq/L (3.5-5.1) 09/13/17: Chloride 105 mEq/L (98-107) 09/13/17: Carbon Dioxide 23.3 mEq/L (21.0-31.0) 09/13/17: Anion Gap 12.3 (7.0-16.0) 04/22/18 19:28 BUN 8 mg/dL (7-25) 09/13/17 19:28 Creatinine 0.7 mg/dL (0.6-1.2) 09/13/17 19:28 Est GFR ( Amer) > 60.0 ml/min (>90) 09/13/17 19:28 Est GFR (Non-Af Amer) > 60.0 ml/min 09/13/17 19:28 BUN/Creatinine Ratio 11.4 09/13/17 19:28 Glucose 66 mg/dL (70-105) L 09/13/17 19:28 POC Glucose 98 MG/DL (70 - 105) 09/22/17 05:56 Calcium 9.5 mg/dL (8.6-10.3) 09/13/17 19:28 - Physical Exam Vitals and I&O: Vital Signs Temp 97.6 F 09/22/17 06:01 Pulse 61 09/22/17 06:01 Resp 18 09/22/17 06:01 BP 134/99 09/22/17 06:01 Pulse Ox 99 09/22/17 06:01 Intake & Output 09/21/17 09/22/17 09/22/17 18:59 06:59 18:59 Intake Total 1200 480 Balance 1200 480 Intake: Oral 1200 480 Other: # Voids 4 2 # Bowel Movements 0 Active Medications: Current Medications Acetaminophen (Tylenol) 650 mg PO Q4HR PRN PRN Reason: Mild Pain / Temp above 100 Stop: 11/11/17 14:44 Last Admin: 09/16/17 10:27 Dose: 650 mg Al Hydrox/Mg Hydrox/Simethicone (Maalox) 30 ml PO Q4HR PRN PRN Reason: GI DISTRESS Stop: 11/11/17 14:44 Ascorbic Acid (Vitamin C) 500 mg PO DAILY [facility] Stop: 11/12/17 08:59 Last Admin: 09/22/17 09:18 Dose: 500 mg Buspirone HCl (Buspar) 10 mg PO BID DIANA PRN Reason: Protocol Stop: 11/11/17 16:59 Last Admin: 09/22/17 09:18 Dose: 10 mg Calcium/Vitamin D (Oscal W/Vitamin D) 1 tab PO HS [facility] Stop: 11/11/17 20:59 Last Admin: 09/21/17 20:32 Dose: 1 tab Dextromethorphan/Quinidine (Nuedexta 20mg-10mg) 1 cap PO BID DIANA Stop: 11/12/17 08:59 Last Admin: 09/22/17 09:18 Dose: 1 cap Divalproex Sodium (Depakote Sprinkle) 250 mg PO Q12HR DIANA PRN Reason: Protocol Stop: 11/19/17 20:59 Last Admin: 09/22/17 09:18 Dose: 250 mg Donepezil HCl (Aricept) 5 mg PO HS DIANA Stop: 11/11/17 20:59 Last Admin: 09/21/17 20:33 Dose: 5 mg Famotidine (Pepcid) 20 mg PO DAILY DIANA Stop: 11/12/17 08:59 Last Admin: 09/22/17 09:18 Dose: 20 mg Glucagon (Glucagen) 1 mg IM PRN PRN PRN Reason: HYPOGLYCEMIA Stop: 11/11/17 15:59 Haloperidol Decanoate (Haldol Dec) 25 mg IM [id number] DIANA PRN Reason: Protocol Stop: 11/11/17 15:59 Insulin Aspart (Novolog) 0 units SUBQ ACHS DIANA PRN Reason: Protocol Stop: 11/11/17 20:59 Last Admin: 09/22/17 11:06 Dose: Not Given Levetiracetam (Keppra) 500 mg PO BID DIANA Stop: 11/11/17 16:59 Last Admin: 09/22/17 09:18 Dose: 500 mg Levothyroxine Sodium (Synthroid) 0.0625 mg PO QDAC DIANA Stop: 11/12/17 07:29 Last Admin: 09/22/17 06:41 Dose: 0.0625 mg Lorazepam (Ativan) 0.5 mg PO Q6H PRN; Protocol PRN Reason: Anxiety Stop: 11/11/17 15:49 Last Admin: 09/22/17 09:38 Dose: 0.5 mg Magnesium Hydroxide (Milk Of Magnesia) 30 ml PO HS PRN PRN Reason: Constipation Metformin HCl (Glucophage) 500 mg PO TID DIANA Stop: 11/11/17 20:59 Last Admin: 09/22/17 09:18 Dose: 500 mg Multivitamins/Vitamin C (Theragran) 1 tab PO DAILY [facility]IANA Stop: 11/12/17 08:59 Last Admin: 09/22/17 09:18 Dose: 1 tab Olanzapine (Zyprexa) 5 mg PO HS DIANA PRN Reason: Protocol Stop: 11/13/17 20:59 Last Admin: 09/21/17 20:32 Dose: 5 mg Zolpidem Tartrate (Ambien) 5 mg PO HSMR1 PRN PRN Reason: Insomnia Stop: 11/11/17 14:44 Last Admin: 09/21/17 20:33 Dose: 5 mg General: demented HEENT: NC/AT, PERRLA Neck: Supple, No JVD, No thyromegaly, deformity Lungs: CTAB Cardiovascular: RRR, Normal S1, Normal S2 Abdomen: soft, non-tender, thin, positive bowel sound Extremities: excoriation, deformity (bruise r eye) - Procedures Procedures: Procedures Procedure Code Date BLOOD TRANSFUSION SERVICE 64257 03/29/16 CLOSURE SKIN & SUBCUTANEOUS NEC 86.59 07/02/14 DIAGNOSTIC COLONOSCOPY 00796 09/13/15 DRAINAGE OF STOMACH, ENDO, DIAGN [id number] 09/13/15 EGD BIOPSY SINGLE/MULTIPLE 83077 09/13/15 ELECTROCARDIOGRAM 89.52 10/10/94 EMERGENCY DEPT VISIT 53223 07/04/11 EXCISION OF DUODENUM, ENDO, DIAGN [id number] 09/13/15 GASTRIC INTUBATION TREATMENT 55709 12/28/07 GASTRIC LAVAGE 96.33 12/28/07 INSERT GASTRIC TUBE NEC 96.07 07/26/95 INSERT INDWELLING CATH 57.94 09/16/11 INSERT TEMP BLADDER CATH 25238 09/16/11 INSERTION OF INT FIX INTO L HUMERAL SHAFT, PERC APPROACH [id number] 05/24/15 INSPECTION OF LOWER INTESTINAL TRACT, ENDO [id number] 09/13/15 OXYGEN ENRICHMENT NEC 93.96 10/10/94 REMOV THERAPEUT DEV NEC 97.89 03/25/01 REMOVAL OF INT FIX FROM R KNEE JT, OPEN APPROACH [id number] 04/15/16 REPAIR FACE SKIN, EXTERNAL APPROACH [id number] 04/12/15 REPOSITION RIGHT PATELLA WITH INT FIX, OPEN APPROACH [id number] 03/29/16 RPR F/E/E/N/L/M 2.5 CM/< 83405 04/12/15 RPR F/E/E/N/L/M 2.6-5.0 [place] 42800 07/02/14 TETANUS TOXOID ADMINIST 99.38 07/02/14 TRANSFUSE NONAUT RED BLOOD CELLS IN PERIPH VEIN, PERC 26115Z9 03/29/16 TREAT KNEECAP FRACTURE 79975 03/29/16 UPPER ARM/ELBOW SURGERY 78907 05/24/15 Internal Medicine Assmt/Plan - Assessment Assessment: sp fall severe r orbital ecchymoses syncope sad dm hypothroidism dementia - Plan Plan: fall precaution adjust pscyh meds dw rn Nutritional Asmnt/Malnutr-PDOC - Dietary Evaluation Malnutrition Findings (Please click <Entered> for more info): Nutritional Asmnt/Malnutrition Start: 09/17/17 16: 59 Text: Status: Complete Freq: Document 09/17/17 16:59 RADHA (Rec: 09/17/17 17:08 LCESPERANZA [email or web address]) Nutritional Asmnt/Malnutrition Patient General Information Nutritional Screening Moderate Risk Diagnosis psychosis Pertinent Medical Hx/Surgical Hx DM, seizure, hypothyroidism, dementia, schizoaffective disorder, s/o left knee surgary secondary to fracture Subjective Information Pt seen sitting in odin-chair in dinning room, confused. Observed lunch finished about 30%. Pt requested P&J sandwich for dinner. Per EMR PO intake 100%. Current Diet Order/ Nutrition Support [facility] soft chopped, [id number] Pertinent Medications vit C, oscal w/tiv D, peptid, novolog, synthroid, glucophage , theragran Pertinent Labs 09/15-09/17 POC 81-130 Nutritional Hx/Data Height 5 ft 2 in Height (Calculated Centimeters) 157.5 Current Weight (lbs) 125 lb Weight (Calculated Kilograms) 56.7 Weight (Calculated Grams) 43009.0 [place] Body Weight 110 Body Mass Index (BMI) 22.8 Weight Status Approriate GI Symptoms GI Symptoms None Last BM 09/16 Difficult in: None Skin Integrity/Comment: pressure area erythema to right elbow bruise to right wrist and right eye Current %PO Good (75-100%) Estimated Nutritional Goals BEE in Kcals: Using Current wt Calories/Kcals/Kg 25-30 Kcals Calculated 4411-1325 Protein: Using Current wt Protein g/k-1.2 Protein Calculated 57-68 Fluid: ml 1425-1710ml (1m/kcal) Nutritional Problem No current Nutrition Prob Problem N/A Malnutrition Alert Protein-Calorie Malnutrition N/A Is there a minimum of two criteria No selected? Query Text:Check all the applicable criteria. A minimum of two criteria are recommended for diagnosis of either severe or non-severe malnutrition. Intervention/Recommendation Comments 1. Continue with [facility] soft [facility] diet as ordered. 2. Monitor PO intake, wt, labs and skin integrity 3. F/U as low risk in 7 days, 5/3 Expected Outcomes/Goals Expected Outcomes/Goals 1. PO intake to meet at least 75% of nutritional needs. 2. Wt stability, skin to remain intact, labs to approach WNL.
--- NOTE | 2017-09-22 18:39 | Progress Notes ---
DATE: 09/22/2017 SUBJECTIVE: Staff was spoken to. The patient is interviewed. Mood is noted to be less irritable. Mood swings are coming under control. The patient denies any command hallucinations. Insight and judgment at this time are noted to be improving. No side effects to the medications are noted. The patient has been able to participate in the groups today. ASSESSMENT: The patient's mood swings are coming under control. PLAN: To continue the patient with the supportive therapy, encouraged the patient to verbalize the concerns rather than to act out. JOB# [id number]
[2017-09-22] MEDS: Calcium Carb/Vit D 500 mg/200 U Tab PO SCH (20:11)
[2017-09-23] MEDS: Levothyroxine 0.025 Mg Tab PO SCH (06:50)
[2017-09-23] MEDS: INSULIN ASPART, RECOMBINANT 100 UNITS/ML SUBQ SCH ×4 (06:50→21:29)
[2017-09-23] MEDS: Multivitamin Tab PO SCH (09:10)
[2017-09-23] MEDS: Dextromethorphan/Quinidine 20mg/10mg Cap PO SCH ×2 (09:11→17:39)
--- NOTE | 2017-09-23 16:22 | Internal Medicine Prog Note ---
Internal Medicine Subjective - Subjective Service Date: 09/23/17 Patient is:: awake, verbal, interactive Per staff patient has:: no adverse event, no episodes of fall, agitated, tolerating meds Internal Medicine Objective - Results Result Diagrams: 09/13/17 19:09/13/17: Recent Labs: Laboratory Last Values WBC 9.8 Th/cmm (4.8-10.8) 09/13/17: RBC 4.53 Mil/cmm (3.80-5.10) 09/13/17: Hgb 11.9 gm/dL (12-16) L 09/13/17: Hct 36.0 % (41.0-60) L 09/13/17: MCV 79.3 fl (81-100) L 09/13/17: MCH 26.2 pg (27.0-31.0) L 09/13/17: MCHC Differential 33.0 pg (28.0-36.0) 09/13/17: RDW 14.1 % (11.5-20.0) 09/13/17: Plt Count 325 Th/cmm (150-400) 09/13/17: MPV 7.3 fl 09/13/17: Neutrophils % 61.5 % (40.0-80.0) 09/13/17: Lymphocytes % 29.6 % (20.0-50.0) 09/13/17: Monocytes % 7.2 % (2.0-10.0) 09/13/17: Eosinophils % 1.1 % (0.0-5.0) 09/13/17: Basophils % 0.6 % (0.0-2.0) 09/13/17: Sodium 137 mEq/L (136-145) 09/13/17: Potassium 3.6 mEq/L (3.5-5.1) 09/13/17: Chloride 105 mEq/L (98-107) 09/13/17: Carbon Dioxide 23.3 mEq/L (21.0-31.0) 09/13/17: Anion Gap 12.3 (7.0-16.0) 04/22/18 19:28 BUN 8 mg/dL (7-25) 09/13/17 19:28 Creatinine 0.7 mg/dL (0.6-1.2) 09/13/17 19:28 Est GFR ( Amer) > 60.0 ml/min (>90) 09/13/17 19:28 Est GFR (Non-Af Amer) > 60.0 ml/min 09/13/17 19:28 BUN/Creatinine Ratio 11.4 09/13/17 19:28 Glucose 66 mg/dL (70-105) L 09/13/17 19:28 POC Glucose 78 MG/DL (70 - 105) 09/23/17 11:36 Calcium 9.5 mg/dL (8.6-10.3) 09/13/17 19:28 - Physical Exam Vitals and I&O: Vital Signs Temp 96.8 F 09/23/17 15:37 Pulse 87 09/23/17 15:37 Resp 20 09/23/17 15:37 BP 129/89 09/23/17 15:37 Pulse Ox 97 09/23/17 15:37 Intake & Output 09/22/17 09/23/17 09/23/17 18:59 06:59 18:59 Intake Total 1200 120 Balance 1200 120 Intake: Oral 1200 120 Other: # Voids 3 3 Active Medications: Current Medications Acetaminophen (Tylenol) 650 mg PO Q4HR PRN PRN Reason: Mild Pain / Temp above 100 Stop: 11/11/17 14:44 Last Admin: 09/16/17 10:27 Dose: 650 mg Al Hydrox/Mg Hydrox/Simethicone (Maalox) 30 ml PO Q4HR PRN PRN Reason: GI DISTRESS Stop: 11/11/17 14:44 Ascorbic Acid (Vitamin C) 500 mg PO DAILY [facility] Stop: 11/12/17 08:59 Last Admin: 09/23/17 09:10 Dose: 500 mg Buspirone HCl (Buspar) 10 mg PO BID DIANA PRN Reason: Protocol Stop: 11/11/17 16:59 Last Admin: 09/23/17 09:14 Dose: 10 mg Calcium/Vitamin D (Oscal W/Vitamin D) 1 tab PO HS [facility] Stop: 11/11/17 20:59 Last Admin: 09/22/17 20:11 Dose: 1 tab Dextromethorphan/Quinidine (Nuedexta 20mg-10mg) 1 cap PO BID DIANA Stop: 11/12/17 08:59 Last Admin: 09/23/17 09:11 Dose: 1 cap Divalproex Sodium (Depakote Sprinkle) 250 mg PO Q12HR DIANA PRN Reason: Protocol Stop: 11/19/17 20:59 Last Admin: 09/23/17 09:20 Dose: 250 mg Donepezil HCl (Aricept) 5 mg PO HS DIANA Stop: 11/11/17 20:59 Last Admin: 09/22/17 20:12 Dose: 5 mg Famotidine (Pepcid) 20 mg PO DAILY [facility]IANA Stop: 11/12/17 08:59 Last Admin: 09/23/17 09:14 Dose: 20 mg Glucagon (Glucagen) 1 mg IM PRN PRN PRN Reason: HYPOGLYCEMIA Stop: 11/11/17 15:59 Haloperidol Decanoate (Haldol Dec) 25 mg IM [id number] DIANA PRN Reason: Protocol Stop: 11/11/17 15:59 Insulin Aspart (Novolog) 0 units SUBQ ACHS DIANA PRN Reason: Protocol Stop: 11/11/17 20:59 Last Admin: 09/23/17 11:41 Dose: Not Given Levetiracetam (Keppra) 500 mg PO BID DIANA Stop: 11/11/17 16:59 Last Admin: 09/23/17 09:10 Dose: 500 mg Levothyroxine Sodium (Synthroid) 0.0625 mg PO QDAC DIANA Stop: 11/12/17 07:29 Last Admin: 09/23/17 06:50 Dose: 0.0625 mg Lorazepam (Ativan) 0.5 mg PO Q6H PRN; Protocol PRN Reason: Anxiety Stop: 11/11/17 15:49 Last Admin: 09/22/17 20:12 Dose: 0.5 mg Magnesium Hydroxide (Milk Of Magnesia) 30 ml PO HS PRN PRN Reason: Constipation Metformin HCl (Glucophage) 500 mg PO TID DIANA Stop: 11/11/17 20:59 Last Admin: 09/23/17 14:29 Dose: 500 mg Multivitamins/Vitamin C (Theragran) 1 tab PO DAILY [facility] Stop: 11/12/17 08:59 Last Admin: 09/23/17 09:10 Dose: 1 tab Olanzapine (Zyprexa) 5 mg PO HS DIANA PRN Reason: Protocol Stop: 11/13/17 20:59 Last Admin: 09/22/17 20:11 Dose: 5 mg Zolpidem Tartrate (Ambien) 5 mg PO HSMR1 PRN PRN Reason: Insomnia Stop: 11/11/17 14:44 Last Admin: 09/22/17 20:12 Dose: 5 mg General: demented HEENT: NC/AT, PERRLA Neck: Supple, No JVD, No thyromegaly, deformity Lungs: CTAB Cardiovascular: RRR, Normal S1, Normal S2 Abdomen: soft, non-tender, thin, positive bowel sound Extremities: excoriation, deformity (bruise r eye) - Procedures Procedures: Procedures Procedure Code Date BLOOD TRANSFUSION SERVICE 26555 03/29/16 CLOSURE SKIN & SUBCUTANEOUS NEC 86.59 07/02/14 DIAGNOSTIC COLONOSCOPY 10960 09/13/15 DRAINAGE OF STOMACH, ENDO, DIAGN [id number] 09/13/15 EGD BIOPSY SINGLE/MULTIPLE 35805 09/13/15 ELECTROCARDIOGRAM 89.52 10/10/94 EMERGENCY DEPT VISIT 71897 07/04/11 EXCISION OF DUODENUM, ENDO, DIAGN [id number] 09/13/15 GASTRIC INTUBATION TREATMENT 34128 12/28/07 GASTRIC LAVAGE 96.33 12/28/07 INSERT GASTRIC TUBE NEC 96.07 07/26/95 INSERT INDWELLING CATH 57.94 09/16/11 INSERT TEMP BLADDER CATH 57185 09/16/11 INSERTION OF INT FIX INTO L HUMERAL SHAFT, PERC APPROACH [id number] 05/24/15 INSPECTION OF LOWER INTESTINAL TRACT, ENDO [id number] 09/13/15 OXYGEN ENRICHMENT NEC 93.96 10/10/94 REMOV THERAPEUT DEV NEC 97.89 03/25/01 REMOVAL OF INT FIX FROM R KNEE JT, OPEN APPROACH [id number] 04/15/16 REPAIR FACE SKIN, EXTERNAL APPROACH [id number] 04/12/15 REPOSITION RIGHT PATELLA WITH INT FIX, OPEN APPROACH [id number] 03/29/16 RPR F/E/E/N/L/M 2.5 CM/< 27665 04/12/15 RPR F/E/E/N/L/M 2.6-5.0 CM 14846 07/02/14 TETANUS TOXOID ADMINIST 99.38 07/02/14 TRANSFUSE NONAUT RED BLOOD CELLS IN PERIPH VEIN, PERC 72109P9 03/29/16 TREAT KNEECAP FRACTURE 26367 03/29/16 UPPER ARM/ELBOW SURGERY 42176 05/24/15 Internal Medicine Assmt/Plan - Assessment Assessment: sp fall severe r orbital ecchymoses syncope sad dm hypothroidism dementia - Plan Plan: fall precaution adjust pscyh meds dw rn Nutritional Asmnt/Malnutr-PDOC - Dietary Evaluation Malnutrition Findings (Please click <Entered> for more info): Nutritional Asmnt/Malnutrition Start: 09/17/17 16: 59 Text: Status: Complete Freq: Document 09/17/17 16:59 RADHA (Rec: 09/17/17 17:08 LCESPERANZA [email or web address]) Nutritional Asmnt/Malnutrition Patient General Information Nutritional Screening Moderate Risk Diagnosis psychosis Pertinent Medical Hx/Surgical Hx DM, seizure, hypothyroidism, dementia, schizoaffective disorder, s/o left knee surgary secondary to fracture Subjective Information Pt seen sitting in odin-chair in dinning room, confused. Observed lunch finished about 30%. Pt requested P&J sandwich for dinner. Per EMR PO intake 100%. Current Diet Order/ Nutrition Support [facility] soft chopped, [id number] Pertinent Medications vit C, oscal w/tiv D, peptid, novolog, synthroid, glucophage , theragran Pertinent Labs 09/15-09/17 POC 81-130 Nutritional Hx/Data Height 5 ft 2 in Height (Calculated Centimeters) 157.5 Current Weight (lbs) 125 lb Weight (Calculated Kilograms) 56.7 Weight (Calculated Grams) 82823.0 [place] Body Weight 110 Body Mass Index (BMI) 22.8 Weight Status Approriate GI Symptoms GI Symptoms None Last BM 09/16 Difficult in: None Skin Integrity/Comment: pressure area erythema to right elbow bruise to right wrist and right eye Current %PO Good (75-100%) Estimated Nutritional Goals BEE in Kcals: Using Current wt Calories/Kcals/Kg 25-30 Kcals Calculated 4815-7569 Protein: Using Current wt Protein g/k-1.2 Protein Calculated 57-68 Fluid: ml 1425-1710ml (1m/kcal) Nutritional Problem No current Nutrition Prob Problem N/A Malnutrition Alert Protein-Calorie Malnutrition N/A Is there a minimum of two criteria No selected? Query Text:Check all the applicable criteria. A minimum of two criteria are recommended for diagnosis of either severe or non-severe malnutrition. Intervention/Recommendation Comments 1. Continue with [facility] soft chopped [facility] as ordered. 2. Monitor PO intake, wt, labs and skin integrity 3. F/U as low risk in 7 days, 5/3 Expected Outcomes/Goals Expected Outcomes/Goals 1. PO intake to meet at least 75% of nutritional needs. 2. Wt stability, skin to remain intact, labs to approach WNL.
[2017-09-23] MEDS: Calcium Carb/Vit D 500 mg/200 U Tab PO SCH (20:15)
--- NOTE | 2017-09-24 01:16 | Progress Notes ---
DATE: 09/23/2017 SUBJECTIVE: Staff was spoken to. The patient is irritable. Affect is constricted. Insight and judgment noted to be still impaired. Impulse control is noted to be limited. Coping skills are noted to be limited. The patient's sleep and appetite are noted to be improving. No side effects of medications are noted. The patient is currently on 5 mg of the Zyprexa and is also receiving the Depakote and valproic acid 250 mg twice a day. No side effects to the medications are noted. The patient has been noted to be stabilizing today. ASSESSMENT: The patient is stabilizing. PLAN: Continue the patient with the current medications and follow. JOB# [id number]
[2017-09-24] MEDS: INSULIN ASPART, RECOMBINANT 100 UNITS/ML SUBQ SCH ×2 (06:47→13:04)
[2017-09-24] MEDS: Levothyroxine 0.025 Mg Tab PO SCH (06:48)
[2017-09-24] MEDS: Dextromethorphan/Quinidine 20mg/10mg Cap PO SCH (08:58)
[2017-09-24] MEDS: Multivitamin Tab PO SCH (08:58)
--- NOTE | 2017-09-24 19:48 | Internal Medicine Prog Note ---
Internal Medicine Subjective - Subjective Patient seen and examined:: with staff (pt seen this am with female nurse, eats well when father assist w feeding), chart reviewed, other Patient is:: awake, verbal, interactive Per staff patient has:: no adverse event, no episodes of fall, agitated, tolerating meds Internal Medicine Objective - Results Result Diagrams: 09/13/17 19:09/13/17 19: Recent Labs: Laboratory Last Values WBC 9.8 Th/cmm (4.8-10.8) 09/13/17: RBC 4.53 Mil/cmm (3.80-5.10) 09/13/17: Hgb 11.9 gm/dL (12-16) L 09/13/17: Hct 36.0 % (41.0-60) L 09/13/17: MCV 79.3 fl (81-100) L 09/13/17: MCH 26.2 pg (27.0-31.0) L 09/13/17: MCHC Differential 33.0 pg (28.0-36.0) 09/13/17: RDW 14.1 % (11.5-20.0) 09/13/17: Plt Count 325 Th/cmm (150-400) 09/13/17: MPV 7.3 fl 09/13/17: Neutrophils % 61.5 % (40.0-80.0) 09/13/17: Lymphocytes % 29.6 % (20.0-50.0) 09/13/17: Monocytes % 7.2 % (2.0-10.0) 09/13/17: Eosinophils % 1.1 % (0.0-5.0) 09/13/17: Basophils % 0.6 % (0.0-2.0) 09/13/17: Sodium 137 mEq/L (136-145) 09/13/17: Potassium 3.6 mEq/L (3.5-5.1) 09/13/17: Chloride 105 mEq/L (98-107) 09/13/17: Carbon Dioxide 23.3 mEq/L (21.0-31.0) 09/13/17 19:28 Anion Gap 12.3 (7.0-16.0) 09/13/17 19:28 BUN 8 mg/dL (7-25) 09/13/17 19:28 Creatinine 0.7 mg/dL (0.6-1.2) 09/13/17 19:28 Est GFR ( Amer) > 60.0 ml/min (>90) 09/13/17 19:28 Est GFR (Non-Af Amer) > 60.0 ml/min 09/13/17 19:28 BUN/Creatinine Ratio 11.4 09/13/17 19:28 Glucose 66 mg/dL (70-105) L 09/13/17 19:28 POC Glucose 98 MG/DL (70 - 105) 09/23/17 19:51 Calcium 9.5 mg/dL (8.6-10.3) 09/13/17 19:28 - Physical Exam Vitals and I&O: Vital Signs Temp 98.2 F 09/24/17 06:36 Pulse 86 09/24/17 06:36 Resp 21 09/24/17 06:36 BP 119/72 09/24/17 06:36 Pulse Ox 99 09/24/17 06:36 Intake & Output 09/24/17 09/24/17 09/25/17 06:59 18:59 06:59 Intake Total 120 Balance 120 Intake: Oral 120 Other: # Voids 3 General: demented HEENT: NC/AT, PERRLA Neck: Supple, No JVD, No thyromegaly, deformity Lungs: CTAB Cardiovascular: RRR, Normal S1, Normal S2 Abdomen: soft, non-tender, thin, positive bowel sound Extremities: excoriation, deformity (bruise r eye) - Procedures Procedures: Procedures Procedure Code Date BLOOD TRANSFUSION SERVICE 58851 03/29/16 CLOSURE SKIN & SUBCUTANEOUS NEC 86.59 07/02/14 DIAGNOSTIC COLONOSCOPY 03142 09/13/15 DRAINAGE OF STOMACH, ENDO, DIAGN [id number] 09/13/15 EGD BIOPSY SINGLE/MULTIPLE 71079 09/13/15 ELECTROCARDIOGRAM 89.52 10/10/94 EMERGENCY DEPT VISIT 50160 07/04/11 EXCISION OF DUODENUM, ENDO, DIAGN [id number] 09/13/15 GASTRIC INTUBATION TREATMENT 57578 12/28/07 GASTRIC LAVAGE 96.33 12/28/07 INSERT GASTRIC TUBE NEC 96.07 07/26/95 INSERT INDWELLING CATH 57.94 09/16/11 INSERT TEMP BLADDER CATH 12964 09/16/11 INSERTION OF INT FIX INTO L HUMERAL SHAFT, PERC APPROACH [id number] 05/24/15 INSPECTION OF LOWER INTESTINAL TRACT, ENDO [id number] 09/13/15 OXYGEN ENRICHMENT NEC 93.96 10/10/94 REMOV THERAPEUT DEV NEC 97.89 03/25/01 REMOVAL OF INT FIX FROM R KNEE JT, OPEN APPROACH [id number] 04/15/16 REPAIR FACE SKIN, EXTERNAL APPROACH [id number] 04/12/15 REPOSITION RIGHT PATELLA WITH INT FIX, OPEN APPROACH [id number] 03/29/16 RPR F/E/E/N/L/M 2.5 CM/< 82320 04/12/15 RPR F/E/E/N/L/M 2.6-5.0 CM 03648 07/02/14 TETANUS TOXOID ADMINIST 99.38 07/02/14 TRANSFUSE NONAUT RED BLOOD CELLS IN PERIPH VEIN, PERC [id number] 03/29/16 TREAT KNEECAP FRACTURE 52896 03/29/16 UPPER ARM/ELBOW SURGERY 72189 05/24/15 Internal Medicine Assmt/Plan - Assessment Assessment: - Assessment Assessment: sp fall severe r orbital ecchymoses syncope sad dm hypothroidism dementia - Plan Plan: fall precaution dw father adjust pscyh meds dw rn - Plan Plan: cpm placement ongoing Nutritional Asmnt/Malnutr-PDOC - Dietary Evaluation Malnutrition Findings (Please click <Entered> for more info): Nutritional Asmnt/Malnutrition Start: 09/17/17 16: 59 Text: Status: Complete Freq: Document 09/17/17 16:59 LCHENG (Rec: 09/17/17 17:08 LCHENG [email or web address]) Nutritional Asmnt/Malnutrition Patient General Information Nutritional Screening Moderate Risk Diagnosis psychosis Pertinent Medical Hx/Surgical Hx DM, seizure, hypothyroidism, dementia, schizoaffective disorder, s/o left knee surgary secondary to fracture Subjective Information Pt seen sitting in odin-chair in dinning room, confused. Observed lunch finished about 30%. Pt requested P&J sandwich for dinner. Per EMR PO intake 100%. Current Diet Order/ Nutrition Support mec soft chopped, [id number] Pertinent Medications vit C, oscal w/tiv D, peptid, novolog, synthroid, glucophage , theragran Pertinent Labs 09/15-09/17 POC 81-130 Nutritional Hx/Data Height 1.57 m Height (Calculated Centimeters) 157.5 Current Weight (lbs) 56.699 kg Weight (Calculated Kilograms) 56.7 Weight (Calculated Grams) 93107.0 [employer] Body Weight 110 Body Mass Index (BMI) 22.8 Weight Status Approriate GI Symptoms GI Symptoms None Last BM 09/16 Difficult in: None Skin Integrity/Comment: pressure area erythema to right elbow bruise to right wrist and right eye Current %PO Good (75-100%) Estimated Nutritional Goals BEE in Kcals: Using Current wt Calories/Kcals/Kg 25-30 Kcals Calculated 3561-9195 Protein: Using Current wt Protein g/k-1.2 Protein Calculated 57-68 Fluid: ml 1425-1710ml (1m/kcal) Nutritional Problem No current Nutrition Prob Problem N/A Malnutrition Alert Protein-Calorie Malnutrition N/A Is there a minimum of two criteria No selected? Query Text:Check all the applicable criteria. A minimum of two criteria are recommended for diagnosis of either severe or non-severe malnutrition. Intervention/Recommendation Comments 1. Continue with [facility] soft chopped CCHO 60gm diet as ordered. 2. Monitor PO intake, wt, labs and skin integrity 3. F/U as low risk in 7 days, 5/3 Expected Outcomes/Goals Expected Outcomes/Goals 1. PO intake to meet at least 75% of nutritional needs. 2. Wt stability, skin to remain intact, labs to approach WNL.
--- NOTE | 2017-09-25 03:34 | Progress Notes ---
DATE: 09/24/2017 SUBJECTIVE: Staff was spoken to. The patient is interviewed. Mood is noted to be anxious. Affect is appropriate. Not suicidal or homicidal. Insight and judgment are noted to be improving. Impulse control seems to be fair. No side effects to the medications are noted. The patient has been able to participate in the groups and verbalize the concerns. The patient has been able to tolerate the Zyprexa and Depakote. ASSESSMENT: The patient is stabilizing. PLAN: To discharge the patient today for followup on outpatient basis. JOB# [id number]
== END 2017-09-24 14:15 | DRG 885 ==
LOC: GERO 13:21
DX: F25.9 Schizoaffective disorder, unspecified (principal); F03.91 Unspecified dementia, unspecified severity, with behavioral disturbance; E11.9 Type 2 diabetes mellitus without complications; R56.9 Unspecified convulsions; E03.9 Hypothyroidism, unspecified; R55 Syncope and collapse; S05.11XA Contusion of eyeball and orbital tissues, right eye, initial encounter; W18.30XA Fall on same level, unspecified, initial encounter; Y93.89 Activity, other specified; Y92.89 Other specified places as the place of occurrence of the external cause; Y99.8 Other external cause status
CPT/HCPCS: 36415-UA; 80048-TC; 82948-90; 85025-TC; 90899; 94760; G0410; J1815; J7051; Z7610

== ENCOUNTER 2018-03-07 16:54 | Inpatient (IN) | payer MEDICARE, MEDICAID ==
[2018-03-07 17:29] LABS: URINE SOURCE CLEAN C
[2018-03-07 17:30] LABS: % BASOPHILS 0.4 % (0.0-2.0); % EOSINOPHILS 0.1 % (0.0-5.0); % LYMPHOCYTES 27.2 % (20.0-50.0); % MONOCYTES 11.2 % (2.0-10.0); % NEUTROPHILS 61.1 % (40.0-80.0); HEMATOCRIT 30.2 % (41.0-60); HEMOGLOBIN 9.7 gm/dL (12-16); LYMPHOCYTE ABSOLUTE 1.6 Th/cmm (1.5-3.0); MEAN CELL VOLUME 73.9 fl (81-100); MEAN CORPUSCULAR HEMOGLOBIN 23.7 pg (27.0-31.0); MEAN PLATELET VOLUME 7.2 fl; MONOCYTE ABSOLUTE 0.6 Th/cmm (0.3-1.0); NEUTROPHILE ABSOLUTE 3.6 Th/cmm (1.8-8.0); PLATELET COUNT 170 Th/cmm (150-400); RED BLOOD COUNT 4.08 Mil/cmm (3.80-5.10); RED CELL DISTRIBUTION WIDTH 16.7 % (11.5-20.0); WHITE BLOOD COUNT 5.8 Th/cmm (4.8-10.8)
[2018-03-07 17:31] LABS: URINE BILIRUBIN NEGATIVE (NEGATIVE); URINE BLOOD NEGATIVE (NEGATIVE); URINE GLUCOSE (UA) 100 mg/dL (NEGATIVE); URINE KETONE TRACE mg/dL (NEGATIVE); URINE LEUKOCYTE ESTERASE NEGATIVE (NEGATIVE); URINE MICROSCOPIC INDICATED? YES; URINE NITRATE POSITIVE (NEGATIVE); URINE PROTEIN NEGATIVE (NEGATIVE); URINE UROBILINOGEN 0.2 E.U./dL (0.2 - 1.0)
[2018-03-07 17:35] LABS: URINE CLARITY CLEAR (CLEAR); URINE COLOR YELLOW
[2018-03-07 17:37] LABS: URINE BACTERIA 4+ /hpf (NONE SEEN); URINE EPITHELIAL CELLS OCCASIONAL /lpf (FEW); URINE RBC 0-2 /hpf (0-5)
[2018-03-07 17:46] LABS: ALB/GLOB RATIO 1.5 (1.0-1.8); ALBUMIN 3.6 gm/dL (3.7-5.3); ALKALINE PHOSPHATASE 71 U/L (34-104); ANION GAP 11.4 (7.0-16.0); BILIRUBIN,TOTAL 0.2 mg/dL (0.3-1.0); BUN - UREA NITROGEN 9 mg/dL (7-25); CALCIUM SERUM 8.3 mg/dL (8.6-10.3); CARBON DIOXIDE 28.4 mEq/L (21.0-31.0); CHLORIDE 99 mEq/L (98-107); CREATININE - SERUM 0.6 mg/dL (0.6-1.2); GFR AFRICAN-AMERICAN > 60.0 ml/min (>90); GFR NON AFRICAN-AMERICAN > 60.0 ml/min; GLUCOSE 97 mg/dL (70-105); MAGNESIUM 1.8 mg/dL (1.9-2.7); PHOSPHOROUS 3.3 mg/dL (2.5-5.0); POTASSIUM SERUM 3.8 mEq/L (3.5-5.1); SGOT 14 U/L (13-39); SGPT/ALT 12 U/L (7-52); SODIUM SERUM 135 mEq/L (136-145)
[2018-03-07 17:47] LABS: VALPROIC ACID 80.3 ug/mL (50.0-100.0)
[2018-03-07 18:01] LABS: AMPHETAMINE URINE NEGATIVE (NEGATIVE); BARBITURATES URINE NEGATIVE (NEGATIVE); BENZODIAZEPINES QUAL URINE POSITIVE (NEGATIVE); CANNABINOID THC NEGATIVE (NEGATIVE); COCAINE METABOLITE QUAL URINE NEGATIVE (NEGATIVE); METHADONE URINE NEGATIVE (NEGATIVE); METHAMPHETAMINES QUAL URINE NEGATIVE (NEGATIVE); OPIATES (MORPHINE) QUAL. URINE NEGATIVE (NEGATIVE); PHENCYCLIDINE (PCP) URINE NEGATIVE (NEGATIVE); TRICYCLICS (TCA) QUAL. URINE NEGATIVE (NEGATIVE)
[2018-03-07] MEDS ORDERED: Ciprofloxacin 400mg Premix PB 400 MG/200 ML BAG IV ONE ×2 (18:05→18:27)
--- NOTE | 2018-03-07 19:32 | ED Physician Chart ---
ED Chief Complaint/HPI - Patient Information Date Seen:: 03/07/18 Time Seen:: 16:57 Chief Complaint:: increased agitation History of Present Illness:: increased agitation Allergies:: Allergies Allergy/AdvReac Type Severity Reaction Status Date / Time Penicillins [PCN] Allergy Verified 10/21/16 19:31 Vitals:: Vital Signs - 8 hr 03/07/18 16:57 Temp 97.9 F HR 76 RR 18 BP 121/79 O2 Sat % 99 Historian:: Medical Records Review:: Nurse's Note Reviewed, Transfer documents Reviewed ED Review of Systems - Review of Systems General/Constitutional: No fever, No chills, No weight loss, No weakness, No diaphoresis, No edema, No loss of appetite Skin: No skin lesions, No rash, No bruising Head: No headache, No light-headedness Eyes: No loss of vision, No pain, No diplopia ENT: No earache, No nasal drainage, No sore throat, No tinnitus Neck: No neck pain, No swelling, No thyromegaly, No stiffness, No mass noted Cardio Vascular: No chest pain, No palpitations, No PND, No orthopnea, No edema Pulmonary: No SOB, No cough, No sputum, No wheezing GI: No nausea, No vomiting, No diarrhea, No pain, No melena, No hematochezia, No constipation, No hematemesis G/U: No dysuria, No frequency, No hematuria Musculoskeletal: No bone or joint pain, No back pain, No muscle pain Endocrine: No polyuria, No polydipsia Psychiatric: Other (increased agitation) Hematopoietic: No bruising, No lymphadenopathy Allergic/Immuno: No urticaria, No angioedema Neurological: No syncope, No focal symptoms, No weakness, No paresthesia, No headache, No seizure, No dizziness, No confusion, No vertigo ED Past Medical History - Past Medical History Obtainable: No Past Medical History: DM, CAD, Seizures, Thyroid disorder, Dementia Psychiatricy History: Dementia, Other (schizoaffective disorder) Family Medical History - Family Member Mother History Unknown: Yes Ethnicity: Unknown Living Status: Still Living Hx Family Cancer: No Hx Family Coronary Artery Disease: No Hx Family Congestive Heart Failure: No Hx Family Hypertension: Yes Hx Family Stroke: No Hx Family Diabetes: No Hx Family Seizures: Yes Hx Family Dementia: No Hx Family AIDS: No Hx Family HIV: No Hx Family COPD: No Hx Family Hepatitis: No Hx Family Psychiatric Problems: Yes Hx Family Tuberculosis: No Father History Unknown: Yes Ethnicity: Unknown Living Status: Unknown Hx Family Cancer: (unknown) Hx Family Coronary Artery Disease: (unknown) Hx Family Congestive Heart Failure: (unknown) Hx Family Hypertension: (unknown) Hx Family Stroke: (unknown) Hx Family Diabetes: (unknown) Hx Family Seizures: (unknown) Hx Family Dementia: (unknown) Hx Family AIDS: (unknown) Hx Family COPD: (unknown) Hx Family Hepatitis: (unknown) Hx Family Psychiatric Problems: (unknown) Hx Family Tuberculosis: (unknown) ED Physical Exam - Physical Examination General/Constitutional: Awake, No distress, Non-toxic appearing Other Gen/Cons comments:: looks older than her age Head: Atraumatic Eyes: Lids, conjuctiva normal, PERRL, EOMI Skin: Nl inspection, No rash, No skin lesions, No ecchymosis, Well hydrated, No lymphadenopathy ENMT: External ears, nose nl Neck: Nontender, No nuchal rigidity Respiratory: Nl effort/Exclusion, Clear to Auscultation Cardio Vascular: RRR GI: No tenderness/rebounding/guarding, No organomegaly : No CVA tenderness Extremities: No tenderness or effusion Other Extremities comments:: R knee scar and R flexion contracture. Other Neuro/Psych comments:: awake ED Labs/Radiology/EKG Results - Lab Results Results: Laboratory Tests 03/07/18 03/07/18 03/07/18 17:20 17:20 17:20 WBC 5.8 RBC 4.08 Hgb 9.7 L Hct 30.2 L MCV 73.9 L MCH 23.7 L MCHC Differential 32.0 RDW 16.7 Plt Count 170 MPV 7.2 Neutrophils % 61.1 Lymphocytes % 27.2 Monocytes % 11.2 H Eosinophils % 0.1 Basophils % 0.4 Sodium 135 L Potassium 3.8 Chloride 99 Carbon Dioxide 28.4 Anion Gap 11.4 BUN 9 Creatinine 0.6 Est GFR ( Amer) > 60.0 Est GFR (Non-Af Amer) > 60.0 BUN/Creatinine Ratio 15.0 Glucose 97 Calcium 8.3 L Phosphorus 3.3 Magnesium 1.8 L Total Bilirubin 0.2 L AST 14 ALT 12 Alkaline Phosphatase 71 Total Protein 6.0 Albumin 3.6 L Globulin 2.4 Albumin/Globulin Ratio 1.5 TSH Urine Source CLEAN C Urine Color YELLOW Urine Clarity CLEAR Urine pH 6.0 Ur Specific [place] 1.010 Urine Protein NEGATIVE Urine Glucose (UA) 100 H Urine Ketones TRACE Urine Blood NEGATIVE Urine Nitrate POSITIVE H Urine Bilirubin NEGATIVE Urine Urobilinogen 0.2 Ur Leukocyte Esterase NEGATIVE Urine RBC 0-2 Urine WBC 2-5 Ur Epithelial Cells OCCASIONAL Urine Bacteria 4+ H Urine Opiates Screen Urine Methadone Screen Ur Barbiturates Screen Valproic Acid Ur Tricyclics Screen Ur Phencyclidine Scrn Amphetamines Screen U Methamphetamines Scrn U Benzodiazepines Scrn U Cocaine Metab Screen U Cannabinoids Screen 03/07/18 03/07/18 17:20 17:20 WBC RBC Hgb Hct MCV MCH MCHC Differential RDW Plt Count MPV Neutrophils % Lymphocytes % Monocytes % Eosinophils % Basophils % Sodium Potassium Chloride Carbon Dioxide Anion Gap BUN Creatinine Est GFR ( Amer) Est GFR (Non-Af Amer) BUN/Creatinine Ratio Glucose Calcium Phosphorus Magnesium Total Bilirubin AST ALT Alkaline Phosphatase Total Protein Albumin Globulin Albumin/Globulin Ratio TSH 1.08 Urine Source Urine Color Urine Clarity Urine pH Ur Specific [place] Urine Protein Urine Glucose (UA) Urine Ketones Urine Blood Urine Nitrate Urine Bilirubin Urine Urobilinogen Ur Leukocyte Esterase Urine RBC Urine WBC Ur Epithelial Cells Urine Bacteria Urine Opiates Screen NEGATIVE Urine Methadone Screen NEGATIVE Ur Barbiturates Screen NEGATIVE Valproic Acid 80.3 Ur Tricyclics Screen NEGATIVE Ur Phencyclidine Scrn NEGATIVE Amphetamines Screen NEGATIVE U Methamphetamines Scrn NEGATIVE U Benzodiazepines Scrn POSITIVE H U Cocaine Metab Screen NEGATIVE U Cannabinoids Screen NEGATIVE ED Assessment - Assessment General Assessment: receiving IV Ciprofloxacin. WILL CLEAR PATIENT FROM A MEDICAL STANDPOINT FOR GEROPSYCH, BUT I RECOMMEND CONTINUED ORAL ANTIBIOTIC TREATMENT FOR A UTI ON THE FLOOR. Assessment/Comments:: sign out given to Dr. Shah on this patient. ED Septic Shock - . Is Septic Shock (SBP<90, OR Lactate>4 mmol\L) present?: No - <6hrs of presentation: Vital Signs: Vital Signs - 8 hr 03/07/18 16:57 Temp 97.9 F HR 76 RR 18 BP 121/79 O2 Sat % 99 ED Reassessment (Disposition) - Reassessment Reassessment Condition:: Unchanged - Diagnosis Diagnosis:: Increased agitation Schizoaffective disorder Urinary tract infection (RECOMMEND CONTINUED TREATMENT ON THE GEROPSYCH FLOOR) Dementia Seizure disorder Diabetes R knee contracture Anemia Parkinson's GERD without esophagitis Hypothyroidism - Patient Disposition Discharge/Transfer:: Acute Care w/in this hosp Admitted to:: [facility] Condition at Disposition:: Stable
[2018-03-07 22:49] VITALS: BP 106/70
[2018-03-07] MEDS ORDERED: GLUCAGON HCl 1 MG KIT IM PRN (23:30)
[2018-03-08] MEDS: INSULIN ASPART SLIDING SCALE 100 UNITS/ML UNIT SUBQ SCH ×4 (06:36→20:33)
[2018-03-08] MEDS ORDERED: INSULIN ASPART, RECOMBINANT 100 UNITS/ML SUBQ SCH (07:30)
[2018-03-08] MEDS: Levothyroxine 0.025 Mg Tab PO SCH (07:32)
[2018-03-08 07:42] LABS: CHOLESTEROL 119 mg/dL (<200); HDL -HIGH DENSITY LIPOPROTEIN 53 mg/dL (23-92); TRIGLYCERIDES 111 mg/dL (<150)
[2018-03-08] MEDS: Calcium Carb/Vit D 500 mg/200 U Tab PO SCH (09:14)
[2018-03-08] MEDS: Multivitamin Tab PO SCH (09:14)
--- NOTE | 2018-03-08 14:28 | History & Physical ---
ADMIT DATE: 03/07/2018 DICTATED FOR: Dr. Jamir Russell CHIEF COMPLAINT: Increasing agitation. HISTORY OF PRESENT ILLNESS: This is a 52-year-old female who is a resident of [facility], admitted to the Geropsych Unit due to 1-day history of agitation towards nursing staff and residents of the intermediate. PAST MEDICAL HISTORY: Diabetes, seizure, hypothyroidism, dementia, schizoaffective disorder. PAST SURGICAL HISTORY: Status post left knee surgery secondary to fracture. ALLERGIES: PENICILLIN. MEDICATIONS: Please see medication list. FAMILY HISTORY: Noncontributory. SOCIAL HISTORY: The patient is a intermediate resident, requiring 24-hour nursing care. REVIEW OF SYSTEMS: Unable to obtain, the patient is confused and agitated. PHYSICAL EXAMINATION: GENERAL: Elderly female, awake, alert, in no apparent distress. VITAL SIGNS: Temperature 96.8, heart rate 57, blood pressure 114/77, respirations 18, O2 99%. HEENT: Head normocephalic, atraumatic. NECK: Supple. No mass. LUNGS: Clear bilaterally. HEART: Regular rate and rhythm. ABDOMEN: Soft, nontender. EXTREMITIES: Trace of edema. LABORATORY AND DIAGNOSTIC DATA: WBC 5.8, H and H 9.7 and 30.2, platelet of 170. Sodium 135, potassium 3.8, chloride 99, BUN 9, creatinine 0.6, albumin at 3.6. ASSESSMENT: Agitation, diabetes, coronary artery disease, seizures, hypothyroidism, dementia, schizoaffective disorder, acute urinary tract infection. PLAN: Fall precaution, seizure precautions will be initiated. Continue intermediate medications. We will continue to monitor this patient. JOB# [id number]
--- NOTE | 2018-03-08 23:35 | Psychiatric Evaluation ---
DATE OF SERVICE: 03/08/2018 IDENTIFYING DATA: The patient is a 52-year-old woman, resident of [facility]. Information obtained by directly interviewing the patient as well as reviewing the admission papers and they are reliable. JUSTIFICATION FOR HOSPITALIZATION: The patient is admitted on a voluntary basis in view of her acute agitation and psychosis. CHIEF COMPLAINT: "I'm feeling depressed." HISTORY OF PRESENT ILLNESS: This is one of multiple psychiatric hospitalizations for this patient who is being maintained on Haldol Decanoate every 2 weeks and the patient also has been getting the mood stabilizer. The patient is still reporting to have been responding to internal stimuli and has been having fear that she might lose control and then hurt herself and hence the patient has been hospitalized for stabilization. PAST PSYCHIATRIC HISTORY: The patient had been hospitalized on multiple occasions. MEDICAL HISTORY: Physical examination is requested to be done by Dr. Russell. SUBSTANCE ABUSE HISTORY: None. PHYSICAL OR SEXUAL ABUSE HISTORY: None. LEGAL PROBLEMS: None at this time. STRENGTH AND ASSETS: The patient is motivated. MENTAL STATUS EXAMINATION: The patient is a 52-year-old, looking her stated age, wheelchair bound, superficially cooperative. Mood is noted to be depressed. Affect is constricted. The patient has been having the acute mood swings. The patient is not able to contract for safety at this time. The patient is alert and aware that she is in the hospital and the patient's short and long-term memory noted to be intact. The patient has been able to verbalize some of her concerns. DIAGNOSTIC IMPRESSION: AXIS I: Schizoaffective disorder, psychotic at this time. AXIS II: None. AXIS III: As per Dr. Russell. IMMEDIATE TREATMENT PLAN: The patient is going to be observed on inpatient unit, provided with supportive psychotherapy. The patient is going to be closely monitored. Once stabilized, the patient is going to be discharged to [facility] to be followed up on an outpatient basis. JOB# [id number]
[2018-03-09] MEDS: Levothyroxine 0.025 Mg Tab PO SCH (06:31)
[2018-03-09] MEDS: INSULIN ASPART SLIDING SCALE 100 UNITS/ML UNIT SUBQ SCH ×4 (06:33→21:09)
[2018-03-09] MEDS: Calcium Carb/Vit D 500 mg/200 U Tab PO SCH (08:08)
[2018-03-09] MEDS: Multivitamin Tab PO SCH (08:08)
--- NOTE | 2018-03-09 12:39 | Internal Medicine Prog Note ---
Internal Medicine Subjective - Subjective Service Date: 03/09/18 Patient seen and examined:: with staff Patient is:: awake, verbal Per staff patient has:: tolerating meds Internal Medicine Objective - Results Result Diagrams: 03/07/18 17:20 03/07/18 17:20 Recent Labs: Laboratory Last Values WBC 5.8 Th/cmm (4.8-10.8) 03/07/18 17:20 RBC 4.08 Mil/cmm (3.80-5.10) 03/07/18 17:20 Hgb 9.7 gm/dL (12-16) L 03/07/18 17:20 Hct 30.2 % (41.0-60) L 03/07/18 17:20 MCV 73.9 fl (81-100) L 03/07/18 17:20 MCH 23.7 pg (27.0-31.0) L 03/07/18 17:20 MCHC Differential 32.0 pg (28.0-36.0) 03/07/18 17:20 RDW 16.7 % (11.5-20.0) 03/07/18 17:20 Plt Count 170 Th/cmm (150-400) 03/07/18 17:20 MPV 7.2 fl 03/07/18 17:20 Neutrophils % 61.1 % (40.0-80.0) 03/07/18 17:20 Lymphocytes % 27.2 % (20.0-50.0) 03/07/18 17:20 Monocytes % 11.2 % (2.0-10.0) H 03/07/18 17:20 Eosinophils % 0.1 % (0.0-5.0) 03/07/18 17:20 Basophils % 0.4 % (0.0-2.0) 03/07/18 17:20 Sodium 135 mEq/L (136-145) L 03/07/18 17:20 Potassium 3.8 mEq/L (3.5-5.1) 03/07/18 17:20 Chloride 99 mEq/L (98-107) 03/07/18 17:20 Carbon Dioxide 28.4 mEq/L (21.0-31.0) 03/07/18 17:20 Anion Gap 11.4 (7.0-16.0) 03/07/18 17:20 BUN 9 mg/dL (7-25) 03/07/18 17:20 Creatinine 0.6 mg/dL (0.6-1.2) 03/07/18 17:20 Est GFR ( Amer) > 60.0 ml/min (>90) 03/07/18 17:20 Est GFR (Non-Af Amer) > 60.0 ml/min 03/07/18 17:20 BUN/Creatinine Ratio 15.0 03/07/18 17:20 Glucose 97 mg/dL (70-105) 03/07/18 17:20 POC Glucose 56 MG/DL (70 - 105) L 03/09/18 11:24 Calcium 8.3 mg/dL (8.6-10.3) L 03/07/18 17:20 Phosphorus 3.3 mg/dL (2.5-5.0) 03/07/18 17:20 Magnesium 1.8 mg/dL (1.9-2.7) L 03/07/18 17:20 Total Bilirubin 0.2 mg/dL (0.3-1.0) L 03/07/18 17:20 AST 14 U/L (13-39) 03/07/18 17:20 ALT 12 U/L (7-52) 03/07/18 17:20 Alkaline Phosphatase 71 U/L (34-104) 03/07/18 17:20 Total Protein 6.0 gm/dL (6.0-8.3) 03/07/18 17:20 Albumin 3.6 gm/dL (3.7-5.3) L 03/07/18 17:20 Globulin 2.4 gm/dL 03/07/18 17:20 Albumin/Globulin Ratio 1.5 (1.0-1.8) 03/07/18 17:20 Triglycerides 111 mg/dL (<150) 03/08/18 07:18 Cholesterol 119 mg/dL (<200) 03/08/18 07:18 LDL Cholesterol Direct 43 mg/dL (75-193) L 03/08/18 07:18 HDL Cholesterol 53 mg/dL (23-92) 03/08/18 07:18 TSH 1.08 uIU/ml (0.34-5.60) 03/07/18 17:20 Urine Source CLEAN C 03/07/18 17:20 Urine Color YELLOW 03/07/18 17:20 Urine Clarity CLEAR (CLEAR) 03/07/18 17:20 Urine pH 6.0 (4.6 - 8.0) 03/07/18 17:20 Ur Specific [place] 1.010 (1.005-1.030) 03/07/18 17:20 Urine Protein NEGATIVE mg/dL (NEGATIVE) 03/07/18 17:20 Urine Glucose (UA) 100 mg/dL (NEGATIVE) H 03/07/18 17:20 Urine Ketones TRACE mg/dL (NEGATIVE) 03/07/18 17:20 Urine Blood NEGATIVE (NEGATIVE) 03/07/18 17:20 Urine Nitrate POSITIVE (NEGATIVE) H 03/07/18 17:20 Urine Bilirubin NEGATIVE (NEGATIVE) 03/07/18 17:20 Urine Urobilinogen 0.2 E.U./dL (0.2 - 1.0) 03/07/18 17:20 Ur Leukocyte Esterase NEGATIVE (NEGATIVE) 03/07/18 17:20 Urine RBC 0-2 /hpf (0-5) 03/07/18 17:20 Urine WBC 2-5 /hpf (0-5) 03/07/18 17:20 Ur Epithelial Cells OCCASIONAL /lpf (FEW) 03/07/18 17:20 Urine Bacteria 4+ /hpf (NONE SEEN) H 03/07/18 17:20 Urine Opiates Screen NEGATIVE (NEGATIVE) 03/07/18 17:20 Urine Methadone Screen NEGATIVE (NEGATIVE) 03/07/18 17:20 Ur Barbiturates Screen NEGATIVE (NEGATIVE) 03/07/18 17:20 Valproic Acid 80.3 ug/mL (50.0-100.0) 03/07/18 17:20 Ur Tricyclics Screen NEGATIVE (NEGATIVE) 03/07/18 17:20 Ur Phencyclidine Scrn NEGATIVE (NEGATIVE) 03/07/18 17:20 Amphetamines Screen NEGATIVE (NEGATIVE) 03/07/18 17:20 U Methamphetamines Scrn NEGATIVE (NEGATIVE) 03/07/18 17:20 U Benzodiazepines Scrn POSITIVE (NEGATIVE) H 03/07/18 17:20 U Cocaine Metab Screen NEGATIVE (NEGATIVE) 03/07/18 17:20 U Cannabinoids Screen NEGATIVE (NEGATIVE) 03/07/18 17:20 - Physical Exam Vitals and I&O: Vital Signs Temp 98 F 03/09/18 06:28 Pulse 60 03/09/18 06:28 Resp 18 03/09/18 06:28 BP 112/64 03/09/18 06:28 Pulse Ox 92 03/09/18 06:28 Intake & Output 03/08/18 03/09/18 03/09/18 18:59 06:59 18:59 Intake Total 900 180 Balance 900 180 Weight (lbs) 113 lb Intake: Oral 900 180 Other: # Voids 3 3 # Bowel Movements 1 1 Stool Characteristics Soft Weight Source Bedscale Active Medications: Current Medications Calcium/Vitamin D (Oscal W/Vitamin D) 1 tab PO DAILY [facility] Stop: 05/07/18 08:59 Last Admin: 03/09/18 08:08 Dose: 1 tab Divalproex Sodium (Depakote Sprinkle) 500 mg PO BID [facility]; Protocol Stop: 05/07/18 08:59 Last Admin: 03/09/18 08:08 Dose: 500 mg Donepezil HCl (Aricept) 5 mg PO HS [facility] Stop: 05/07/18 20:59 Last Admin: 03/08/18 20:26 Dose: 5 mg Famotidine (Pepcid) 20 mg PO DAILY [facility] Stop: 05/07/18 08:59 Last Admin: 03/09/18 08:09 Dose: 20 mg Glucagon (Glucagen) 1 mg IM PRN PRN PRN Reason: HYPOGLYCEMIA Stop: 05/06/18 23:29 Haloperidol Decanoate (Haldol Dec) 50 mg IM [id number] [facility]; Protocol Stop: 05/08/18 08:59 Last Admin: 03/09/18 10:02 Dose: 50 mg Insulin Aspart (Novolog Insulin Sliding Scale) 0 units SUBQ ACHS [facility]; Protocol Stop: 05/07/18 07:29 Last Admin: 03/09/18 12:00 Dose: Not Given Levetiracetam (Keppra) 500 mg PO BID [facility] Stop: 05/07/18 08:59 Last Admin: 03/09/18 08:09 Dose: 500 mg Levofloxacin (Levaquin) 500 mg PO DAILY [facility] Stop: 05/08/18 08:59 Last Admin: 03/09/18 08:08 Dose: 500 mg Levothyroxine Sodium (Synthroid) 0.05 mg PO QDAC [facility] Stop: 05/09/18 07:29 Lorazepam (Ativan) 0.5 mg PO Q4HR PRN; Protocol PRN Reason: Anxiety Stop: 04/07/18 00:06 Last Admin: 03/08/18 20:27 Dose: 0.5 mg Metformin HCl (Glucophage) 500 mg PO TID [facility] Stop: 05/07/18 08:59 Last Admin: 03/09/18 08:09 Dose: 500 mg Multivitamins/Vitamin C (Theragran) 1 tab PO DAILY [facility] Stop: 05/07/18 08:59 Last Admin: 03/09/18 08:08 Dose: 1 tab Olanzapine (Zyprexa) 10 mg PO BID [facility]; Protocol Stop: 05/07/18 08:59 Last Admin: 03/09/18 08:09 Dose: 10 mg Oxcarbazepine (Trileptal) 150 mg PO BID [facility]; Protocol Stop: 05/07/18 08:59 Last Admin: 03/09/18 08:09 Dose: 150 mg Zolpidem Tartrate (Ambien) 5 mg PO HS PRN PRN Reason: Insomnia Stop: 05/07/18 00:06 Last Admin: 03/08/18 20:26 Dose: 5 mg General: alert HEENT: NC/AT, PERRLA Neck: Supple Lungs: CTAB Cardiovascular: RRR, Normal S1, Normal S2, without murmur Abdomen: soft, non-tender, non-distended Neurological: alert - Procedures Procedures: Procedures Procedure Code Date BLOOD TRANSFUSION SERVICE 81135 03/29/16 CLOSURE SKIN & SUBCUTANEOUS NEC 86.59 07/02/14 DIAGNOSTIC COLONOSCOPY 67255 09/13/15 DRAINAGE OF STOMACH, ENDO, DIAGN [id number] 09/13/15 EGD BIOPSY SINGLE/MULTIPLE 11062 09/13/15 ELECTROCARDIOGRAM 89.52 10/10/94 EMERGENCY DEPT VISIT 28417 07/04/11 EXCISION OF DUODENUM, ENDO, DIAGN [id number] 09/13/15 GASTRIC INTUBATION TREATMENT 51361 12/28/07 GASTRIC LAVAGE 96.33 12/28/07 INSERT GASTRIC TUBE NEC 96.07 07/26/95 INSERT INDWELLING CATH 57.94 09/16/11 INSERT TEMP BLADDER CATH 27454 09/16/11 INSERTION OF INT FIX INTO L HUMERAL SHAFT, PERC APPROACH [id number] 05/24/15 INSPECTION OF LOWER INTESTINAL TRACT, ENDO [id number] 09/13/15 OXYGEN ENRICHMENT NEC 93.96 10/10/94 REMOV THERAPEUT DEV NEC 97.89 03/25/01 REMOVAL OF INT FIX FROM R KNEE JT, OPEN APPROACH [id number] 04/15/16 REPAIR FACE SKIN, EXTERNAL APPROACH [id number] 04/12/15 REPOSITION RIGHT PATELLA WITH INT FIX, OPEN APPROACH [id number] 03/29/16 RPR F/E/E/N/L/M 2.5 CM/< 20458 04/12/15 RPR F/E/E/N/L/M 2.6-5.0 CM 40858 07/02/14 TETANUS TOXOID ADMINIST 99.38 07/02/14 TRANSFUSE NONAUT RED BLOOD CELLS IN PERIPH VEIN, PERC [id number] 03/29/16 TREAT KNEECAP FRACTURE 40263 03/29/16 UPPER ARM/ELBOW SURGERY 84582 05/24/15 Internal Medicine Assmt/Plan - Assessment Assessment: dm sz hypothyroidism dementia schizoaffective - Plan Plan: seizure precautions continue snf meds continue current plan of care
--- NOTE | 2018-03-10 01:34 | Progress Notes ---
DATE: 03/09/2018 SUBJECTIVE: Staff was spoken to. The patient is interviewed. Mood is noted to be irritable. Affect is constricted. The patient has paranoid delusions. The patient is self-abusive at times. Insight and judgment at this time are noted to be still impaired. Impulse control is noted to be limited. Coping skills are noted to be limited. ASSESSMENT: The patient is still paranoid and having mood swings. PLAN: To continue the patient with the supportive therapy and current medications and followup. JOB# [id number]
[2018-03-10] MEDS: INSULIN ASPART SLIDING SCALE 100 UNITS/ML UNIT SUBQ SCH ×4 (06:32→20:35)
[2018-03-10] MEDS: Levothyroxine 0.05 Mg Tab PO SCH (06:33)
[2018-03-10] MEDS: Multivitamin Tab PO SCH (08:37)
[2018-03-10] MEDS: Calcium Carb/Vit D 500 mg/200 U Tab PO SCH (08:38)
--- NOTE | 2018-03-10 15:32 | Internal Medicine Prog Note ---
Internal Medicine Subjective - Subjective Service Date: 03/10/18 Patient is:: awake, verbal Per staff patient has:: tolerating meds Internal Medicine Objective - Results Result Diagrams: 03/07/18 17:20 03/07/18 17:20 Recent Labs: Laboratory Last Values WBC 5.8 Th/cmm (4.8-10.8) 03/07/18 17:20 RBC 4.08 Mil/cmm (3.80-5.10) 03/07/18 17:20 Hgb 9.7 gm/dL (12-16) L 03/07/18 17:20 Hct 30.2 % (41.0-60) L 03/07/18 17:20 MCV 73.9 fl (81-100) L 03/07/18 17:20 MCH 23.7 pg (27.0-31.0) L 03/07/18 17:20 MCHC Differential 32.0 pg (28.0-36.0) 03/07/18 17:20 RDW 16.7 % (11.5-20.0) 03/07/18 17:20 Plt Count 170 Th/cmm (150-400) 03/07/18 17:20 MPV 7.2 fl 03/07/18 17:20 Neutrophils % 61.1 % (40.0-80.0) 03/07/18 17:20 Lymphocytes % 27.2 % (20.0-50.0) 03/07/18 17:20 Monocytes % 11.2 % (2.0-10.0) H 03/07/18 17:20 Eosinophils % 0.1 % (0.0-5.0) 03/07/18 17:20 Basophils % 0.4 % (0.0-2.0) 03/07/18 17:20 Sodium 135 mEq/L (136-145) L 03/07/18 17:20 Potassium 3.8 mEq/L (3.5-5.1) 03/07/18 17:20 Chloride 99 mEq/L (98-107) 03/07/18 17:20 Carbon Dioxide 28.4 mEq/L (21.0-31.0) 03/07/18 17:20 Anion Gap 11.4 (7.0-16.0) 03/07/18 17:20 BUN 9 mg/dL (7-25) 03/07/18 17:20 Creatinine 0.6 mg/dL (0.6-1.2) 03/07/18 17:20 Est GFR ( Amer) > 60.0 ml/min (>90) 03/07/18 17:20 Est GFR (Non-Af Amer) > 60.0 ml/min 03/07/18 17:20 BUN/Creatinine Ratio 15.0 03/07/18 17:20 Glucose 97 mg/dL (70-105) 03/07/18 17:20 POC Glucose 90 MG/DL (70 - 105) 03/09/18 21:07 Calcium 8.3 mg/dL (8.6-10.3) L 03/07/18 17:20 Phosphorus 3.3 mg/dL (2.5-5.0) 03/07/18 17:20 Magnesium 1.8 mg/dL (1.9-2.7) L 03/07/18 17:20 Total Bilirubin 0.2 mg/dL (0.3-1.0) L 03/07/18 17:20 AST 14 U/L (13-39) 03/07/18 17:20 ALT 12 U/L (7-52) 03/07/18 17:20 Alkaline Phosphatase 71 U/L (34-104) 03/07/18 17:20 Total Protein 6.0 gm/dL (6.0-8.3) 03/07/18 17:20 Albumin 3.6 gm/dL (3.7-5.3) L 03/07/18 17:20 Globulin 2.4 gm/dL 03/07/18 17:20 Albumin/Globulin Ratio 1.5 (1.0-1.8) 03/07/18 17:20 Triglycerides 111 mg/dL (<150) 03/08/18 07:18 Cholesterol 119 mg/dL (<200) 03/08/18 07:18 LDL Cholesterol Direct 43 mg/dL (75-193) L 03/08/18 07:18 HDL Cholesterol 53 mg/dL (23-92) 03/08/18 07:18 TSH 1.08 uIU/ml (0.34-5.60) 03/07/18 17:20 Urine Source CLEAN C 03/07/18 17:20 Urine Color YELLOW 03/07/18 17:20 Urine Clarity CLEAR (CLEAR) 03/07/18 17:20 Urine pH 6.0 (4.6 - 8.0) 03/07/18 17:20 Ur Specific [place] 1.010 (1.005-1.030) 03/07/18 17:20 Urine Protein NEGATIVE mg/dL (NEGATIVE) 03/07/18 17:20 Urine Glucose (UA) 100 mg/dL (NEGATIVE) H 03/07/18 17:20 Urine Ketones TRACE mg/dL (NEGATIVE) 03/07/18 17:20 Urine Blood NEGATIVE (NEGATIVE) 03/07/18 17:20 Urine Nitrate POSITIVE (NEGATIVE) H 03/07/18 17:20 Urine Bilirubin NEGATIVE (NEGATIVE) 03/07/18 17:20 Urine Urobilinogen 0.2 E.U./dL (0.2 - 1.0) 03/07/18 17:20 Ur Leukocyte Esterase NEGATIVE (NEGATIVE) 03/07/18 17:20 Urine RBC 0-2 /hpf (0-5) 03/07/18 17:20 Urine WBC 2-5 /hpf (0-5) 03/07/18 17:20 Ur Epithelial Cells OCCASIONAL /lpf (FEW) 03/07/18 17:20 Urine Bacteria 4+ /hpf (NONE SEEN) H 03/07/18 17:20 Urine Opiates Screen NEGATIVE (NEGATIVE) 03/07/18 17:20 Urine Methadone Screen NEGATIVE (NEGATIVE) 03/07/18 17:20 Ur Barbiturates Screen NEGATIVE (NEGATIVE) 03/07/18 17:20 Valproic Acid 80.3 ug/mL (50.0-100.0) 03/07/18 17:20 Ur Tricyclics Screen NEGATIVE (NEGATIVE) 03/07/18 17:20 Ur Phencyclidine Scrn NEGATIVE (NEGATIVE) 03/07/18 17:20 Amphetamines Screen NEGATIVE (NEGATIVE) 03/07/18 17:20 U Methamphetamines Scrn NEGATIVE (NEGATIVE) 03/07/18 17:20 U Benzodiazepines Scrn POSITIVE (NEGATIVE) H 03/07/18 17:20 U Cocaine Metab Screen NEGATIVE (NEGATIVE) 03/07/18 17:20 U Cannabinoids Screen NEGATIVE (NEGATIVE) 03/07/18 17:20 - Physical Exam Vitals and I&O: Vital Signs Temp 97.4 F 03/10/18 06:22 Pulse 58 03/10/18 06:22 Resp 19 03/10/18 06:22 BP 117/70 03/10/18 06:22 Pulse Ox 96 03/10/18 06:22 Intake & Output 03/09/18 03/10/18 03/10/18 18:59 06:59 18:59 Intake Total 900 360 Balance 900 360 Weight (lbs) 113 lb Intake: Oral 900 360 Other: # Voids 4 2 # Bowel Movements 1 0 Weight Source Bedscale Active Medications: Current Medications Calcium/Vitamin D (Oscal W/Vitamin D) 1 tab PO DAILY [facility] Stop: 05/07/18 08:59 Last Admin: 03/10/18 08:38 Dose: 1 tab Divalproex Sodium (Depakote Sprinkle) 500 mg PO BID [facility]; Protocol Stop: 05/07/18 08:59 Last Admin: 03/10/18 08:37 Dose: 500 mg Donepezil HCl (Aricept) 5 mg PO HS [facility] Stop: 05/07/18 20:59 Last Admin: 03/09/18 21:04 Dose: 5 mg Famotidine (Pepcid) 20 mg PO DAILY [facility] Stop: 05/07/18 08:59 Last Admin: 03/10/18 08:37 Dose: 20 mg Glucagon (Glucagen) 1 mg IM PRN PRN PRN Reason: HYPOGLYCEMIA Stop: 05/06/18 23:29 Haloperidol Decanoate (Haldol Dec) 50 mg IM [id number] [facility]; Protocol Stop: 05/08/18 08:59 Last Admin: 03/09/18 10:02 Dose: 50 mg Insulin Aspart (Novolog Insulin Sliding Scale) 0 units SUBQ ACHS [facility]; Protocol Stop: 05/07/18 07:29 Last Admin: 03/10/18 11:30 Dose: Not Given Levetiracetam (Keppra) 500 mg PO BID [facility] Stop: 05/07/18 08:59 Last Admin: 03/10/18 08:38 Dose: 500 mg Levofloxacin (Levaquin) 500 mg PO DAILY [facility] Stop: 05/08/18 08:59 Last Admin: 03/10/18 08:38 Dose: 500 mg Levothyroxine Sodium (Synthroid) 0.05 mg PO QDAC [facility] Stop: 05/09/18 07:29 Last Admin: 03/10/18 06:33 Dose: 0.05 mg Lorazepam (Ativan) 0.5 mg PO Q4HR PRN; Protocol PRN Reason: Anxiety Stop: 04/07/18 00:06 Last Admin: 03/08/18 20:27 Dose: 0.5 mg Metformin HCl (Glucophage) 500 mg PO TIDWM [facility] Stop: 05/09/18 07:59 Last Admin: 03/10/18 12:28 Dose: Not Given Multivitamins/Vitamin C (Theragran) 1 tab PO DAILY [facility] Stop: 05/07/18 08:59 Last Admin: 03/10/18 08:37 Dose: 1 tab Olanzapine (Zyprexa) 10 mg PO BID [facility]; Protocol Stop: 05/07/18 08:59 Last Admin: 03/10/18 08:38 Dose: 10 mg Oxcarbazepine (Trileptal) 150 mg PO BID [facility]; Protocol Stop: 05/07/18 08:59 Last Admin: 03/10/18 08:37 Dose: 150 mg Zolpidem Tartrate (Ambien) 5 mg PO HS PRN PRN Reason: Insomnia Stop: 05/07/18 00:06 Last Admin: 03/09/18 21:04 Dose: 5 mg General: alert HEENT: NC/AT, PERRLA Neck: Supple Lungs: CTAB Cardiovascular: RRR, Normal S1, Normal S2, without murmur Abdomen: soft, non-tender, non-distended Neurological: alert - Procedures Procedures: Procedures Procedure Code Date BLOOD TRANSFUSION SERVICE 96361 03/29/16 CLOSURE SKIN & SUBCUTANEOUS NEC 86.59 07/02/14 DIAGNOSTIC COLONOSCOPY 05728 09/13/15 DRAINAGE OF STOMACH, ENDO, DIAGN [id number] 09/13/15 EGD BIOPSY SINGLE/MULTIPLE 47513 09/13/15 ELECTROCARDIOGRAM 89.52 10/10/94 EMERGENCY DEPT VISIT 59057 07/04/11 EXCISION OF DUODENUM, ENDO, DIAGN [id number] 09/13/15 GASTRIC INTUBATION TREATMENT 72176 12/28/07 GASTRIC LAVAGE 96.33 12/28/07 INSERT GASTRIC TUBE NEC 96.07 07/26/95 INSERT INDWELLING CATH 57.94 09/16/11 INSERT TEMP BLADDER CATH 79920 09/16/11 INSERTION OF INT FIX INTO L HUMERAL SHAFT, PERC APPROACH [id number] 05/24/15 INSPECTION OF LOWER INTESTINAL TRACT, ENDO [id number] 09/13/15 OXYGEN ENRICHMENT NEC 93.96 10/10/94 REMOV THERAPEUT DEV NEC 97.89 03/25/01 REMOVAL OF INT FIX FROM R KNEE JT, OPEN APPROACH [id number] 04/15/16 REPAIR FACE SKIN, EXTERNAL APPROACH [id number] 04/12/15 REPOSITION RIGHT PATELLA WITH INT FIX, OPEN APPROACH [id number] 03/29/16 RPR F/E/E/N/L/M 2.5 CM/< 99836 04/12/15 RPR F/E/E/N/L/M 2.6-5.0 CM 51973 07/02/14 TETANUS TOXOID ADMINIST 99.38 07/02/14 TRANSFUSE NONAUT RED BLOOD CELLS IN PERIPH VEIN, PERC [id number] 03/29/16 TREAT KNEECAP FRACTURE 53691 03/29/16 UPPER ARM/ELBOW SURGERY 79717 05/24/15 Internal Medicine Assmt/Plan - Assessment Assessment: dm sz hypothyroidism dementia schizoaffective - Plan Plan: seizure precautions continue snf meds continue current plan of care Nutritional Asmnt/Malnutr-PDOC - Dietary Evaluation Malnutrition Findings (Please click <Entered> for more info): Nutritional Asmnt/Malnutrition Start: 03/10/18 12: 22 Text: Status: Complete Freq: Protocol: Document 03/10/18 12:22 DORIE (Rec: 03/10/18 12:35 DORIE [email or web address]) Nutritional Asmnt/Malnutrition Patient General Information Nutritional Screening Moderate Risk Diagnosis psychosis Pertinent Medical Hx/Surgical Hx DM, CAD, seizures, thyroid disorder, dementia, schizoaffective disorder, hypothyroidism Subjective Information Pt eating lunch in rec room at time of visit. Pt appears confused and did not respond to questions. Pt's father present; states he brings sugar free snacks for pt and that pt dislikes fish and spinach. Pt's father verified that pt needs [facility] soft foods and states nutrition supplement will be appropriate if pt's PO intake low. Nursing noted intake: 50-75%, meeting about 90-100% of nutritional needs. Current Diet Order/ Nutrition Support [facility] soft chopped; finely chopped, ncs Pertinent Medications oscal w/ Vit D, pepcid, novolog, keppra, synthroid, glucophage, theragran Pertinent Labs 03/09: POC 56-90 03/07: Na 135, Ca 8.3, Mg 1.8, Alb 3.6 Nutritional Hx/Data Height 5 ft 2 in Height (Calculated Centimeters) 157.5 Current Weight (lbs) 113 lb Weight (Calculated Kilograms) 51.3 Weight (Calculated Grams) 74398.9 [place] Body Weight 110 lb Body Mass Index (BMI) 20.6 Weight Status Approriate GI Symptoms GI Symptoms None Last BM 03/09 Difficult in: None Food Allergies No Skin Integrity/Comment: chris, frank 16 Current %PO Fair (50-74%) Estimated Nutritional Goals BEE in Kcals: Using Current wt Calories/Kcals/Kg 25-30 Kcals Calculated 8056-7601 Protein: Using Current wt Protein g/k Protein Calculated 51 g Fluid: ml 9740-6044 (1 ml/kcal) Nutritional Problem No current Nutrition Prob Problem no nutrition dx at this time Malnutrition Alert Is there a minimum of two criteria No selected? Query Text:Check all the applicable criteria. A minimum of two criteria are recommended for diagnosis of either severe or non-severe malnutrition. Malnutrition Related to Morbid Obesity Malnutrition related to morbid obesity No Intervention/Recommendation Comments 1. Continue with [facility] soft finely chopped, ncs diet as ordered. 2. Family to assist w/ feeding as needed. If PO intake continues <50%, recommend to add chocolate Ensure Enlive BID for added nutrition 3. Monitor PO intake, wt, labs and skin integrity 4. F/U as moderate risk in 3-5 days, 03/13-03/15 Expected Outcomes/Goals Expected Outcomes/Goals 1. PO intake at least 75% of all meals. 2. Wt stability, skin to remain intact, labs to approach normal limits reviewed by Nicol Eng
--- NOTE | 2018-03-11 01:19 | Progress Notes ---
DATE: 03/10/2018 SUBJECTIVE: Staff was spoken to. The patient is interviewed. Mood is noted to be irritable. Affect is constricted. Mood swings are still noted. Insight and judgment at this time to be still impaired. Impulse control is noted to be poor. Coping skills are noted to be very poor. The patient is currently on the olanzapine, carbamazepine and the Depakote and has been able to tolerate the medications. No side effects to the medications are noted. ASSESSMENT: The patient's mood swings are still a problem. PLAN: To continue the patient with the supportive therapy and followup. JOB# [id number]
[2018-03-11] MEDS: Levothyroxine 0.05 Mg Tab PO SCH (06:34)
[2018-03-11] MEDS: INSULIN ASPART SLIDING SCALE 100 UNITS/ML UNIT SUBQ SCH ×4 (06:34→21:43)
[2018-03-11] MEDS: Calcium Carb/Vit D 500 mg/200 U Tab PO SCH (09:42)
[2018-03-11] MEDS: Multivitamin Tab PO SCH (09:42)
--- NOTE | 2018-03-11 13:23 | Progress Notes ---
DATE: 03/11/2018 SUBJECTIVE: Staff was spoken to. The patient is interviewed. Mood is noted to be irritable. Affect is constricted. Coping skills are noted to be still poor. ASSESSMENT: The patient has paranoia, mood swings are coming under control, but the patient is denying any command hallucinations. PLAN: Aggressive behavior and screaming and yelling has been coming down. JOB# [id number]
--- NOTE | 2018-03-11 14:12 | Internal Medicine Prog Note ---
Internal Medicine Subjective - Subjective Service Date: 03/11/18 Patient is:: awake, verbal Per staff patient has:: tolerating meds Internal Medicine Objective - Results Result Diagrams: 03/07/18 17:20 03/07/18 17:20 Recent Labs: Laboratory Last Values WBC 5.8 Th/cmm (4.8-10.8) 03/07/18 17:20 RBC 4.08 Mil/cmm (3.80-5.10) 03/07/18 17:20 Hgb 9.7 gm/dL (12-16) L 03/07/18 17:20 Hct 30.2 % (41.0-60) L 03/07/18 17:20 MCV 73.9 fl (81-100) L 03/07/18 17:20 MCH 23.7 pg (27.0-31.0) L 03/07/18 17:20 MCHC Differential 32.0 pg (28.0-36.0) 03/07/18 17:20 RDW 16.7 % (11.5-20.0) 03/07/18 17:20 Plt Count 170 Th/cmm (150-400) 03/07/18 17:20 MPV 7.2 fl 03/07/18 17:20 Neutrophils % 61.1 % (40.0-80.0) 03/07/18 17:20 Lymphocytes % 27.2 % (20.0-50.0) 03/07/18 17:20 Monocytes % 11.2 % (2.0-10.0) H 03/07/18 17:20 Eosinophils % 0.1 % (0.0-5.0) 03/07/18 17:20 Basophils % 0.4 % (0.0-2.0) 03/07/18 17:20 Sodium 135 mEq/L (136-145) L 03/07/18 17:20 Potassium 3.8 mEq/L (3.5-5.1) 03/07/18 17:20 Chloride 99 mEq/L (98-107) 03/07/18 17:20 Carbon Dioxide 28.4 mEq/L (21.0-31.0) 03/07/18 17:20 Anion Gap 11.4 (7.0-16.0) 03/07/18 17:20 BUN 9 mg/dL (7-25) 03/07/18 17:20 Creatinine 0.6 mg/dL (0.6-1.2) 03/07/18 17:20 Est GFR ( Amer) > 60.0 ml/min (>90) 03/07/18 17:20 Est GFR (Non-Af Amer) > 60.0 ml/min 03/07/18 17:20 BUN/Creatinine Ratio 15.0 03/07/18 17:20 Glucose 97 mg/dL (70-105) 03/07/18 17:20 POC Glucose 90 MG/DL (70 - 105) 03/09/18 21:07 Calcium 8.3 mg/dL (8.6-10.3) L 03/07/18 17:20 Phosphorus 3.3 mg/dL (2.5-5.0) 03/07/18 17:20 Magnesium 1.8 mg/dL (1.9-2.7) L 03/07/18 17:20 Total Bilirubin 0.2 mg/dL (0.3-1.0) L 03/07/18 17:20 AST 14 U/L (13-39) 03/07/18 17:20 ALT 12 U/L (7-52) 03/07/18 17:20 Alkaline Phosphatase 71 U/L (34-104) 03/07/18 17:20 Total Protein 6.0 gm/dL (6.0-8.3) 03/07/18 17:20 Albumin 3.6 gm/dL (3.7-5.3) L 03/07/18 17:20 Globulin 2.4 gm/dL 03/07/18 17:20 Albumin/Globulin Ratio 1.5 (1.0-1.8) 03/07/18 17:20 Triglycerides 111 mg/dL (<150) 03/08/18 07:18 Cholesterol 119 mg/dL (<200) 03/08/18 07:18 LDL Cholesterol Direct 43 mg/dL (75-193) L 03/08/18 07:18 HDL Cholesterol 53 mg/dL (23-92) 03/08/18 07:18 TSH 1.08 uIU/ml (0.34-5.60) 03/07/18 17:20 Urine Source CLEAN C 03/07/18 17:20 Urine Color YELLOW 03/07/18 17:20 Urine Clarity CLEAR (CLEAR) 03/07/18 17:20 Urine pH 6.0 (4.6 - 8.0) 03/07/18 17:20 Ur Specific [place] 1.010 (1.005-1.030) 03/07/18 17:20 Urine Protein NEGATIVE mg/dL (NEGATIVE) 03/07/18 17:20 Urine Glucose (UA) 100 mg/dL (NEGATIVE) H 03/07/18 17:20 Urine Ketones TRACE mg/dL (NEGATIVE) 03/07/18 17:20 Urine Blood NEGATIVE (NEGATIVE) 03/07/18 17:20 Urine Nitrate POSITIVE (NEGATIVE) H 03/07/18 17:20 Urine Bilirubin NEGATIVE (NEGATIVE) 03/07/18 17:20 Urine Urobilinogen 0.2 E.U./dL (0.2 - 1.0) 03/07/18 17:20 Ur Leukocyte Esterase NEGATIVE (NEGATIVE) 03/07/18 17:20 Urine RBC 0-2 /hpf (0-5) 03/07/18 17:20 Urine WBC 2-5 /hpf (0-5) 03/07/18 17:20 Ur Epithelial Cells OCCASIONAL /lpf (FEW) 03/07/18 17:20 Urine Bacteria 4+ /hpf (NONE SEEN) H 03/07/18 17:20 Urine Opiates Screen NEGATIVE (NEGATIVE) 03/07/18 17:20 Urine Methadone Screen NEGATIVE (NEGATIVE) 03/07/18 17:20 Ur Barbiturates Screen NEGATIVE (NEGATIVE) 03/07/18 17:20 Valproic Acid 80.3 ug/mL (50.0-100.0) 03/07/18 17:20 Ur Tricyclics Screen NEGATIVE (NEGATIVE) 03/07/18 17:20 Levetiracetam 24.6 ug/mL (10.0-40.0) 03/07/18 17:20 Ur Phencyclidine Scrn NEGATIVE (NEGATIVE) 03/07/18 17:20 Amphetamines Screen NEGATIVE (NEGATIVE) 03/07/18 17:20 U Methamphetamines Scrn NEGATIVE (NEGATIVE) 03/07/18 17:20 U Benzodiazepines Scrn POSITIVE (NEGATIVE) H 03/07/18 17:20 U Cocaine Metab Screen NEGATIVE (NEGATIVE) 03/07/18 17:20 U Cannabinoids Screen NEGATIVE (NEGATIVE) 03/07/18 17:20 - Physical Exam Vitals and I&O: Vital Signs Temp 97.8 F 03/11/18 06:40 Pulse 63 03/11/18 06:40 Resp 20 03/11/18 08:00 BP 108/63 03/11/18 06:40 Pulse Ox 96 03/11/18 06:40 Intake & Output 03/10/18 03/11/18 03/11/18 18:59 06:59 18:59 Intake Total 1550 120 Balance 1550 120 Intake: Oral 1550 120 Other: # Voids 4 3 # Bowel Movements 0 Active Medications: Current Medications Calcium/Vitamin D (Oscal W/Vitamin D) 1 tab PO DAILY [facility] Stop: 05/07/18 08:59 Last Admin: 03/11/18 09:42 Dose: 1 tab Divalproex Sodium (Depakote Sprinkle) 500 mg PO BID [facility]; Protocol Stop: 05/07/18 08:59 Last Admin: 03/11/18 09:41 Dose: 500 mg Donepezil HCl (Aricept) 5 mg PO HS [facility] Stop: 05/07/18 20:59 Last Admin: 03/10/18 20:33 Dose: 5 mg Famotidine (Pepcid) 20 mg PO DAILY [facility] Stop: 05/07/18 08:59 Last Admin: 03/11/18 11:35 Dose: 20 mg Glucagon (Glucagen) 1 mg IM PRN PRN PRN Reason: HYPOGLYCEMIA Stop: 05/06/18 23:29 Haloperidol Decanoate (Haldol Dec) 50 mg IM [id number] [facility]; Protocol Stop: 05/08/18 08:59 Last Admin: 03/09/18 10:02 Dose: 50 mg Insulin Aspart (Novolog Insulin Sliding Scale) 0 units SUBQ ACHS [facility]; Protocol Stop: 05/07/18 07:29 Last Admin: 03/11/18 11:34 Dose: Not Given Levetiracetam (Keppra) 500 mg PO BID [facility] Stop: 05/07/18 08:59 Last Admin: 03/11/18 09:42 Dose: 500 mg Levofloxacin (Levaquin) 500 mg PO DAILY [facility] Stop: 05/08/18 08:59 Last Admin: 03/11/18 09:42 Dose: 500 mg Levothyroxine Sodium (Synthroid) 0.05 mg PO QDAC [facility] Stop: 05/09/18 07:29 Last Admin: 03/11/18 06:34 Dose: 0.05 mg Lorazepam (Ativan) 0.5 mg PO Q4HR PRN; Protocol PRN Reason: Anxiety Stop: 04/07/18 00:06 Last Admin: 03/11/18 13:35 Dose: 0.5 mg Metformin HCl (Glucophage) 500 mg PO TIDWM [facility] Stop: 05/09/18 07:59 Last Admin: 03/11/18 11:36 Dose: Not Given Multivitamins/Vitamin C (Theragran) 1 tab PO DAILY [facility] Stop: 05/07/18 08:59 Last Admin: 03/11/18 09:42 Dose: 1 tab Olanzapine (Zyprexa) 10 mg PO BID [facility]; Protocol Stop: 05/07/18 08:59 Oxcarbazepine (Trileptal) 150 mg PO BID [facility]; Protocol Stop: 05/07/18 08:59 Last Admin: 03/11/18 09:42 Dose: 150 mg Zolpidem Tartrate (Ambien) 5 mg PO HS PRN PRN Reason: Insomnia Stop: 05/07/18 00:06 Last Admin: 03/10/18 20:39 Dose: 5 mg General: alert HEENT: NC/AT, PERRLA Neck: Supple Lungs: CTAB Cardiovascular: RRR, Normal S1, Normal S2, without murmur Abdomen: soft, non-tender, non-distended Neurological: alert - Procedures Procedures: Procedures Procedure Code Date BLOOD TRANSFUSION SERVICE 22078 03/29/16 CLOSURE SKIN & SUBCUTANEOUS NEC 86.59 07/02/14 DIAGNOSTIC COLONOSCOPY 60918 09/13/15 DRAINAGE OF STOMACH, ENDO, DIAGN [id number] 09/13/15 EGD BIOPSY SINGLE/MULTIPLE 95857 09/13/15 ELECTROCARDIOGRAM 89.52 10/10/94 EMERGENCY DEPT VISIT 07013 07/04/11 EXCISION OF DUODENUM, ENDO, DIAGN [id number] 09/13/15 GASTRIC INTUBATION TREATMENT 84687 12/28/07 GASTRIC LAVAGE 96.33 12/28/07 INSERT GASTRIC TUBE NEC 96.07 07/26/95 INSERT INDWELLING CATH 57.94 09/16/11 INSERT TEMP BLADDER CATH 60070 09/16/11 INSERTION OF INT FIX INTO L HUMERAL SHAFT, PERC APPROACH [id number] 05/24/15 INSPECTION OF LOWER INTESTINAL TRACT, ENDO [id number] 09/13/15 OXYGEN ENRICHMENT NEC 93.96 10/10/94 REMOV THERAPEUT DEV NEC 97.89 03/25/01 REMOVAL OF INT FIX FROM R KNEE JT, OPEN APPROACH [id number] 04/15/16 REPAIR FACE SKIN, EXTERNAL APPROACH [id number] 04/12/15 REPOSITION RIGHT PATELLA WITH INT FIX, OPEN APPROACH [id number] 03/29/16 RPR F/E/E/N/L/M 2.5 CM/< 77503 04/12/15 RPR F/E/E/N/L/M 2.6-5.0 [place] [address] 07/02/14 TETANUS TOXOID ADMINIST 99.38 07/02/14 TRANSFUSE NONAUT RED BLOOD CELLS IN PERIPH VEIN, PERC [id number] 03/29/16 TREAT KNEECAP FRACTURE 71698 03/29/16 UPPER ARM/ELBOW SURGERY 17263 05/24/15 Internal Medicine Assmt/Plan - Assessment Assessment: dm sz hypothyroidism dementia schizoaffective - Plan Plan: seizure precautions continue snf meds continue current plan of care Nutritional Asmnt/Malnutr-PDOC - Dietary Evaluation Malnutrition Findings (Please click <Entered> for more info): Nutritional Asmnt/Malnutrition Start: 03/10/18 12: 22 Text: Status: Complete Freq: Protocol: Document 03/10/18 12:22 DORIE (Rec: 03/10/18 12:35 DORIE [email or web address]) Nutritional Asmnt/Malnutrition Patient General Information Nutritional Screening Moderate Risk Diagnosis psychosis Pertinent Medical Hx/Surgical Hx DM, CAD, seizures, thyroid disorder, dementia, schizoaffective disorder, hypothyroidism Subjective Information Pt eating lunch in rec room at time of visit. Pt appears confused and did not respond to questions. Pt's father present; states he brings sugar free snacks for pt and that pt dislikes fish and spinach. Pt's father verified that pt needs [facility] soft foods and states nutrition supplement will be appropriate if pt's PO intake low. Nursing noted intake: 50-75%, meeting about 90-100% of nutritional needs. Current Diet Order/ Nutrition Support [facility] soft chopped; finely chopped, ncs Pertinent Medications oscal w/ Vit D, pepcid, novolog, keppra, synthroid, glucophage, theragran Pertinent Labs 03/09: POC 56-90 03/07: Na 135, Ca 8.3, Mg 1.8, Alb 3.6 Nutritional Hx/Data Height 5 ft 2 in Height (Calculated Centimeters) 157.5 Current Weight (lbs) 113 lb Weight (Calculated Kilograms) 51.3 Weight (Calculated Grams) 02065.9 [place] Body Weight 110 lb Body Mass Index (BMI) 20.6 Weight Status Approriate GI Symptoms GI Symptoms None Last BM 03/09 Difficult in: None Food Allergies No Skin Integrity/Comment: frank perez 16 Current %PO Fair (50-74%) Estimated Nutritional Goals BEE in Kcals: Using Current wt Calories/Kcals/Kg 25-30 Kcals Calculated 3258-4749 Protein: Using Current wt Protein g/k Protein Calculated 51 g Fluid: ml 5507-4071 (1 ml/kcal) Nutritional Problem No current Nutrition Prob Problem no nutrition dx at this time Malnutrition Alert Is there a minimum of two criteria No selected? Query Text:Check all the applicable criteria. A minimum of two criteria are recommended for diagnosis of either severe or non-severe malnutrition. Malnutrition Related to Morbid Obesity Malnutrition related to morbid obesity No Intervention/Recommendation Comments 1. Continue with [facility] soft finely chopped, ncs diet as ordered. 2. Family to assist w/ feeding as needed. If PO intake continues <50%, recommend to add chocolate Ensure Enlive BID for added nutrition 3. Monitor PO intake, wt, labs and skin integrity 4. F/U as moderate risk in 3-5 days, 03/13-03/15 Expected Outcomes/Goals Expected Outcomes/Goals 1. PO intake at least 75% of all meals. 2. Wt stability, skin to remain intact, labs to approach normal limits reviewed by Nicol Eng
--- NOTE | 2018-03-11 20:10 | Consultation ---
DATE OF CONSULTATION: 03/10/2018 REFERRING PHYSICIAN: Katie Dominguez M.D. TYPE OF CONSULTATION: Psychology. HISTORY OF PRESENT ILLNESS: The patient is a 52-year-old female. The patient is a resident of [facility]. The following is by review of the medical record and by patient's self report. The patient is being admitted due to acute agitation and psychosis as well as depression. Upon interview, the patient admits that she is feeling depressed and does not understand why she is being hospitalized. The patient is responding to inner dialogue at the time of this clinical interview. The patient reports that she felt that she may hurt herself. The patient did not answer questions about suicidal ideation except as above re: harm to self. The patient has a history of previous hospitalizations here on the geropsychiatric unit. PAST MEDICAL HISTORY: Please see history and physical by Dr. Russell. PAST PSYCHIATRIC HISTORY: The patient has a history of schizoaffective disorder and is under the care of Dr. Arce at her placement, which is [facility]. The patient has multiple previous hospitalizations. SUBSTANCE ABUSE HISTORY: The patient denies any history. PSYCHOSOCIAL HISTORY: The patient did not answer questions about occupational or educational history or rastafari affiliation. The patient did not answer questions about history of physical or sexual abuse. The patient denied any current legal problems. The patient did not answer questions about family relationships or support system. MENTAL STATUS EXAMINATION: The patient appears to be older than her stated age. The patient's attitude is superficially cooperative. Eye contact is poor. Mood is depressed. Affect is constricted. Speech is pressured. The patient presents with active mood fluctuations from passive to easily agitated. The patient denied any auditory or visual hallucinations; however, the patient seems to be responding to internal stimuli. The patient denied any suicidal ideation, plan, or intention. The patient stated she was afraid she might harm herself. The patient's behavior has been withdrawn and isolative on the unit. Impulse control is limited. Concentration is poor. The patient did not participate in the memory assessment. Immediate and short term memory appear to be impaired. Sensorium is alert and oriented to self and place. She is aware that she is in the hospital. The patient did not participate in the interpretation of proverbs. Insight is poor. Judgment is compromised. DIAGNOSTIC IMPRESSION: AXIS I: History of schizoaffective disorder, depressed, psychotic phase. AXIS II: Deferred. AXIS III: Per Dr. Russell. TREATMENT PLAN: The patient has been seen by Dr. Dominguez for psychiatric evaluation and for the management of the patient's psychotropic medications. We will provide supportive psychotherapy to include reality orientation, differentiation, and integration. We will provide motivational enhancement for the patient to become compliant and stay compliant with all aspects of her care and treatment. We will encourage the patient to demonstrate emotional and self-regulation prior to discharge. We will provide coping strategies for phase of life issues as well as for long-term severe mental illness. We will provide daily opportunities for the patient to contract for safety and no self harm. Thank you, Dr. Dominguez for this consult and the opportunity to participate in this patient's care. JOB# [id number] [email or web address]
[2018-03-12] MEDS: INSULIN ASPART SLIDING SCALE 100 UNITS/ML UNIT SUBQ SCH ×4 (06:31→21:14)
[2018-03-12] MEDS: Levothyroxine 0.05 Mg Tab PO SCH (06:32)
[2018-03-12] MEDS: Calcium Carb/Vit D 500 mg/200 U Tab PO SCH (09:02)
[2018-03-12] MEDS: Multivitamin Tab PO SCH (09:02)
--- NOTE | 2018-03-12 12:52 | Internal Medicine Prog Note ---
Internal Medicine Subjective - Subjective Service Date: 03/12/18 Patient is:: awake, verbal Per staff patient has:: tolerating meds Internal Medicine Objective - Results Result Diagrams: 03/07/18 17:20 03/07/18 17:20 Recent Labs: Laboratory Last Values WBC 5.8 Th/cmm (4.8-10.8) 03/07/18 17:20 RBC 4.08 Mil/cmm (3.80-5.10) 03/07/18 17:20 Hgb 9.7 gm/dL (12-16) L 03/07/18 17:20 Hct 30.2 % (41.0-60) L 03/07/18 17:20 MCV 73.9 fl (81-100) L 03/07/18 17:20 MCH 23.7 pg (27.0-31.0) L 03/07/18 17:20 MCHC Differential 32.0 pg (28.0-36.0) 03/07/18 17:20 RDW 16.7 % (11.5-20.0) 03/07/18 17:20 Plt Count 170 Th/cmm (150-400) 03/07/18 17:20 MPV 7.2 fl 03/07/18 17:20 Neutrophils % 61.1 % (40.0-80.0) 03/07/18 17:20 Lymphocytes % 27.2 % (20.0-50.0) 03/07/18 17:20 Monocytes % 11.2 % (2.0-10.0) H 03/07/18 17:20 Eosinophils % 0.1 % (0.0-5.0) 03/07/18 17:20 Basophils % 0.4 % (0.0-2.0) 03/07/18 17:20 Sodium 135 mEq/L (136-145) L 03/07/18 17:20 Potassium 3.8 mEq/L (3.5-5.1) 03/07/18 17:20 Chloride 99 mEq/L (98-107) 03/07/18 17:20 Carbon Dioxide 28.4 mEq/L (21.0-31.0) 03/07/18 17:20 Anion Gap 11.4 (7.0-16.0) 03/07/18 17:20 BUN 9 mg/dL (7-25) 03/07/18 17:20 Creatinine 0.6 mg/dL (0.6-1.2) 03/07/18 17:20 Est GFR ( Amer) > 60.0 ml/min (>90) 03/07/18 17:20 Est GFR (Non-Af Amer) > 60.0 ml/min 03/07/18 17:20 BUN/Creatinine Ratio 15.0 03/07/18 17:20 Glucose 97 mg/dL (70-105) 03/07/18 17:20 POC Glucose 90 MG/DL (70 - 105) 03/09/18 21:07 Calcium 8.3 mg/dL (8.6-10.3) L 03/07/18 17:20 Phosphorus 3.3 mg/dL (2.5-5.0) 03/07/18 17:20 Magnesium 1.8 mg/dL (1.9-2.7) L 03/07/18 17:20 Total Bilirubin 0.2 mg/dL (0.3-1.0) L 03/07/18 17:20 AST 14 U/L (13-39) 03/07/18 17:20 ALT 12 U/L (7-52) 03/07/18 17:20 Alkaline Phosphatase 71 U/L (34-104) 03/07/18 17:20 Total Protein 6.0 gm/dL (6.0-8.3) 03/07/18 17:20 Albumin 3.6 gm/dL (3.7-5.3) L 03/07/18 17:20 Globulin 2.4 gm/dL 03/07/18 17:20 Albumin/Globulin Ratio 1.5 (1.0-1.8) 03/07/18 17:20 Triglycerides 111 mg/dL (<150) 03/08/18 07:18 Cholesterol 119 mg/dL (<200) 03/08/18 07:18 LDL Cholesterol Direct 43 mg/dL (75-193) L 03/08/18 07:18 HDL Cholesterol 53 mg/dL (23-92) 03/08/18 07:18 TSH 1.08 uIU/ml (0.34-5.60) 03/07/18 17:20 Urine Source CLEAN C 03/07/18 17:20 Urine Color YELLOW 03/07/18 17:20 Urine Clarity CLEAR (CLEAR) 03/07/18 17:20 Urine pH 6.0 (4.6 - 8.0) 03/07/18 17:20 Ur Specific [place] 1.010 (1.005-1.030) 03/07/18 17:20 Urine Protein NEGATIVE mg/dL (NEGATIVE) 03/07/18 17:20 Urine Glucose (UA) 100 mg/dL (NEGATIVE) H 03/07/18 17:20 Urine Ketones TRACE mg/dL (NEGATIVE) 03/07/18 17:20 Urine Blood NEGATIVE (NEGATIVE) 03/07/18 17:20 Urine Nitrate POSITIVE (NEGATIVE) H 03/07/18 17:20 Urine Bilirubin NEGATIVE (NEGATIVE) 03/07/18 17:20 Urine Urobilinogen 0.2 E.U./dL (0.2 - 1.0) 03/07/18 17:20 Ur Leukocyte Esterase NEGATIVE (NEGATIVE) 03/07/18 17:20 Urine RBC 0-2 /hpf (0-5) 03/07/18 17:20 Urine WBC 2-5 /hpf (0-5) 03/07/18 17:20 Ur Epithelial Cells OCCASIONAL /lpf (FEW) 03/07/18 17:20 Urine Bacteria 4+ /hpf (NONE SEEN) H 03/07/18 17:20 Urine Opiates Screen NEGATIVE (NEGATIVE) 03/07/18 17:20 Urine Methadone Screen NEGATIVE (NEGATIVE) 03/07/18 17:20 Ur Barbiturates Screen NEGATIVE (NEGATIVE) 03/07/18 17:20 Valproic Acid 80.3 ug/mL (50.0-100.0) 03/07/18 17:20 Ur Tricyclics Screen NEGATIVE (NEGATIVE) 03/07/18 17:20 Levetiracetam 24.6 ug/mL (10.0-40.0) 03/07/18 17:20 Ur Phencyclidine Scrn NEGATIVE (NEGATIVE) 03/07/18 17:20 Amphetamines Screen NEGATIVE (NEGATIVE) 03/07/18 17:20 U Methamphetamines Scrn NEGATIVE (NEGATIVE) 03/07/18 17:20 U Benzodiazepines Scrn POSITIVE (NEGATIVE) H 03/07/18 17:20 U Cocaine Metab Screen NEGATIVE (NEGATIVE) 03/07/18 17:20 U Cannabinoids Screen NEGATIVE (NEGATIVE) 03/07/18 17:20 - Physical Exam Vitals and I&O: Vital Signs Temp 98 F 03/12/18 07:06 Pulse 62 03/12/18 07:06 Resp 20 03/12/18 07:45 BP 149/77 03/12/18 07:06 Pulse Ox 97 03/12/18 07:06 Intake & Output 03/11/18 03/12/18 03/12/18 18:59 06:59 18:59 Intake Total 960 240 240 Output Total 3 Balance 960 237 240 Intake: Oral 960 240 240 Output: Urine 2 Urine/Stool Mix 1 Other: # Voids 3 1 # Bowel Movements 1 1 Active Medications: Current Medications Calcium/Vitamin D (Oscal W/Vitamin D) 1 tab PO DAILY [facility] Stop: 05/07/18 08:59 Last Admin: 03/12/18 09:02 Dose: 1 tab Divalproex Sodium (Depakote Sprinkle) 500 mg PO BID [facility]; Protocol Stop: 05/07/18 08:59 Last Admin: 03/12/18 09:03 Dose: 500 mg Donepezil HCl (Aricept) 5 mg PO HS [facility] Stop: 05/07/18 20:59 Last Admin: 03/11/18 21:44 Dose: 5 mg Famotidine (Pepcid) 20 mg PO DAILY [facility] Stop: 05/07/18 08:59 Last Admin: 03/12/18 09:02 Dose: 20 mg Glucagon (Glucagen) 1 mg IM PRN PRN PRN Reason: HYPOGLYCEMIA Stop: 05/06/18 23:29 Haloperidol Decanoate (Haldol Dec) 50 mg IM [id number] [facility]; Protocol Stop: 05/08/18 08:59 Last Admin: 03/09/18 10:02 Dose: 50 mg Insulin Aspart (Novolog Insulin Sliding Scale) 0 units SUBQ ACHS [facility]; Protocol Stop: 05/07/18 07:29 Last Admin: 03/12/18 12:32 Dose: Not Given Levetiracetam (Keppra) 500 mg PO BID [facility] Stop: 05/07/18 08:59 Last Admin: 03/12/18 09:02 Dose: 500 mg Levofloxacin (Levaquin) 500 mg PO DAILY [facility] Stop: 05/08/18 08:59 Last Admin: 03/12/18 09:02 Dose: 500 mg Levothyroxine Sodium (Synthroid) 0.05 mg PO QDAC [facility] Stop: 05/09/18 07:29 Last Admin: 03/12/18 06:32 Dose: 0.05 mg Lorazepam (Ativan) 0.5 mg PO Q4HR PRN; Protocol PRN Reason: Anxiety Stop: 04/07/18 00:06 Last Admin: 03/12/18 04:18 Dose: 0.5 mg Metformin HCl (Glucophage) 500 mg PO TIDWM [facility] Stop: 05/09/18 07:59 Last Admin: 03/12/18 12:33 Dose: Not Given Multivitamins/Vitamin C (Theragran) 1 tab PO DAILY [facility] Stop: 05/07/18 08:59 Last Admin: 03/12/18 09:02 Dose: 1 tab Olanzapine (Zyprexa) 10 mg PO BID [facility]; Protocol Stop: 05/07/18 08:59 Last Admin: 03/12/18 09:02 Dose: 10 mg Oxcarbazepine (Trileptal) 150 mg PO BID [facility]; Protocol Stop: 05/07/18 08:59 Last Admin: 03/12/18 09:02 Dose: 150 mg Zolpidem Tartrate (Ambien) 5 mg PO HS PRN PRN Reason: Insomnia Stop: 05/07/18 00:06 Last Admin: 03/10/18 20:39 Dose: 5 mg General: alert HEENT: NC/AT, PERRLA Neck: Supple Lungs: CTAB Cardiovascular: RRR, Normal S1, Normal S2, without murmur Abdomen: soft, non-tender, non-distended Neurological: alert - Procedures Procedures: Procedures Procedure Code Date BLOOD TRANSFUSION SERVICE 08719 03/29/16 CLOSURE SKIN & SUBCUTANEOUS NEC 86.59 07/02/14 DIAGNOSTIC COLONOSCOPY 18408 09/13/15 DRAINAGE OF STOMACH, ENDO, DIAGN [id number] 09/13/15 EGD BIOPSY SINGLE/MULTIPLE 31737 09/13/15 ELECTROCARDIOGRAM 89.52 10/10/94 EMERGENCY DEPT VISIT 02384 07/04/11 EXCISION OF DUODENUM, ENDO, DIAGN [id number] 09/13/15 GASTRIC INTUBATION TREATMENT 77754 12/28/07 GASTRIC LAVAGE 96.33 12/28/07 INSERT GASTRIC TUBE NEC 96.07 03/03/96 INSERT INDWELLING CATH 57.94 09/16/11 INSERT TEMP BLADDER CATH 65630 09/16/11 INSERTION OF INT FIX INTO L HUMERAL SHAFT, PERC APPROACH [id number] 05/24/15 INSPECTION OF LOWER INTESTINAL TRACT, ENDO [id number] 09/13/15 OXYGEN ENRICHMENT NEC 93.96 10/10/94 REMOV THERAPEUT DEV NEC 97.89 03/25/01 REMOVAL OF INT FIX FROM R KNEE JT, OPEN APPROACH [id number] 04/15/16 REPAIR FACE SKIN, EXTERNAL APPROACH [id number] 04/12/15 REPOSITION RIGHT PATELLA WITH INT FIX, OPEN APPROACH [id number] 03/29/16 RPR F/E/E/N/L/M 2.5 CM/< 97637 04/12/15 RPR F/E/E/N/L/M 2.6-5.0 CM 36327 07/02/14 TETANUS TOXOID ADMINIST 99.38 07/02/14 TRANSFUSE NONAUT RED BLOOD CELLS IN PERIPH VEIN, PERC [id number] 03/29/16 TREAT KNEECAP FRACTURE 65591 03/29/16 UPPER ARM/ELBOW SURGERY 18843 05/24/15 Internal Medicine Assmt/Plan - Assessment Assessment: dm sz hypothyroidism dementia schizoaffective - Plan Plan: seizure precautions continue snf meds continue current plan of care Nutritional Asmnt/Malnutr-PDOC - Dietary Evaluation Malnutrition Findings (Please click <Entered> for more info): Nutritional Asmnt/Malnutrition Start: 03/10/18 12: 22 Text: Status: Complete Freq: Protocol: Document 03/10/18 12:22 DORIE (Rec: 03/10/18 12:35 DORIE [email or web address]) Nutritional Asmnt/Malnutrition Patient General Information Nutritional Screening Moderate Risk Diagnosis psychosis Pertinent Medical Hx/Surgical Hx DM, CAD, seizures, thyroid disorder, dementia, schizoaffective disorder, hypothyroidism Subjective Information Pt eating lunch in rec room at time of visit. Pt appears confused and did not respond to questions. Pt's father present; states he brings sugar free snacks for pt and that pt dislikes fish and spinach. Pt's father verified that pt needs [facility] soft foods and states nutrition supplement will be appropriate if pt's PO intake low. Nursing noted intake: 50-75%, meeting about 90-100% of nutritional needs. Current Diet Order/ Nutrition Support [facility] soft chopped; finely chopped, ncs Pertinent Medications oscal w/ Vit D, pepcid, novolog, keppra, synthroid, glucophage, theragran Pertinent Labs 03/09: POC 56-90 03/07: Na 135, Ca 8.3, Mg 1.8, Alb 3.6 Nutritional Hx/Data Height 5 ft 2 in Height (Calculated Centimeters) 157.5 Current Weight (lbs) 113 lb Weight (Calculated Kilograms) 51.3 Weight (Calculated Grams) 27866.9 [place] Body Weight 110 lb Body Mass Index (BMI) 20.6 Weight Status Approriate GI Symptoms GI Symptoms None Last BM 03/09 Difficult in: None Food Allergies No Skin Integrity/Comment: frank perez 16 Current %PO Fair (50-74%) Estimated Nutritional Goals BEE in Kcals: Using Current wt Calories/Kcals/Kg 25-30 Kcals Calculated 6150-7129 Protein: Using Current wt Protein g/k Protein Calculated 51 g Fluid: ml 3234-5725 (1 ml/kcal) Nutritional Problem No current Nutrition Prob Problem no nutrition dx at this time Malnutrition Alert Is there a minimum of two criteria No selected? Query Text:Check all the applicable criteria. A minimum of two criteria are recommended for diagnosis of either severe or non-severe malnutrition. Malnutrition Related to Morbid Obesity Malnutrition related to morbid obesity No Intervention/Recommendation Comments 1. Continue with [facility] soft finely chopped, ncs diet as ordered. 2. Family to assist w/ feeding as needed. If PO intake continues <50%, recommend to add chocolate Ensure Enlive BID for added nutrition 3. Monitor PO intake, wt, labs and skin integrity 4. F/U as moderate risk in 3-5 days, 03/13-03/15 Expected Outcomes/Goals Expected Outcomes/Goals 1. PO intake at least 75% of all meals. 2. Wt stability, skin to remain intact, labs to approach normal limits reviewed by Nicol Eng
--- NOTE | 2018-03-12 21:25 | Progress Notes ---
DATE: 03/12/2018 PSYCHIATRIC PROGRESS NOTE SUBJECTIVE: Staff was spoken to. The patient is interviewed. Mood is noted to be irritable. Affect is constricted. Insight and judgment at this time noted to be impaired. Impulse control is noted to be very poor. The patient is isolative and withdrawn. The patient is currently on Depakote 500 mg b.i.d., haloperidol has been given at 50 mg and Haldol Decanoate 50 mg every 2 weeks and the patient is also on the olanzapine 10 mg twice a day and oxcarbazepine 150 mg twice a day. With these medications, the patient has been able to verbalize the concerns. No side effects to the medications are noted. ASSESSMENT: The patient's impulsivity is still a concern. PLAN: To continue the patient with the supportive therapy. Encouraged the patient to participate in the groups and verbalize the concerns. JOB# [id number]
[2018-03-13] MEDS: Levothyroxine 0.05 Mg Tab PO SCH (06:47)
[2018-03-13] MEDS: INSULIN ASPART SLIDING SCALE 100 UNITS/ML UNIT SUBQ SCH ×4 (06:47→20:37)
[2018-03-13] MEDS: Multivitamin Tab PO SCH (08:57)
[2018-03-13] MEDS: Calcium Carb/Vit D 500 mg/200 U Tab PO SCH (08:57)
--- NOTE | 2018-03-13 11:28 | Internal Medicine Prog Note ---
Internal Medicine Subjective - Subjective Patient seen and examined:: with staff, chart reviewed Patient is:: awake, verbal, interactive, odin chair Per staff patient has:: no adverse event, no episodes of fall, poor appetite, agitated, confused, tolerating meds Internal Medicine Objective - Results Result Diagrams: 03/07/18 17:20 03/07/18 17:20 Recent Labs: Laboratory Last Values WBC 5.8 Th/cmm (4.8-10.8) 03/07/18 17:20 RBC 4.08 Mil/cmm (3.80-5.10) 03/07/18 17:20 Hgb 9.7 gm/dL (12-16) L 03/07/18 17:20 Hct 30.2 % (41.0-60) L 03/07/18 17:20 MCV 73.9 fl (81-100) L 03/07/18 17:20 MCH 23.7 pg (27.0-31.0) L 03/07/18 17:20 MCHC Differential 32.0 pg (28.0-36.0) 03/07/18 17:20 RDW 16.7 % (11.5-20.0) 03/07/18 17:20 Plt Count 170 Th/cmm (150-400) 03/07/18 17:20 MPV 7.2 fl 03/07/18 17:20 Neutrophils % 61.1 % (40.0-80.0) 03/07/18 17:20 Lymphocytes % 27.2 % (20.0-50.0) 03/07/18 17:20 Monocytes % 11.2 % (2.0-10.0) H 03/07/18 17:20 Eosinophils % 0.1 % (0.0-5.0) 03/07/18 17:20 Basophils % 0.4 % (0.0-2.0) 03/07/18 17:20 Sodium 135 mEq/L (136-145) L 03/07/18 17:20 Potassium 3.8 mEq/L (3.5-5.1) 03/07/18 17:20 Chloride 99 mEq/L (98-107) 03/07/18 17:20 Carbon Dioxide 28.4 mEq/L (21.0-31.0) 10/14/18 17:20 Anion Gap 11.4 (7.0-16.0) 03/07/18 17:20 BUN 9 mg/dL (7-25) 03/07/18 17:20 Creatinine 0.6 mg/dL (0.6-1.2) 03/07/18 17:20 Est GFR ( Amer) > 60.0 ml/min (>90) 03/07/18 17:20 Est GFR (Non-Af Amer) > 60.0 ml/min 03/07/18 17:20 BUN/Creatinine Ratio 15.0 03/07/18 17:20 Glucose 97 mg/dL (70-105) 03/07/18 17:20 POC Glucose 103 MG/DL (70 - 105) 03/13/18 06:37 Calcium 8.3 mg/dL (8.6-10.3) L 03/07/18 17:20 Phosphorus 3.3 mg/dL (2.5-5.0) 03/07/18 17:20 Magnesium 1.8 mg/dL (1.9-2.7) L 03/07/18 17:20 Total Bilirubin 0.2 mg/dL (0.3-1.0) L 03/07/18 17:20 AST 14 U/L (13-39) 03/07/18 17:20 ALT 12 U/L (7-52) 03/07/18 17:20 Alkaline Phosphatase 71 U/L (34-104) 03/07/18 17:20 Total Protein 6.0 gm/dL (6.0-8.3) 03/07/18 17:20 Albumin 3.6 gm/dL (3.7-5.3) L 03/07/18 17:20 Globulin 2.4 gm/dL 03/07/18 17:20 Albumin/Globulin Ratio 1.5 (1.0-1.8) 03/07/18 17:20 Triglycerides 111 mg/dL (<150) 03/08/18 07:18 Cholesterol 119 mg/dL (<200) 03/08/18 07:18 LDL Cholesterol Direct 43 mg/dL (75-193) L 03/08/18 07:18 HDL Cholesterol 53 mg/dL (23-92) 03/08/18 07:18 TSH 1.08 uIU/ml (0.34-5.60) 03/07/18 17:20 Urine Source CLEAN C 03/07/18 17:20 Urine Color YELLOW 03/07/18 17:20 Urine Clarity CLEAR (CLEAR) 03/07/18 17:20 Urine pH 6.0 (4.6 - 8.0) 03/07/18 17:20 Ur Specific [place] 1.010 (1.005-1.030) 03/07/18 17:20 Urine Protein NEGATIVE mg/dL (NEGATIVE) 03/07/18 17:20 Urine Glucose (UA) 100 mg/dL (NEGATIVE) H 03/07/18 17:20 Urine Ketones TRACE mg/dL (NEGATIVE) 03/07/18 17:20 Urine Blood NEGATIVE (NEGATIVE) 03/07/18 17:20 Urine Nitrate POSITIVE (NEGATIVE) H 03/07/18 17:20 Urine Bilirubin NEGATIVE (NEGATIVE) 03/07/18 17:20 Urine Urobilinogen 0.2 E.U./dL (0.2 - 1.0) 03/07/18 17:20 Ur Leukocyte Esterase NEGATIVE (NEGATIVE) 03/07/18 17:20 Urine RBC 0-2 /hpf (0-5) 03/07/18 17:20 Urine WBC 2-5 /hpf (0-5) 03/07/18 17:20 Ur Epithelial Cells OCCASIONAL /lpf (FEW) 03/07/18 17:20 Urine Bacteria 4+ /hpf (NONE SEEN) H 03/07/18 17:20 Urine Opiates Screen NEGATIVE (NEGATIVE) 03/07/18 17:20 Urine Methadone Screen NEGATIVE (NEGATIVE) 03/07/18 17:20 Ur Barbiturates Screen NEGATIVE (NEGATIVE) 03/07/18 17:20 Valproic Acid 80.3 ug/mL (50.0-100.0) 03/07/18 17:20 Ur Tricyclics Screen NEGATIVE (NEGATIVE) 03/07/18 17:20 Levetiracetam 24.6 ug/mL (10.0-40.0) 03/07/18 17:20 Ur Phencyclidine Scrn NEGATIVE (NEGATIVE) 03/07/18 17:20 Amphetamines Screen NEGATIVE (NEGATIVE) 03/07/18 17:20 U Methamphetamines Scrn NEGATIVE (NEGATIVE) 03/07/18 17:20 U Benzodiazepines Scrn POSITIVE (NEGATIVE) H 03/07/18 17:20 U Cocaine Metab Screen NEGATIVE (NEGATIVE) 03/07/18 17:20 U Cannabinoids Screen NEGATIVE (NEGATIVE) 03/07/18 17:20 - Physical Exam Vitals and I&O: Vital Signs Temp 97.2 F 03/13/18 07:00 Pulse 70 03/13/18 07:00 Resp 20 03/13/18 08:00 BP 155/64 03/13/18 07:00 Pulse Ox 98 03/13/18 07:00 Intake & Output 03/12/18 03/13/18 03/13/18 18:59 06:59 18:59 Intake Total 1740 Balance 1740 Intake: Oral 1740 Other: # Voids 3 # Bowel Movements 0 Active Medications: Current Medications Calcium/Vitamin D (Oscal W/Vitamin D) 1 tab PO DAILY [facility] Stop: 05/07/18 08:59 Last Admin: 03/13/18 08:57 Dose: 1 tab Divalproex Sodium (Depakote Sprinkle) 500 mg PO BID [facility]; Protocol Stop: 05/07/18 08:59 Last Admin: 03/13/18 08:57 Dose: 500 mg Donepezil HCl (Aricept) 5 mg PO HS [facility] Stop: 05/07/18 20:59 Last Admin: 03/12/18 21:14 Dose: 5 mg Famotidine (Pepcid) 20 mg PO DAILY [facility] Stop: 05/07/18 08:59 Last Admin: 03/13/18 08:56 Dose: 20 mg Glucagon (Glucagen) 1 mg IM PRN PRN PRN Reason: HYPOGLYCEMIA Stop: 05/06/18 23:29 Haloperidol Decanoate (Haldol Dec) 50 mg IM [id number] [facility]; Protocol Stop: 05/08/18 08:59 Last Admin: 03/09/18 10:02 Dose: 50 mg Insulin Aspart (Novolog Insulin Sliding Scale) 0 units SUBQ ACHS [facility]; Protocol Stop: 05/07/18 07:29 Last Admin: 03/13/18 06:47 Dose: Not Given Levetiracetam (Keppra) 500 mg PO BID [facility] Stop: 05/07/18 08:59 Last Admin: 03/13/18 08:57 Dose: 500 mg Levothyroxine Sodium (Synthroid) 0.05 mg PO QDAC [facility] Stop: 05/09/18 07:29 Last Admin: 03/13/18 06:47 Dose: 0.05 mg Lorazepam (Ativan) 0.5 mg PO Q4HR PRN; Protocol PRN Reason: Anxiety Stop: 04/07/18 00:06 Last Admin: 03/13/18 08:57 Dose: 0.5 mg Multivitamins/Vitamin C (Theragran) 1 tab PO DAILY [facility] Stop: 05/07/18 08:59 Last Admin: 03/13/18 08:57 Dose: 1 tab Olanzapine (Zyprexa) 10 mg PO BID [facility]; Protocol Stop: 05/07/18 08:59 Last Admin: 03/13/18 08:57 Dose: 10 mg Oxcarbazepine (Trileptal) 150 mg PO BID [facility]; Protocol Stop: 05/07/18 08:59 Last Admin: 03/13/18 08:57 Dose: 150 mg Zolpidem Tartrate (Ambien) 5 mg PO HS PRN PRN Reason: Insomnia Stop: 05/07/18 00:06 Last Admin: 03/12/18 22:45 Dose: 5 mg General: demented, disheveled HEENT: NC/AT, PERRLA Neck: Supple Lungs: CTAB Cardiovascular: RRR, Normal S1, Normal S2, without murmur Abdomen: soft, non-tender, non-distended Extremities: excoriation, ecchymosis Neurological: disorganized - Procedures Procedures: Procedures Procedure Code Date BLOOD TRANSFUSION SERVICE 27722 03/29/16 CLOSURE SKIN & SUBCUTANEOUS NEC 86.59 07/02/14 DIAGNOSTIC COLONOSCOPY 99935 09/13/15 DRAINAGE OF STOMACH, ENDO, DIAGN [id number] 09/13/15 EGD BIOPSY SINGLE/MULTIPLE 21369 09/13/15 ELECTROCARDIOGRAM 89.52 10/10/94 EMERGENCY DEPT VISIT 05114 07/04/11 EXCISION OF DUODENUM, ENDO, DIAGN [id number] 09/13/15 GASTRIC INTUBATION TREATMENT 34979 12/28/07 GASTRIC LAVAGE 96.33 12/28/07 INSERT GASTRIC TUBE NEC 96.07 07/26/95 INSERT INDWELLING CATH 57.94 09/16/11 INSERT TEMP BLADDER CATH 26944 09/16/11 INSERTION OF INT FIX INTO L HUMERAL SHAFT, PERC APPROACH [id number] 05/24/15 INSPECTION OF LOWER INTESTINAL TRACT, ENDO [id number] 09/13/15 OXYGEN ENRICHMENT NEC 93.96 10/10/94 REMOV THERAPEUT DEV NEC 97.89 03/25/01 REMOVAL OF INT FIX FROM R KNEE JT, OPEN APPROACH [id number] 04/15/16 REPAIR FACE SKIN, EXTERNAL APPROACH [id number] 04/12/15 REPOSITION RIGHT PATELLA WITH INT FIX, OPEN APPROACH [id number] 03/29/16 RPR F/E/E/N/L/M 2.5 CM/< 86231 04/12/15 RPR F/E/E/N/L/M 2.6-5.0 CM 15322 07/02/14 TETANUS TOXOID ADMINIST 99.38 07/02/14 TRANSFUSE NONAUT RED BLOOD CELLS IN PERIPH VEIN, PERC 29025M1 03/29/16 TREAT KNEECAP FRACTURE 34509 03/29/16 UPPER ARM/ELBOW SURGERY 48142 05/24/15 Internal Medicine Assmt/Plan - Assessment Assessment: - Assessment Assessment: dm sz hypothyroidism dementia schizoaffective - Plan Plan: seizure precautions continue snf meds continue current plan of care - Plan Plan: fall precaution Nutritional Asmnt/Malnutr-PDOC - Dietary Evaluation Malnutrition Findings (Please click <Entered> for more info): Nutritional Asmnt/Malnutrition Start: 03/10/18 12: 22 Text: Status: Complete Freq: Protocol: Document 03/10/18 12:22 DORIE (Rec: 03/10/18 12:35 DORIE [email or web address]) Nutritional Asmnt/Malnutrition Patient General Information Nutritional Screening Moderate Risk Diagnosis psychosis Pertinent Medical Hx/Surgical Hx DM, CAD, seizures, thyroid disorder, dementia, schizoaffective disorder, hypothyroidism Subjective Information Pt eating lunch in rec room at time of visit. Pt appears confused and did not respond to questions. Pt's father present; states he brings sugar free snacks for pt and that pt dislikes fish and spinach. Pt's father verified that pt needs [facility] soft foods and states nutrition supplement will be appropriate if pt's PO intake low. Nursing noted intake: 50-75%, meeting about 90-100% of nutritional needs. Current Diet Order/ Nutrition Support [facility] soft chopped; finely chopped, ncs Pertinent Medications oscal w/ Vit D, pepcid, novolog, keppra, synthroid, glucophage, theragran Pertinent Labs 03/09: POC 56-90 03/07: Na 135, Ca 8.3, Mg 1.8, Alb 3.6 Nutritional Hx/Data Height 1.57 m Height (Calculated Centimeters) 157.5 Current Weight (lbs) 51.256 kg Weight (Calculated Kilograms) 51.3 Weight (Calculated Grams) 02897.9 [place] Body Weight 110 lb Body Mass Index (BMI) 20.6 Weight Status Approriate GI Symptoms GI Symptoms None Last BM 03/09 Difficult in: None Food Allergies No Skin Integrity/Comment: frank perez 16 Current %PO Fair (50-74%) Estimated Nutritional Goals BEE in Kcals: Using Current wt Calories/Kcals/Kg 25-30 Kcals Calculated 3764-9757 Protein: Using Current wt Protein g/k Protein Calculated 51 g Fluid: ml 6749-4136 (1 ml/kcal) Nutritional Problem No current Nutrition Prob Problem no nutrition dx at this time Malnutrition Alert Is there a minimum of two criteria No selected? Query Text:Check all the applicable criteria. A minimum of two criteria are recommended for diagnosis of either severe or non-severe malnutrition. Malnutrition Related to Morbid Obesity Malnutrition related to morbid obesity No Intervention/Recommendation Comments 1. Continue with [facility] soft finely chopped, ncs diet as ordered. 2. Family to assist w/ feeding as needed. If PO intake continues <50%, recommend to add chocolate Ensure Enlive BID for added nutrition 3. Monitor PO intake, wt, labs and skin integrity 4. F/U as moderate risk in 3-5 days, 03/13-03/15 Expected Outcomes/Goals Expected Outcomes/Goals 1. PO intake at least 75% of all meals. 2. Wt stability, skin to remain intact, labs to approach normal limits reviewed by Nicol Eng
--- NOTE | 2018-03-14 05:11 | Progress Notes ---
DATE: 03/13/2018 SUBJECTIVE: Staff was spoken to. The patient is interviewed. Mood is noted to be irritable. Affect is constricted. Coping skills at this time are noted to be poor. Insight and judgment are also noted to be impaired. No side effects to the medications are noted. The patient has been having difficult time to cope with the stress. The patient is redirected at this time. ASSESSMENT: The patient is still having mood swings and paranoia, but no major side effects to the medications are noted. PLAN: To continue the patient with the supportive therapy, encouraged the patient to verbalize the concerns rather than to act out. JOB# [id number]
[2018-03-14] MEDS: INSULIN ASPART SLIDING SCALE 100 UNITS/ML UNIT SUBQ SCH ×4 (06:38→20:44)
[2018-03-14] MEDS: Levothyroxine 0.05 Mg Tab PO SCH (06:57)
[2018-03-14] MEDS: Multivitamin Tab PO SCH (08:55)
[2018-03-14] MEDS: Calcium Carb/Vit D 500 mg/200 U Tab PO SCH (08:55)
--- NOTE | 2018-03-14 10:05 | Internal Medicine Prog Note ---
Internal Medicine Subjective - Subjective Patient seen and examined:: with staff, chart reviewed Patient is:: awake, verbal, interactive, odin chair Per staff patient has:: no adverse event, no episodes of fall, poor appetite, agitated, confused, tolerating meds Internal Medicine Objective - Results Result Diagrams: 03/07/18 17:20 03/07/18 17:20 Recent Labs: Laboratory Last Values WBC 5.8 Th/cmm (4.8-10.8) 03/07/18 17:20 RBC 4.08 Mil/cmm (3.80-5.10) 03/07/18 17:20 Hgb 9.7 gm/dL (12-16) L 03/07/18 17:20 Hct 30.2 % (41.0-60) L 03/07/18 17:20 MCV 73.9 fl (81-100) L 03/07/18 17:20 MCH 23.7 pg (27.0-31.0) L 03/07/18 17:20 MCHC Differential 32.0 pg (28.0-36.0) 03/07/18 17:20 RDW 16.7 % (11.5-20.0) 03/07/18 17:20 Plt Count 170 Th/cmm (150-400) 03/07/18 17:20 MPV 7.2 fl 03/07/18 17:20 Neutrophils % 61.1 % (40.0-80.0) 03/07/18 17:20 Lymphocytes % 27.2 % (20.0-50.0) 03/07/18 17:20 Monocytes % 11.2 % (2.0-10.0) H 03/07/18 17:20 Eosinophils % 0.1 % (0.0-5.0) 03/07/18 17:20 Basophils % 0.4 % (0.0-2.0) 03/07/18 17:20 Sodium 135 mEq/L (136-145) L 03/07/18 17:20 Potassium 3.8 mEq/L (3.5-5.1) 03/07/18 17:20 Chloride 99 mEq/L (98-107) 03/07/18 17:20 Carbon Dioxide 28.4 mEq/L (21.0-31.0) 10/14/18 17:20 Anion Gap 11.4 (7.0-16.0) 03/07/18 17:20 BUN 9 mg/dL (7-25) 03/07/18 17:20 Creatinine 0.6 mg/dL (0.6-1.2) 03/07/18 17:20 Est GFR ( Amer) > 60.0 ml/min (>90) 03/07/18 17:20 Est GFR (Non-Af Amer) > 60.0 ml/min 03/07/18 17:20 BUN/Creatinine Ratio 15.0 03/07/18 17:20 Glucose 97 mg/dL (70-105) 03/07/18 17:20 POC Glucose 90 MG/DL (70 - 105) 03/14/18 06:33 Calcium 8.3 mg/dL (8.6-10.3) L 03/07/18 17:20 Phosphorus 3.3 mg/dL (2.5-5.0) 03/07/18 17:20 Magnesium 1.8 mg/dL (1.9-2.7) L 03/07/18 17:20 Total Bilirubin 0.2 mg/dL (0.3-1.0) L 03/07/18 17:20 AST 14 U/L (13-39) 03/07/18 17:20 ALT 12 U/L (7-52) 03/07/18 17:20 Alkaline Phosphatase 71 U/L (34-104) 03/07/18 17:20 Total Protein 6.0 gm/dL (6.0-8.3) 03/07/18 17:20 Albumin 3.6 gm/dL (3.7-5.3) L 03/07/18 17:20 Globulin 2.4 gm/dL 03/07/18 17:20 Albumin/Globulin Ratio 1.5 (1.0-1.8) 03/07/18 17:20 Triglycerides 111 mg/dL (<150) 03/08/18 07:18 Cholesterol 119 mg/dL (<200) 03/08/18 07:18 LDL Cholesterol Direct 43 mg/dL (75-193) L 03/08/18 07:18 HDL Cholesterol 53 mg/dL (23-92) 03/08/18 07:18 TSH 1.08 uIU/ml (0.34-5.60) 03/07/18 17:20 Urine Source CLEAN C 03/07/18 17:20 Urine Color YELLOW 03/07/18 17:20 Urine Clarity CLEAR (CLEAR) 03/07/18 17:20 Urine pH 6.0 (4.6 - 8.0) 03/07/18 17:20 Ur Specific [place] 1.010 (1.005-1.030) 03/07/18 17:20 Urine Protein NEGATIVE mg/dL (NEGATIVE) 03/07/18 17:20 Urine Glucose (UA) 100 mg/dL (NEGATIVE) H 03/07/18 17:20 Urine Ketones TRACE mg/dL (NEGATIVE) 03/07/18 17:20 Urine Blood NEGATIVE (NEGATIVE) 03/07/18 17:20 Urine Nitrate POSITIVE (NEGATIVE) H 03/07/18 17:20 Urine Bilirubin NEGATIVE (NEGATIVE) 03/07/18 17:20 Urine Urobilinogen 0.2 E.U./dL (0.2 - 1.0) 03/07/18 17:20 Ur Leukocyte Esterase NEGATIVE (NEGATIVE) 03/07/18 17:20 Urine RBC 0-2 /hpf (0-5) 03/07/18 17:20 Urine WBC 2-5 /hpf (0-5) 03/07/18 17:20 Ur Epithelial Cells OCCASIONAL /lpf (FEW) 03/07/18 17:20 Urine Bacteria 4+ /hpf (NONE SEEN) H 03/07/18 17:20 Urine Opiates Screen NEGATIVE (NEGATIVE) 03/07/18 17:20 Urine Methadone Screen NEGATIVE (NEGATIVE) 03/07/18 17:20 Ur Barbiturates Screen NEGATIVE (NEGATIVE) 03/07/18 17:20 Valproic Acid 80.3 ug/mL (50.0-100.0) 03/07/18 17:20 Ur Tricyclics Screen NEGATIVE (NEGATIVE) 03/07/18 17:20 Levetiracetam 24.6 ug/mL (10.0-40.0) 03/07/18 17:20 Ur Phencyclidine Scrn NEGATIVE (NEGATIVE) 03/07/18 17:20 Amphetamines Screen NEGATIVE (NEGATIVE) 03/07/18 17:20 U Methamphetamines Scrn NEGATIVE (NEGATIVE) 03/07/18 17:20 U Benzodiazepines Scrn POSITIVE (NEGATIVE) H 03/07/18 17:20 U Cocaine Metab Screen NEGATIVE (NEGATIVE) 03/07/18 17:20 U Cannabinoids Screen NEGATIVE (NEGATIVE) 03/07/18 17:20 - Physical Exam Vitals and I&O: Vital Signs Temp 97.4 F 03/14/18 06:20 Pulse 59 03/14/18 06:20 Resp 16 03/14/18 06:20 BP 101/59 03/14/18 06:20 Pulse Ox 98 03/13/18 21:00 Intake & Output 03/13/18 03/14/18 03/14/18 18:59 06:59 18:59 Intake Total 1200 400 Balance 1200 400 Intake: Oral 1200 400 Other: # Voids 4 2 # Bowel Movements 0 1 Active Medications: Current Medications Calcium/Vitamin D (Oscal W/Vitamin D) 1 tab PO DAILY [facility] Stop: 05/07/18 08:59 Last Admin: 03/14/18 08:55 Dose: 1 tab Divalproex Sodium (Depakote Sprinkle) 500 mg PO BID [facility]; Protocol Stop: 05/07/18 08:59 Last Admin: 03/14/18 08:54 Dose: 500 mg Donepezil HCl (Aricept) 5 mg PO HS [facility] Stop: 05/07/18 20:59 Last Admin: 03/13/18 20:37 Dose: 5 mg Famotidine (Pepcid) 20 mg PO DAILY [facility] Stop: 05/07/18 08:59 Last Admin: 03/14/18 08:55 Dose: 20 mg Glucagon (Glucagen) 1 mg IM PRN PRN PRN Reason: HYPOGLYCEMIA Stop: 05/06/18 23:29 Haloperidol Decanoate (Haldol Dec) 50 mg IM [id number] [facility]; Protocol Stop: 05/08/18 08:59 Last Admin: 03/09/18 10:02 Dose: 50 mg Insulin Aspart (Novolog Insulin Sliding Scale) 0 units SUBQ ACHS [facility]; Protocol Stop: 05/07/18 07:29 Last Admin: 03/14/18 06:38 Dose: Not Given Levetiracetam (Keppra) 500 mg PO BID [facility] Stop: 05/07/18 08:59 Last Admin: 03/14/18 08:55 Dose: 500 mg Levothyroxine Sodium (Synthroid) 0.05 mg PO QDAC [facility] Stop: 05/09/18 07:29 Last Admin: 03/14/18 06:57 Dose: 0.05 mg Lorazepam (Ativan) 0.5 mg PO Q4HR PRN; Protocol PRN Reason: Anxiety Stop: 04/07/18 00:06 Last Admin: 03/13/18 20:37 Dose: 0.5 mg Multivitamins/Vitamin C (Theragran) 1 tab PO DAILY [facility] Stop: 05/07/18 08:59 Last Admin: 03/14/18 08:55 Dose: 1 tab Olanzapine (Zyprexa) 10 mg PO BID [facility]; Protocol Stop: 05/07/18 08:59 Last Admin: 03/14/18 08:55 Dose: 10 mg Oxcarbazepine (Trileptal) 150 mg PO BID [facility]; Protocol Stop: 05/07/18 08:59 Last Admin: 03/14/18 08:55 Dose: 150 mg Zolpidem Tartrate (Ambien) 5 mg PO HS PRN PRN Reason: Insomnia Stop: 05/07/18 00:06 Last Admin: 03/13/18 22:09 Dose: 5 mg General: demented, disheveled HEENT: NC/AT, PERRLA Neck: Supple Lungs: CTAB Cardiovascular: RRR, Normal S1, Normal S2, without murmur Abdomen: soft, non-tender, non-distended Extremities: excoriation, ecchymosis Neurological: disorganized - Procedures Procedures: Procedures Procedure Code Date BLOOD TRANSFUSION SERVICE 42072 03/29/16 CLOSURE SKIN & SUBCUTANEOUS NEC 86.59 07/02/14 DIAGNOSTIC COLONOSCOPY 78057 09/13/15 DRAINAGE OF STOMACH, ENDO, DIAGN [id number] 09/13/15 EGD BIOPSY SINGLE/MULTIPLE 06017 09/13/15 ELECTROCARDIOGRAM 89.52 10/10/94 EMERGENCY DEPT VISIT 66395 07/04/11 EXCISION OF DUODENUM, ENDO, DIAGN [id number] 09/13/15 GASTRIC INTUBATION TREATMENT 39881 12/28/07 GASTRIC LAVAGE 96.33 12/28/07 INSERT GASTRIC TUBE NEC 96.07 07/26/95 INSERT INDWELLING CATH 57.94 09/16/11 INSERT TEMP BLADDER CATH 14143 09/16/11 INSERTION OF INT FIX INTO L HUMERAL SHAFT, PERC APPROACH [id number] 05/24/15 INSPECTION OF LOWER INTESTINAL TRACT, ENDO [id number] 09/13/15 OXYGEN ENRICHMENT NEC 93.96 10/10/94 REMOV THERAPEUT DEV NEC 97.89 03/25/01 REMOVAL OF INT FIX FROM R KNEE JT, OPEN APPROACH [id number] 04/15/16 REPAIR FACE SKIN, EXTERNAL APPROACH [id number] 04/12/15 REPOSITION RIGHT PATELLA WITH INT FIX, OPEN APPROACH [id number] 03/29/16 RPR F/E/E/N/L/M 2.5 CM/< 88949 04/12/15 RPR F/E/E/N/L/M 2.6-5.0 CM 72411 07/02/14 TETANUS TOXOID ADMINIST 99.38 07/02/14 TRANSFUSE NONAUT RED BLOOD CELLS IN PERIPH VEIN, PERC 23390Y1 03/29/16 TREAT KNEECAP FRACTURE 52719 03/29/16 UPPER ARM/ELBOW SURGERY 11941 05/24/15 Internal Medicine Assmt/Plan - Assessment Assessment: - Assessment Assessment: dm sz hypothyroidism dementia schizoaffective - Plan Plan: seizure precautions continue snf meds continue current plan of care - Plan Plan: fall precaution Nutritional Asmnt/Malnutr-PDOC - Dietary Evaluation Malnutrition Findings (Please click <Entered> for more info): Nutritional Asmnt/Malnutrition Start: 03/10/18 12: 22 Text: Status: Complete Freq: Protocol: Document 03/10/18 12:22 DORIE (Rec: 03/10/18 12:35 DORIE [email or web address]) Nutritional Asmnt/Malnutrition Patient General Information Nutritional Screening Moderate Risk Diagnosis psychosis Pertinent Medical Hx/Surgical Hx DM, CAD, seizures, thyroid disorder, dementia, schizoaffective disorder, hypothyroidism Subjective Information Pt eating lunch in rec room at time of visit. Pt appears confused and did not respond to questions. Pt's father present; states he brings sugar free snacks for pt and that pt dislikes fish and spinach. Pt's father verified that pt needs [facility] soft foods and states nutrition supplement will be appropriate if pt's PO intake low. Nursing noted intake: 50-75%, meeting about 90-100% of nutritional needs. Current Diet Order/ Nutrition Support [facility] soft chopped; finely chopped, ncs Pertinent Medications oscal w/ Vit D, pepcid, novolog, keppra, synthroid, glucophage, theragran Pertinent Labs 03/09: POC 56-90 03/07: Na 135, Ca 8.3, Mg 1.8, Alb 3.6 Nutritional Hx/Data Height 1.57 m Height (Calculated Centimeters) 157.5 Current Weight (lbs) 51.256 kg Weight (Calculated Kilograms) 51.3 Weight (Calculated Grams) 56780.9 [place] Body Weight 110 lb Body Mass Index (BMI) 20.6 Weight Status Approriate GI Symptoms GI Symptoms None Last BM 03/09 Difficult in: None Food Allergies No Skin Integrity/Comment: antonio perezen 16 Current %PO Fair (50-74%) Estimated Nutritional Goals BEE in Kcals: Using Current wt Calories/Kcals/Kg 25-30 Kcals Calculated 3800-5704 Protein: Using Current wt Protein g/k Protein Calculated 51 g Fluid: ml 7853-2456 (1 ml/kcal) Nutritional Problem No current Nutrition Prob Problem no nutrition dx at this time Malnutrition Alert Is there a minimum of two criteria No selected? Query Text:Check all the applicable criteria. A minimum of two criteria are recommended for diagnosis of either severe or non-severe malnutrition. Malnutrition Related to Morbid Obesity Malnutrition related to morbid obesity No Intervention/Recommendation Comments 1. [facility] finely chopped, ncs diet as ordered. 2. Family to assist w/ feeding as needed. If PO intake continues <50%, recommend to add chocolate Ensure Enlive BID for added nutrition 3. Monitor PO intake, wt, labs and skin integrity 4. F/U as moderate risk in 3-5 days, 03/13-03/15 Expected Outcomes/Goals Expected Outcomes/Goals 1. PO intake at least 75% of all meals. 2. Wt stability, skin to remain intact, labs to approach normal limits reviewed by Nicol Eng
--- NOTE | 2018-03-14 21:32 | Progress Notes ---
DATE: 03/14/2018 PSYCHIATRIC PROGRESS NOTE SUBJECTIVE: Staff was spoken to. The patient is interviewed. Mood is noted to be anxious. Affect is appropriate. The patient's insight and judgment are noted to be improving. Impulse control seems to be fair. No side effects to the medications are noted. The patient has been able to participate in the groups and the patient's participation is noted to be minimal, but the patient has been able to get something out of it. ASSESSMENT: The patient is stabilizing. PLAN: To continue the patient with the supportive therapy and followup. JOB# [id number]
[2018-03-15] MEDS: INSULIN ASPART SLIDING SCALE 100 UNITS/ML UNIT SUBQ SCH ×4 (06:35→21:20)
[2018-03-15] MEDS: Levothyroxine 0.05 Mg Tab PO SCH (06:36)
[2018-03-15] MEDS: Multivitamin Tab PO SCH (08:08)
[2018-03-15] MEDS: Calcium Carb/Vit D 500 mg/200 U Tab PO SCH (08:09)
--- NOTE | 2018-03-15 11:22 | Internal Medicine Prog Note ---
Internal Medicine Subjective - Subjective Service Date: 03/15/18 Patient is:: awake, verbal, interactive, odin chair Per staff patient has:: no adverse event, no episodes of fall, poor appetite, agitated, confused, tolerating meds Internal Medicine Objective - Results Result Diagrams: 03/07/18 17:20 03/07/18 17:20 Recent Labs: Laboratory Last Values WBC 5.8 Th/cmm (4.8-10.8) 03/07/18 17:20 RBC 4.08 Mil/cmm (3.80-5.10) 03/07/18 17:20 Hgb 9.7 gm/dL (12-16) L 03/07/18 17:20 Hct 30.2 % (41.0-60) L 03/07/18 17:20 MCV 73.9 fl (81-100) L 03/07/18 17:20 MCH 23.7 pg (27.0-31.0) L 03/07/18 17:20 MCHC Differential 32.0 pg (28.0-36.0) 03/07/18 17:20 RDW 16.7 % (11.5-20.0) 03/07/18 17:20 Plt Count 170 Th/cmm (150-400) 03/07/18 17:20 MPV 7.2 fl 03/07/18 17:20 Neutrophils % 61.1 % (40.0-80.0) 03/07/18 17:20 Lymphocytes % 27.2 % (20.0-50.0) 03/07/18 17:20 Monocytes % 11.2 % (2.0-10.0) H 03/07/18 17:20 Eosinophils % 0.1 % (0.0-5.0) 03/07/18 17:20 Basophils % 0.4 % (0.0-2.0) 03/07/18 17:20 Sodium 135 mEq/L (136-145) L 03/07/18 17:20 Potassium 3.8 mEq/L (3.5-5.1) 03/07/18 17:20 Chloride 99 mEq/L (98-107) 03/07/18 17:20 Carbon Dioxide 28.4 mEq/L (21.0-31.0) 03/07/18 17:20 Anion Gap 11.4 (7.0-16.0) 03/07/18 17:20 BUN 9 mg/dL (7-25) 03/07/18 17:20 Creatinine 0.6 mg/dL (0.6-1.2) 03/07/18 17:20 Est GFR ( Amer) > 60.0 ml/min (>90) 03/07/18 17:20 Est GFR (Non-Af Amer) > 60.0 ml/min 03/07/18 17:20 BUN/Creatinine Ratio 15.0 03/07/18 17:20 Glucose 97 mg/dL (70-105) 03/07/18 17:20 POC Glucose 87 MG/DL (70 - 105) 03/15/18 11:13 Calcium 8.3 mg/dL (8.6-10.3) L 03/07/18 17:20 Phosphorus 3.3 mg/dL (2.5-5.0) 03/07/18 17:20 Magnesium 1.8 mg/dL (1.9-2.7) L 03/07/18 17:20 Total Bilirubin 0.2 mg/dL (0.3-1.0) L 03/07/18 17:20 AST 14 U/L (13-39) 03/07/18 17:20 ALT 12 U/L (7-52) 03/07/18 17:20 Alkaline Phosphatase 71 U/L (34-104) 03/07/18 17:20 Total Protein 6.0 gm/dL (6.0-8.3) 03/07/18 17:20 Albumin 3.6 gm/dL (3.7-5.3) L 03/07/18 17:20 Globulin 2.4 gm/dL 03/07/18 17:20 Albumin/Globulin Ratio 1.5 (1.0-1.8) 03/07/18 17:20 Triglycerides 111 mg/dL (<150) 03/08/18 07:18 Cholesterol 119 mg/dL (<200) 03/08/18 07:18 LDL Cholesterol Direct 43 mg/dL (75-193) L 03/08/18 07:18 HDL Cholesterol 53 mg/dL (23-92) 03/08/18 07:18 TSH 1.08 uIU/ml (0.34-5.60) 03/07/18 17:20 Urine Source CLEAN C 03/07/18 17:20 Urine Color YELLOW 03/07/18 17:20 Urine Clarity CLEAR (CLEAR) 03/07/18 17:20 Urine pH 6.0 (4.6 - 8.0) 03/07/18 17:20 Ur Specific [place] 1.010 (1.005-1.030) 03/07/18 17:20 Urine Protein NEGATIVE mg/dL (NEGATIVE) 03/07/18 17:20 Urine Glucose (UA) 100 mg/dL (NEGATIVE) H 03/07/18 17:20 Urine Ketones TRACE mg/dL (NEGATIVE) 03/07/18 17:20 Urine Blood NEGATIVE (NEGATIVE) 03/07/18 17:20 Urine Nitrate POSITIVE (NEGATIVE) H 03/07/18 17:20 Urine Bilirubin NEGATIVE (NEGATIVE) 03/07/18 17:20 Urine Urobilinogen 0.2 E.U./dL (0.2 - 1.0) 03/07/18 17:20 Ur Leukocyte Esterase NEGATIVE (NEGATIVE) 03/07/18 17:20 Urine RBC 0-2 /hpf (0-5) 03/07/18 17:20 Urine WBC 2-5 /hpf (0-5) 03/07/18 17:20 Ur Epithelial Cells OCCASIONAL /lpf (FEW) 03/07/18 17:20 Urine Bacteria 4+ /hpf (NONE SEEN) H 03/07/18 17:20 Urine Opiates Screen NEGATIVE (NEGATIVE) 03/07/18 17:20 Urine Methadone Screen NEGATIVE (NEGATIVE) 03/07/18 17:20 Ur Barbiturates Screen NEGATIVE (NEGATIVE) 03/07/18 17:20 Valproic Acid 80.3 ug/mL (50.0-100.0) 03/07/18 17:20 Ur Tricyclics Screen NEGATIVE (NEGATIVE) 03/07/18 17:20 Levetiracetam 24.6 ug/mL (10.0-40.0) 03/07/18 17:20 Ur Phencyclidine Scrn NEGATIVE (NEGATIVE) 03/07/18 17:20 Amphetamines Screen NEGATIVE (NEGATIVE) 03/07/18 17:20 U Methamphetamines Scrn NEGATIVE (NEGATIVE) 03/07/18 17:20 U Benzodiazepines Scrn POSITIVE (NEGATIVE) H 03/07/18 17:20 U Cocaine Metab Screen NEGATIVE (NEGATIVE) 03/07/18 17:20 U Cannabinoids Screen NEGATIVE (NEGATIVE) 03/07/18 17:20 - Physical Exam Vitals and I&O: Vital Signs Temp 97.0 F 03/15/18 06:26 Pulse 65 03/15/18 06:26 Resp 18 03/15/18 06:26 BP 124/70 03/15/18 06:26 Pulse Ox 100 03/15/18 06:26 Intake & Output 03/14/18 03/15/18 03/15/18 18:59 06:59 18:59 Intake Total 1840 Balance 1840 Intake: Oral 1840 Other: # Voids 2 # Bowel Movements 0 Active Medications: Current Medications Calcium/Vitamin D (Oscal W/Vitamin D) 1 tab PO DAILY [facility] Stop: 05/07/18 08:59 Last Admin: 03/15/18 08:09 Dose: 1 tab Divalproex Sodium (Depakote Sprinkle) 500 mg PO BID [facility]; Protocol Stop: 05/07/18 08:59 Last Admin: 03/15/18 08:07 Dose: 500 mg Donepezil HCl (Aricept) 5 mg PO HS [facility] Stop: 05/07/18 20:59 Last Admin: 03/14/18 20:45 Dose: 5 mg Famotidine (Pepcid) 20 mg PO DAILY [facility] Stop: 05/07/18 08:59 Last Admin: 03/15/18 08:07 Dose: 20 mg Glucagon (Glucagen) 1 mg IM PRN PRN PRN Reason: HYPOGLYCEMIA Stop: 05/06/18 23:29 Haloperidol Decanoate (Haldol Dec) 50 mg IM [id number] [facility]; Protocol Stop: 05/08/18 08:59 Last Admin: 03/09/18 10:02 Dose: 50 mg Insulin Aspart (Novolog Insulin Sliding Scale) 0 units SUBQ ACHS [facility]; Protocol Stop: 05/07/18 07:29 Last Admin: 03/15/18 11:21 Dose: Not Given Levetiracetam (Keppra) 500 mg PO BID [facility] Stop: 05/07/18 08:59 Last Admin: 03/15/18 08:07 Dose: 500 mg Levothyroxine Sodium (Synthroid) 0.05 mg PO QDAC [facility] Stop: 12/16/18 07:29 Last Admin: 03/15/18 06:36 Dose: 0.05 mg Lorazepam (Ativan) 0.5 mg PO Q4HR PRN; Protocol PRN Reason: Anxiety Stop: 04/07/18 00:06 Last Admin: 03/14/18 16:22 Dose: 0.5 mg Multivitamins/Vitamin C (Theragran) 1 tab PO DAILY [facility] Stop: 05/07/18 08:59 Last Admin: 03/15/18 08:08 Dose: 1 tab Olanzapine (Zyprexa) 10 mg PO BID [facility]; Protocol Stop: 05/07/18 08:59 Last Admin: 03/15/18 08:07 Dose: 10 mg Oxcarbazepine (Trileptal) 150 mg PO BID [facility]; Protocol Stop: 05/07/18 08:59 Last Admin: 03/15/18 08:07 Dose: 150 mg Zolpidem Tartrate (Ambien) 5 mg PO HS PRN PRN Reason: Insomnia Stop: 05/07/18 00:06 Last Admin: 03/14/18 20:45 Dose: 5 mg General: demented, disheveled HEENT: NC/AT, PERRLA Neck: Supple Lungs: CTAB Cardiovascular: RRR, Normal S1, Normal S2, without murmur Abdomen: soft, non-tender, non-distended Extremities: excoriation, ecchymosis Neurological: disorganized - Procedures Procedures: Procedures Procedure Code Date BLOOD TRANSFUSION SERVICE 12784 03/29/16 CLOSURE SKIN & SUBCUTANEOUS NEC 86.59 07/02/14 DIAGNOSTIC COLONOSCOPY 99678 09/13/15 DRAINAGE OF STOMACH, ENDO, DIAGN [id number] 09/13/15 EGD BIOPSY SINGLE/MULTIPLE 46665 09/13/15 ELECTROCARDIOGRAM 89.52 10/10/94 EMERGENCY DEPT VISIT 46908 07/04/11 EXCISION OF DUODENUM, ENDO, DIAGN [id number] 09/13/15 GASTRIC INTUBATION TREATMENT 69316 12/28/07 GASTRIC LAVAGE 96.33 12/28/07 INSERT GASTRIC TUBE NEC 96.07 07/26/95 INSERT INDWELLING CATH 57.94 09/16/11 INSERT TEMP BLADDER CATH 13287 09/16/11 INSERTION OF INT FIX INTO L HUMERAL SHAFT, PERC APPROACH [id number] 05/24/15 INSPECTION OF LOWER INTESTINAL TRACT, ENDO [id number] 09/13/15 OXYGEN ENRICHMENT NEC 93.96 10/10/94 REMOV THERAPEUT DEV NEC 97.89 03/25/01 REMOVAL OF INT FIX FROM R KNEE JT, OPEN APPROACH [id number] 04/15/16 REPAIR FACE SKIN, EXTERNAL APPROACH [id number] 04/12/15 REPOSITION RIGHT PATELLA WITH INT FIX, OPEN APPROACH [id number] 03/29/16 RPR F/E/E/N/L/M 2.5 CM/< 03399 04/12/15 RPR F/E/E/N/L/M 2.6-5.0 CM 92627 07/02/14 TETANUS TOXOID ADMINIST 99.38 07/02/14 TRANSFUSE NONAUT RED BLOOD CELLS IN PERIPH VEIN, PERC 08288I6 03/29/16 TREAT KNEECAP FRACTURE 09451 03/29/16 UPPER ARM/ELBOW SURGERY 16672 05/24/15 Internal Medicine Assmt/Plan - Assessment Assessment: dm sz hypothyroidism dementia schizoaffective - Plan Plan: seizure precautions continue snf meds continue current plan of care Nutritional Asmnt/Malnutr-PDOC - Dietary Evaluation Malnutrition Findings (Please click <Entered> for more info): Nutritional Asmnt/Malnutrition Start: 03/10/18 12: 22 Text: Status: Complete Freq: Protocol: Document 03/10/18 12:22 DORIE (Rec: 03/10/18 12:35 DORIE [email or web address]) Nutritional Asmnt/Malnutrition Patient General Information Nutritional Screening Moderate Risk Diagnosis psychosis Pertinent Medical Hx/Surgical Hx DM, CAD, seizures, thyroid disorder, dementia, schizoaffective disorder, hypothyroidism Subjective Information Pt eating lunch in rec room at time of visit. Pt appears confused and did not respond to questions. Pt's father present; states he brings sugar free snacks for pt and that pt dislikes fish and spinach. Pt's father verified that pt needs [facility] soft foods and states nutrition supplement will be appropriate if pt's PO intake low. Nursing noted intake: 50-75%, meeting about 90-100% of nutritional needs. Current Diet Order/ Nutrition Support [facility] soft chopped; finely chopped, ncs Pertinent Medications oscal w/ Vit D, pepcid, novolog, keppra, synthroid, glucophage, theragran Pertinent Labs 03/09: POC 56-90 03/07: Na 135, Ca 8.3, Mg 1.8, Alb 3.6 Nutritional Hx/Data Height 5 ft 2 in Height (Calculated Centimeters) 157.5 Current Weight (lbs) 113 lb Weight (Calculated Kilograms) 51.3 Weight (Calculated Grams) 45454.9 [place] Body Weight 110 lb Body Mass Index (BMI) 20.6 Weight Status Approriate GI Symptoms GI Symptoms None Last BM 03/09 Difficult in: None Food Allergies No Skin Integrity/Comment: frank perez 16 Current %PO Fair (50-74%) Estimated Nutritional Goals BEE in Kcals: Using Current wt Calories/Kcals/Kg 25-30 Kcals Calculated 6163-0638 Protein: Using Current wt Protein g/k Protein Calculated 51 g Fluid: ml 3159-4477 (1 ml/kcal) Nutritional Problem No current Nutrition Prob Problem no nutrition dx at this time Malnutrition Alert Is there a minimum of two criteria No selected? Query Text:Check all the applicable criteria. A minimum of two criteria are recommended for diagnosis of either severe or non-severe malnutrition. Malnutrition Related to Morbid Obesity Malnutrition related to morbid obesity No Intervention/Recommendation Comments 1. Continue with [facility] soft finely chopped, ncs diet as ordered. 2. Family to assist w/ feeding as needed. If PO intake continues <50%, recommend to add chocolate Ensure Enlive BID for added nutrition 3. Monitor PO intake, wt, labs and skin integrity 4. F/U as moderate risk in 3-5 days, 03/13-03/15 Expected Outcomes/Goals Expected Outcomes/Goals 1. PO intake at least 75% of all meals. 2. Wt stability, skin to remain intact, labs to approach normal limits reviewed by Nicol Eng
--- NOTE | 2018-03-16 03:47 | Progress Notes ---
DATE: 03/15/2018 PSYCHIATRIC PROGRESS NOTE SUBJECTIVE: Staff was spoken to. The patient is interviewed. Mood is noted to be irritable. Affect is constricted. Insight and judgment at this time are noted to be still impaired. Impulse control seems to be poor. The patient has been noted to be very tired today and no major problems noted. The patient is very isolative and withdrawn and the patient is reporting that she is feeling tired all the time and hence it is decided to change the Zyprexa to only 10 mg at bedtime and the patient is going to be closely monitored and the patient's vital signs have been stable. The patient is going to be encouraged to participate in the groups and verbalize the concern at this time. JOB# [id number]
[2018-03-16] MEDS: INSULIN ASPART SLIDING SCALE 100 UNITS/ML UNIT SUBQ SCH ×3 (06:34→16:11)
[2018-03-16] MEDS: Levothyroxine 0.05 Mg Tab PO SCH (06:38)
[2018-03-16] MEDS: Multivitamin Tab PO SCH (09:08)
[2018-03-16] MEDS: Calcium Carb/Vit D 500 mg/200 U Tab PO SCH (09:09)
--- NOTE | 2018-03-16 14:53 | Internal Medicine Prog Note ---
Internal Medicine Subjective - Subjective Service Date: 03/16/18 Patient is:: awake, verbal, interactive, odin chair Per staff patient has:: no adverse event, no episodes of fall, poor appetite, agitated, confused, tolerating meds Internal Medicine Objective - Results Result Diagrams: 03/07/18 17:20 03/07/18 17:20 Recent Labs: Laboratory Last Values WBC 5.8 Th/cmm (4.8-10.8) 03/07/18 17:20 RBC 4.08 Mil/cmm (3.80-5.10) 03/07/18 17:20 Hgb 9.7 gm/dL (12-16) L 03/07/18 17:20 Hct 30.2 % (41.0-60) L 03/07/18 17:20 MCV 73.9 fl (81-100) L 03/07/18 17:20 MCH 23.7 pg (27.0-31.0) L 03/07/18 17:20 MCHC Differential 32.0 pg (28.0-36.0) 03/07/18 17:20 RDW 16.7 % (11.5-20.0) 03/07/18 17:20 Plt Count 170 Th/cmm (150-400) 03/07/18 17:20 MPV 7.2 fl 03/07/18 17:20 Neutrophils % 61.1 % (40.0-80.0) 03/07/18 17:20 Lymphocytes % 27.2 % (20.0-50.0) 03/07/18 17:20 Monocytes % 11.2 % (2.0-10.0) H 03/07/18 17:20 Eosinophils % 0.1 % (0.0-5.0) 03/07/18 17:20 Basophils % 0.4 % (0.0-2.0) 03/07/18 17:20 Sodium 135 mEq/L (136-145) L 03/07/18 17:20 Potassium 3.8 mEq/L (3.5-5.1) 03/07/18 17:20 Chloride 99 mEq/L (98-107) 03/07/18 17:20 Carbon Dioxide 28.4 mEq/L (21.0-31.0) 03/07/18 17:20 Anion Gap 11.4 (7.0-16.0) 03/07/18 17:20 BUN 9 mg/dL (7-25) 03/07/18 17:20 Creatinine 0.6 mg/dL (0.6-1.2) 03/07/18 17:20 Est GFR ( Amer) > 60.0 ml/min (>90) 03/07/18 17:20 Est GFR (Non-Af Amer) > 60.0 ml/min 03/07/18 17:20 BUN/Creatinine Ratio 15.0 03/07/18 17:20 Glucose 97 mg/dL (70-105) 03/07/18 17:20 POC Glucose 84 MG/DL (70 - 105) 03/16/18 11:25 Calcium 8.3 mg/dL (8.6-10.3) L 03/07/18 17:20 Phosphorus 3.3 mg/dL (2.5-5.0) 03/07/18 17:20 Magnesium 1.8 mg/dL (1.9-2.7) L 03/07/18 17:20 Total Bilirubin 0.2 mg/dL (0.3-1.0) L 03/07/18 17:20 AST 14 U/L (13-39) 03/07/18 17:20 ALT 12 U/L (7-52) 03/07/18 17:20 Alkaline Phosphatase 71 U/L (34-104) 03/07/18 17:20 Total Protein 6.0 gm/dL (6.0-8.3) 03/07/18 17:20 Albumin 3.6 gm/dL (3.7-5.3) L 03/07/18 17:20 Globulin 2.4 gm/dL 03/07/18 17:20 Albumin/Globulin Ratio 1.5 (1.0-1.8) 03/07/18 17:20 Triglycerides 111 mg/dL (<150) 03/08/18 07:18 Cholesterol 119 mg/dL (<200) 03/08/18 07:18 LDL Cholesterol Direct 43 mg/dL (75-193) L 03/08/18 07:18 HDL Cholesterol 53 mg/dL (23-92) 03/08/18 07:18 TSH 1.08 uIU/ml (0.34-5.60) 03/07/18 17:20 Urine Source CLEAN C 03/07/18 17:20 Urine Color YELLOW 03/07/18 17:20 Urine Clarity CLEAR (CLEAR) 03/07/18 17:20 Urine pH 6.0 (4.6 - 8.0) 03/07/18 17:20 Ur Specific [place] 1.010 (1.005-1.030) 03/07/18 17:20 Urine Protein NEGATIVE mg/dL (NEGATIVE) 03/07/18 17:20 Urine Glucose (UA) 100 mg/dL (NEGATIVE) H 03/07/18 17:20 Urine Ketones TRACE mg/dL (NEGATIVE) 03/07/18 17:20 Urine Blood NEGATIVE (NEGATIVE) 03/07/18 17:20 Urine Nitrate POSITIVE (NEGATIVE) H 03/07/18 17:20 Urine Bilirubin NEGATIVE (NEGATIVE) 03/07/18 17:20 Urine Urobilinogen 0.2 E.U./dL (0.2 - 1.0) 03/07/18 17:20 Ur Leukocyte Esterase NEGATIVE (NEGATIVE) 03/07/18 17:20 Urine RBC 0-2 /hpf (0-5) 03/07/18 17:20 Urine WBC 2-5 /hpf (0-5) 03/07/18 17:20 Ur Epithelial Cells OCCASIONAL /lpf (FEW) 03/07/18 17:20 Urine Bacteria 4+ /hpf (NONE SEEN) H 03/07/18 17:20 Urine Opiates Screen NEGATIVE (NEGATIVE) 03/07/18 17:20 Urine Methadone Screen NEGATIVE (NEGATIVE) 03/07/18 17:20 Ur Barbiturates Screen NEGATIVE (NEGATIVE) 03/07/18 17:20 Valproic Acid 80.3 ug/mL (50.0-100.0) 03/07/18 17:20 Ur Tricyclics Screen NEGATIVE (NEGATIVE) 03/07/18 17:20 Levetiracetam 24.6 ug/mL (10.0-40.0) 03/07/18 17:20 Ur Phencyclidine Scrn NEGATIVE (NEGATIVE) 03/07/18 17:20 Amphetamines Screen NEGATIVE (NEGATIVE) 03/07/18 17:20 U Methamphetamines Scrn NEGATIVE (NEGATIVE) 03/07/18 17:20 U Benzodiazepines Scrn POSITIVE (NEGATIVE) H 03/07/18 17:20 U Cocaine Metab Screen NEGATIVE (NEGATIVE) 03/07/18 17:20 U Cannabinoids Screen NEGATIVE (NEGATIVE) 03/07/18 17:20 - Physical Exam Vitals and I&O: Vital Signs Temp 98.1 F 03/16/18 14:43 Pulse 75 03/16/18 14:43 Resp 18 03/16/18 14:43 BP 118/62 03/16/18 14:43 Pulse Ox 98 03/16/18 14:43 Intake & Output 03/15/18 03/16/18 03/16/18 18:59 06:59 18:59 Intake Total 900 360 Balance 900 360 Weight (lbs) 113 lb Intake: Oral 900 360 Other: # Voids 3 2 # Bowel Movements 1 0 Weight Source Bedscale Active Medications: Current Medications Calcium/Vitamin D (Oscal W/Vitamin D) 1 tab PO DAILY [facility] Stop: 05/07/18 08:59 Last Admin: 03/16/18 09:09 Dose: 1 tab Divalproex Sodium (Depakote Sprinkle) 500 mg PO BID [facility]; Protocol Stop: 05/07/18 08:59 Last Admin: 03/16/18 09:08 Dose: 500 mg Donepezil HCl (Aricept) 5 mg PO HS [facility] Stop: 05/07/18 20:59 Last Admin: 03/15/18 21:19 Dose: 5 mg Famotidine (Pepcid) 20 mg PO DAILY [facility] Stop: 05/07/18 08:59 Last Admin: 03/16/18 09:09 Dose: 20 mg Glucagon (Glucagen) 1 mg IM PRN PRN PRN Reason: HYPOGLYCEMIA Stop: 05/06/18 23:29 Haloperidol Decanoate (Haldol Dec) 50 mg IM [id number] [facility]; Protocol Stop: 05/08/18 08:59 Last Admin: 03/09/18 10:02 Dose: 50 mg Insulin Aspart (Novolog Insulin Sliding Scale) 0 units SUBQ ACHS [facility]; Protocol Stop: 05/07/18 07:29 Last Admin: 03/16/18 11:59 Dose: Not Given Levetiracetam (Keppra) 500 mg PO BID [facility] Stop: 05/07/18 08:59 Last Admin: 03/16/18 09:09 Dose: 500 mg Levothyroxine Sodium (Synthroid) 0.05 mg PO QDAC [facility] Stop: 05/09/18 07:29 Last Admin: 03/16/18 06:38 Dose: 0.05 mg Lorazepam (Ativan) 0.5 mg PO Q4HR PRN; Protocol PRN Reason: Anxiety Stop: 04/07/18 00:06 Last Admin: 03/14/18 16:22 Dose: 0.5 mg Multivitamins/Vitamin C (Theragran) 1 tab PO DAILY [facility] Stop: 05/07/18 08:59 Last Admin: 03/16/18 09:08 Dose: 1 tab Olanzapine (Zyprexa) 10 mg PO HS [facility]; Protocol Stop: 05/14/18 20:59 Oxcarbazepine (Trileptal) 150 mg PO BID [facility]; Protocol Stop: 05/07/18 08:59 Last Admin: 03/16/18 09:09 Dose: 150 mg Zolpidem Tartrate (Ambien) 5 mg PO HS PRN PRN Reason: Insomnia Stop: 05/07/18 00:06 Last Admin: 03/15/18 21:19 Dose: 5 mg General: demented, disheveled HEENT: NC/AT, PERRLA Neck: Supple Lungs: CTAB Cardiovascular: RRR, Normal S1, Normal S2, without murmur Abdomen: soft, non-tender, non-distended Extremities: excoriation, ecchymosis Neurological: disorganized - Procedures Procedures: Procedures Procedure Code Date BLOOD TRANSFUSION SERVICE 21747 03/29/16 CLOSURE SKIN & SUBCUTANEOUS NEC 86.59 07/02/14 DIAGNOSTIC COLONOSCOPY 94496 09/13/15 DRAINAGE OF STOMACH, ENDO, DIAGN [id number] 09/13/15 EGD BIOPSY SINGLE/MULTIPLE 70207 09/13/15 ELECTROCARDIOGRAM 89.52 10/10/94 EMERGENCY DEPT VISIT 97716 07/04/11 EXCISION OF DUODENUM, ENDO, DIAGN [id number] 09/13/15 GASTRIC INTUBATION TREATMENT 65610 12/28/07 GASTRIC LAVAGE 96.33 12/28/07 INSERT GASTRIC TUBE NEC 96.07 07/26/95 INSERT INDWELLING CATH 57.94 09/16/11 INSERT TEMP BLADDER CATH 49051 09/16/11 INSERTION OF INT FIX INTO L HUMERAL SHAFT, PERC APPROACH [id number] 05/24/15 INSPECTION OF LOWER INTESTINAL TRACT, ENDO [id number] 09/13/15 OXYGEN ENRICHMENT NEC 93.96 10/10/94 REMOV THERAPEUT DEV NEC 97.89 03/25/01 REMOVAL OF INT FIX FROM R KNEE JT, OPEN APPROACH [id number] 04/15/16 REPAIR FACE SKIN, EXTERNAL APPROACH [id number] 04/12/15 REPOSITION RIGHT PATELLA WITH INT FIX, OPEN APPROACH [id number] 03/29/16 RPR F/E/E/N/L/M 2.5 CM/< 42449 04/12/15 RPR F/E/E/N/L/M 2.6-5.0 CM 79420 07/02/14 TETANUS TOXOID ADMINIST 99.38 07/02/14 TRANSFUSE NONAUT RED BLOOD CELLS IN PERIPH VEIN, PERC 08306G8 03/29/16 TREAT KNEECAP FRACTURE 49553 03/29/16 UPPER ARM/ELBOW SURGERY 46984 05/24/15 Internal Medicine Assmt/Plan - Assessment Assessment: dm sz hypothyroidism dementia schizoaffective - Plan Plan: seizure precautions continue snf meds continue current plan of care Nutritional Asmnt/Malnutr-PDOC - Dietary Evaluation Malnutrition Findings (Please click <Entered> for more info): Nutritional Asmnt/Malnutrition Start: 03/10/18 12: 22 Text: Status: Complete Freq: Protocol: Document 03/10/18 12:22 DORIE (Rec: 03/10/18 12:35 DORIE [email or web address]) Nutritional Asmnt/Malnutrition Patient General Information Nutritional Screening Moderate Risk Diagnosis psychosis Pertinent Medical Hx/Surgical Hx DM, CAD, seizures, thyroid disorder, dementia, schizoaffective disorder, hypothyroidism Subjective Information Pt eating lunch in rec room at time of visit. Pt appears confused and did not respond to questions. Pt's father present; states he brings sugar free snacks for pt and that pt dislikes fish and spinach. Pt's father verified that pt needs [facility] soft foods and states nutrition supplement will be appropriate if pt's PO intake low. Nursing noted intake: 50-75%, meeting about 90-100% of nutritional needs. Current Diet Order/ Nutrition Support [facility] soft chopped; finely chopped, ncs Pertinent Medications oscal w/ Vit D, pepcid, novolog, keppra, synthroid, glucophage, theragran Pertinent Labs 03/09: POC 56-90 03/07: Na 135, Ca 8.3, Mg 1.8, Alb 3.6 Nutritional Hx/Data Height 5 ft 2 in Height (Calculated Centimeters) 157.5 Current Weight (lbs) 113 lb Weight (Calculated Kilograms) 51.3 Weight (Calculated Grams) 12043.9 [place] Body Weight 110 lb Body Mass Index (BMI) 20.6 Weight Status Approriate GI Symptoms GI Symptoms None Last BM 03/09 Difficult in: None Food Allergies No Skin Integrity/Comment: chrisfrank 16 Current %PO Fair (50-74%) Estimated Nutritional Goals BEE in Kcals: Using Current wt Calories/Kcals/Kg 25-30 Kcals Calculated 1368-4377 Protein: Using Current wt Protein g/k Protein Calculated 51 g Fluid: ml 8795-1755 (1 ml/kcal) Nutritional Problem No current Nutrition Prob Problem no nutrition dx at this time Malnutrition Alert Is there a minimum of two criteria No selected? Query Text:Check all the applicable criteria. A minimum of two criteria are recommended for diagnosis of either severe or non-severe malnutrition. Malnutrition Related to Morbid Obesity Malnutrition related to morbid obesity No Intervention/Recommendation Comments 1. Continue with [facility] soft finely chopped, ncs diet as ordered. 2. Family to assist w/ feeding as needed. If PO intake continues <50%, recommend to add chocolate Ensure Enlive BID for added nutrition 3. Monitor PO intake, wt, labs and skin integrity 4. F/U as moderate risk in 3-5 days, 03/13-03/15 Expected Outcomes/Goals Expected Outcomes/Goals 1. PO intake at least 75% of all meals. 2. Wt stability, skin to remain intact, labs to approach normal limits reviewed by Nicol Eng
--- NOTE | 2018-03-16 23:56 | Progress Notes ---
DATE: 03/16/2018 PSYCHIATRIC PROGRESS NOTE SUBJECTIVE: Staff was spoken to. The patient is interviewed. Mood is noted to be anxious. Affect is appropriate. Not suicidal or homicidal. Insight and judgment are noted to be fair. Impulse control is also noted to be fair. The patient has been able to verbalize the concerns rather than to act out. No major behavioral problems are noted. ASSESSMENT: The patient is stabilizing. PLAN: To discharge the patient back to the [facility] for further followup. JOB# [id number]
--- NOTE | 2018-03-28 13:38 | Discharge Summary ---
DATE OF DISCHARGE: 03/16/2018 IDENTIFYING DATA: The patient is a 52-year-old woman, resident of [facility]. JUSTIFICATION OF HOSPITALIZATION: The patient is admitted in view of the agitation and psychosis. CHIEF COMPLAINT: "I'm feeling depressed." DIAGNOSES AT THE TIME OF ADMISSION: AXIS I: Schizoaffective disorder, psychotic at this time. AXIS II: None. AXIS III: As per Dr. Russell. HISTORY OF PRESENT ILLNESS: Please refer the 03/08/2018 done by me. Physical examination was done by Dr. Russell. HOSPITAL COURSE AND RESPONSE TO TREATMENT: The patient has been closely monitored. I encouraged to participate in the groups and verbalize the concerns. The patient is getting easily irritable and angry at the time of the hospitalization and the patient has been taking care of her diabetes, seizures, hypothyroidism and Lab studies done during the hospitalization have been reviewed. The patient started to do fairly well and the patient was finally discharged to the [facility] for followup by Dr. Arce. MENTAL STATUS EXAMINATION: At the time of discharge, the patient's mood is noted to be less irritable. Affect is appropriate. Not suicidal or homicidal. Insight and judgment are noted to be impaired. Impulse control is noted to be fair. The patient has been placed on the olanzapine and oxcarbazepine. The patient has been able to tolerate mood swings came under control and the patient's behavior is not noted to be a danger to self or others at the time of discharge. CONDITION: At the time of discharge is noted to be stable. [facility]# [id number]
== END 2018-03-16 16:45 | DRG 885 ==
LOC: ER 16:54 → GERO 19:03
DX: F25.1 Schizoaffective disorder, depressive type (principal); F23 Brief psychotic disorder; N39.0 Urinary tract infection, site not specified; E11.9 Type 2 diabetes mellitus without complications; E03.9 Hypothyroidism, unspecified; I25.10 Atherosclerotic heart disease of native coronary artery without angina pectoris; G40.909 Epilepsy, unspecified, not intractable, without status epilepticus; D64.9 Anemia, unspecified; G20 Parkinson's disease; F02.80 Dementia in other diseases classified elsewhere, unspecified severity, without behavioral disturbance, psychotic disturbance, mood disturbance, and anxiety; K21.9 Gastro-esophageal reflux disease without esophagitis; Z88.0 Allergy status to penicillin; Z79.4 Long term (current) use of insulin
CPT/HCPCS: 36415-UA; 80053-TC; 80061-TC; 80164-TC; 80299-90; 80307; 81001-TC; 82948-90; 83036-90; 83735-TC; 84100-TC; 84443-TC; 85025-TC; 87086-90; 96375; G0410; J0744; J1631; J1815; J7051; Z7610

== ENCOUNTER 2018-05-31 12:45 | Inpatient (IN) | payer MEDICARE, MEDICAID ==
[2018-05-31 13:36] LABS: % BASOPHILS 0.7 % (0.0-2.0); % EOSINOPHILS 0.3 % (0.0-5.0); % LYMPHOCYTES 21.3 % (20.0-50.0); % MONOCYTES 9.3 % (2.0-10.0); % NEUTROPHILS 68.4 % (40.0-80.0); HEMATOCRIT 34.9 % (41.0-60); HEMOGLOBIN 10.9 gm/dL (12-16); MEAN CELL VOLUME 72.5 fl (81-100); MEAN CORPUSCULAR HEMOGLOBIN 22.6 pg (27.0-31.0); MEAN CORPUSCULAR HGB CONC 31.2 pg (28.0-36.0); MEAN PLATELET VOLUME 7.1 fl; MONOCYTE ABSOLUTE 0.4 Th/cmm (0.3-1.0); NEUTROPHILE ABSOLUTE 3.4 Th/cmm (1.8-8.0); PLATELET COUNT 296 Th/cmm (150-400); RED CELL DISTRIBUTION WIDTH 15.2 % (11.5-20.0); WHITE BLOOD COUNT 4.8 Th/cmm (4.8-10.8)
[2018-05-31 13:44] LABS: ALB/GLOB RATIO 1.1 (1.0-1.8); ALBUMIN 3.6 gm/dL (3.7-5.3); ALKALINE PHOSPHATASE 89 U/L (34-104); ANION GAP 16.3 (7.0-16.0); BILIRUBIN,TOTAL 0.2 mg/dL (0.3-1.0); BUN - UREA NITROGEN 9 mg/dL (7-25); CALCIUM SERUM 8.9 mg/dL (8.6-10.3); CARBON DIOXIDE 24.8 mEq/L (21.0-31.0); CHLORIDE 97 mEq/L (98-107); CREATININE - SERUM 0.7 mg/dL (0.6-1.2); GFR AFRICAN-AMERICAN > 60.0 ml/min (>90); GFR NON AFRICAN-AMERICAN > 60.0 ml/min; GLUCOSE 112 mg/dL (70-105); MAGNESIUM 1.9 mg/dL (1.9-2.7); PHOSPHOROUS 3.8 mg/dL (2.5-5.0); POTASSIUM SERUM 4.1 mEq/L (3.5-5.1); SGOT 18 U/L (13-39); SGPT/ALT 14 U/L (7-52); SODIUM SERUM 134 mEq/L (136-145); TOTAL PROTEIN,SERUM 6.8 gm/dL (6.0-8.3)
[2018-05-31] MEDS ORDERED: Lactated Ringer 1,000 ML IV ONE (13:55)
--- NOTE | 2018-05-31 14:29 | ED Physician Chart ---
ED Chief Complaint/HPI - Patient Information Date Seen:: 05/31/18 Time Seen:: 13:00 Chief Complaint:: seizure History of Present Illness:: seizure prior to lunch Allergies:: Allergies Allergy/AdvReac Type Severity Reaction Status Date / Time Penicillins [PCN] Allergy Verified 05/31/18 13:37 Vitals:: Vital Signs - 8 hr 05/31/18 13:00 Temp 98.0 F HR 90 RR 16 BP 129/80 O2 Sat % 99 Historian:: EMS, Medical Records Review:: Nurse's Note Reviewed, Transfer documents Reviewed ED Review of Systems - Review of Systems General/Constitutional: No fever, No chills, No weight loss, No weakness, No diaphoresis, No edema, No loss of appetite Skin: No skin lesions, No rash, No bruising Head: No headache, No light-headedness Eyes: No loss of vision, No pain, No diplopia ENT: No earache, No nasal drainage, No sore throat, No tinnitus Neck: No neck pain, No swelling, No thyromegaly, No stiffness, No mass noted Cardio Vascular: No chest pain, No palpitations, No PND, No orthopnea, No edema Pulmonary: No SOB, No cough, No sputum, No wheezing GI: No nausea, No vomiting, No diarrhea, No pain, No melena, No hematochezia, No constipation, No hematemesis G/U: No dysuria, No frequency, No hematuria Musculoskeletal: No bone or joint pain, No back pain, No muscle pain Endocrine: No polyuria, No polydipsia Psychiatric: No prior psych history, No depression, No anxiety, No suicidal ideation Hematopoietic: No bruising, No lymphadenopathy Allergic/Immuno: No urticaria, No angioedema Neurological: No syncope, No focal symptoms, Weakness, No paresthesia, No headache, Seizure, No dizziness, No confusion, No vertigo ED Past Medical History - Past Medical History Obtainable: No Past Medical History: DM, CAD, PUD/GERD, Seizures, Thyroid disorder, Dementia, Other (h/o UTI's; anemia; Parkinson's disease) Family Medical History - Family Member Mother History Unknown: Yes Ethnicity: Unknown Living Status: Still Living Hx Family Cancer: No Hx Family Coronary Artery Disease: No Hx Family Congestive Heart Failure: No Hx Family Hypertension: Yes Hx Family Stroke: No Hx Family Diabetes: No Hx Family Seizures: Yes Hx Family Dementia: No Hx Family AIDS: No Hx Family HIV: No Hx Family COPD: No Hx Family Hepatitis: No Hx Family Psychiatric Problems: Yes Hx Family Tuberculosis: No Father History Unknown: Yes Ethnicity: Unknown Living Status: Unknown Hx Family Cancer: (unknown) Hx Family Coronary Artery Disease: (unknown) Hx Family Congestive Heart Failure: (unknown) Hx Family Hypertension: (unknown) Hx Family Stroke: (unknown) Hx Family Diabetes: (unknown) Hx Family Seizures: (unknown) Hx Family Dementia: (unknown) Hx Family AIDS: (unknown) Hx Family COPD: (unknown) Hx Family Hepatitis: (unknown) Hx Family Psychiatric Problems: (unknown) Hx Family Tuberculosis: (unknown) ED Physical Exam - Physical Examination General/Constitutional: Awake, Well-developed, well-nourished, Alert, No distress, Non-toxic appearing, Ambulatory Other Gen/Cons comments:: chronically ill appearing, pale. Other Head comments:: healed scars. Eyes: Lids, conjuctiva normal, PERRL, EOMI Skin: No rash, No ecchymosis Other Skin comments:: R knee scar and healed scars on head ENMT: External ears, nose nl, Nasal exam nl, Lips, teeth, gums nl Other ENMT comments:: very dry tongue. Neck: Nontender, No nuchal rigidity, No stridor Respiratory: Nl effort/Exclusion, Clear to Auscultation, No Wheeze/Rhonchi/Rales Cardio Vascular: RRR, No murmur, gallop, rubs, NL S1 S2 GI: No tenderness/rebounding/guarding, No organomegaly, No hernia, Normal BS's, Nondistended, No mass/bruits, No McBurney tenderness Other GI comments:: skin folds present. : No CVA tenderness Extremities: No tenderness or effusion, Full ROM, normal strength in all extremities, No edema, Normal digits & nails Neuro/Psych: Normal sensory exam, Normal motor strength Other Neuro/Psych comments:: awake. recognizes her father. said hi to her father. initially post-ictal and then became agitated. trying to get out of the bed all the time. Misc: Normal back, No paraspinal tenderness ED Labs/Radiology/EKG Results - Lab Results Results: Laboratory Tests 05/31/18 05/31/1819 13:14 13:14 13:14 WBC 4.8 RBC 4.80 Hgb 10.9 L Hct 34.9 L MCV 72.5 L MCH 22.6 L MCHC Differential 31.2 RDW 15.2 Plt Count 296 MPV 7.1 Neutrophils % 68.4 Lymphocytes % 21.3 Monocytes % 9.3 Eosinophils % 0.3 Basophils % 0.7 Sodium 134 L Potassium 4.1 Chloride 97 L Carbon Dioxide 24.8 Anion Gap 16.3 H BUN 9 Creatinine 0.7 Est GFR ( Amer) > 60.0 Est GFR (Non-Af Amer) > 60.0 BUN/Creatinine Ratio 12.9 Glucose 112 H Whole Bld Lactic Acid Calcium 8.9 Phosphorus 3.8 Magnesium 1.9 Total Bilirubin 0.2 L AST 18 ALT 14 Alkaline Phosphatase 89 Total Protein 6.8 Albumin 3.6 L Globulin 3.2 Albumin/Globulin Ratio 1.1 Valproic Acid 67.2 05/31/18 13:14 WBC RBC Hgb Hct MCV MCH MCHC Differential RDW Plt Count MPV Neutrophils % Lymphocytes % Monocytes % Eosinophils % Basophils % Sodium Potassium Chloride Carbon Dioxide Anion Gap BUN Creatinine Est GFR ( Amer) Est GFR (Non-Af Amer) BUN/Creatinine Ratio Glucose Whole Bld Lactic Acid 2.29 H* Calcium Phosphorus Magnesium Total Bilirubin AST ALT Alkaline Phosphatase Total Protein Albumin Globulin Albumin/Globulin Ratio Valproic Acid ED Assessment - Assessment General Assessment: phone call to Dr. Russell's office for case presentation for admit. Dr. Russell answered at 3:40 p.m. He will write for IV antibiotics for the UTI. EKG FROM 15:21:40 p.m. reveals a large amount of movement artifact. Leads V1 to V6 are readable. The other leads are not readable due to the great amount of artifact present from movement. ED Septic Shock - . Is Septic Shock (SBP<90, OR Lactate>4 mmol\L) present?: No - <6hrs of presentation: Vital Signs: Vital Signs - 8 hr 05/31/18 13:00 Temp 98.0 F HR 90 RR 16 BP 129/80 O2 Sat % 99 ED Reassessment (Disposition) - Reassessment Reassessment Condition:: Unchanged, Improved - Diagnosis Diagnosis:: Seizure Dehydration Urinary tract infection Anemia Elevated lactic acid - Patient Disposition Discharge/Transfer:: Acute Care w/in this hosp Admitted to:: Telemetry Condition at Disposition:: Stable, Improved
[2018-05-31 14:31] LABS: URINE SOURCE CATH
[2018-05-31 14:36] LABS: URINE BILIRUBIN NEGATIVE (NEGATIVE); URINE BLOOD NEGATIVE (NEGATIVE); URINE GLUCOSE (UA) NEGATIVE (NEGATIVE); URINE KETONE TRACE mg/dL (NEGATIVE); URINE LEUKOCYTE ESTERASE NEGATIVE (NEGATIVE); URINE MICROSCOPIC INDICATED? YES; URINE NITRATE POSITIVE (NEGATIVE); URINE PROTEIN NEGATIVE (NEGATIVE); URINE UROBILINOGEN 0.2 E.U./dL (0.2 - 1.0)
[2018-05-31 14:38] LABS: URINE COLOR YELLOW
[2018-05-31 14:40] LABS: URINE CLARITY HAZY (CLEAR)
[2018-05-31 14:42] LABS: URINE EPITHELIAL CELLS FEW /lpf (FEW); URINE RBC 0-2 /hpf (0-5)
[2018-05-31 14:43] LABS: URINE BACTERIA 4+ /hpf (NONE SEEN)
[2018-05-31 14:44] LABS: AMPHETAMINE URINE NEGATIVE (NEGATIVE); BARBITURATES URINE NEGATIVE (NEGATIVE); BENZODIAZEPINES QUAL URINE POSITIVE (NEGATIVE); CANNABINOID THC NEGATIVE (NEGATIVE); COCAINE METABOLITE QUAL URINE NEGATIVE (NEGATIVE); METHADONE URINE NEGATIVE (NEGATIVE); METHAMPHETAMINES QUAL URINE NEGATIVE (NEGATIVE); OPIATES (MORPHINE) QUAL. URINE NEGATIVE (NEGATIVE); PHENCYCLIDINE (PCP) URINE NEGATIVE (NEGATIVE); TRICYCLICS (TCA) QUAL. URINE NEGATIVE (NEGATIVE)
[2018-05-31] MEDS ORDERED: guaiFENesin 200 MG/10 ML UDC PO PRN (16:42)
[2018-05-31] MEDS ORDERED: Albuterol Nebulizer 2.5mg/3mL HHN PRN (16:42)
--- NOTE | 2018-05-31 19:20 | History & Physical ---
ADMIT DATE: 05/31/2018 CHIEF COMPLAINT: Witnessed seizure. HISTORY OF PRESENT ILLNESS: This is a 52-year-old female with history of diabetes, hypothyroidism, dementia and psych disorder, was being fed lunch when the patient had a witnessed seizure. The patient was brought into the ER dehydrated and has finding of urinary tract infection. The patient with elevated lactic acid as well. The patient is being admitted for further management. PAST MEDICAL HISTORY: As mentioned in history present illness. PAST SURGICAL HISTORY: Unable to obtain from the patient. ALLERGIES: PENICILLIN. MEDICATIONS: Tylenol, Benadryl, Depakote, Aricept, Haldol, Synthroid, Ativan, metformin, Trileptal, ranitidine, and Zyprexa. FAMILY HISTORY: Noncontributory. SOCIAL HISTORY: The patient lives in senior living. The patient requiring 24-hour total care. REVIEW OF SYSTEMS: This is limited secondary to the patient's current mental status. We will try to obtain more detailed review of system at a later date by talking to family members. There is a father who is very involved in the patient ____ [phone]. We will also try to get information from the staff at [facility], . PHYSICAL EXAMINATION: VITAL SIGNS: Blood pressure 129/80, respirations 16, pulse 90, temperature 98.0. GENERAL: Elderly female, appears chronically ill. The patient with a seizure. NECK: Supple. No mass. LUNGS: Equal breath sounds, few rhonchi. HEART: Regular rate and rhythm. Systolic without appreciable murmurs. ABDOMEN: Soft, globular. EXTREMITIES: Positive excoriations. NEUROLOGIC: Limited, positive ecchymosis bilateral upper extremities. LABORATORY DATA: WBC 4, hemoglobin 10, platelets 296. Sodium 139, potassium 4.1, BUN 9, creatinine 0.6. Lactic acid 2.3, albumin 3.6. UA positive nitrites and many bacteria. ASSESSMENT AND PLAN: Uncontrolled seizure, urinary tract infection, dehydration, diabetes, hypothyroidism, dementia, schizoaffective disorder, anemia, elevated lactic acid, low albumin. We will continue the patient with IV hydration, continue on IV antibiotic. We will titrate the antiepileptic medication. We will check the patient's Keppra level. We will refer the patient to Neurology. We will adjust the patient on electrolyte medication. We will continue to monitor the patient closely. JEWELS: 05/31/2018 16:47 JOB# [id number]
[2018-05-31 19:50] VITALS: BP 129/80
[2018-05-31] MEDS: Sodium Chloride 0.9% 1,000 ML IV SCH (20:06)
[2018-05-31] MEDS ORDERED: Levofloxacin 500mg/100mL 500 MG/100 ML BAG IV ONE (20:12)
[2018-05-31] MEDS: Levofloxacin 500mg/100mL 500 MG/100 ML BAG IV SCH (20:43)
[2018-05-31] MEDS ORDERED: INSULIN ASPART, RECOMBINANT 100 UNITS/ML SUBQ SCH (21:00)
[2018-05-31] MEDS: INSULIN ASPART SLIDING SCALE 100 UNITS/ML UNIT SUBQ SCH (22:22)
--- NOTE | 2018-06-01 02:13 | Consultation ---
DATE OF CONSULTATION: 05/31/2018 HISTORY OF PRESENT ILLNESS: The patient is a 52-year-old female with a history of schizoaffective disorder, dementia and seizure problem, was admitted to the hospital with uncontrolled seizures, has been restless, anxious, easily agitated. The patient has been taking her medications passively, has some episodes where she pushes staff and becomes very restless. PAST PSYCHIATRIC HISTORY: Multiple hospitalizations, chronic history of schizoaffective disorder and dementia. PAST MEDICAL HISTORY: As per H and P. PSYCHOSOCIAL HISTORY: The patient resides at [facility]. She requires complete care. MENTAL STATUS EXAMINATION: The patient is oriented to person, knew she was in some kind of hospital. The patient is oriented to time. The patient's thought process is disorganized. Attention is wandering. The patient having episodes where she is talking to herself. ASSESSMENT: Schizoaffective disorder, dementia, not otherwise specified. MEDICAL: As per medical history stress is severe. We will continue Zyprexa 10 mg p.o. at bedtime. The patient is receiving Haldol Decanoate and she is also on Trileptal for seizures, which also should help anxiety. The patient will be receiving Ativan 0.5 mg every 4 hours p.r.n. anxiety. We will follow closely while in the hospital. Thank you for the consultation. JOB# [id number]
[2018-06-01] MEDS: Levothyroxine 0.05 Mg Tab PO SCH (06:50)
[2018-06-01] MEDS: INSULIN ASPART SLIDING SCALE 100 UNITS/ML UNIT SUBQ SCH ×4 (06:55→21:04)
--- NOTE | 2018-06-01 08:05 | Consultation ---
DATE OF CONSULTATION: 05/31/2018 NEUROLOGY CONSULT The patient is 52-year-old. The patient admitted from a nursing facility. The patient has known history of seizures. The patient on medications thereof. Here, the patient was given IV when she is sleepy. Earlier the patient was more awake and alert and talking. She is able to swallow. She walks with assistance. The patient is with underlying diagnosis of previous schizophrenia. The patient with dementia. She follows a neurologist. Question of Parkinson's. The patient with hypothyroidism, diabetes. MEDICATIONS: Keppra, valproic acid, Trileptal. SOCIAL HISTORY: The patient in the facility. REVIEW OF SYSTEMS: Not obtainable at this time, the patient is very lethargic. Will awake to stimulation. PHYSICAL EXAMINATION: VITAL SIGNS: Temperature 98.2, blood pressure 130/70, pulse is 74. NECK: Supple. No neck bruits. HEART: Sounds S1, S2. LUNGS: Clear. NEUROLOGIC: The patient is lying in bed, eyes closed. To stimulation she will open her eyes. She will follow some instruction, will lift her arms up for me. The patient's pupils react to light. The patient withdraw upper extremity and lower extremity but limited. At the moment, I do not see marked rigidity, cogwheeling. ASSESSMENT: 1. The patient . 2. Seizures. 3. Underlying history of dementia. 4. History of Parkinson's. 5. Hypothyroidism. 6. Diabetes. PLAN: At this time, continue present seizure medications. Work up with CT scan of the head. Further work up depending on the progress. JOB# [id number]
[2018-06-01] MEDS: Calcium Carb/Vit D 500 mg/200 U Tab PO SCH (09:23)
[2018-06-01] MEDS: Sodium Chloride 0.9% 1,000 ML IV SCH (09:34)
[2018-06-01] MEDS ORDERED: Pneumococcal Vaccine 0.5 mL Vial IM ONE (10:00)
--- NOTE | 2018-06-01 15:59 | Internal Medicine Prog Note ---
Internal Medicine Subjective - Subjective Patient seen and examined:: with staff, chart reviewed, other (agitated, pt w sitter) Patient is:: awake, verbal, non-interactive, in bed, agitated, confused Patient Complaints of:: congestion, pain with urination Per staff patient has:: no adverse event, poor appetite, poor oral intake, agitated, combative, noncompliant, tolerating meds Internal Medicine Objective - Results Result Diagrams: 05/31/18 13:14 05/31/18 13:14 Recent Labs: Laboratory Last Values WBC 4.8 Th/cmm (4.8-10.8) 05/31/18 13:14 RBC 4.80 Mil/cmm (3.80-5.10) 05/31/18 13:14 Hgb 10.9 gm/dL (12-16) L 05/31/18 13:14 Hct 34.9 % (41.0-60) L 05/31/18 13:14 MCV 72.5 fl (81-100) L 05/31/18 13:14 MCH 22.6 pg (27.0-31.0) L 05/31/18 13:14 MCHC Differential 31.2 pg (28.0-36.0) 05/31/18 13:14 RDW 15.2 % (11.5-20.0) 05/31/18 13:14 Plt Count 296 Th/cmm (150-400) 05/31/18 13:14 MPV 7.1 fl 05/31/18 13:14 Neutrophils % 68.4 % (40.0-80.0) 05/31/18 13:14 Lymphocytes % 21.3 % (20.0-50.0) 05/31/18 13:14 Monocytes % 9.3 % (2.0-10.0) 05/31/18 13:14 Eosinophils % 0.3 % (0.0-5.0) 05/31/18 13:14 Basophils % 0.7 % (0.0-2.0) 05/31/18 13:14 Sodium 134 mEq/L (136-145) L 05/31/18 13:14 Potassium 4.1 mEq/L (3.5-5.1) 05/31/18 13:14 Chloride 97 mEq/L (98-107) L 05/31/18 13:14 Carbon Dioxide 24.8 mEq/L (21.0-31.0) 05/31/18 13:14 Anion Gap 16.3 (7.0-16.0) H 05/31/18 13:14 BUN 9 mg/dL (7-25) 05/31/18 13:14 Creatinine 0.7 mg/dL (0.6-1.2) 05/31/18 13:14 Est GFR ( Amer) > 60.0 ml/min (>90) 05/31/18 13:14 Est GFR (Non-Af Amer) > 60.0 ml/min 05/31/18 13:14 BUN/Creatinine Ratio 12.9 05/31/18 13:14 Glucose 112 mg/dL (70-105) H 05/31/18 13:14 POC Glucose 155 MG/DL (70 - 105) H 06/01/18 12:53 Whole Bld Lactic Acid 0.70 mmol/L (0.60-1.99) 05/31/18 16:14 Calcium 8.9 mg/dL (8.6-10.3) 05/31/18 13:14 Phosphorus 3.8 mg/dL (2.5-5.0) 05/31/18 13:14 Magnesium 1.9 mg/dL (1.9-2.7) 05/31/18 13:14 Total Bilirubin 0.2 mg/dL (0.3-1.0) L 05/31/18 13:14 AST 18 U/L (13-39) 05/31/18 13:14 ALT 14 U/L (7-52) 05/31/18 13:14 Alkaline Phosphatase 89 U/L (34-104) 05/31/18 13:14 Troponin I 0.01 ng/mL (0.01-0.05) 05/31/18 13:14 Total Protein 6.8 gm/dL (6.0-8.3) 05/31/18 13:14 Albumin 3.6 gm/dL (3.7-5.3) L 05/31/18 13:14 Globulin 3.2 gm/dL 05/31/18 13:14 Albumin/Globulin Ratio 1.1 (1.0-1.8) 05/31/18 13:14 TSH 1.25 uIU/ml (0.34-5.60) 05/31/18 13:14 Serum , Qual NEGATIVE (NEGATIVE) 05/31/18 13:14 Urine Source CATH 05/31/18 14:20 Urine Color YELLOW 05/31/18 14:20 Urine Clarity HAZY (CLEAR) 05/31/18 14:20 Urine pH 7.0 (4.6 - 8.0) 05/31/18 14:20 Ur Specific [place] 1.020 (1.005-1.030) 05/31/18 14:20 Urine Protein NEGATIVE mg/dL (NEGATIVE) 05/31/18 14:20 Urine Glucose (UA) NEGATIVE mg/dL (NEGATIVE) 05/31/18 14:20 Urine Ketones TRACE mg/dL (NEGATIVE) 05/31/18 14:20 Urine Blood NEGATIVE (NEGATIVE) 05/31/18 14:20 Urine Nitrate POSITIVE (NEGATIVE) H 05/31/18 14:20 Urine Bilirubin NEGATIVE (NEGATIVE) 05/31/18 14:20 Urine Urobilinogen 0.2 E.U./dL (0.2 - 1.0) 05/31/18 14:20 Ur Leukocyte Esterase NEGATIVE (NEGATIVE) 05/31/18 14:20 Urine RBC 0-2 /hpf (0-5) 05/31/18 14:20 Urine WBC 2-5 /hpf (0-5) 05/31/18 14:20 Ur Epithelial Cells FEW /lpf (FEW) 05/31/18 14:20 Urine Bacteria 4+ /hpf (NONE SEEN) H 05/31/18 14:20 Urine Opiates Screen NEGATIVE (NEGATIVE) 05/31/18 14:20 Urine Methadone Screen NEGATIVE (NEGATIVE) 05/31/18 14:20 Ur Barbiturates Screen NEGATIVE (NEGATIVE) 05/31/18 14:20 Valproic Acid 67.2 ug/mL (50.0-100.0) 05/31/18 13:14 Ur Tricyclics Screen NEGATIVE (NEGATIVE) 05/31/18 14:20 Ur Phencyclidine Scrn NEGATIVE (NEGATIVE) 05/31/18 14:20 Amphetamines Screen NEGATIVE (NEGATIVE) 05/31/18 14:20 U Methamphetamines Scrn NEGATIVE (NEGATIVE) 05/31/18 14:20 U Benzodiazepines Scrn POSITIVE (NEGATIVE) H 05/31/18 14:20 U Cocaine Metab Screen NEGATIVE (NEGATIVE) 05/31/18 14:20 U Cannabinoids Screen NEGATIVE (NEGATIVE) 05/31/18 14:20 - Physical Exam Vitals and I&O: Vital Signs Temp 97.5 F 06/01/18 08:00 Pulse 76 06/01/18 08:00 Resp 18 06/01/18 08:00 BP 97/63 06/01/18 08:00 Pulse Ox 94 06/01/18 08:00 Intake & Output 05/31/18 06/01/18 06/01/18 18:59 06:59 18:59 Intake Total 600 1000 Balance 600 1000 Weight (lbs) 51.256 kg 47.174 kg Intake: Intake, IV Amount 100 1000 Levofloxacin 500mg/100mL 100 500 mg In 100 ml @ 100 mls/hr IV Q24HR ON LICENSE OF [facility] Rx#: [id number] Sodium Chloride 0.9% 1, 1000 000 ml @ 80 mls/hr IV . [id number] ON LICENSE OF [facility] Rx#:[id number] Oral 500 Other: # Voids 2 # Bowel Movements 0 Stool Characteristics Soft Formed Weight Source Bedscale Bedscale Active Medications: Current Medications Acetaminophen (Tylenol) 650 mg PO Q4H PRN PRN Reason: Pain Or Fever above 101 Stop: 07/30/18 16:41 Last Admin: 05/31/18 22:28 Dose: 650 mg Albuterol Sulfate (Albuterol 2.5mg/3ml Neb Ud) 2.5 mg HHN Q2HRT PRN PRN Reason: Shortness of Breath or Wheeze Stop: 07/30/18 16:41 Calcium/Vitamin D (Oscal W/Vitamin D) 1 tab PO DAILY ON LICENSE OF [facility] Stop: 07/31/18 08:59 Last Admin: 06/01/18 09:23 Dose: 1 tab Divalproex Sodium (Depakote Dr) 500 mg PO BID ON LICENSE OF [facility]; Protocol Stop: 07/30/18 16:59 Last Admin: 06/01/18 09:24 Dose: 500 mg Donepezil HCl (Aricept) 5 mg PO HS ON LICENSE OF [facility] Stop: 07/30/18 20:59 Last Admin: 05/31/18 20:45 Dose: 5 mg Famotidine (Pepcid) 20 mg PO DAILY ON LICENSE OF [facility] Stop: 07/31/18 08:59 Last Admin: 06/01/18 09:24 Dose: 20 mg Guaifenesin (Robitussin) 200 mg PO Q4HR PRN PRN Reason: Cough or Congestion Stop: 07/30/18 16:41 Haloperidol Decanoate (Haldol Dec) 50 mg IM [id number] ON LICENSE OF [facility]; Protocol Stop: 07/30/18 16:44 Heparin Sodium (Porcine) (Heparin) 5,000 units SUBQ Q12HR ON LICENSE OF [facility] Stop: 07/30/18 20:59 Last Admin: 06/01/18 09:24 Dose: 5,000 units Levofloxacin (Levaquin Pb) 500 mg in 100 mls @ 100 mls/hr IV Q24HR ON LICENSE OF [facility] Stop: 07/30/18 19:59 Last Infusion: 06/01/18 00:17 Dose: Infused Sodium Chloride (Nacl 0.9%) 1,000 mls @ 80 mls/hr IV .[id number] ON LICENSE OF [facility] Stop: 07/30/18 16:44 Last Admin: 06/01/18 09:34 Dose: 80 mls/hr Insulin Aspart (Novolog Insulin Sliding Scale) 0 units SUBQ ACHS ON LICENSE OF [facility]; Protocol Stop: 07/30/18 22:29 Last Admin: 06/01/18 12:11 Dose: Not Given Levetiracetam (Keppra) 500 mg PO BID ON LICENSE OF [facility] Stop: 07/30/18 16:59 Last Admin: 06/01/18 09:23 Dose: 500 mg Levothyroxine Sodium (Synthroid) 0.05 mg PO QDAC ON LICENSE OF [facility] Stop: 07/31/18 07:29 Last Admin: 06/01/18 06:50 Dose: 0.05 mg Lorazepam (Ativan) 0.5 mg PO Q4HR PRN; Protocol PRN Reason: Anxiety Stop: 07/30/18 16:38 Last Admin: 06/01/18 12:45 Dose: 0.5 mg Lorazepam (Ativan) 1 mg IV Q4H PRN; Protocol PRN Reason: Seizure Stop: 07/30/18 16:41 Lorazepam (Ativan) 1 mg IV NOW ONE; Protocol Stop: 06/01/18 15:56 Metformin HCl (Glucophage) 500 mg PO TIDWM ON LICENSE OF [facility] Stop: 07/31/18 07:59 Last Admin: 06/01/18 12:00 Dose: Not Given Olanzapine (Zyprexa) 10 mg PO HS ON LICENSE OF [facility]; Protocol Stop: 07/30/18 20:59 Last Admin: 05/31/18 20:44 Dose: 10 mg Ondansetron HCl (Zofran) 4 mg IV Q8H PRN PRN Reason: Nausea / Vomiting Stop: 07/30/18 16:41 Oxcarbazepine (Trileptal) 300 mg PO BID DIANA; Protocol Stop: 07/30/18 16:59 Last Admin: 06/01/18 09:24 Dose: 300 mg General: demented HEENT: NC/AT, PERRLA, thinning hair, poor dentition Neck: Supple, No JVD, No thyromegaly, No LAD Lungs: congested Cardiovascular: RRR, Normal S1, Normal S2, without murmur Abdomen: soft, non-tender, thin, positive bowel sound Extremities: excoriation, contracture Neurological: no change, disorganized, unsteady, unable to follow command - Procedures Procedures: Procedures Procedure Code Date BLOOD TRANSFUSION SERVICE 35568 03/29/16 CLOSURE SKIN & SUBCUTANEOUS NEC 86.59 07/02/14 DIAGNOSTIC COLONOSCOPY 14857 09/13/15 DRAINAGE OF STOMACH, ENDO, DIAGN [id number] 09/13/15 EGD BIOPSY SINGLE/MULTIPLE 81995 09/13/15 ELECTROCARDIOGRAM 89.52 10/10/94 EMERGENCY DEPT VISIT 87883 07/04/11 EXCISION OF DUODENUM, ENDO, DIAGN [id number] 09/13/15 GASTRIC INTUBATION TREATMENT 52135 12/28/07 GASTRIC LAVAGE 96.33 12/28/07 INSERT GASTRIC TUBE NEC 96.07 07/26/95 INSERT INDWELLING CATH 57.94 09/16/11 INSERT TEMP BLADDER CATH 91316 09/16/11 INSERTION OF INT FIX INTO L HUMERAL SHAFT, PERC APPROACH [id number] 05/24/15 INSPECTION OF LOWER INTESTINAL TRACT, ENDO [id number] 09/13/15 OXYGEN ENRICHMENT NEC 93.96 10/10/94 REMOV THERAPEUT DEV NEC 97.89 03/25/01 REMOVAL OF INT FIX FROM R KNEE JT, OPEN APPROACH [id number] 04/15/16 REPAIR FACE SKIN, EXTERNAL APPROACH [id number] 04/12/15 REPOSITION RIGHT PATELLA WITH INT FIX, OPEN APPROACH [id number] 03/29/16 RPR F/E/E/N/L/M 2.5 CM/< 34787 04/12/15 RPR F/E/E/N/L/M 2.6-5.0 CM 68455 07/02/14 TETANUS TOXOID ADMINIST 99.38 07/02/14 TRANSFUSE NONAUT RED BLOOD CELLS IN PERIPH VEIN, PERC [id number] 03/29/16 TREAT KNEECAP FRACTURE 82542 03/29/16 UPPER ARM/ELBOW SURGERY 54677 05/24/15 Internal Medicine Assmt/Plan - Assessment Assessment: ASSESSMENT AND PLAN: Uncontrolled seizure, urinary tract infection, dehydration, diabetes, hypothyroidism, dementia, schizoaffective disorder, anemia, elevated lactic acid, low albumin. - Plan Plan: PLAN: Uncontrolled seizure, urinary tract infection, dehydration, diabetes, hypothyroidism, dementia, schizoaffective disorder, anemia, elevated lactic acid, low albumin.
[2018-06-01] MEDS: Levofloxacin 500mg/100mL 500 MG/100 ML BAG IV SCH (20:49)
[2018-06-02] MEDS: Sodium Chloride 0.9% 1,000 ML IV SCH ×2 (00:19→13:37)
--- NOTE | 2018-06-02 06:29 | Progress Notes ---
DATE: 06/01/2018 SUBJECTIVE: The patient is in bed, much more awake, alert. She is talking, verbalized, in fact she gave me her name, she reached out with the hand for me but again very confused, agitated, nonspecifically moving upper and lower extremities, some grimacing of the face. OBJECTIVE: VITAL SIGNS: 98.4, blood pressure 102/65, pulse is around 78. NECK: Supple, no bruits. CARDIOVASCULAR: Heart sounds S1, S2. RESPIRATORY: Lungs clear. NEUROLOGIC: The patient is more awake, alert. She actually followed some instruction, she gave me her name, she reached out with the hand for me, lifted both right and left. No repeat seizures. INVESTIGATIONS: CT scan of the head is pending. ASSESSMENT: 1. Encephalopathy, better. 2. Seizures. 3. Underlying dementia. 4. Parkinson features. 5. Hypothyroidism. 6. Diabetes. PLAN: Continue present treatment. JOB# [id number]
[2018-06-02] MEDS: INSULIN ASPART SLIDING SCALE 100 UNITS/ML UNIT SUBQ SCH ×4 (06:30→20:38)
[2018-06-02] MEDS: Levothyroxine 0.05 Mg Tab PO SCH (06:35)
[2018-06-02] MEDS: Calcium Carb/Vit D 500 mg/200 U Tab PO SCH (08:43)
--- NOTE | 2018-06-02 10:09 | Diagnostic Imaging Report ---
Head CT without intravenous contrast Indication: CVA Comparison: Head CT on 09/09/2017 Technique: Axial images were obtained from the vertex to the skull base without IV contrast. Coronal reconstructions were made. Total DLP: 554, CTDI31.7 FINDINGS: Images of the brain obtained without contrast demonstrate no evidence of an acute hemorrhage. Atrophy is noted. The ang-white matter differentiation is preserved. The ventricles and basal cisterns are patent. No mass effect or midline shift. Atherosclerosis is noted. No evidence of a skull fracture or focal soft tissue swelling. There is partial opacification of the left maxillary sinus with additional mucosal thickening of the paranasal sinuses. IMPRESSION: No acute intracranial abnormality. If necessary MRI follow-up may be obtained for further assessment. Atrophy. Atherosclerotic vascular disease. Left maxillary sinus disease.
--- NOTE | 2018-06-02 14:50 | Internal Medicine Prog Note ---
Internal Medicine Subjective - Subjective Patient seen and examined:: with staff, chart reviewed Patient is:: awake, verbal, non-interactive, in bed, agitated, confused Patient Complaints of:: congestion, pain with urination Per staff patient has:: no adverse event, poor appetite, poor oral intake, agitated, combative, noncompliant, tolerating meds Internal Medicine Objective - Results Result Diagrams: 05/31/18 13:14 05/31/18 13:14 Recent Labs: Laboratory Last Values WBC 4.8 Th/cmm (4.8-10.8) 05/31/18 13:14 RBC 4.80 Mil/cmm (3.80-5.10) 05/31/18 13:14 Hgb 10.9 gm/dL (12-16) L 05/31/18 13:14 Hct 34.9 % (41.0-60) L 05/31/18 13:14 MCV 72.5 fl (81-100) L 05/31/18 13:14 MCH 22.6 pg (27.0-31.0) L 05/31/18 13:14 MCHC Differential 31.2 pg (28.0-36.0) 05/31/18 13:14 RDW 15.2 % (11.5-20.0) 05/31/18 13:14 Plt Count 296 Th/cmm (150-400) 05/31/18 13:14 MPV 7.1 fl 05/31/18 13:14 Neutrophils % 68.4 % (40.0-80.0) 05/31/18 13:14 Lymphocytes % 21.3 % (20.0-50.0) 05/31/18 13:14 Monocytes % 9.3 % (2.0-10.0) 05/31/18 13:14 Eosinophils % 0.3 % (0.0-5.0) 05/31/18 13:14 Basophils % 0.7 % (0.0-2.0) 05/31/18 13:14 Sodium 134 mEq/L (136-145) L 05/31/18 13:14 Potassium 4.1 mEq/L (3.5-5.1) 05/31/18 13:14 Chloride 97 mEq/L (98-107) L 05/31/18 13:14 Carbon Dioxide 24.8 mEq/L (21.0-31.0) 05/31/18 13:14 Anion Gap 16.3 (7.0-16.0) H 05/31/18 13:14 BUN 9 mg/dL (7-25) 05/31/18 13:14 Creatinine 0.7 mg/dL (0.6-1.2) 05/31/18 13:14 Est GFR ( Amer) > 60.0 ml/min (>90) 05/31/18 13:14 Est GFR (Non-Af Amer) > 60.0 ml/min 05/31/18 13:14 BUN/Creatinine Ratio 12.9 05/31/18 13:14 Glucose 112 mg/dL (70-105) H 05/31/18 13:14 POC Glucose 124 MG/DL (70 - 105) H 06/02/18 11:09 Whole Bld Lactic Acid 0.70 mmol/L (0.60-1.99) 05/31/18 16:14 Calcium 8.9 mg/dL (8.6-10.3) 05/31/18 13:14 Phosphorus 3.8 mg/dL (2.5-5.0) 05/31/18 13:14 Magnesium 1.9 mg/dL (1.9-2.7) 05/31/18 13:14 Total Bilirubin 0.2 mg/dL (0.3-1.0) L 05/31/18 13:14 AST 18 U/L (13-39) 05/31/18 13:14 ALT 14 U/L (7-52) 05/31/18 13:14 Alkaline Phosphatase 89 U/L (34-104) 05/31/18 13:14 Troponin I 0.01 ng/mL (0.01-0.05) 05/31/18 13:14 Total Protein 6.8 gm/dL (6.0-8.3) 05/31/18 13:14 Albumin 3.6 gm/dL (3.7-5.3) L 05/31/18 13:14 Globulin 3.2 gm/dL 05/31/18 13:14 Albumin/Globulin Ratio 1.1 (1.0-1.8) 05/31/18 13:14 TSH 1.25 uIU/ml (0.34-5.60) 05/31/18 13:14 Serum , Qual NEGATIVE (NEGATIVE) 05/31/18 13:14 Urine Source CATH 05/31/18 14:20 Urine Color YELLOW 05/31/18 14:20 Urine Clarity HAZY (CLEAR) 05/31/18 14:20 Urine pH 7.0 (4.6 - 8.0) 05/31/18 14:20 Ur Specific [place] 1.020 (1.005-1.030) 05/31/18 14:20 Urine Protein NEGATIVE mg/dL (NEGATIVE) 05/31/18 14:20 Urine Glucose (UA) NEGATIVE mg/dL (NEGATIVE) 05/31/18 14:20 Urine Ketones TRACE mg/dL (NEGATIVE) 05/31/18 14:20 Urine Blood NEGATIVE (NEGATIVE) 05/31/18 14:20 Urine Nitrate POSITIVE (NEGATIVE) H 05/31/18 14:20 Urine Bilirubin NEGATIVE (NEGATIVE) 05/31/18 14:20 Urine Urobilinogen 0.2 E.U./dL (0.2 - 1.0) 05/31/18 14:20 Ur Leukocyte Esterase NEGATIVE (NEGATIVE) 05/31/18 14:20 Urine RBC 0-2 /hpf (0-5) 05/31/18 14:20 Urine WBC 2-5 /hpf (0-5) 05/31/18 14:20 Ur Epithelial Cells FEW /lpf (FEW) 05/31/18 14:20 Urine Bacteria 4+ /hpf (NONE SEEN) H 05/31/18 14:20 Urine Opiates Screen NEGATIVE (NEGATIVE) 05/31/18 14:20 Urine Methadone Screen NEGATIVE (NEGATIVE) 05/31/18 14:20 Ur Barbiturates Screen NEGATIVE (NEGATIVE) 05/31/18 14:20 Valproic Acid 67.2 ug/mL (50.0-100.0) 05/31/18 13:14 Ur Tricyclics Screen NEGATIVE (NEGATIVE) 05/31/18 14:20 Ur Phencyclidine Scrn NEGATIVE (NEGATIVE) 05/31/18 14:20 Amphetamines Screen NEGATIVE (NEGATIVE) 05/31/18 14:20 U Methamphetamines Scrn NEGATIVE (NEGATIVE) 05/31/18 14:20 U Benzodiazepines Scrn POSITIVE (NEGATIVE) H 05/31/18 14:20 U Cocaine Metab Screen NEGATIVE (NEGATIVE) 05/31/18 14:20 U Cannabinoids Screen NEGATIVE (NEGATIVE) 05/31/18 14:20 - Physical Exam Vitals and I&O: Vital Signs Temp 97.3 F 06/02/18 12:00 Pulse 105 06/02/18 12:00 Resp 17 06/02/18 12:00 BP 140/91 06/02/18 12:00 Pulse Ox 99 06/02/18 12:00 Intake & Output 06/01/18 06/02/18 06/02/18 18:59 06:59 18:59 Intake Total 1800 1460 1000 Balance 1800 1460 1000 Weight (lbs) 47.174 kg 47.174 kg Intake: Intake, IV Amount 1000 1100 1000 Levofloxacin 500mg/100mL 100 500 mg In 100 ml @ 100 mls/hr IV Q24HR [facility] Rx#: [id number] Sodium Chloride 0.9% 1, 1000 1000 1000 000 ml @ 80 mls/hr IV . [id number] [facility] Rx#:[id number] Oral 800 360 Other: # Voids 3 5 # Bowel Movements 1 Stool Characteristics Soft Formed Weight Source Bedscale Bedscale Active Medications: Current Medications Acetaminophen (Tylenol) 650 mg PO Q4H PRN PRN Reason: Pain Or Fever above 101 Stop: 07/30/18 16:41 Last Admin: 06/01/18 20:50 Dose: 650 mg Albuterol Sulfate (Albuterol 2.5mg/3ml Neb Ud) 2.5 mg HHN Q2HRT PRN PRN Reason: Shortness of Breath or Wheeze Stop: 07/30/18 16:41 Calcium/Vitamin D (Oscal W/Vitamin D) 1 tab PO DAILY [facility] Stop: 07/31/18 08:59 Last Admin: 06/02/18 08:43 Dose: 1 tab Divalproex Sodium (Depakote Dr) 500 mg PO BID [facility]; Protocol Stop: 07/30/18 16:59 Last Admin: 06/02/18 08:43 Dose: 500 mg Donepezil HCl (Aricept) 5 mg PO HS [facility] Stop: 07/30/18 20:59 Last Admin: 06/01/18 20:50 Dose: 5 mg Famotidine (Pepcid) 20 mg PO DAILY [facility] Stop: 07/31/18 08:59 Last Admin: 06/02/18 08:42 Dose: 20 mg Guaifenesin (Robitussin) 200 mg PO Q4HR PRN PRN Reason: Cough or Congestion Stop: 07/30/18 16:41 Haloperidol Decanoate (Haldol Dec) 50 mg IM [id number] [facility]; Protocol Stop: 08/02/18 09:59 Heparin Sodium (Porcine) (Heparin) 5,000 units SUBQ Q12HR [facility] Stop: 07/30/18 20:59 Last Admin: 06/02/18 08:43 Dose: 5,000 units Levofloxacin (Levaquin Pb) 500 mg in 100 mls @ 100 mls/hr IV Q24HR [facility] Stop: 07/30/18 19:59 Last Infusion: 06/01/18 21:49 Dose: Infused Sodium Chloride (Nacl 0.9%) 1,000 mls @ 80 mls/hr IV .[id number] [facility] Stop: 07/30/18 16:44 Last Admin: 06/02/18 13:37 Dose: 80 mls/hr Insulin Aspart (Novolog Insulin Sliding Scale) 0 units SUBQ ACHS [facility]; Protocol Stop: 07/30/18 22:29 Last Admin: 06/02/18 11:14 Dose: Not Given Levetiracetam (Keppra) 500 mg PO BID [facility] Stop: 07/30/18 16:59 Last Admin: 06/02/18 08:42 Dose: 500 mg Levothyroxine Sodium (Synthroid) 0.05 mg PO QDAC [facility] Stop: 07/31/18 07:29 Last Admin: 06/02/18 06:35 Dose: 0.05 mg Lorazepam (Ativan) 0.5 mg PO Q4HR PRN; Protocol PRN Reason: Anxiety Stop: 07/30/18 16:38 Last Admin: 06/02/18 08:43 Dose: 0.5 mg Lorazepam (Ativan) 1 mg IV Q4H PRN; Protocol PRN Reason: Seizure Stop: 07/30/18 16:41 Metformin HCl (Glucophage) 500 mg PO TIDWM [facility] Stop: 07/31/18 07:59 Last Admin: 06/02/18 11:36 Dose: 500 mg Olanzapine (Zyprexa) 10 mg PO HS [facility]; Protocol Stop: 07/30/18 20:59 Last Admin: 06/01/18 20:50 Dose: 10 mg Ondansetron HCl (Zofran) 4 mg IV Q8H PRN PRN Reason: Nausea / Vomiting Stop: 07/30/18 16:41 Oxcarbazepine (Trileptal) 300 mg PO BID [facility]; Protocol Stop: 07/30/18 16:59 Last Admin: 06/02/18 08:42 Dose: 300 mg General: demented HEENT: NC/AT, PERRLA, thinning hair, poor dentition Neck: Supple, No JVD, No thyromegaly, No LAD Lungs: congested Cardiovascular: RRR, Normal S1, Normal S2, without murmur Abdomen: soft, non-tender, thin, positive bowel sound Extremities: excoriation, contracture Neurological: no change, disorganized, unsteady, unable to follow command - Procedures Procedures: Procedures Procedure Code Date BLOOD TRANSFUSION SERVICE 93033 03/29/16 CLOSURE SKIN & SUBCUTANEOUS NEC 86.59 07/02/14 DIAGNOSTIC COLONOSCOPY 32403 09/13/15 DRAINAGE OF STOMACH, ENDO, DIAGN [id number] 09/13/15 EGD BIOPSY SINGLE/MULTIPLE 75232 09/13/15 ELECTROCARDIOGRAM 89.52 10/10/94 EMERGENCY DEPT VISIT 23357 07/04/11 EXCISION OF DUODENUM, ENDO, DIAGN [id number] 09/13/15 GASTRIC INTUBATION TREATMENT 02397 12/28/07 GASTRIC LAVAGE 96.33 12/28/07 INSERT GASTRIC TUBE NEC 96.07 07/26/95 INSERT INDWELLING CATH 57.94 09/16/11 INSERT TEMP BLADDER CATH 09483 09/16/11 INSERTION OF INT FIX INTO L HUMERAL SHAFT, PERC APPROACH [id number] 05/24/15 INSPECTION OF LOWER INTESTINAL TRACT, ENDO [id number] 09/13/15 OXYGEN ENRICHMENT NEC 93.96 10/10/94 REMOV THERAPEUT DEV NEC 97.89 03/25/01 REMOVAL OF INT FIX FROM R KNEE JT, OPEN APPROACH [id number] 04/15/16 REPAIR FACE SKIN, EXTERNAL APPROACH [id number] 04/12/15 REPOSITION RIGHT PATELLA WITH INT FIX, OPEN APPROACH [id number] 03/29/16 RPR F/E/E/N/L/M 2.5 CM/< 89908 04/12/15 RPR F/E/E/N/L/M 2.6-5.0 CM 23785 07/02/14 TETANUS TOXOID ADMINIST 99.38 07/02/14 TRANSFUSE NONAUT RED BLOOD CELLS IN PERIPH VEIN, PERC [id number] 03/29/16 TREAT KNEECAP FRACTURE 11174 03/29/16 UPPER ARM/ELBOW SURGERY 35416 05/24/15 Internal Medicine Assmt/Plan - Assessment Assessment: ASSESSMENT AND PLAN: Uncontrolled seizure, urinary tract infection, dehydration, diabetes, hypothyroidism, dementia, schizoaffective disorder, anemia, elevated lactic acid, low albumin. - Plan Plan: PLAN: Uncontrolled seizure, urinary tract infection, dehydration, diabetes, hypothyroidism, dementia, schizoaffective disorder, anemia, elevated lactic acid, low albumin.
[2018-06-02] MEDS: Levofloxacin 500mg/100mL 500 MG/100 ML BAG IV SCH (20:30)
[2018-06-03] MEDS: Sodium Chloride 0.9% 1,000 ML IV SCH (05:31)
[2018-06-03 05:49] LABS: HEMATOCRIT 28.6 % (41.0-60); HEMOGLOBIN 9.1 gm/dL (12-16); MEAN CELL VOLUME 72.3 fl (81-100); MEAN CORPUSCULAR HEMOGLOBIN 22.9 pg (27.0-31.0); MEAN CORPUSCULAR HGB CONC 31.7 pg (28.0-36.0); MEAN PLATELET VOLUME 6.2 fl; PLATELET COUNT 246 Th/cmm (150-400); RED BLOOD COUNT 3.96 Mil/cmm (3.80-5.10); RED CELL DISTRIBUTION WIDTH 15.3 % (11.5-20.0)
[2018-06-03 06:01] LABS: ANION GAP 10.8 (7.0-16.0); BUN - UREA NITROGEN 10 mg/dL (7-25); CALCIUM SERUM 8.5 mg/dL (8.6-10.3); CARBON DIOXIDE 26.4 mEq/L (21.0-31.0); CHLORIDE 105 mEq/L (98-107); CREATININE - SERUM 0.7 mg/dL (0.6-1.2); GFR AFRICAN-AMERICAN > 60.0 ml/min (>90); GFR NON AFRICAN-AMERICAN > 60.0 ml/min; GLUCOSE 99 mg/dL (70-105); POTASSIUM SERUM 4.2 mEq/L (3.5-5.1); SODIUM SERUM 138 mEq/L (136-145)
[2018-06-03] MEDS: INSULIN ASPART SLIDING SCALE 100 UNITS/ML UNIT SUBQ SCH ×3 (06:30→17:19)
[2018-06-03] MEDS: Levothyroxine 0.05 Mg Tab PO SCH (06:36)
[2018-06-03 07:04] LABS: LYMPHOCYTE 50 % (20-50); MONOCYTE 10 % (2-10); NEUTROPHILS 40 % (40-80)
[2018-06-03 07:05] LABS: PLATELET ESTIMATE ADEQUATE (NORMAL)
[2018-06-03] MEDS: Calcium Carb/Vit D 500 mg/200 U Tab PO SCH (09:34)
--- NOTE | 2018-06-03 20:43 | Discharge Summary ---
DATE OF DISCHARGE: 06/03/2018 CHIEF COMPLAINT: Witnessed seizure. FINAL DIAGNOSES: Urinary tract infection, positive for extended-spectrum beta-lactamases; uncontrolled seizure, dehydration, diabetes, hypothyroidism, dementia, psych disorder, anemia, elevated lactic acid, and low albumin. HISTORY: This is a 52-year-old female with multiple medical problems including diabetes, dementia, and psych disorder, was brought in secondary to witnessed seizure. The patient also noted to be dehydrated and now with bladder infection, admitted for further management. PHYSICAL EXAMINATION: VITAL SIGNS: Blood pressure is 106/63, respirations 18, pulse is 59, and temperature is 98.0. GENERAL: The patient is an elderly female. She appears her stated age. NECK: Supple. No mass. LUNGS: Equal breath sounds, few rhonchi. HEART: Regular rate and rhythm without appreciable murmurs. ABDOMEN: Soft, globular. EXTREMITIES: Positive excoriations, atrophy, contracture. HOSPITAL COURSE: The patient was admitted to medical floor, continued on aggressive IV hydration, IV antibiotic. The urine culture grow E. coli, multi-drug resistant. The patient is also seen by Psychiatry, Dr. Arce and ____, have her psychiatric medications and was also seen by Neurology. The patient has remained seizure free during this admission. The patient remains agitated, needed 1:1, and is noncompliant. The patient to be admitted to the Geropsych unit. CONDITION ON DISCHARGE: Fair. Overall, prognosis is poor. DISCHARGE INSTRUCTIONS: The patient is to be admitted to the Geropsych Unit. Father is agreeable. JOB# [id number]
--- NOTE | 2018-06-04 18:13 | Progress Notes ---
DATE: 06/03/2018 SUBJECTIVE: The patient in chair and awake. She will actually interact. She cries a lot. MEDICATIONS: Donepezil and Depakote. OBJECTIVE: VITAL SIGNS: Temperature 97.3, blood pressure 142/90 and pulse is 98. NECK: Supple. No neck bruits. CARDIOVASCULAR: Heart sounds S1 and S2. RESPIRATORY: Lungs clear. NEUROLOGIC: The patient is lying in a chair. She will reach out with both hands, but ataxic. Abnormal movements. No seizures. INVESTIGATIONS: CT scan of head, no acute process. No hydrocephalus. ASSESSMENT: 1. Encephalopathy, getting better. 2. Seizure. 3. Underlying dementia. 4. Parkinson features. 5. Hypothyroidism. 6. Diabetes. PLAN: Continue present treatment. JOB# [id number]
== END 2018-06-03 20:55 | DRG 101 ==
LOC: ER 12:45 → TELE 16:38 → UNDODISIN 06-01 20:25 → MSI 06-03 18:23
PROVIDERS: ADMIT Internal Medicine; ATTEND Internal Medicine
DX: R56.9 Unspecified convulsions (principal); N39.0 Urinary tract infection, site not specified; E87.2 Acidosis; E86.0 Dehydration; D64.9 Anemia, unspecified; E11.9 Type 2 diabetes mellitus without complications; I25.10 Atherosclerotic heart disease of native coronary artery without angina pectoris; K21.9 Gastro-esophageal reflux disease without esophagitis; G20 Parkinson's disease; F02.80 Dementia in other diseases classified elsewhere, unspecified severity, without behavioral disturbance, psychotic disturbance, mood disturbance, and anxiety; E03.9 Hypothyroidism, unspecified; F25.9 Schizoaffective disorder, unspecified; B96.20 Unspecified Escherichia coli [E. coli] as the cause of diseases classified elsewhere; Z16.12 Extended spectrum beta lactamase (ESBL) resistance; Z16.24 Resistance to multiple antibiotics; Z88.0 Allergy status to penicillin; Z66 Do not resuscitate
CPT/HCPCS: 36415-UA; 70450-TC; 80048-TC; 80053-TC; 80164-TC; 80299-90; 80307; 81001-TC; 82140-TC; 82948-90; 83605; 83735-TC; 84100-TC; 84443-TC; 84484-TC; 84703-TC; 85007-TC; 85025-TC; 87086-90; 93005; 94760; 96374; 96375; J1200; J1631; J1644; J1815; J1956; J2060; J7030; J7051; Z7610

== ENCOUNTER 2018-06-03 21:03 | Inpatient (IN) | payer MEDICARE, MEDICAID ==
[2018-06-03 22:23] VITALS: BP 128/72
[2018-06-04] MEDS ORDERED: Albuterol Nebulizer 2.5mg/3mL HHN PRN (00:25)
[2018-06-04] MEDS: INSULIN ASPART SLIDING SCALE 100 UNITS/ML UNIT SUBQ SCH ×4 (06:34→21:08)
[2018-06-04 06:40] LABS: CHOLESTEROL 180 mg/dL (<200); HDL -HIGH DENSITY LIPOPROTEIN 82 mg/dL (23-92); TRIGLYCERIDES 137 mg/dL (<150)
[2018-06-04] MEDS: Levothyroxine 0.05 Mg Tab PO SCH (06:49)
--- NOTE | 2018-06-04 08:42 | Psychiatric Evaluation ---
DATE OF SERVICE: 06/03/2018 IDENTIFYING DATA: The patient is a 52-year-old woman, resident of [facility]. Information obtained directly interviewing the patient as well as reviewing the admission paper. JUSTIFICATION FOR HOSPITALIZATION: The patient is admitted for being gravely disabled on, 5150. CHIEF COMPLAINT: "I don't know." HISTORY OF PRESENT ILLNESS: This is the one of multiple psychiatric hospitalizations for this patient who has been diagnosed with schizoaffective disorder and has been seen and followed by Dr. Arce on an outpatient basis. The patient has been initially admitted over here on to the medical unit for seizure and the patient has been medically stabilized and transferred to the psychiatric unit on a 5150, in view of her agitated behavior, paranoia and mood swings. Chart is reviewed. The patient is interviewed. PAST PSYCHIATRIC HISTORY: Please refer to the previous psychiatric hospitalizations. MEDICAL HISTORY AND PHYSICAL EXAMINATION: Requested and done by Dr. Russell and is noted to be significant for multiple medical problems such as diabetes, hypothyroidism and recently treated for UTI and possible seizure. ALLERGIES: PATIENT IS ALLERGIC TO PENICILLIN. CURRENT MEDICATIONS: Include Depakote, Aricept, Haldol, and Trileptal and the patient is also on Zyprexa. SOCIAL HISTORY: [facility] a [facility] the [facility]. SUBSTANCE ABUSE HISTORY: None. PHYSICAL OR SEXUAL ABUSE HISTORY: None. MENTAL STATUS EXAMINATION: The patient is a 52-year-old, looking her stated age, superficially thin built, superficially cooperative. Eye contact is poor. Mood is noted to be irritable. Affect is constricted. The patient has been having acute mood swings. One minute, the patient is talking and the next minute, the patient is crying. The patient has paranoia, but denies any command hallucinations. The patient is not able to care for self at this time. The patient is alert and awake, attention span and concentration are noted to be very poor. The patient has short-term memory deficits. Long-term memory seems to be fair. DIAGNOSTIC IMPRESSION: AXIS I: Schizoaffective disorder. AXIS II: None. AXIS III: As per Dr. Russell. IMMEDIATE TREATMENT PLAN: The patient is going to be observed on inpatient unit, provided with supportive psychotherapy. The patient is going to be closely monitored. Once stabilized, the patient is going to be discharged to [facility] to be followed up on an outpatient basis. JOB# [id number]
[2018-06-04] MEDS: Calcium Carb/Vit D 500 mg/200 U Tab PO SCH (09:00)
--- NOTE | 2018-06-04 13:18 | Internal Medicine Prog Note ---
Internal Medicine Subjective - Subjective Patient seen and examined:: with staff, chart reviewed Patient is:: awake, verbal, non-interactive, agitated, confused Per staff patient has:: no adverse event, no episodes of fall, poor appetite, agitated, tolerating meds Internal Medicine Objective - Results Recent Labs: Laboratory Last Values POC Glucose 57 MG/DL (70 - 105) L 06/04/18 11:49 Triglycerides 137 mg/dL (<150) 06/04/18 05:55 Cholesterol 180 mg/dL (<200) 06/04/18 05:55 LDL Cholesterol Direct 75 mg/dL (75-193) 06/04/18 05:55 HDL Cholesterol 82 mg/dL (23-92) 06/04/18 05:55 - Physical Exam Vitals and I&O: Vital Signs Temp 97.8 F 06/04/18 06:16 Pulse 61 06/04/18 06:16 Resp 20 06/04/18 06:16 BP 123/84 06/04/18 06:16 Pulse Ox 96 06/04/18 06:16 Intake & Output 06/03/18 06/04/18 06/04/18 18:59 06:59 18:59 Intake Total 120 Output Total 1 Balance 119 Weight (lbs) 50.802 kg Intake: Oral 120 Output: Urine/Stool Mix 1 Other: # Voids 1 Weight Source Patient stated Active Medications: Current Medications Acetaminophen (Tylenol) 650 mg PO Q4HR PRN PRN Reason: Mild Pain / Temp above 100 Stop: 08/03/18 00:16 Albuterol Sulfate (Albuterol 2.5mg/3ml Neb Ud) 2.5 mg HHN Q2HRT PRN PRN Reason: Shortness of Breath or Wheeze Stop: 08/03/18 00:24 Calcium/Vitamin D (Oscal W/Vitamin D) 1 tab PO DAILY [facility] Stop: 08/03/18 08:59 Last Admin: 06/04/18 09:00 Dose: 1 tab Divalproex Sodium (Depakote Dr) 500 mg PO BID [facility]; Protocol Stop: 08/03/18 08:59 Last Admin: 06/04/18 08:59 Dose: 500 mg Donepezil HCl (Aricept) 5 mg PO [facility] Stop: 08/03/18 20:59 Famotidine (Pepcid) 20 mg PO DAILY [facility] Stop: 08/03/18 08:59 Last Admin: 06/04/18 08:59 Dose: 20 mg Haloperidol Decanoate (Haldol Dec) 50 mg IM [id number] [facility]; Protocol Stop: 08/02/18 10:59 Last Admin: 06/04/18 03:47 Dose: Not Given Insulin Aspart (Novolog Insulin Sliding Scale) 0 units SUBQ ACHS [facility]; Protocol Stop: 08/03/18 07:29 Last Admin: 06/04/18 12:00 Dose: Not Given Levetiracetam (Keppra) 500 mg PO BID [facility] Stop: 08/03/18 08:59 Last Admin: 06/04/18 08:59 Dose: 500 mg Levofloxacin (Levaquin) 500 mg PO DAILY [facility] Stop: 08/03/18 13:16 Levothyroxine Sodium (Synthroid) 0.05 mg PO QDAC [facility] Stop: 08/03/18 07:29 Last Admin: 06/04/18 06:49 Dose: 0.05 mg Lorazepam (Ativan) 0.5 mg PO Q4HR PRN; Protocol PRN Reason: Anxiety Stop: 07/04/18 00:16 Metformin HCl (Glucophage) 500 mg PO TIDWM [facility] Stop: 08/03/18 07:59 Last Admin: 06/04/18 12:09 Dose: Not Given Olanzapine (Zyprexa) 10 mg PO HS [facility]; Protocol Stop: 08/03/18 20:59 Oxcarbazepine (Trileptal) 300 mg PO BID [facility]; Protocol Stop: 08/03/18 08:59 Last Admin: 06/04/18 08:58 Dose: 300 mg Zolpidem Tartrate (Ambien) 5 mg PO HS PRN PRN Reason: Insomnia Stop: 08/03/18 00:16 General: demented, disheveled, bilateral temporal wasting HEENT: NC/AT, PERRLA, EOMI, thinning hair, poor dentition Neck: Supple, No JVD, No thyromegaly Lungs: CTAB Abdomen: soft, non-tender, globular, non-distended Extremities: excoriation, contracture Neurological: disorganized - Procedures Procedures: Procedures Procedure Code Date BLOOD TRANSFUSION SERVICE 46279 03/29/16 CLOSURE SKIN & SUBCUTANEOUS NEC 86.59 07/02/14 DIAGNOSTIC COLONOSCOPY 04500 09/13/15 DRAINAGE OF STOMACH, ENDO, DIAGN [id number] 09/13/15 EGD BIOPSY SINGLE/MULTIPLE 27773 09/13/15 ELECTROCARDIOGRAM 89.52 10/10/94 EMERGENCY DEPT VISIT 74125 07/04/11 EXCISION OF DUODENUM, ENDO, DIAGN [id number] 09/13/15 GASTRIC INTUBATION TREATMENT 55354 12/28/07 GASTRIC LAVAGE 96.33 12/28/07 INSERT GASTRIC TUBE NEC 96.07 07/26/95 INSERT INDWELLING CATH 57.94 09/16/11 INSERT TEMP BLADDER CATH 27926 09/16/11 INSERTION OF INT FIX INTO L HUMERAL SHAFT, PERC APPROACH [id number] 05/24/15 INSPECTION OF LOWER INTESTINAL TRACT, ENDO [id number] 09/13/15 OXYGEN ENRICHMENT NEC 93.96 10/10/94 REMOV THERAPEUT DEV NEC 97.89 03/25/01 REMOVAL OF INT FIX FROM R KNEE JT, OPEN APPROACH [id number] 04/15/16 REPAIR FACE SKIN, EXTERNAL APPROACH [id number] 04/12/15 REPOSITION RIGHT PATELLA WITH INT FIX, OPEN APPROACH [id number] 03/29/16 RPR F/E/E/N/L/M 2.5 CM/< 45516 04/12/15 RPR F/E/E/N/L/M 2.6-5.0 CM 33540 07/02/14 TETANUS TOXOID ADMINIST 99.38 07/02/14 TRANSFUSE NONAUT RED BLOOD CELLS IN PERIPH VEIN, PERC [id number] 03/29/16 TREAT KNEECAP FRACTURE 01392 03/29/16 UPPER ARM/ELBOW SURGERY 40596 05/24/15 Internal Medicine Assmt/Plan - Assessment Assessment: - Assessment Assessment: ASSESSMENT AND PLAN: Uncontrolled seizure, urinary tract infection, dehydration, diabetes, hypothyroidism, dementia, schizoaffective disorder, anemia, elevated lactic acid, low albumin. - Plan Plan: - Plan Plan: PLAN: Uncontrolled seizure, urinary tract infection, dehydration, diabetes, hypothyroidism, dementia, schizoaffective disorder, anemia, elevated lactic acid, low albumin.
--- NOTE | 2018-06-05 01:24 | Progress Notes ---
DATE: 06/04/2018 PSYCHIATRIC PROGRESS NOTE SUBJECTIVE: Staff was spoken to. The patient is interviewed. Mood is noted to be dysphoric. Coping skills are noted to be very poor. The patient has been having acute mood swings. Paranoia is noted, but the patient denies any command hallucinations. No side effects to the medications are noted. ASSESSMENT: The patient is still psychotic and impulsive. PLAN: To continue the patient with the supportive therapy and followup. JOB# [id number]
[2018-06-05] MEDS: Levothyroxine 0.05 Mg Tab PO SCH (06:41)
[2018-06-05] MEDS: INSULIN ASPART SLIDING SCALE 100 UNITS/ML UNIT SUBQ SCH ×4 (06:42→20:58)
[2018-06-05] MEDS: Calcium Carb/Vit D 500 mg/200 U Tab PO SCH (08:44)
--- NOTE | 2018-06-05 09:47 | Internal Medicine Prog Note ---
Internal Medicine Subjective - Subjective Patient seen and examined:: with staff, chart reviewed Patient is:: awake, verbal, non-interactive, agitated, confused Per staff patient has:: no adverse event, no episodes of fall, poor appetite, agitated, tolerating meds Internal Medicine Objective - Results Recent Labs: Laboratory Last Values POC Glucose 100 MG/DL (70 - 105) 06/05/18 06:29 Triglycerides 137 mg/dL (<150) 06/04/18 05:55 Cholesterol 180 mg/dL (<200) 06/04/18 05:55 LDL Cholesterol Direct 75 mg/dL (75-193) 06/04/18 05:55 HDL Cholesterol 82 mg/dL (23-92) 06/04/18 05:55 - Physical Exam Vitals and I&O: Vital Signs Temp 97.3 F 06/05/18 06:39 Pulse 69 06/05/18 06:39 Resp 18 06/05/18 06:39 BP 116/72 06/05/18 06:39 Pulse Ox 98 06/05/18 06:39 Intake & Output 06/04/18 06/05/18 06/05/18 18:59 06:59 18:59 Intake Total 1100 Balance 1100 Intake: Oral 1100 Other: # Voids 4 # Bowel Movements 0 Active Medications: Current Medications Acetaminophen (Tylenol) 650 mg PO Q4HR PRN PRN Reason: Mild Pain / Temp above 100 Stop: 08/03/18 00:16 Albuterol Sulfate (Albuterol 2.5mg/3ml Neb Ud) 2.5 mg HHN Q2HRT PRN PRN Reason: Shortness of Breath or Wheeze Stop: 08/03/18 00:24 Calcium/Vitamin D (Oscal W/Vitamin D) 1 tab PO DAILY [facility] Stop: 08/03/18 08:59 Last Admin: 06/05/18 08:44 Dose: 1 tab Divalproex Sodium (Depakote Dr) 500 mg PO BID [facility]; Protocol Stop: 08/03/18 08:59 Last Admin: 06/05/18 08:45 Dose: 500 mg Donepezil HCl (Aricept) 5 mg PO HS [facility] Stop: 08/03/18 20:59 Last Admin: 06/04/18 21:08 Dose: 5 mg Famotidine (Pepcid) 20 mg PO DAILY [facility] Stop: 08/03/18 08:59 Last Admin: 06/05/18 08:44 Dose: 20 mg Haloperidol Decanoate (Haldol Dec) 50 mg IM [id number] [facility]; Protocol Stop: 08/02/18 10:59 Last Admin: 06/04/18 03:47 Dose: Not Given Insulin Aspart (Novolog Insulin Sliding Scale) 0 units SUBQ ACHS [facility]; Protocol Stop: 08/03/18 07:29 Last Admin: 06/05/18 06:42 Dose: Not Given Levetiracetam (Keppra) 500 mg PO BID [facility] Stop: 08/03/18 08:59 Last Admin: 06/05/18 08:45 Dose: 500 mg Levofloxacin (Levaquin) 500 mg PO DAILY@1400 [facility] Stop: 08/03/18 13:59 Last Admin: 06/04/18 14:56 Dose: 500 mg Levothyroxine Sodium (Synthroid) 0.05 mg PO QDAC [facility] Stop: 08/03/18 07:29 Last Admin: 06/05/18 06:41 Dose: 0.05 mg Lorazepam (Ativan) 0.5 mg PO Q4HR PRN; Protocol PRN Reason: Anxiety Stop: 07/04/18 00:16 Last Admin: 06/04/18 14:56 Dose: 0.5 mg Metformin HCl (Glucophage) 500 mg PO TIDWM [facility] Stop: 08/03/18 07:59 Last Admin: 06/05/18 08:43 Dose: 500 mg Olanzapine (Zyprexa) 10 mg PO HS [facility]; Protocol Stop: 08/03/18 20:59 Last Admin: 06/04/18 21:08 Dose: 10 mg Oxcarbazepine (Trileptal) 300 mg PO BID [facility]; Protocol Stop: 08/03/18 08:59 Last Admin: 06/05/18 08:44 Dose: 300 mg Zolpidem Tartrate (Ambien) 5 mg PO HS PRN PRN Reason: Insomnia Stop: 08/03/18 00:16 General: demented, disheveled, bilateral temporal wasting HEENT: NC/AT, PERRLA, EOMI, thinning hair, poor dentition Neck: Supple, No JVD, No thyromegaly Lungs: CTAB Abdomen: soft, non-tender, globular, non-distended Extremities: excoriation, contracture Neurological: disorganized - Procedures Procedures: Procedures Procedure Code Date BLOOD TRANSFUSION SERVICE 10672 03/29/16 CLOSURE SKIN & SUBCUTANEOUS NEC 86.59 07/02/14 DIAGNOSTIC COLONOSCOPY 20195 09/13/15 DRAINAGE OF STOMACH, ENDO, DIAGN [id number] 09/13/15 EGD BIOPSY SINGLE/MULTIPLE 02301 09/13/15 ELECTROCARDIOGRAM 89.52 10/10/94 EMERGENCY DEPT VISIT 29028 07/04/11 EXCISION OF DUODENUM, ENDO, DIAGN [id number] 09/13/15 GASTRIC INTUBATION TREATMENT 14922 12/28/07 GASTRIC LAVAGE 96.33 12/28/07 INSERT GASTRIC TUBE NEC 96.07 07/26/95 INSERT INDWELLING CATH 57.94 09/16/11 INSERT TEMP BLADDER CATH 11334 09/16/11 INSERTION OF INT FIX INTO L HUMERAL SHAFT, PERC APPROACH [id number] 05/24/15 INSPECTION OF LOWER INTESTINAL TRACT, ENDO [id number] 09/13/15 OXYGEN ENRICHMENT NEC 93.96 10/10/94 REMOV THERAPEUT DEV NEC 97.89 03/25/01 REMOVAL OF INT FIX FROM R KNEE JT, OPEN APPROACH [id number] 04/15/16 REPAIR FACE SKIN, EXTERNAL APPROACH [id number] 04/12/15 REPOSITION RIGHT PATELLA WITH INT FIX, OPEN APPROACH [id number] 03/29/16 RPR F/E/E/N/L/M 2.5 CM/< 87889 04/12/15 RPR F/E/E/N/L/M 2.6-5.0 CM 44433 07/02/14 TETANUS TOXOID ADMINIST 99.38 07/02/14 TRANSFUSE NONAUT RED BLOOD CELLS IN PERIPH VEIN, PERC [id number] 03/29/16 TREAT KNEECAP FRACTURE 41597 03/29/16 UPPER ARM/ELBOW SURGERY 74073 05/24/15 Internal Medicine Assmt/Plan - Assessment Assessment: - Assessment Assessment: ASSESSMENT AND PLAN: Uncontrolled seizure, urinary tract infection, dehydration, diabetes, hypothyroidism, dementia, schizoaffective disorder, anemia, elevated lactic acid, low albumin. - Plan Plan: - Plan Plan: PLAN: Uncontrolled seizure, urinary tract infection, dehydration, diabetes, hypothyroidism, dementia, schizoaffective disorder, anemia, elevated lactic acid, low albumin. Nutritional Asmnt/Malnutr-PDOC - Dietary Evaluation Malnutrition Findings (Please click <Entered> for more info): Nutritional Asmnt/Malnutrition Start: 06/04/18 13: 28 Text: Status: Complete Freq: Protocol: Document 06/04/18 13:29 [email or web address] (Rec: 06/04/18 13:42 [email or web address]) Nutritional Asmnt/Malnutrition Patient General Information Nutritional Screening High Risk Consult Diagnosis psychosis Pertinent Medical Hx/Surgical Hx seizure, psychosis, UTI, DM, hypothyroidism, dehydration, schizoaffective disorder, anemia Subjective Information Consult recieved for frank score 12. Pt was siting in dining room at time of visit. Pt does not eat much, per family. Lunch tray was seen with at least 50% left. Current Diet Order/ Nutrition Support [facility] soft chopped Pertinent Medications oscal w/ vit d, pepcid, heparin, novolog, glucophage, synthroid Pertinent Labs POC 57 Nutritional Hx/Data Height 1.57 m Height (Calculated Centimeters) 157.5 Current Weight (lbs) 50.802 kg Weight (Calculated Kilograms) 50.8 Weight (Calculated Grams) 48874.3 [place] Body Weight 110 Body Mass Index (BMI) 20.5 Weight Status Approriate GI Symptoms GI Symptoms None Last BM not indicated Difficult in: None Food Allergies No Skin Integrity/Comment: frank 12 no skin problem noted in EMR Estimated Nutritional Goals BEE in Kcals: Using Current wt Calories/Kcals/Kg 25-30 Kcals Calculated 7725-9680 Protein: Using Current wt Protein g/k Protein Calculated 50 Fluid: ml 2419-0998 (1ml/kcal) Nutritional Problem 1. Problem Problem inadequate protein-energy intake Etiology possible poor appetite and confusion Signs/Symptoms: PO intake 25-50% Malnutrition Alert Is there a minimum of two criteria No selected? Query Text:Check all the applicable criteria. A minimum of two criteria are recommended for diagnosis of either severe or non-severe malnutrition. Malnutrition Related to Morbid Obesity Malnutrition related to morbid obesity No Intervention/Recommendation Comments 1. Continue with [facility] soft chopped diet as ordered. Nurse to assist meals as needed. 2. Add ensure TID to increase kcal and protein intake 3. Monitor PO intake, wt, labs and skin integrity 4. F/U as moderate risk in 3-5 days, PO check 06/07 Expected Outcomes/Goals Expected Outcomes/Goals 1. PO intake to meet at least 75% of nutritional needs. 2. wt to remain stable Reviewed by Nicol Eng RD
--- NOTE | 2018-06-05 16:06 | Progress Notes ---
DATE: 06/05/2018 SUBJECTIVE: Staff was spoken to. The patient is interviewed. Mood is noted to be irritable. Affect is constricted. Insight and judgment at this time are noted to be still impaired. Impulse control is noted to be limited. Coping skills are noted to be limited. The patient has been having difficult time to cope with the stress. The patient is isolative and withdrawn at this time. The patient is currently on Depakote and is being closely monitored for her mood swings along with the Zyprexa, which is being given at 10 mg at bedtime. The patient is also on Trileptal 300 mg twice a day. ASSESSMENT: The patient is still having mood swings. PLAN: To continue the patient with the supportive therapy, encouraged the patient to verbalize the concerns rather than to act out. JOB# [id number]
[2018-06-06] MEDS: Levothyroxine 0.05 Mg Tab PO SCH (06:32)
[2018-06-06] MEDS: INSULIN ASPART SLIDING SCALE 100 UNITS/ML UNIT SUBQ SCH ×4 (06:39→21:35)
[2018-06-06] MEDS: Calcium Carb/Vit D 500 mg/200 U Tab PO SCH (08:31)
--- NOTE | 2018-06-06 09:57 | Internal Medicine Prog Note ---
Internal Medicine Subjective - Subjective Patient seen and examined:: with staff, chart reviewed Patient is:: awake, verbal, non-interactive, agitated, confused Per staff patient has:: no adverse event, no episodes of fall, poor appetite, agitated, tolerating meds Internal Medicine Objective - Results Recent Labs: Laboratory Last Values POC Glucose 105 MG/DL (70 - 105) 06/06/18 06:38 Triglycerides 137 mg/dL (<150) 06/04/18 05:55 Cholesterol 180 mg/dL (<200) 06/04/18 05:55 LDL Cholesterol Direct 75 mg/dL (75-193) 06/04/18 05:55 HDL Cholesterol 82 mg/dL (23-92) 06/04/18 05:55 - Physical Exam Vitals and I&O: Vital Signs Temp 97.6 F 06/06/18 06:18 Pulse 78 06/06/18 06:18 Resp 18 06/06/18 06:18 BP 138/76 06/06/18 06:18 Pulse Ox 99 06/06/18 06:18 Intake & Output 06/05/18 06/06/18 06/06/18 18:59 06:59 18:59 Intake Total 1200 420 Balance 1200 420 Intake: Oral 1200 420 Other: # Voids 4 3 # Bowel Movements 1 1 Active Medications: Current Medications Acetaminophen (Tylenol) 650 mg PO Q4HR PRN PRN Reason: Mild Pain / Temp above 100 Stop: 08/03/18 00:16 Albuterol Sulfate (Albuterol 2.5mg/3ml Neb Ud) 2.5 mg HHN Q2HRT PRN PRN Reason: Shortness of Breath or Wheeze Stop: 08/03/18 00:24 Calcium/Vitamin D (Oscal W/Vitamin D) 1 tab PO DAILY [facility] Stop: 08/03/18 08:59 Last Admin: 06/06/18 08:31 Dose: 1 tab Divalproex Sodium (Depakote Dr) 500 mg PO BID [facility]; Protocol Stop: 08/03/18 08:59 Last Admin: 06/06/18 08:31 Dose: 500 mg Donepezil HCl (Aricept) 5 mg PO HS [facility] Stop: 08/03/18 20:59 Last Admin: 06/05/18 20:44 Dose: 5 mg Famotidine (Pepcid) 20 mg PO DAILY [facility] Stop: 08/03/18 08:59 Last Admin: 06/06/18 08:30 Dose: 20 mg Haloperidol Decanoate (Haldol Dec) 50 mg IM [id number] [facility]; Protocol Stop: 08/02/18 10:59 Last Admin: 06/04/18 03:47 Dose: Not Given Insulin Aspart (Novolog Insulin Sliding Scale) 0 units SUBQ ACHS [facility]; Protocol Stop: 08/03/18 07:29 Last Admin: 06/06/18 06:39 Dose: Not Given Levetiracetam (Keppra) 500 mg PO BID [facility] Stop: 08/03/18 08:59 Last Admin: 06/06/18 08:30 Dose: 500 mg Levofloxacin (Levaquin) 500 mg PO DAILY@1400 [facility] Stop: 08/03/18 13:59 Last Admin: 06/05/18 15:00 Dose: 500 mg Levothyroxine Sodium (Synthroid) 0.05 mg PO QDAC [facility] Stop: 08/03/18 07:29 Last Admin: 06/06/18 06:32 Dose: 0.05 mg Lorazepam (Ativan) 0.5 mg PO Q4HR PRN; Protocol PRN Reason: Anxiety Stop: 07/04/18 00:16 Last Admin: 06/06/18 08:31 Dose: 0.5 mg Metformin HCl (Glucophage) 500 mg PO TIDWM [facility] Stop: 08/03/18 07:59 Last Admin: 06/06/18 08:31 Dose: 500 mg Olanzapine (Zyprexa) 10 mg PO HS [facility]; Protocol Stop: 08/03/18 20:59 Last Admin: 06/05/18 20:44 Dose: 10 mg Oxcarbazepine (Trileptal) 300 mg PO BID [facility]; Protocol Stop: 08/03/18 08:59 Last Admin: 06/06/18 08:31 Dose: 300 mg Zolpidem Tartrate (Ambien) 5 mg PO HS PRN PRN Reason: Insomnia Stop: 08/03/18 00:16 General: demented, disheveled, bilateral temporal wasting HEENT: NC/AT, PERRLA, EOMI, thinning hair, poor dentition Neck: Supple, No JVD, No thyromegaly Lungs: CTAB Abdomen: soft, non-tender, globular, non-distended Extremities: excoriation, contracture Neurological: disorganized - Procedures Procedures: Procedures Procedure Code Date BLOOD TRANSFUSION SERVICE 71624 03/29/16 CLOSURE SKIN & SUBCUTANEOUS NEC 86.59 07/02/14 DIAGNOSTIC COLONOSCOPY 98642 09/13/15 DRAINAGE OF STOMACH, ENDO, DIAGN [id number] 09/13/15 EGD BIOPSY SINGLE/MULTIPLE 41466 09/13/15 ELECTROCARDIOGRAM 89.52 10/10/94 EMERGENCY DEPT VISIT 16237 07/04/11 EXCISION OF DUODENUM, ENDO, DIAGN [id number] 09/13/15 GASTRIC INTUBATION TREATMENT 39136 12/28/07 GASTRIC LAVAGE 96.33 12/28/07 INSERT GASTRIC TUBE NEC 96.07 07/26/95 INSERT INDWELLING CATH 57.94 09/16/11 INSERT TEMP BLADDER CATH 09685 09/16/11 INSERTION OF INT FIX INTO L HUMERAL SHAFT, PERC APPROACH [id number] 05/24/15 INSPECTION OF LOWER INTESTINAL TRACT, ENDO [id number] 09/13/15 OXYGEN ENRICHMENT NEC 93.96 10/10/94 REMOV THERAPEUT DEV NEC 97.89 03/25/01 REMOVAL OF INT FIX FROM R KNEE JT, OPEN APPROACH [id number] 04/15/16 REPAIR FACE SKIN, EXTERNAL APPROACH [id number] 04/12/15 REPOSITION RIGHT PATELLA WITH INT FIX, OPEN APPROACH [id number] 03/29/16 RPR F/E/E/N/L/M 2.5 CM/< 26248 04/12/15 RPR F/E/E/N/L/M 2.6-5.0 CM 15093 07/02/14 TETANUS TOXOID ADMINIST 99.38 07/02/14 TRANSFUSE NONAUT RED BLOOD CELLS IN PERIPH VEIN, PERC [id number] 03/29/16 TREAT KNEECAP FRACTURE 47138 03/29/16 UPPER ARM/ELBOW SURGERY 03032 05/24/15 Internal Medicine Assmt/Plan - Assessment Assessment: - Assessment Assessment: ASSESSMENT AND PLAN: Uncontrolled seizure, urinary tract infection, dehydration, diabetes, hypothyroidism, dementia, schizoaffective disorder, anemia, elevated lactic acid, low albumin. - Plan Plan: - Plan Plan: PLAN: Uncontrolled seizure, urinary tract infection, dehydration, diabetes, hypothyroidism, dementia, schizoaffective disorder, anemia, elevated lactic acid, low albumin. Nutritional Asmnt/Malnutr-PDOC - Dietary Evaluation Malnutrition Findings (Please click <Entered> for more info): Nutritional Asmnt/Malnutrition Start: 06/04/18 13: 28 Text: Status: Complete Freq: Protocol: Document 06/04/18 13:29 [email or web address] (Rec: 06/04/18 13:42 [email or web address]) Nutritional Asmnt/Malnutrition Patient General Information Nutritional Screening High Risk Consult Diagnosis psychosis Pertinent Medical Hx/Surgical Hx seizure, psychosis, UTI, DM, hypothyroidism, dehydration, schizoaffective disorder, anemia Subjective Information Consult recieved for frank score 12. Pt was siting in dining room at time of visit. Pt does not eat much, per family. Lunch tray was seen with at least 50% left. Current Diet Order/ Nutrition Support [facility] soft chopped Pertinent Medications oscal w/ vit d, pepcid, heparin, novolog, glucophage, synthroid Pertinent Labs POC 57 Nutritional Hx/Data Height 1.57 m Height (Calculated Centimeters) 157.5 Current Weight (lbs) 50.802 kg Weight (Calculated Kilograms) 50.8 Weight (Calculated Grams) 54305.3 [place] Body Weight 110 Body Mass Index (BMI) 20.5 Weight Status Approriate GI Symptoms GI Symptoms None Last BM not indicated Difficult in: None Food Allergies No Skin Integrity/Comment: frank Will no skin problem noted in EMR Estimated Nutritional Goals BEE in Kcals: Using Current wt Calories/Kcals/Kg 25-30 Kcals Calculated 1216-4264 Protein: Using Current wt Protein g/k Protein Calculated 50 Fluid: ml 7486-2497 (1ml/kcal) Nutritional Problem 1. Problem Problem inadequate protein-energy intake Etiology possible poor appetite and confusion Signs/Symptoms: PO intake 25-50% Malnutrition Alert Is there a minimum of two criteria No selected? Query Text:Check all the applicable criteria. A minimum of two criteria are recommended for diagnosis of either severe or non-severe malnutrition. Malnutrition Related to Morbid Obesity Malnutrition related to morbid obesity No Intervention/Recommendation Comments 1. Continue with [facility] soft chopped diet as ordered. Nurse to assist meals as needed. 2. Add ensure TID to increase kcal and protein intake 3. Monitor PO intake, wt, labs and skin integrity 4. F/U as moderate risk in 3-5 days, PO check 1/14 Expected Outcomes/Goals Expected Outcomes/Goals 1. PO intake to meet at least 75% of nutritional needs. 2. wt to remain stable Reviewed by Nicol Eng RD
--- NOTE | 2018-06-06 21:17 | Consultation ---
DATE OF CONSULTATION: 06/04/2018 REFERRING PHYSICIAN: Katie Dominguez M.D. TYPE OF CONSULTATION: Psychology. HISTORY OF PRESENT ILLNESS: The patient is a 52-year-old female. The patient is a resident of [facility]. This patient is known to this abstract writer from multiple previous hospitalizations. The following is by record review and by the patient's self-report. The patient is being admitted on a 5150 due to being gravely disabled. The patient was initially admitted on the medical unit for seizures and once medically stabilized was transferred to the geropsychiatric unit due to paranoia and mood swings as well as agitated behavior. The patient was selectively mute, when being interviewed. The patient is guarded and suspicious. PAST MEDICAL HISTORY: Please see history and physical by Dr. Russell. PAST PSYCHIATRIC HISTORY: The patient has multiple previous psychiatric hospitalizations and has a history of schizoaffective disorder. The patient is under the care of Dr. Arce at her placement, which is [facility]. SUBSTANCE ABUSE HISTORY: The patient did not answer these questions. PSYCHOSOCIAL HISTORY: The patient is a resident of [facility]. The patient did not answer questions about occupational or educational history or sabianist affiliation. The patient did not answer questions about history of physical or sexual abuse or current legal problems. The patient did not answer questions about family members involved in her care. MENTAL STATUS EXAMINATION: The patient appears to be her stated age. The patient's attitude is guarded and suspicious. Eye contact is poor. Speech is selectively mute but loud at times. Mood is irritable. Affect is constricted. Thought process shows to be confused. The patient answered questions irrelevantly most of the time. The patient apparently is having acute mood swings. There is some evidence of paranoid ideation as well. The patient did not answer questions about experiencing suicidal ideation, plan or intention. The patient's behavior shows intermittent emotional outbursts. Impulse control is inadequate. Concentration is poor. The patient was unable to participate in the memory assessment. Sensorium is alert and oriented to person and place. The patient did not participate in the interpretation of proverbs. Insight is impaired. Judgment is impaired. DIAGNOSTIC IMPRESSION: AXIS I: History of schizoaffective disorder. AXIS II: Deferred. AXIS III: Per Dr. Russell. TREATMENT PLAN: The patient has been seen by Dr. Dominguez for psychiatric evaluation and for the management of the patient's psychotropic medications. We will provide supportive psychotherapy to include reality orientation, differentiation and integration. We will provide de-escalation as well as limit setting. We will provide stress management to assist the patient in increasing her frustration tolerance. We will provide motivational enhancement with the patient to become compliant and stay compliant with all aspects of her care and treatment. We will encourage the patient to be able to demonstrate emotional and self-regulation prior to her discharge. We will provide daily opportunities for the patient to verbally contract for safety. We will continue to provide coping strategies for phase of life issues as well as for chronic severe mental illness. Thank you, Dr. Dominguez for this consult and the opportunity to participate in this patient's care. JOB# [id number] [email or web address]
--- NOTE | 2018-06-06 22:01 | Progress Notes ---
DATE: 06/06/2018 SUBJECTIVE: Staff was spoken to. The patient is interviewed. Mood is noted to be dysphoric. Coping skills are noted to be poor. The patient has been having mood swings. The patient has been tearful and crying at one time and the patient has been having difficult time to cope with the stress. Sleep and appetite at this time are noted to be poor. No side effects to the medications are noted. ASSESSMENT: The patient is still impulsive. PLAN: To continue the patient with the supportive therapy and followup. JOB# [id number]
[2018-06-07] MEDS: INSULIN ASPART SLIDING SCALE 100 UNITS/ML UNIT SUBQ SCH ×4 (06:29→20:55)
[2018-06-07] MEDS: Levothyroxine 0.05 Mg Tab PO SCH (06:29)
[2018-06-07] MEDS: Calcium Carb/Vit D 500 mg/200 U Tab PO SCH (08:58)
--- NOTE | 2018-06-07 16:05 | Internal Medicine Prog Note ---
Internal Medicine Subjective - Subjective Patient seen and examined:: with staff, chart reviewed Patient is:: awake, verbal, non-interactive, agitated, confused Per staff patient has:: no adverse event, no episodes of fall, poor appetite, agitated, tolerating meds Internal Medicine Objective - Results Recent Labs: Laboratory Last Values POC Glucose 129 MG/DL (70 - 105) H 06/07/18 11:55 Triglycerides 137 mg/dL (<150) 06/04/18 05:55 Cholesterol 180 mg/dL (<200) 06/04/18 05:55 LDL Cholesterol Direct 75 mg/dL (75-193) 06/04/18 05:55 HDL Cholesterol 82 mg/dL (23-92) 06/04/18 05:55 - Physical Exam Vitals and I&O: Vital Signs Temp 98.2 F 06/07/18 14:00 Pulse 92 06/07/18 14:00 Resp 20 06/07/18 14:00 BP 148/88 06/07/18 14:00 Pulse Ox 97 06/07/18 14:00 Intake & Output 06/06/18 06/07/18 06/07/18 18:59 06:59 18:59 Intake Total 800 300 Balance 800 300 Intake: Oral 800 300 Other: # Voids 4 3 # Bowel Movements 1 0 Active Medications: Current Medications Acetaminophen (Tylenol) 650 mg PO Q4HR PRN PRN Reason: Mild Pain / Temp above 100 Stop: 08/03/18 00:16 Albuterol Sulfate (Albuterol 2.5mg/3ml Neb Ud) 2.5 mg HHN Q2HRT PRN PRN Reason: Shortness of Breath or Wheeze Stop: 08/03/18 00:24 Calcium/Vitamin D (Oscal W/Vitamin D) 1 tab PO DAILY [facility] Stop: 08/03/18 08:59 Last Admin: 06/07/18 08:58 Dose: 1 tab Divalproex Sodium (Depakote Dr) 500 mg PO BID [facility]; Protocol Stop: 08/03/18 08:59 Last Admin: 06/07/18 08:58 Dose: 500 mg Donepezil HCl (Aricept) 5 mg PO HS [facility] Stop: 08/03/18 20:59 Last Admin: 06/06/18 20:16 Dose: 5 mg Famotidine (Pepcid) 20 mg PO DAILY [facility] Stop: 08/03/18 08:59 Last Admin: 06/07/18 08:58 Dose: 20 mg Haloperidol Decanoate (Haldol Dec) 50 mg IM [id number] [facility]; Protocol Stop: 08/02/18 10:59 Last Admin: 06/04/18 03:47 Dose: Not Given Insulin Aspart (Novolog Insulin Sliding Scale) 0 units SUBQ ACHS [facility]; Protocol Stop: 08/03/18 07:29 Last Admin: 06/07/18 11:03 Dose: Not Given Levetiracetam (Keppra) 500 mg PO BID [facility] Stop: 08/03/18 08:59 Last Admin: 06/07/18 08:58 Dose: 500 mg Levofloxacin (Levaquin) 500 mg PO DAILY@1400 [facility] Stop: 08/03/18 13:59 Last Admin: 06/07/18 13:21 Dose: 500 mg Levothyroxine Sodium (Synthroid) 0.05 mg PO QDAC [facility] Stop: 08/03/18 07:29 Last Admin: 06/07/18 06:29 Dose: 0.05 mg Lorazepam (Ativan) 0.5 mg PO Q4HR PRN; Protocol PRN Reason: Anxiety Stop: 07/04/18 00:16 Last Admin: 06/07/18 13:24 Dose: 0.5 mg Metformin HCl (Glucophage) 500 mg PO TIDWM [facility] Stop: 08/03/18 07:59 Last Admin: 06/07/18 12:21 Dose: 500 mg Olanzapine (Zyprexa) 10 mg PO HS [facility]; Protocol Stop: 08/03/18 20:59 Last Admin: 06/06/18 20:16 Dose: 10 mg Oxcarbazepine (Trileptal) 300 mg PO BID [facility]; Protocol Stop: 08/03/18 08:59 Last Admin: 06/07/18 08:58 Dose: 300 mg Zolpidem Tartrate (Ambien) 5 mg PO HS PRN PRN Reason: Insomnia Stop: 08/03/18 00:16 Last Admin: 06/06/18 20:16 Dose: 5 mg General: demented, disheveled, bilateral temporal wasting HEENT: NC/AT, PERRLA, EOMI, thinning hair, poor dentition Neck: Supple, No JVD, No thyromegaly Lungs: CTAB Abdomen: soft, non-tender, globular, non-distended Extremities: excoriation, contracture Neurological: disorganized - Procedures Procedures: Procedures Procedure Code Date BLOOD TRANSFUSION SERVICE 32754 03/29/16 CLOSURE SKIN & SUBCUTANEOUS NEC 86.59 07/02/14 DIAGNOSTIC COLONOSCOPY 16991 09/13/15 DRAINAGE OF STOMACH, ENDO, DIAGN [id number] 09/13/15 EGD BIOPSY SINGLE/MULTIPLE 39035 09/13/15 ELECTROCARDIOGRAM 89.52 10/10/94 EMERGENCY DEPT VISIT 86079 07/04/11 EXCISION OF DUODENUM, ENDO, DIAGN [id number] 09/13/15 GASTRIC INTUBATION TREATMENT 55992 12/28/07 GASTRIC LAVAGE 96.33 12/28/07 INSERT GASTRIC TUBE NEC 96.07 07/26/95 INSERT INDWELLING CATH 57.94 09/16/11 INSERT TEMP BLADDER CATH 33427 09/16/11 INSERTION OF INT FIX INTO L HUMERAL SHAFT, PERC APPROACH [id number] 05/24/15 INSPECTION OF LOWER INTESTINAL TRACT, ENDO [id number] 09/13/15 OXYGEN ENRICHMENT NEC 93.96 10/10/94 REMOV THERAPEUT DEV NEC 97.89 03/25/01 REMOVAL OF INT FIX FROM R KNEE JT, OPEN APPROACH [id number] 04/15/16 REPAIR FACE SKIN, EXTERNAL APPROACH [id number] 04/12/15 REPOSITION RIGHT PATELLA WITH INT FIX, OPEN APPROACH [id number] 03/29/16 RPR F/E/E/N/L/M 2.5 CM/< 49603 04/12/15 RPR F/E/E/N/L/M 2.6-5.0 CM 57815 07/02/14 TETANUS TOXOID ADMINIST 99.38 07/02/14 TRANSFUSE NONAUT RED BLOOD CELLS IN PERIPH VEIN, PERC [id number] 03/29/16 TREAT KNEECAP FRACTURE 64207 03/29/16 UPPER ARM/ELBOW SURGERY 73938 05/24/15 Internal Medicine Assmt/Plan - Assessment Assessment: - Assessment Assessment: ASSESSMENT AND PLAN: Uncontrolled seizure, urinary tract infection, dehydration, diabetes, hypothyroidism, dementia, schizoaffective disorder, anemia, elevated lactic acid, low albumin. - Plan Plan: - Plan Plan: PLAN: Uncontrolled seizure, urinary tract infection, dehydration, diabetes, hypothyroidism, dementia, schizoaffective disorder, anemia, elevated lactic acid, low albumin. Nutritional Asmnt/Malnutr-PDOC - Dietary Evaluation Malnutrition Findings (Please click <Entered> for more info): Nutritional Asmnt/Malnutrition Start: 06/04/18 13: 28 Text: Status: Complete Freq: Protocol: Document 06/04/18 13:29 [email or web address] (Rec: 06/04/18 13:42 [email or web address]) Nutritional Asmnt/Malnutrition Patient General Information Nutritional Screening High Risk Consult Diagnosis psychosis Pertinent Medical Hx/Surgical Hx seizure, psychosis, UTI, DM, hypothyroidism, dehydration, schizoaffective disorder, anemia Subjective Information Consult recieved for frank score 12. Pt was siting in dining room at time of visit. Pt does not eat much, per family. Lunch tray was seen with at least 50% left. Current Diet Order/ Nutrition Support [facility] soft chopped Pertinent Medications oscal w/ vit d, pepcid, heparin, novolog, glucophage, synthroid Pertinent Labs POC 57 Nutritional Hx/Data Height 1.57 m Height (Calculated Centimeters) 157.5 Current Weight (lbs) 50.802 kg Weight (Calculated Kilograms) 50.8 Weight (Calculated Grams) 68248.3 [place] Body Weight 110 Body Mass Index (BMI) 20.5 Weight Status Approriate GI Symptoms GI Symptoms None Last BM not indicated Difficult in: None Food Allergies No Skin Integrity/Comment: frank 12 no skin problem noted in EMR Estimated Nutritional Goals BEE in Kcals: Using Current wt Calories/Kcals/Kg 25-30 Kcals Calculated 7178-1994 Protein: Using Current wt Protein g/k Protein Calculated 50 Fluid: ml 9938-7192 (1ml/kcal) Nutritional Problem 1. Problem Problem inadequate protein-energy intake Etiology possible poor appetite and confusion Signs/Symptoms: PO intake 25-50% Malnutrition Alert Is there a minimum of two criteria No selected? Query Text:Check all the applicable criteria. A minimum of two criteria are recommended for diagnosis of either severe or non-severe malnutrition. Malnutrition Related to Morbid Obesity Malnutrition related to morbid obesity No Intervention/Recommendation Comments 1. Continue with [facility] soft chopped diet as ordered. Nurse to assist meals as needed. 2. Add ensure TID to increase kcal and protein intake 3. Monitor PO intake, wt, labs and skin integrity 4. F/U as moderate risk in 3-5 days, PO check 06/07 Expected Outcomes/Goals Expected Outcomes/Goals 1. PO intake to meet at least 75% of nutritional needs. 2. wt to remain stable Reviewed by Nicol Eng RD
--- NOTE | 2018-06-08 03:15 | Progress Notes ---
DATE: 06/07/2018 SUBJECTIVE: Staff was spoken to. The patient is interviewed. Mood is noted to be irritable. Affect is constricted. The patient has been having acute mood swings. Insight and judgment at this time are noted to be still impaired. Impulse control noted to be limited. The patient tends to scream and yell. ASSESSMENT: The patient is still having mood swings. PLAN: To continue the patient with the supportive therapy, encouraged the patient to verbalize the concerns rather than to act out. JOB# [id number]
[2018-06-08] MEDS: INSULIN ASPART SLIDING SCALE 100 UNITS/ML UNIT SUBQ SCH ×4 (06:30→20:18)
[2018-06-08] MEDS: Levothyroxine 0.05 Mg Tab PO SCH (06:31)
[2018-06-08] MEDS: Calcium Carb/Vit D 500 mg/200 U Tab PO SCH (08:24)
--- NOTE | 2018-06-08 13:23 | Internal Medicine Prog Note ---
Internal Medicine Subjective - Subjective Service Date: 06/08/18 Patient is:: awake, verbal, non-interactive, agitated, confused Per staff patient has:: no adverse event, no episodes of fall, poor appetite, agitated, tolerating meds Internal Medicine Objective - Results Recent Labs: Laboratory Last Values POC Glucose 90 MG/DL (70 - 105) 06/08/18 11:55 Triglycerides 137 mg/dL (<150) 06/04/18 05:55 Cholesterol 180 mg/dL (<200) 06/04/18 05:55 LDL Cholesterol Direct 75 mg/dL (75-193) 06/04/18 05:55 HDL Cholesterol 82 mg/dL (23-92) 06/04/18 05:55 - Physical Exam Vitals and I&O: Vital Signs Temp 97.1 F 06/08/18 06:38 Pulse 76 06/08/18 06:38 Resp 76 06/08/18 10:28 BP 144/83 06/08/18 06:38 Pulse Ox 96 06/08/18 06:38 Intake & Output 06/07/18 06/08/18 06/08/18 18:59 06:59 18:59 Intake Total 800 120 Output Total 1 Balance 800 119 Intake: Oral 800 120 Output: Urine/Stool Mix 1 Other: # Voids 4 1 # Bowel Movements 0 Active Medications: Current Medications Acetaminophen (Tylenol) 650 mg PO Q4HR PRN PRN Reason: Mild Pain / Temp above 100 Stop: 08/03/18 00:16 Albuterol Sulfate (Albuterol 2.5mg/3ml Neb Ud) 2.5 mg HHN Q2HRT PRN PRN Reason: Shortness of Breath or Wheeze Stop: 08/03/18 00:24 Calcium/Vitamin D (Oscal W/Vitamin D) 1 tab PO DAILY [facility] Stop: 08/03/18 08:59 Last Admin: 06/08/18 08:24 Dose: 1 tab Divalproex Sodium (Depakote Dr) 500 mg PO BID [facility]; Protocol Stop: 08/03/18 08:59 Last Admin: 06/08/18 08:24 Dose: 500 mg Donepezil HCl (Aricept) 5 mg PO HS [facility] Stop: 08/03/18 20:59 Last Admin: 06/07/18 20:55 Dose: 5 mg Famotidine (Pepcid) 20 mg PO DAILY [facility] Stop: 08/03/18 08:59 Last Admin: 06/08/18 08:24 Dose: 20 mg Haloperidol Decanoate (Haldol Dec) 50 mg IM [id number] [facility]; Protocol Stop: 08/02/18 10:59 Last Admin: 06/04/18 03:47 Dose: Not Given Insulin Aspart (Novolog Insulin Sliding Scale) 0 units SUBQ ACHS [facility]; Protocol Stop: 08/03/18 07:29 Last Admin: 06/08/18 11:59 Dose: Not Given Levetiracetam (Keppra) 500 mg PO BID [facility] Stop: 08/03/18 08:59 Last Admin: 06/08/18 08:24 Dose: 500 mg Levofloxacin (Levaquin) 500 mg PO DAILY@1400 [facility] Stop: 08/03/18 13:59 Last Admin: 06/07/18 13:21 Dose: 500 mg Levothyroxine Sodium (Synthroid) 0.05 mg PO QDAC [facility] Stop: 08/03/18 07:29 Last Admin: 06/08/18 06:31 Dose: 0.05 mg Lorazepam (Ativan) 0.5 mg PO Q4HR PRN; Protocol PRN Reason: Anxiety Stop: 07/04/18 00:16 Last Admin: 06/08/18 08:24 Dose: 0.5 mg Metformin HCl (Glucophage) 500 mg PO TIDWM [facility] Stop: 08/03/18 07:59 Last Admin: 06/08/18 11:59 Dose: 500 mg Olanzapine (Zyprexa) 10 mg PO HS [facility]; Protocol Stop: 08/03/18 20:59 Last Admin: 06/07/18 20:55 Dose: 10 mg Oxcarbazepine (Trileptal) 300 mg PO BID [facility]; Protocol Stop: 08/03/18 08:59 Last Admin: 06/08/18 08:24 Dose: 300 mg Zolpidem Tartrate (Ambien) 5 mg PO HS PRN PRN Reason: Insomnia Stop: 08/03/18 00:16 Last Admin: 06/08/18 01:02 Dose: 5 mg General: demented, disheveled, bilateral temporal wasting HEENT: NC/AT, PERRLA, EOMI, thinning hair, poor dentition Neck: Supple, No JVD, No thyromegaly Lungs: CTAB Abdomen: soft, non-tender, globular, non-distended Extremities: excoriation, contracture Neurological: disorganized - Procedures Procedures: Procedures Procedure Code Date BLOOD TRANSFUSION SERVICE 97951 03/29/16 CLOSURE SKIN & SUBCUTANEOUS NEC 86.59 07/02/14 DIAGNOSTIC COLONOSCOPY 33817 09/13/15 DRAINAGE OF STOMACH, ENDO, DIAGN [id number] 09/13/15 EGD BIOPSY SINGLE/MULTIPLE 74455 09/13/15 ELECTROCARDIOGRAM 89.52 10/10/94 EMERGENCY DEPT VISIT 61417 07/04/11 EXCISION OF DUODENUM, ENDO, DIAGN [id number] 09/13/15 GASTRIC INTUBATION TREATMENT 64101 12/28/07 GASTRIC LAVAGE 96.33 12/28/07 INSERT GASTRIC TUBE NEC 96.07 07/26/95 INSERT INDWELLING CATH 57.94 09/16/11 INSERT TEMP BLADDER CATH 27998 09/16/11 INSERTION OF INT FIX INTO L HUMERAL SHAFT, PERC APPROACH [id number] 05/24/15 INSPECTION OF LOWER INTESTINAL TRACT, ENDO [id number] 09/13/15 OXYGEN ENRICHMENT NEC 93.96 10/10/94 REMOV THERAPEUT DEV NEC 97.89 03/25/01 REMOVAL OF INT FIX FROM R KNEE JT, OPEN APPROACH [id number] 04/15/16 REPAIR FACE SKIN, EXTERNAL APPROACH [id number] 04/12/15 REPOSITION RIGHT PATELLA WITH INT FIX, OPEN APPROACH [id number] 03/29/16 RPR F/E/E/N/L/M 2.5 CM/< 21873 04/12/15 RPR F/E/E/N/L/M 2.6-5.0 CM 11278 07/02/14 TETANUS TOXOID ADMINIST 99.38 07/02/14 TRANSFUSE NONAUT RED BLOOD CELLS IN PERIPH VEIN, PERC [id number] 03/29/16 TREAT KNEECAP FRACTURE 26540 03/29/16 UPPER ARM/ELBOW SURGERY 37428 05/24/15 Internal Medicine Assmt/Plan - Assessment Assessment: Uncontrolled seizure, urinary tract infection, dehydration, diabetes, hypothyroidism, dementia, schizoaffective disorder, anemia, elevated lactic acid, low albumin. - Plan Plan: fall precautions continue current plan of care Nutritional Asmnt/Malnutr-PDOC - Dietary Evaluation Malnutrition Findings (Please click <Entered> for more info): Nutritional Asmnt/Malnutrition Start: 06/04/18 13: 28 Text: Status: Complete Freq: Protocol: Document 06/04/18 13:29 [email or web address] (Rec: 06/04/18 13:42 [email or web address]) Nutritional Asmnt/Malnutrition Patient General Information Nutritional Screening High Risk Consult Diagnosis psychosis Pertinent Medical Hx/Surgical Hx seizure, psychosis, UTI, DM, hypothyroidism, dehydration, schizoaffective disorder, anemia Subjective Information Consult recieved for frank score 12. Pt was siting in dining room at time of visit. Pt does not eat much, per family. Lunch tray was seen with at least 50% left. Current Diet Order/ Nutrition Support [facility] soft chopped Pertinent Medications oscal w/ vit d, pepcid, heparin, novolog, glucophage, synthroid Pertinent Labs POC 57 Nutritional Hx/Data Height 5 ft 2 in Height (Calculated Centimeters) 157.5 Current Weight (lbs) 112 lb Weight (Calculated Kilograms) 50.8 Weight (Calculated Grams) 43322.3 [place] Body Weight 110 Body Mass Index (BMI) 20.5 Weight Status Approriate GI Symptoms GI Symptoms None Last BM not indicated Difficult in: None Food Allergies No Skin Integrity/Comment: frank 12 no skin problem noted in EMR Estimated Nutritional Goals BEE in Kcals: Using Current wt Calories/Kcals/Kg 25-30 Kcals Calculated 7187-1666 Protein: Using Current wt Protein g/k Protein Calculated 50 Fluid: ml 5197-0173 (1ml/kcal) Nutritional Problem 1. Problem Problem inadequate protein-energy intake Etiology possible poor appetite and confusion Signs/Symptoms: PO intake 25-50% Malnutrition Alert Is there a minimum of two criteria No selected? Query Text:Check all the applicable criteria. A minimum of two criteria are recommended for diagnosis of either severe or non-severe malnutrition. Malnutrition Related to Morbid Obesity Malnutrition related to morbid obesity No Intervention/Recommendation Comments 1. Continue with [facility] soft chopped diet as ordered. Nurse to assist meals as needed. 2. Add ensure TID to increase kcal and protein intake 3. Monitor PO intake, wt, labs and skin integrity 4. F/U as moderate risk in 3-5 days, PO check 06/07 Expected Outcomes/Goals Expected Outcomes/Goals 1. PO intake to meet at least 75% of nutritional needs. 2. wt to remain stable Reviewed by Nicol Eng RD
--- NOTE | 2018-06-09 00:48 | Progress Notes ---
DATE: 06/07/2018 SUBJECTIVE: The patient is seen and interviewed. Case is discussed with staff. The patient presents as irritable, withdrawn and dismissive towards this provider. The patient continues to have acute mood swings. The staff reports the patient's yelling episodes persist and that impulse control is poor. The patient stated she did not think that this provider was going to be able to help her. OBJECTIVE: Mood irritable. Affect is constricted. Thought process is confused and the patient may be experiencing inner dialogue and seems to be preoccupied with internal stimuli. The patient's mood swings continue. The patient did not answer questions about experiencing hallucinations or delusions. The patient's behavior has been difficult to contain with persistent screaming and yelling episodes. ASSESSMENT AND PLAN: We provided limit setting as well as de-escalation. We encouraged the patient to verbalize her concerns versus acting out. We encouraged the patient to be able to demonstrate emotional and self regulation and mottled the appropriate behavior. We provided reality integration. We provided coping strategies for chronic severe mental illness. Remotivation was given for the patient to become compliant and stay compliant with all aspects of her care and treatment. We will continue to follow up for treatment in 2 to 3 days. JOB# [id number] GARIMA
[2018-06-09] MEDS: INSULIN ASPART SLIDING SCALE 100 UNITS/ML UNIT SUBQ SCH ×4 (06:32→20:36)
[2018-06-09] MEDS: Levothyroxine 0.05 Mg Tab PO SCH (06:33)
--- NOTE | 2018-06-09 07:20 | Progress Notes ---
DATE: 06/08/2018 PSYCHIATRIC PROGRESS NOTE SUBJECTIVE: Staff was spoken to. The patient is interviewed. Mood is noted to be irritable. Affect is constricted. Coping skills are noted to be very poor. Insight and judgment are noted to be still impaired. Impulse control seems to be poor. No side effects to the medications are noted. The patient has been having difficult time to cope with the stress. ASSESSMENT: The patient is still impulsive. PLAN: To continue the patient with the current medications. I encouraged the patient to verbalize the concerns rather than to act out. The patient is still screaming and yelling and has been having difficult time that to cope with the stress. Plan to continue the patient with the supportive therapy, encouraged the patient to verbalize the concerns rather than to act out. JOB# [id number]
[2018-06-09] MEDS: Calcium Carb/Vit D 500 mg/200 U Tab PO SCH (08:33)
--- NOTE | 2018-06-09 16:36 | Internal Medicine Prog Note ---
Internal Medicine Subjective - Subjective Service Date: 06/09/18 Patient is:: awake, verbal, non-interactive, agitated, confused Per staff patient has:: no adverse event, no episodes of fall, poor appetite, agitated, tolerating meds Internal Medicine Objective - Results Recent Labs: Laboratory Last Values POC Glucose 92 MG/DL (70 - 105) 06/09/18 11:45 Triglycerides 137 mg/dL (<150) 06/04/18 05:55 Cholesterol 180 mg/dL (<200) 06/04/18 05:55 LDL Cholesterol Direct 75 mg/dL (75-193) 06/04/18 05:55 HDL Cholesterol 82 mg/dL (23-92) 06/04/18 05:55 - Physical Exam Vitals and I&O: Vital Signs Temp 98.0 F 06/09/18 14:00 Pulse 113 06/09/18 14:00 Resp 17 06/09/18 14:00 BP 125/72 06/09/18 14:00 Pulse Ox 98 06/09/18 14:00 Intake & Output 06/08/18 06/09/18 06/09/18 18:59 06:59 18:59 Intake Total 800 240 Output Total 1 Balance 800 239 Intake: Oral 800 240 Output: Urine/Stool Mix 1 Other: # Voids 3 3 # Bowel Movements 1 1 Stool Characteristics Formed Brown Active Medications: Current Medications Acetaminophen (Tylenol) 650 mg PO Q4HR PRN PRN Reason: Mild Pain / Temp above 100 Stop: 08/03/18 00:16 Albuterol Sulfate (Albuterol 2.5mg/3ml Neb Ud) 2.5 mg HHN Q2HRT PRN PRN Reason: Shortness of Breath or Wheeze Stop: 08/03/18 00:24 Calcium/Vitamin D (Oscal W/Vitamin D) 1 tab PO DAILY [facility] Stop: 08/03/18 08:59 Last Admin: 06/09/18 08:33 Dose: 1 tab Divalproex Sodium (Depakote Dr) 500 mg PO BID [facility]; Protocol Stop: 08/03/18 08:59 Last Admin: 06/09/18 16:19 Dose: 500 mg Donepezil HCl (Aricept) 5 mg PO HS [facility] Stop: 08/03/18 20:59 Last Admin: 06/08/18 20:18 Dose: 5 mg Famotidine (Pepcid) 20 mg PO DAILY [facility] Stop: 08/03/18 08:59 Last Admin: 06/09/18 08:33 Dose: 20 mg Haloperidol Decanoate (Haldol Dec) 50 mg IM [id number] [facility]; Protocol Stop: 08/02/18 10:59 Last Admin: 06/04/18 03:47 Dose: Not Given Insulin Aspart (Novolog Insulin Sliding Scale) 0 units SUBQ ACHS [facility]; Protocol Stop: 08/03/18 07:29 Last Admin: 06/09/18 16:18 Dose: Not Given Levetiracetam (Keppra) 500 mg PO BID [facility] Stop: 08/03/18 08:59 Last Admin: 06/09/18 16:19 Dose: 500 mg Levofloxacin (Levaquin) 500 mg PO DAILY@1400 [facility] Stop: 08/03/18 13:59 Last Admin: 06/09/18 15:23 Dose: 500 mg Levothyroxine Sodium (Synthroid) 0.05 mg PO QDAC [facility] Stop: 08/03/18 07:29 Last Admin: 06/09/18 06:33 Dose: 0.05 mg Lorazepam (Ativan) 0.5 mg PO Q4HR PRN; Protocol PRN Reason: Anxiety Stop: 07/04/18 00:16 Last Admin: 06/08/18 15:15 Dose: 0.5 mg Metformin HCl (Glucophage) 500 mg PO TIDWM [facility] Stop: 08/03/18 07:59 Last Admin: 06/09/18 16:19 Dose: 500 mg Olanzapine (Zyprexa) 10 mg PO HS [facility]; Protocol Stop: 08/03/18 20:59 Last Admin: 06/08/18 20:18 Dose: 10 mg Oxcarbazepine (Trileptal) 300 mg PO BID [facility]; Protocol Stop: 08/03/18 08:59 Last Admin: 06/09/18 16:19 Dose: 300 mg Zolpidem Tartrate (Ambien) 5 mg PO HS PRN PRN Reason: Insomnia Stop: 08/03/18 00:16 Last Admin: 06/08/18 20:18 Dose: 5 mg General: demented, disheveled, bilateral temporal wasting HEENT: NC/AT, PERRLA, EOMI, thinning hair, poor dentition Neck: Supple, No JVD, No thyromegaly Lungs: CTAB Abdomen: soft, non-tender, globular, non-distended Extremities: excoriation, contracture Neurological: disorganized - Procedures Procedures: Procedures Procedure Code Date BLOOD TRANSFUSION SERVICE 06377 03/29/16 CLOSURE SKIN & SUBCUTANEOUS NEC 86.59 07/02/14 DIAGNOSTIC COLONOSCOPY 77896 09/13/15 DRAINAGE OF STOMACH, ENDO, DIAGN [id number] 09/13/15 EGD BIOPSY SINGLE/MULTIPLE 78545 09/13/15 ELECTROCARDIOGRAM 89.52 10/10/94 EMERGENCY DEPT VISIT 61172 07/04/11 EXCISION OF DUODENUM, ENDO, DIAGN [id number] 09/13/15 GASTRIC INTUBATION TREATMENT 31967 12/28/07 GASTRIC LAVAGE 96.33 12/28/07 INSERT GASTRIC TUBE NEC 96.07 07/26/95 INSERT INDWELLING CATH 57.94 09/16/11 INSERT TEMP BLADDER CATH 93091 09/16/11 INSERTION OF INT FIX INTO L HUMERAL SHAFT, PERC APPROACH [id number] 05/24/15 INSPECTION OF LOWER INTESTINAL TRACT, ENDO [id number] 09/13/15 OXYGEN ENRICHMENT NEC 93.96 10/10/94 REMOV THERAPEUT DEV NEC 97.89 03/25/01 REMOVAL OF INT FIX FROM R KNEE JT, OPEN APPROACH [id number] 04/15/16 REPAIR FACE SKIN, EXTERNAL APPROACH [id number] 04/12/15 REPOSITION RIGHT PATELLA WITH INT FIX, OPEN APPROACH [id number] 03/29/16 RPR F/E/E/N/L/M 2.5 CM/< 47735 04/12/15 RPR F/E/E/N/L/M 2.6-5.0 CM 08367 07/02/14 TETANUS TOXOID ADMINIST 99.38 07/02/14 TRANSFUSE NONAUT RED BLOOD CELLS IN PERIPH VEIN, PERC [id number] 03/29/16 TREAT KNEECAP FRACTURE 85100 03/29/16 UPPER ARM/ELBOW SURGERY 10050 05/24/15 Internal Medicine Assmt/Plan - Assessment Assessment: Uncontrolled seizure, urinary tract infection, dehydration, diabetes, hypothyroidism, dementia, schizoaffective disorder, anemia, elevated lactic acid, low albumin. - Plan Plan: fall precautions continue current plan of care Nutritional Asmnt/Malnutr-PDOC - Dietary Evaluation Malnutrition Findings (Please click <Entered> for more info): Nutritional Asmnt/Malnutrition Start: 06/04/18 13: 28 Text: Status: Complete Freq: Protocol: Document 06/04/18 13:29 [email or web address] (Rec: 06/04/18 13:42 [email or web address]) Nutritional Asmnt/Malnutrition Patient General Information Nutritional Screening High Risk Consult Diagnosis psychosis Pertinent Medical Hx/Surgical Hx seizure, psychosis, UTI, DM, hypothyroidism, dehydration, schizoaffective disorder, anemia Subjective Information Consult recieved for frank score 12. Pt was siting in dining room at time of visit. Pt does not eat much, per family. Lunch tray was seen with at least 50% left. Current Diet Order/ Nutrition Support [facility] soft chopped Pertinent Medications oscal w/ vit d, pepcid, heparin, novolog, glucophage, synthroid Pertinent Labs POC 57 Nutritional Hx/Data Height 5 ft 2 in Height (Calculated Centimeters) 157.5 Current Weight (lbs) 112 lb Weight (Calculated Kilograms) 50.8 Weight (Calculated Grams) 79084.3 [place] Body Weight 110 Body Mass Index (BMI) 20.5 Weight Status Approriate GI Symptoms GI Symptoms None Last BM not indicated Difficult in: None Food Allergies No Skin Integrity/Comment: frank 12 no skin problem noted in EMR Estimated Nutritional Goals BEE in Kcals: Using Current wt Calories/Kcals/Kg 25-30 Kcals Calculated 5295-7554 Protein: Using Current wt Protein g/k Protein Calculated 50 Fluid: ml 9860-0313 (1ml/kcal) Nutritional Problem 1. Problem Problem inadequate protein-energy intake Etiology possible poor appetite and confusion Signs/Symptoms: PO intake 25-50% Malnutrition Alert Is there a minimum of two criteria No selected? Query Text:Check all the applicable criteria. A minimum of two criteria are recommended for diagnosis of either severe or non-severe malnutrition. Malnutrition Related to Morbid Obesity Malnutrition related to morbid obesity No Intervention/Recommendation Comments 1. Continue with [facility] soft chopped diet as ordered. Nurse to assist meals as needed. 2. Add ensure TID to increase kcal and protein intake 3. Monitor PO intake, wt, labs and skin integrity 4. F/U as moderate risk in 3-5 days, PO check 06/07 Expected Outcomes/Goals Expected Outcomes/Goals 1. PO intake to meet at least 75% of nutritional needs. 2. wt to remain stable Reviewed by Nicol Eng RD
--- NOTE | 2018-06-09 23:53 | Progress Notes ---
DATE: 06/09/2018 SUBJECTIVE: The patient is seen and is interviewed. The patient is up in her wheelchair in the day room. The patient presents as irritable and guarded and suspicious. Staff reports the patient's impulse control continues to be poor. The patient reports that she does not understand why she has to be in the hospital. OBJECTIVE: Mood is irritable. Affect is constricted. Thought process is confused. The patient denied any suicidal ideation, plan or intention. The patient denies any auditory or visual hallucinations; however, the patient seems to be responding to internal stimuli. Mood fluctuations persist. The patient's behavior has been difficult to redirect and is easily agitated. ASSESSMENT AND PLAN: We provided reality orientation, differentiation and integration. We will provide limit setting and de-escalation for the patient to be able to respond to interventions to reduce her yelling episodes and to be redirected behaviorally. We will continue to provide motivational enhancement for the patient to become compliant, to stay compliant with all aspects of her care and treatment. Patient seems to be gravely disabled. Will follow up 2 to 3 days to continue treatment if the patient is able to demonstrate the capacity to benefit. JOB# [id number] GARIMA
--- NOTE | 2018-06-10 02:11 | Progress Notes ---
DATE: 06/09/2018 PSYCHIATRIC PROGRESS NOTE SUBJECTIVE: Staff was spoken to. The patient is interviewed. Mood is noted to be irritable. Affect is constricted. Insight and judgment at this time are noted to be still impaired. Impulse control is noted to be limited. Coping skills are noted to be limited. The patient has been having difficult time to cope with the stress. No side effects to the medications are noted at this time. ASSESSMENT: The patient is still having the mood swings. PLAN: To continue the patient with the current medications and follow. JOB# [id number]
[2018-06-10] MEDS: Levothyroxine 0.05 Mg Tab PO SCH (06:39)
[2018-06-10] MEDS: INSULIN ASPART SLIDING SCALE 100 UNITS/ML UNIT SUBQ SCH ×4 (06:40→21:21)
[2018-06-10 09:00] LABS: % BASOPHILS 0.7 % (0.0-2.0); % EOSINOPHILS 0.5 % (0.0-5.0); % LYMPHOCYTES 22.4 % (20.0-50.0); % MONOCYTES 10.6 % (2.0-10.0); % NEUTROPHILS 65.8 % (40.0-80.0); HEMATOCRIT 31.8 % (41.0-60); HEMOGLOBIN 10.1 gm/dL (12-16); LYMPHOCYTE ABSOLUTE 1.2 Th/cmm (1.5-3.0); MEAN CELL VOLUME 72.1 fl (81-100); MEAN CORPUSCULAR HEMOGLOBIN 22.8 pg (27.0-31.0); MEAN CORPUSCULAR HGB CONC 31.6 pg (28.0-36.0); MONOCYTE ABSOLUTE 0.6 Th/cmm (0.3-1.0); NEUTROPHILE ABSOLUTE 3.4 Th/cmm (1.8-8.0); PLATELET COUNT 249 Th/cmm (150-400); RED BLOOD COUNT 4.41 Mil/cmm (3.80-5.10); RED CELL DISTRIBUTION WIDTH 15.6 % (11.5-20.0); WHITE BLOOD COUNT 5.2 Th/cmm (4.8-10.8)
[2018-06-10] MEDS: Calcium Carb/Vit D 500 mg/200 U Tab PO SCH (09:07)
[2018-06-10 09:16] LABS: ANION GAP 12.6 (7.0-16.0); BUN - UREA NITROGEN 15 mg/dL (7-25); CALCIUM SERUM 8.9 mg/dL (8.6-10.3); CARBON DIOXIDE 30.3 mEq/L (21.0-31.0); CHLORIDE 98 mEq/L (98-107); CREATININE - SERUM 0.7 mg/dL (0.6-1.2); GFR AFRICAN-AMERICAN > 60.0 ml/min (>90); GFR NON AFRICAN-AMERICAN > 60.0 ml/min; GLUCOSE 110 mg/dL (70-105); POTASSIUM SERUM 3.9 mEq/L (3.5-5.1); SODIUM SERUM 137 mEq/L (136-145)
--- NOTE | 2018-06-10 12:21 | Progress Notes ---
DATE: 06/10/2018 SUBJECTIVE: Staff was spoken to. The patient is interviewed. Mood is noted to be irritable. Affect is constricted. Insight and judgment at this time are very much impaired. Impulse control seems to be poor. Coping skills are also noted to be very poor. The patient has been having difficult time to cope with the stress. The patient has been having problems in coping with the stress. The patient has been isolative and withdrawn at this time. No side effects to the medications are noted. ASSESSMENT: The patient is still psychotic. PLAN: To continue the patient with the supportive therapy and followup. JOB# [id number]
--- NOTE | 2018-06-10 15:13 | Internal Medicine Prog Note ---
Internal Medicine Subjective - Subjective Patient seen and examined:: with staff, chart reviewed Patient is:: awake, verbal, non-interactive, agitated, confused Per staff patient has:: no adverse event, no episodes of fall, poor appetite, agitated, tolerating meds Internal Medicine Objective - Results Result Diagrams: 06/10/18 08:16 06/10/18 08:16 Recent Labs: Laboratory Last Values WBC 5.2 Th/cmm (4.8-10.8) 06/10/18 08:16 RBC 4.41 Mil/cmm (3.80-5.10) 06/10/18 08:16 Hgb 10.1 gm/dL (12-16) L 06/10/18 08:16 Hct 31.8 % (41.0-60) L 06/10/18 08:16 MCV 72.1 fl (81-100) L 06/10/18 08:16 MCH 22.8 pg (27.0-31.0) L 06/10/18 08:16 MCHC Differential 31.6 pg (28.0-36.0) 06/10/18 08:16 RDW 15.6 % (11.5-20.0) 06/10/18 08:16 Plt Count 249 Th/cmm (150-400) 06/10/18 08:16 MPV 7.0 fl 06/10/18 08:16 Neutrophils % 65.8 % (40.0-80.0) 06/10/18 08:16 Lymphocytes % 22.4 % (20.0-50.0) 06/10/18 08:16 Monocytes % 10.6 % (2.0-10.0) H 06/10/18 08:16 Eosinophils % 0.5 % (0.0-5.0) 06/10/18 08:16 Basophils % 0.7 % (0.0-2.0) 06/10/18 08:16 Sodium 137 mEq/L (136-145) 06/10/18 08:16 Potassium 3.9 mEq/L (3.5-5.1) 06/10/18 08:16 Chloride 98 mEq/L (98-107) 06/10/18 08:16 Carbon Dioxide 30.3 mEq/L (21.0-31.0) 06/10/18 08:16 Anion Gap 12.6 (7.0-16.0) 06/10/18 08:16 BUN 15 mg/dL (7-25) 06/10/18 08:16 Creatinine 0.7 mg/dL (0.6-1.2) 06/10/18 08:16 Est GFR ( Amer) > 60.0 ml/min (>90) 06/10/18 08:16 Est GFR (Non-Af Amer) > 60.0 ml/min 06/10/18 08:16 BUN/Creatinine Ratio 21.4 06/10/18 08:16 Glucose 110 mg/dL (70-105) H 06/10/18 08:16 POC Glucose 117 MG/DL (70 - 105) H 06/10/18 11:24 Calcium 8.9 mg/dL (8.6-10.3) 06/10/18 08:16 Triglycerides 137 mg/dL (<150) 06/04/18 05:55 Cholesterol 180 mg/dL (<200) 06/04/18 05:55 LDL Cholesterol Direct 75 mg/dL (75-193) 06/04/18 05:55 HDL Cholesterol 82 mg/dL (23-92) 06/04/18 05:55 - Physical Exam Vitals and I&O: Vital Signs Temp 97.2 F 06/10/18 06:02 Pulse 71 06/10/18 06:02 Resp 18 06/10/18 06:02 BP 125/82 06/10/18 06:02 Pulse Ox 98 06/10/18 06:02 Intake & Output 06/09/18 06/10/18 06/10/18 18:59 06:59 18:59 Intake Total 1200 120 Balance 1200 120 Intake: Oral 1200 120 Other: # Voids 4 3 # Bowel Movements 2 Stool Characteristics Formed Brown Active Medications: Current Medications Acetaminophen (Tylenol) 650 mg PO Q4HR PRN PRN Reason: Mild Pain / Temp above 100 Stop: 08/03/18 00:16 Albuterol Sulfate (Albuterol 2.5mg/3ml Neb Ud) 2.5 mg HHN Q2HRT PRN PRN Reason: Shortness of Breath or Wheeze Stop: 08/03/18 00:24 Calcium/Vitamin D (Oscal W/Vitamin D) 1 tab PO DAILY [facility] Stop: 08/03/18 08:59 Last Admin: 06/10/18 09:07 Dose: 1 tab Divalproex Sodium (Depakote Dr) 500 mg PO BID [facility]; Protocol Stop: 08/03/18 08:59 Last Admin: 06/10/18 09:07 Dose: 500 mg Donepezil HCl (Aricept) 5 mg PO HS [facility] Stop: 08/03/18 20:59 Last Admin: 06/09/18 20:35 Dose: 5 mg Famotidine (Pepcid) 20 mg PO DAILY [facility] Stop: 08/03/18 08:59 Last Admin: 06/10/18 09:06 Dose: 20 mg Haloperidol Decanoate (Haldol Dec) 50 mg IM [id number] [facility]; Protocol Stop: 08/02/18 10:59 Last Admin: 06/04/18 03:47 Dose: Not Given Insulin Aspart (Novolog Insulin Sliding Scale) 0 units SUBQ ACHS [facility]; Protocol Stop: 08/03/18 07:29 Last Admin: 06/10/18 11:44 Dose: Not Given Levetiracetam (Keppra) 500 mg PO BID [facility] Stop: 08/03/18 08:59 Last Admin: 06/10/18 09:07 Dose: 500 mg Levofloxacin (Levaquin) 500 mg PO DAILY@1400 [facility] Stop: 06/11/18 13:59 Last Admin: 06/10/18 13:06 Dose: 500 mg Levothyroxine Sodium (Synthroid) 0.05 mg PO QDAC [facility] Stop: 08/03/18 07:29 Last Admin: 06/10/18 06:39 Dose: 0.05 mg Lorazepam (Ativan) 0.5 mg PO Q4HR PRN; Protocol PRN Reason: Anxiety Stop: 07/04/18 00:16 Last Admin: 06/08/18 15:15 Dose: 0.5 mg Metformin HCl (Glucophage) 500 mg PO TIDWM [facility] Stop: 08/03/18 07:59 Last Admin: 06/10/18 12:57 Dose: 500 mg Olanzapine (Zyprexa) 10 mg PO HS [facility]; Protocol Stop: 08/03/18 20:59 Last Admin: 06/09/18 20:35 Dose: 10 mg Oxcarbazepine (Trileptal) 300 mg PO BID [facility]; Protocol Stop: 08/03/18 08:59 Last Admin: 06/10/18 09:07 Dose: 300 mg Zolpidem Tartrate (Ambien) 5 mg PO HS PRN PRN Reason: Insomnia Stop: 08/03/18 00:16 Last Admin: 06/09/18 20:35 Dose: 5 mg General: demented, disheveled, bilateral temporal wasting HEENT: NC/AT, PERRLA, EOMI, thinning hair, poor dentition Neck: Supple, No JVD, No thyromegaly Lungs: CTAB Abdomen: soft, non-tender, globular, non-distended Extremities: excoriation, contracture Neurological: disorganized - Procedures Procedures: Procedures Procedure Code Date BLOOD TRANSFUSION SERVICE 56891 03/29/16 CLOSURE SKIN & SUBCUTANEOUS NEC 86.59 07/02/14 DIAGNOSTIC COLONOSCOPY 06634 09/13/15 DRAINAGE OF STOMACH, ENDO, DIAGN [id number] 09/13/15 EGD BIOPSY SINGLE/MULTIPLE 58313 09/13/15 ELECTROCARDIOGRAM 89.52 10/10/94 EMERGENCY DEPT VISIT 80014 07/04/11 EXCISION OF DUODENUM, ENDO, DIAGN [id number] 09/13/15 GASTRIC INTUBATION TREATMENT 37319 12/28/07 GASTRIC LAVAGE 96.33 12/28/07 INSERT GASTRIC TUBE NEC 96.07 07/26/95 INSERT INDWELLING CATH 57.94 09/16/11 INSERT TEMP BLADDER CATH 64308 09/16/11 INSERTION OF INT FIX INTO L HUMERAL SHAFT, PERC APPROACH [id number] 05/24/15 INSPECTION OF LOWER INTESTINAL TRACT, ENDO [id number] 09/13/15 OXYGEN ENRICHMENT NEC 93.96 10/10/94 REMOV THERAPEUT DEV NEC 97.89 03/25/01 REMOVAL OF INT FIX FROM R KNEE JT, OPEN APPROACH [id number] 04/15/16 REPAIR FACE SKIN, EXTERNAL APPROACH [id number] 04/12/15 REPOSITION RIGHT PATELLA WITH INT FIX, OPEN APPROACH [id number] 03/29/16 RPR F/E/E/N/L/M 2.5 CM/< 79731 04/12/15 RPR F/E/E/N/L/M 2.6-5.0 CM 98496 07/02/14 TETANUS TOXOID ADMINIST 99.38 07/02/14 TRANSFUSE NONAUT RED BLOOD CELLS IN PERIPH VEIN, PERC 78544D8 03/29/16 TREAT KNEECAP FRACTURE 93665 03/29/16 UPPER ARM/ELBOW SURGERY 13134 05/24/15 Internal Medicine Assmt/Plan - Assessment Assessment: - Assessment Assessment: ASSESSMENT AND PLAN: Uncontrolled seizure, urinary tract infection, dehydration, diabetes, hypothyroidism, dementia, schizoaffective disorder, anemia, elevated lactic acid, low albumin. - Plan Plan: - Plan Plan: PLAN: Uncontrolled seizure, urinary tract infection, dehydration, diabetes, hypothyroidism, dementia, schizoaffective disorder, anemia, elevated lactic acid, low albumin. Nutritional Asmnt/Malnutr-PDOC - Dietary Evaluation Malnutrition Findings (Please click <Entered> for more info): Nutritional Asmnt/Malnutrition Start: 06/04/18 13: 28 Text: Status: Complete Freq: Protocol: Document 06/04/18 13:29 [email or web address] (Rec: 06/04/18 13:42 [email or web address]) Nutritional Asmnt/Malnutrition Patient General Information Nutritional Screening High Risk Consult Diagnosis psychosis Pertinent Medical Hx/Surgical Hx seizure, psychosis, UTI, DM, hypothyroidism, dehydration, schizoaffective disorder, anemia Subjective Information Consult recieved for frank score 12. Pt was siting in dining room at time of visit. Pt does not eat much, per family. Lunch tray was seen with at least 50% left. Current Diet Order/ Nutrition Support [facility] soft chopped Pertinent Medications oscal w/ vit d, pepcid, heparin, novolog, glucophage, synthroid Pertinent Labs POC 57 Nutritional Hx/Data Height 1.57 m Height (Calculated Centimeters) 157.5 Current Weight (lbs) 50.802 kg Weight (Calculated Kilograms) 50.8 Weight (Calculated Grams) 29744.3 [place] Body Weight 110 Body Mass Index (BMI) 20.5 Weight Status Approriate GI Symptoms GI Symptoms None Last BM not indicated Difficult in: None Food Allergies No Skin Integrity/Comment: frank 12 no skin problem noted in EMR Estimated Nutritional Goals BEE in Kcals: Using Current wt Calories/Kcals/Kg 25-30 Kcals Calculated 9677-5669 Protein: Using Current wt Protein g/k Protein Calculated 50 Fluid: ml 3325-2529 (1ml/kcal) Nutritional Problem 1. Problem Problem inadequate protein-energy intake Etiology possible poor appetite and confusion Signs/Symptoms: PO intake 25-50% Malnutrition Alert Is there a minimum of two criteria No selected? Query Text:Check all the applicable criteria. A minimum of two criteria are recommended for diagnosis of either severe or non-severe malnutrition. Malnutrition Related to Morbid Obesity Malnutrition related to morbid obesity No Intervention/Recommendation Comments 1. Continue with [facility] soft chopped diet as ordered. Nurse to assist meals as needed. 2. Add ensure TID to increase kcal and protein intake 3. Monitor PO intake, wt, labs and skin integrity 4. F/U as moderate risk in 3-5 days, PO check 06/07 Expected Outcomes/Goals Expected Outcomes/Goals 1. PO intake to meet at least 75% of nutritional needs. 2. wt to remain stable Reviewed by Nicol Eng RD
[2018-06-11] MEDS: Levothyroxine 0.05 Mg Tab PO SCH (06:41)
[2018-06-11] MEDS: INSULIN ASPART SLIDING SCALE 100 UNITS/ML UNIT SUBQ SCH ×2 (06:50→11:39)
[2018-06-11] MEDS: Calcium Carb/Vit D 500 mg/200 U Tab PO SCH (09:39)
--- NOTE | 2018-06-11 13:10 | Internal Medicine Prog Note ---
Internal Medicine Subjective - Subjective Patient seen and examined:: with staff, chart reviewed Patient is:: awake, verbal, non-interactive, agitated, confused Per staff patient has:: no adverse event, no episodes of fall, poor appetite, agitated, tolerating meds Internal Medicine Objective - Results Result Diagrams: 06/10/18 08:16 06/10/18 08:16 Recent Labs: Laboratory Last Values WBC 5.2 Th/cmm (4.8-10.8) 06/10/18 08:16 RBC 4.41 Mil/cmm (3.80-5.10) 06/10/18 08:16 Hgb 10.1 gm/dL (12-16) L 06/10/18 08:16 Hct 31.8 % (41.0-60) L 06/10/18 08:16 MCV 72.1 fl (81-100) L 06/10/18 08:16 MCH 22.8 pg (27.0-31.0) L 06/10/18 08:16 MCHC Differential 31.6 pg (28.0-36.0) 06/10/18 08:16 RDW 15.6 % (11.5-20.0) 06/10/18 08:16 Plt Count 249 Th/cmm (150-400) 06/10/18 08:16 MPV 7.0 fl 06/10/18 08:16 Neutrophils % 65.8 % (40.0-80.0) 06/10/18 08:16 Lymphocytes % 22.4 % (20.0-50.0) 06/10/18 08:16 Monocytes % 10.6 % (2.0-10.0) H 06/10/18 08:16 Eosinophils % 0.5 % (0.0-5.0) 06/10/18 08:16 Basophils % 0.7 % (0.0-2.0) 06/10/18 08:16 Sodium 137 mEq/L (136-145) 06/10/18 08:16 Potassium 3.9 mEq/L (3.5-5.1) 06/10/18 08:16 Chloride 98 mEq/L (98-107) 06/10/18 08:16 Carbon Dioxide 30.3 mEq/L (21.0-31.0) 06/10/18 08:16 Anion Gap 12.6 (7.0-16.0) 06/10/18 08:16 BUN 15 mg/dL (7-25) 06/10/18 08:16 Creatinine 0.7 mg/dL (0.6-1.2) 06/10/18 08:16 Est GFR ( Amer) > 60.0 ml/min (>90) 06/10/18 08:16 Est GFR (Non-Af Amer) > 60.0 ml/min 06/10/18 08:16 BUN/Creatinine Ratio 21.4 06/10/18 08:16 Glucose 110 mg/dL (70-105) H 06/10/18 08:16 POC Glucose 95 MG/DL (70 - 105) 06/11/18 11:32 Calcium 8.9 mg/dL (8.6-10.3) 06/10/18 08:16 Triglycerides 137 mg/dL (<150) 06/04/18 05:55 Cholesterol 180 mg/dL (<200) 06/04/18 05:55 LDL Cholesterol Direct 75 mg/dL (75-193) 06/04/18 05:55 HDL Cholesterol 82 mg/dL (23-92) 06/04/18 05:55 - Physical Exam Vitals and I&O: Vital Signs Temp 97.5 F 06/11/18 06:26 Pulse 63 06/11/18 06:26 Resp 18 06/11/18 10:14 BP 124/88 06/11/18 06:26 Pulse Ox 99 06/11/18 06:26 Intake & Output 06/10/18 06/11/18 06/11/18 18:59 06:59 18:59 Intake Total 800 120 Balance 800 120 Intake: Oral 800 120 Other: # Voids 4 3 # Bowel Movements 1 Stool Characteristics Formed Formed Brown Brown Active Medications: Current Medications Acetaminophen (Tylenol) 650 mg PO Q4HR PRN PRN Reason: Mild Pain / Temp above 100 Stop: 08/03/18 00:16 Albuterol Sulfate (Albuterol 2.5mg/3ml Neb Ud) 2.5 mg HHN Q2HRT PRN PRN Reason: Shortness of Breath or Wheeze Stop: 08/03/18 00:24 Calcium/Vitamin D (Oscal W/Vitamin D) 1 tab PO DAILY DIANA Stop: 08/03/18 08:59 Last Admin: 06/11/18 09:39 Dose: 1 tab Divalproex Sodium (Depakote Dr) 500 mg PO BID [facility]; Protocol Stop: 08/03/18 08:59 Last Admin: 06/11/18 09:39 Dose: 500 mg Donepezil HCl (Aricept) 5 mg PO HS [facility] Stop: 08/03/18 20:59 Last Admin: 06/10/18 21:21 Dose: 5 mg Famotidine (Pepcid) 20 mg PO DAILY DIANA Stop: 08/03/18 08:59 Last Admin: 06/11/18 09:39 Dose: 20 mg Haloperidol Decanoate (Haldol Dec) 50 mg IM [id number] [facility]; Protocol Stop: 08/02/18 10:59 Last Admin: 06/04/18 03:47 Dose: Not Given Insulin Aspart (Novolog Insulin Sliding Scale) 0 units SUBQ ACHS [facility]; Protocol Stop: 08/03/18 07:29 Last Admin: 06/11/18 11:39 Dose: Not Given Levetiracetam (Keppra) 500 mg PO BID [facility] Stop: 08/03/18 08:59 Last Admin: 06/11/18 09:39 Dose: 500 mg Levofloxacin (Levaquin) 500 mg PO DAILY@1400 [facility] Stop: 06/11/18 13:59 Last Admin: 06/10/18 13:06 Dose: 500 mg Levothyroxine Sodium (Synthroid) 0.05 mg PO QDAC [facility] Stop: 08/03/18 07:29 Last Admin: 06/11/18 06:41 Dose: 0.05 mg Lorazepam (Ativan) 0.5 mg PO Q4HR PRN; Protocol PRN Reason: Anxiety Stop: 07/04/18 00:16 Last Admin: 06/08/18 15:15 Dose: 0.5 mg Metformin HCl (Glucophage) 500 mg PO TIDWM [facility] Stop: 08/03/18 07:59 Last Admin: 06/11/18 12:00 Dose: Not Given Olanzapine (Zyprexa) 10 mg PO HS [facility]; Protocol Stop: 08/03/18 20:59 Last Admin: 06/10/18 21:21 Dose: 10 mg Oxcarbazepine (Trileptal) 300 mg PO BID [facility]; Protocol Stop: 08/03/18 08:59 Last Admin: 06/11/18 09:39 Dose: 300 mg Zolpidem Tartrate (Ambien) 5 mg PO HS PRN PRN Reason: Insomnia Stop: 08/03/18 00:16 Last Admin: 06/09/18 20:35 Dose: 5 mg General: demented, disheveled, bilateral temporal wasting HEENT: NC/AT, PERRLA, EOMI, thinning hair, poor dentition Neck: Supple, No JVD, No thyromegaly Lungs: CTAB Abdomen: soft, non-tender, globular, non-distended Extremities: excoriation, contracture Neurological: disorganized - Procedures Procedures: Procedures Procedure Code Date BLOOD TRANSFUSION SERVICE 26781 03/29/16 CLOSURE SKIN & SUBCUTANEOUS NEC 86.59 07/02/14 DIAGNOSTIC COLONOSCOPY 95278 09/13/15 DRAINAGE OF STOMACH, ENDO, DIAGN [id number] 09/13/15 EGD BIOPSY SINGLE/MULTIPLE 08030 09/13/15 ELECTROCARDIOGRAM 89.52 10/10/94 EMERGENCY DEPT VISIT 32115 07/04/11 EXCISION OF DUODENUM, ENDO, DIAGN [id number] 09/13/15 GASTRIC INTUBATION TREATMENT 29719 12/28/07 GASTRIC LAVAGE 96.33 12/28/07 INSERT GASTRIC TUBE NEC 96.07 07/26/95 INSERT INDWELLING CATH 57.94 09/16/11 INSERT TEMP BLADDER CATH 21575 09/16/11 INSERTION OF INT FIX INTO L HUMERAL SHAFT, PERC APPROACH [id number] 05/24/15 INSPECTION OF LOWER INTESTINAL TRACT, ENDO [id number] 09/13/15 OXYGEN ENRICHMENT NEC 93.96 10/10/94 REMOV THERAPEUT DEV NEC 97.89 03/25/01 REMOVAL OF INT FIX FROM R KNEE JT, OPEN APPROACH [id number] 04/15/16 REPAIR FACE SKIN, EXTERNAL APPROACH [id number] 04/12/15 REPOSITION RIGHT PATELLA WITH INT FIX, OPEN APPROACH [id number] 03/29/16 RPR F/E/E/N/L/M 2.5 CM/< 15790 04/12/15 RPR F/E/E/N/L/M 2.6-5.0 [place] [address] 07/02/14 TETANUS TOXOID ADMINIST 99.38 07/02/14 TRANSFUSE NONAUT RED BLOOD CELLS IN PERIPH VEIN, [facility] [id number] 03/29/16 TREAT KNEECAP FRACTURE 86000 03/29/16 UPPER ARM/ELBOW SURGERY 68976 05/24/15 Internal Medicine Assmt/Plan - Assessment Assessment: - Assessment Assessment: ASSESSMENT AND PLAN: Uncontrolled seizure, urinary tract infection, dehydration, diabetes, hypothyroidism, dementia, schizoaffective disorder, anemia, elevated lactic acid, low albumin. - Plan Plan: - Plan Plan: PLAN: Uncontrolled seizure, urinary tract infection, dehydration, diabetes, hypothyroidism, dementia, schizoaffective disorder, anemia, elevated lactic acid, low albumin. Nutritional Asmnt/Malnutr-PDOC - Dietary Evaluation Malnutrition Findings (Please click <Entered> for more info): Nutritional Asmnt/Malnutrition Start: 06/04/18 13: 28 Text: Status: Complete Freq: Protocol: Document 06/04/18 13:29 [email or web address] (Rec: 06/04/18 13:42 [email or web address]) Nutritional Asmnt/Malnutrition Patient General Information Nutritional Screening High Risk Consult Diagnosis psychosis Pertinent Medical Hx/Surgical Hx seizure, psychosis, UTI, DM, hypothyroidism, dehydration, schizoaffective disorder, anemia Subjective Information Consult recieved for frank score 12. Pt was siting in dining room at time of visit. Pt does not eat much, per family. Lunch tray was seen with at least 50% left. Current Diet Order/ Nutrition Support [facility] soft chopped Pertinent Medications oscal w/ vit d, pepcid, heparin, novolog, glucophage, synthroid Pertinent Labs POC 57 Nutritional Hx/Data Height 1.57 m Height (Calculated Centimeters) 157.5 Current Weight (lbs) 50.802 kg Weight (Calculated Kilograms) 50.8 Weight (Calculated Grams) 16669.3 [place] Body Weight 110 Body Mass Index (BMI) 20.5 Weight Status Approriate GI Symptoms GI Symptoms None Last BM not indicated Difficult in: None Food Allergies No Skin Integrity/Comment: frank 12 no skin problem noted in EMR Estimated Nutritional Goals BEE in Kcals: Using Current wt Calories/Kcals/Kg 25-30 Kcals Calculated 1025-6939 Protein: Using Current wt Protein g/k Protein Calculated 50 Fluid: ml 7451-7397 (1ml/kcal) Nutritional Problem 1. Problem Problem inadequate protein-energy intake Etiology possible poor appetite and confusion Signs/Symptoms: PO intake 25-50% Malnutrition Alert Is there a minimum of two criteria No selected? Query Text:Check all the applicable criteria. A minimum of two criteria are recommended for diagnosis of either severe or non-severe malnutrition. Malnutrition Related to Morbid Obesity Malnutrition related to morbid obesity No Intervention/Recommendation Comments 1. Continue with [facility] soft chopped diet as ordered. Nurse to assist meals as needed. 2. Add ensure TID to increase kcal and protein intake 3. Monitor PO intake, wt, labs and skin integrity 4. F/U as moderate risk in 3-5 days, PO check 06/07 Expected Outcomes/Goals Expected Outcomes/Goals 1. PO intake to meet at least 75% of nutritional needs. 2. wt to remain stable Reviewed by Nicol Eng RD
--- NOTE | 2018-06-11 19:52 | Discharge Summary ---
DATE OF DISCHARGE: 06/11/2018 IDENTIFYING DATA: The patient is a 52-year-old woman, resident of a [facility]. JUSTIFICATION OF HOSPITALIZATION: The patient is admitted for being gravely disabled and 5150. CHIEF COMPLAINT: "I don't know." DIAGNOSES AT THE TIME OF ADMISSION: AXIS I: Schizoaffective disorder. AXIS II: None. AXIS III: Medical diagnosis, as per Dr. Russell. HISTORY OF PRESENT ILLNESS: Please refer to the 06/03/2018 dictation done by me. Physical examination was done by Dr. Russell and the patient has been treated for diabetes, hypothyroidism, and UTI. HOSPITAL COURSE AND RESPONSE TO TREATMENT: The patient has been observed on inpatient unit, provided with supportive psychotherapy. The patient has been continued on Depakote and that was given 500 mg twice a day and the patient has been given the haloperidol 50 mg IM q.2 weeks. The patient is also on olanzapine 10 mg at bedtime, oxcarbazepine 300 mg b.i.d. With these medications, the patient has been observed and was doing fairly well and hence the patient was discharged with recommendation that she is going to be seeking treatment on an outpatient basis. MENTAL STATUS EXAMINATION: At the time of the discharge, the patient noted to be anxious. Affect is appropriate. Insight and judgment are noted to be improving. Impulse control is noted to be fair. Coping skills are also noted to be fair. No side effects to the medications are noted. The patient has been able to verbalize the concerns rather than to act out at the time of the discharge. CONDITION: At the time of discharge is noted to be stable. [facility]# [id number]
--- NOTE | 2018-06-12 18:13 | Discharge Summary ---
DATE OF DISCHARGE: 06/11/2018 HOSPITAL COURSE: The patient is seen and interviewed. Staff report the patient has been less intrusive and is demonstrating some impulse control. The patient has been provided with supportive psychotherapy, which included reality orientation, differentiation and integration. According to the record, the patient is being continued on Depakote at 500 mg twice a day and olanzapine 10 mg at bedtime as well as oxcarbazepine 300 mg b.i.d. according to the attending psychiatrist and the patient is returning to her placement. OBJECTIVE: Mood guarded. Affect congruent. Thought process, continues to be confused. The patient denied any hallucinations or delusions. Impulse control has improved. The patient's behavior is less intrusive and has been compliant with her care and treatment. The patient is able to demonstrate emotional and self-regulation. ASSESSMENT AND PLAN: The patient is being discharged and returning to her placement. The patient will be followed by Psychiatry and Psychology there. The patient has been compliant with her treatment regimen. We provided review of coping strategies for chronic severe mental illness as well as for phase of life issues. [facility]# [id number] GARIMA
== END 2018-06-11 17:30 | DRG 885 ==
LOC: GERO 21:03
DX: F25.9 Schizoaffective disorder, unspecified (principal); N39.0 Urinary tract infection, site not specified; E87.2 Acidosis; R56.9 Unspecified convulsions; E86.0 Dehydration; E11.9 Type 2 diabetes mellitus without complications; E03.9 Hypothyroidism, unspecified; F03.90 Unspecified dementia, unspecified severity, without behavioral disturbance, psychotic disturbance, mood disturbance, and anxiety; D64.9 Anemia, unspecified; Z88.0 Allergy status to penicillin; Z66 Do not resuscitate
CPT/HCPCS: 36415-UA; 80048-TC; 80061-TC; 82948-90; 83036-90; 85025-TC; 90899; G0410; J1631; J1644; J1815; Z7610